=== PATIENT | female | born 1980 | race Hispanic/Latino ===

== ENCOUNTER → 2016-07-26 | Outpatient (CLI) | payer OTHER ==
[~2016-07-26] MED LIST: BUTA1TAB46 PO; CYCL10TA9 PO; DOCU100C37 PO; FENO54TA PO; HYDR-3714 PO; HYDR-3816 PO; HYDR25CA92 PO; HYOS0.1216 PO; HYOS0.1217 SL; IBP800T PO; IBUP-1773 PO; IBUP50DR PO; KETO10TA77 PO; LEVO150T6 PO; LEVO200T39 PO; LISI10TA2 PO; MELO7.5T46 PO; METF500T4 PO; METO-270 PO; NAPR500T3 PO; NITR-65 PO; ONDA-42 SL; ONDA8TAB9 PO; ORPH100T PO; PANT40TA2 PO; PHENTERMINE PO; PNT40TEC PO; SERT50TA9 PO; SIME80TA16 PO; STAY AWAKE; SULF1TAB35 PO; TRAM-21 PO; TRAM-42 PO; TRAZODONE; ZOSTRIX TP
--- NOTE | 2016-07-26 19:01 | Diagnostic Imaging Report ---
Bilateral diagnostic mammogram. The current study was also evaluated with a Computer Aided Detection (CAD) system. COMPARISON: 07/01/2006. INDICATION: Palpable lumps bilaterally. FINDINGS: The breasts are composed of scattered fibroglandular density. There is no mass, architectural distortion, or suspicious cluster of calcification. The areas marked for palpable abnormalities demonstrate no underlying lesion. IMPRESSION: No mammographic evidence of malignancy. Ultrasound evaluation pending. ACR BI-RADS Category 0: Incomplete. (Needs additional imaging evaluation). Result letter will be mailed to the patient. Note: At least 10% of breast cancer is not imaged by mammography. Dictated by: Dictated on workstation # [id number]
--- NOTE | 2016-07-26 19:15 | Diagnostic Imaging Report ---
EXAMINATION: Bilateral breast ultrasound. INDICATION: Bilateral breast lumps, multiple areas in the left breast and in the lateral aspect of the right breast. FINDINGS: The retroareolar area and the four quadrants in each breast were scanned with no underlying abnormality seen. IMPRESSION: Negative study. Clinical followup of the palpable area is recommended. ACR BI-RADS Category 1: Negative. Result letter will be mailed to the patient. Note: At least 10% of breast cancer is not imaged by mammography. Dictated by: Dictated on workstation # [id number]
== END ==
LOC: RAD 08:39
PROVIDERS: ATTEND Nurse Practitioner Family
DX: N63 Unspecified lump in breast (principal)

== ENCOUNTER 2016-08-19 19:57 | Emergency (ER) | payer SELFPAY ==
[~2016-08-19] VITALS: Ht 167.6 cm; Wt 154.2 kg
[~2016-08-19 19:57] MED LIST changes: -FENO54TA PO; -MELO7.5T46 PO; -ONDA8TAB9 PO; -PANT40TA2 PO; -SERT50TA9 PO; -SULF1TAB35 PO
[2016-08-19] MEDS ORDERED: SERT50TA9 PO (20:07)
[2016-08-19] MEDS ORDERED: FENO54TA PO (20:07)
[2016-08-19] MEDS ORDERED: MELO7.5T46 PO (20:07)
[2016-08-19] MEDS ORDERED: KETOROLAC 30 MG/ML VIAL IVP ONE (20:45)
[2016-08-19] MEDS ORDERED: ONDANSETRON 4 MG/2 ML (SDV) Z0FRAN IVP ONE (20:45)
[2016-08-19] MEDS ORDERED: NS IV 1000 ML 1,000 ML IV SCH (20:45)
--- NOTE | 2016-08-19 20:48 | ED Abdominal Pain ---
General Chief Complaint: Abdominal/GI Problems Stated Complaint: STOMACH PAIN/NAUSEA Nursing Triage Note: nausea x3 weeks, epigastric pain today. Sepsis Screen: No Definite Risk Source of Information: Patient Exam Limitations: No Limitations History of Present Illness Time Seen By Provider: 20:46 Initial Comments To ER with a 3 week history of intermittent nausea and vomiting. Epigastric pain started this morning. She's not had anything to eat or drink since 8 a.m. this morning. Pain radiates through to her back. She does still have her gallbladder. She does report alternating constipation and loose stools over the past month. Timing/Duration: Getting Worse, Intermittent Severity/Quality: Moderate Location: Epigastric Radiation: No Radiation Activities at Onset: None Associated Symptoms: Denies Symptoms Allergies and Home Medications Allergies Coded Allergies: No Known Drug Allergies (Unverified , 06/01/10) Home Medications Docusate Sodium 100 Mg Capsule #40 100 MG PO BID PRN PRN CONSTIPATION Prescribed by: MIYA ALBERT on 10/19/15 1201 Fenofibrate 54 Mg Tablet #90 1 TAB PO UD (Reported) Hydrocodone/Acetaminophen 1 Each Tablet #50 1-2 EA PO Q6H PRN PRN PAIN Prescribed by: MIYA ALBERT on 10/19/15 1201 Ibuprofen 600 Mg Tablet #60 600 MG PO Q6H PRN PRN PAIN Prescribed by: MIYA ALBERT on 10/19/15 1201 Levothyroxine Sodium 150 Mcg Tablet 300 MG PO DAILY (Reported) TAKE 2 (300MG) TABS Lisinopril 10 Mg Tablet 15 MG PO DAILY (Reported) TAKE 1&1/2 OF 10MG TAB Meloxicam 7.5 Mg Tablet #60 1 TAB PO UD (Reported) Metformin HCl 500 Mg Tablet 500 MG PO BID (Reported) Metoprolol Succinate 25 Mg Tab.er.24h 25 MG PO HS (Reported) Sertraline HCl 50 Mg Tablet #90 1 TAB PO UD (Reported) Review of Systems Constitutional: see HPI EENTM: No Symptoms Reported Respiratory: No Symptoms Reported Cardiovascular: No Symptoms Reported Gastrointestinal: See HPI Abdominal Pain Nausea Vomiting Genitourinary: No Symptoms Reported Musculoskeletal: no symptoms reported Skin: no symptoms reported Psychiatric/Neurological: No Symptoms Reported Endocrine: No Symptoms Reported Hematologic/Lymphatic: No Symptoms Reported Past Fqbdxqf-Bothyv-Yvrapt Hx Patient Social History Alcohol Use: Denies Use Recreational Drug Use: No Smoking Status: Former Smoker Former Smoker/When Quit: Jul 14, 2010 2nd Hand Smoke Exposure: No Recent Foreign Travel: No Contact w/Someone Who Travel: No Recent Infectious Disease Expo: No Recent Hopitalizations: No Immunizations Up To Date Tetanus Booster (TDap): Less than 5yrs Date of Influenza Vaccine: May 14, 2015 Seasonal Allergies Seasonal Allergies: No Surgeries HX Surgeries: Yes Surgeries: Cardiac, Hysterectomy, Thyroidectomy, Tubal Ligation Respiratory Hx Respiratory Disorders: No Cardiovascular Hx Cardiac Disorders: Yes Cardiac Disorders: High Cholesterol, Hypertension, Palpitations Neurological Hx Neurological Disorders: Yes Neurological Disorders: Headaches /Migraines Reproductive System : No Hx Reproductive Disorders: Yes Female Reproductive Disorders: Menstrual 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 Genitourinary Hx Genitourinary Disorders: No Gastrointestinal Hx Gastrointestinal Disorders: No Gastrointestinal Disorders: Gastroesophageal Reflux Musculoskeletal Hx Musculoskeletal Disorders: Yes Musculoskeletal Disorders: Chronic Back Pain Endocrine Hx Endocrine Disorders: No (MORBID OBESITY) Endocrine Disorders: Hypothyroidsim, Diabetes, Non-Insulin dep HEENT HX ENT Disorders: No Cancer Hx Cancer: No Psychosocial Hx Psychiatric Problems: Yes Behavioral Health Disorders: Anxiety, Depression Integumentary HX Skin/Integumentary Disorder: No Blood Transfusions Hx Blood Disorders: No Family Medical History Significant Family History: Diabetes Family Medial History: Diabetes mellitus 19 MOTHER Hypertension 19 MOTHER Seizure disorder G8 BROTHER G8 SISTER Physical Exam Vital Signs VS - Last 72 Hours, by Label 08/19/16 20:07 Temp 98.8 Pulse 84 Resp 20 B/P 160/77 Pulse Ox 98 O2 Delivery Room Air Capillary Refill : Less Than 3 Seconds General Appearance: WD/WN no apparent distress HEENT: PERRL/EOMI normal ENT inspection Neck: non-tender full range of motion Respiratory: no respiratory distress no accessory muscle use Cardiovascular: regular rate, rhythm no murmur Gastrointestinal: normal bowel sounds soft tenderness (right upper quadrant) Extremities: normal range of motion non-tender normal inspection Neurologic/Psychiatric: alert normal mood/affect oriented x 3 Skin: normal color warm/dry Progress/Results/Core Measures Results/Orders Lab Results Laboratory Tests Test 08/19/16 20:58 08/19/16 21:07 Range/Units Alanine Aminotransferase (ALT/SGPT) 49 0-55 U/L Albumin 3.9 3.2-4.5 G/DL Alkaline Phosphatase 78 40-136 U/L Anion Gap 11 5-14 MMOL/L Aspartate Amino Transf (AST/SGOT) 36 H 5-34 U/L BUN/Creatinine Ratio 21 Basophils # (Auto) 0.1 0.0-0.1 10^3/uL Basophils (%) (Auto) 1 0-10 % Blood Urea Nitrogen 14 7-18 MG/DL Calcium Level 8.8 8.5-10.1 MG/DL Carbon Dioxide Level 24 21-32 MMOL/L Chloride Level 105 98-107 MMOL/L Creatinine 0.66 0.60-1.30 MG/DL Eosinophils # (Auto) 0.2 0.0-0.3 10^3/uL Eosinophils (%) (Auto) 2 0-10 % Estimat Glomerular Filtration Rate > 60 Glucose Level 94 70-105 MG/DL Hematocrit 40 35-52 % Hemoglobin 13.9 11.5-16.0 G/DL Lipase 16 8-78 U/L Lymphocytes # (Auto) 4.2 H 1.0-4.0 X 10^3 Lymphocytes (%) (Auto) 35 12-44 % Mean Corpuscular Hemoglobin 31 25-34 PG Mean Corpuscular Hemoglobin Concent 35 32-36 G/DL Mean Corpuscular Volume 88 80-99 FL Mean Platelet Volume 9.4 7.4-10.4 FL Monocytes # (Auto) 0.9 0.0-1.0 X 10^3 Monocytes (%) (Auto) 8 0-12 % Neutrophils # (Auto) 6.5 1.8-7.8 X 10^3 Neutrophils (%) (Auto) 55 42-75 % Platelet Count 357 130-400 10^3/uL Potassium Level 3.8 3.6-5.0 MMOL/L Red Blood Count 4.56 4.35-5.85 10^6/uL Red Cell Distribution Width 13.7 10.0-14.5 % Sodium Level 140 135-145 MMOL/L Total Bilirubin 0.4 0.1-1.0 MG/DL Total Protein 6.8 6.4-8.2 G/DL White Blood Count 11.9 H 4.3-11.0 10^3/uL Urine Bacteria LARGE H /HPF Urine Bilirubin NEGATIVE NEGATIVE Urine Casts NONE /LPF Urine Clarity SLIGHTLY CLOUDY Urine Color YELLOW Urine Crystals NONE /LPF Urine Culture Indicated YES Urine Glucose (UA) NEGATIVE NEGATIVE Urine Ketones NEGATIVE NEGATIVE Urine Leukocyte Esterase NEGATIVE NEGATIVE Urine Mucus MODERATE H /LPF Urine Nitrite NEGATIVE NEGATIVE Urine Protein 1+ H NEGATIVE Urine RBC NONE /HPF Urine RBC (Auto) NEGATIVE NEGATIVE Urine Specific [place] 1.025 H 1.016-1.022 Urine Squamous Epithelial Cells 10-25 H /HPF Urine Urobilinogen NORMAL NORMAL MG/DL Urine WBC 5-10 H /HPF Urine pH 6 5-9 My Orders Orders-EILEEN PIKE COLORED LEATHER SETTER Cbc With Automated Diff (08/19/16 20:20) Comprehensive Metabolic Panel (08/19/16 20:20) Lipase (08/19/16 20:20) Ua Culture If Indicated (08/19/16 20:20) Saline Lock/Iv-Start (08/19/16 20:20) Us Gallbladder [id number] (08/19/16 20:45) Ondansetron Injection (Zofran Injectio (08/19/16 20:45) Ketorolac Injection (Toradol Injection) (08/19/16 20:45) Ns Iv 1000 Ml (Sodium Chloride 0.9%) (08/19/16 20:45) Antacid Suspension (Mylanta Suspension (08/19/16 21:15) Lidocaine 2% Viscous 15 Ml (Xylocaine Vi (08/19/16 21:15) Urine Culture (08/19/16 21:07) Medications Given in ED Current Medications Medications Dose Ordered Sig/Elmer Route Start Time Stop Time Status Last Admin Dose Admin Al Hydrox/Mg Hydrox/Simethicone 30 ml ONCE ONCE PO 08/19/16 21:15 08/19/16 21:16 DC 08/19/16 21:28 30 ML Ketorolac Tromethamine 30 mg ONCE ONCE IVP 08/19/16 20:45 08/19/16 20:47 DC 08/19/16 20:56 30 MG Lidocaine HCl 15 ml ONCE ONCE PO 08/19/16 21:15 08/19/16 21:16 DC 08/19/16 21:28 15 ML Ondansetron HCl 4 mg ONCE ONCE IVP 08/19/16 20:45 08/19/16 20:47 DC 08/19/16 20:56 4 MG Vital Signs/I&O Vital Sign - Last 12Hours 08/19/16 20:07 Temp 98.8 Pulse 84 Resp 20 B/P 160/77 Pulse Ox 98 O2 Delivery Room Air Blood Pressure Mean: 104 Departure Impression Impression: Primary Impression: Urinary tract infection Qualified Code: N30.00 - Acute cystitis without hematuria Disposition: HOME, SELF-CARE Condition: Stable Departure-Patient Inst. Decision time for Depature: 21:35 Referrals: AILYN SHAFFER DO (PCP) Primary Care Physician PATTIE ENAMORADO APRN (Family) Primary Care Physician Patient Instructions: Urinary Tract Infection, Adult (DC) Add. Discharge Instructions: 1. Return to ER for any concerns 2. Follow-up with her regular doctor later this week 3. Antibiotics as directed All discharge instructions reviewed with patient and/or family. Voiced understanding. Scripts Sulfamethoxazole/Trimethoprim (Bactrim Ds Tablet)1 Each Tablet1 Each PO BID #10 TAB Prov:EILEEN PIKE APRN 08/19/16 Ondansetron (Zofran Odt)8 Mg Tab.rapdis8 Mg PO Q6H PRN NAUSEA/VOMITING #10 TAB Prov:EILEEN PIKE APRN 08/19/16 EILEEN PIKE APRN Aug 19, 2016 20:48
[2016-08-19 21:08] LABS: BASOPHILS # (AUTO) 0.1 10^3/uL (0.0-0.1); BASOPHILS % (AUTO) 1 % (0-10); EOSINOPHILS # (AUTO) 0.2 10^3/uL (0.0-0.3); EOSINOPHILS % (AUTO) 2 % (0-10); LYMPHOCYTES # (AUTO) 4.2 X 10^3 (1.0-4.0); LYMPHOCYTES % (AUTO) 35 % (12-44); MEAN CORPUSCULAR HEMOGLOBIN 31 PG (25-34); MEAN CORPUSCULAR HGB CONC 35 G/DL (32-36); MEAN CORPUSCULAR VOLUME 88 FL (80-99); MEAN PLATELET VOLUME 9.4 FL (7.4-10.4); MONOCYTES # (AUTO) 0.9 X 10^3 (0.0-1.0); MONOCYTES % (AUTO) 8 % (0-12); NEUTROPHILS # (AUTO) 6.5 X 10^3 (1.8-7.8); NEUTROPHILS % (AUTO) 55 % (42-75); PLATELET COUNT 357 10^3/uL (130-400); RED BLOOD COUNT 4.56 10^6/uL (4.35-5.85); RED CELL DISTRIBUTION WIDTH 13.7 % (10.0-14.5); WHITE BLOOD COUNT 11.9 10^3/uL (4.3-11.0)
[2016-08-19 21:11] LABS: BILIRUBIN,URINE NEGATIVE (NEGATIVE); KETONES,URINE NEGATIVE (NEGATIVE); LEUKOCYTE ESTERASE ,URINE NEGATIVE (NEGATIVE); NITRITE,URINE NEGATIVE (NEGATIVE); PH,URINE 6 (5-9); PROTEIN,URINE 1+ (NEGATIVE); UROBILINOGEN,URINE NORMAL (NORMAL)
[2016-08-19] MEDS ORDERED: ANTACID SUSP 30 ML UDC (MYLANTA) PO ONE (21:15)
[2016-08-19] MEDS ORDERED: LIDOCAINE 2% VISCOUS 15 ML UDC PO ONE (21:15)
[2016-08-19 21:26] LABS: ALANINE AMINOTRANSFERASE 49 U/L (0-55); ALBUMIN 3.9 G/DL (3.2-4.5); ANION GAP 11 MMOL/L (5-14); ASPARTATE AMINO TRANSFERASE 36 U/L (5-34); BILIRUBIN,TOTAL 0.4 MG/DL (0.1-1.0); BLOOD UREA NITROGEN 14 MG/DL (7-18); BUN/CREATININE RATIO 21; CALCIUM 8.8 MG/DL (8.5-10.1); CARBON DIOXIDE 24 MMOL/L (21-32); CHLORIDE 105 MMOL/L (98-107); CREATININE SERUM 0.66 MG/DL (0.60-1.30); GFR ESTIMATED > 60; GLUCOSE 94 MG/DL (70-105); LIPASE 16 U/L (8-78); POTASSIUM 3.8 MMOL/L (3.6-5.0); SODIUM 140 MMOL/L (135-145); TOTAL PROTEIN 6.8 G/DL (6.4-8.2)
--- NOTE | 2016-08-19 21:26 | Diagnostic Imaging Report ---
PROCEDURE: US Gallbladder. TECHNIQUE: Multiple real-time grayscale images were obtained over the right upper quadrant in various projections. INDICATION: Nausea and vomiting FINDINGS: Right upper quadrant ultrasound demonstrates nonvisualization of the left lobe of the liver, pancreas, and common bile duct due to overlying bowel gas. Right lobe of the liver appears normal. No intrahepatic duct dilatation is present. The gallbladder appears normal. No calculi or gallbladder wall thickening is present. The gallbladder wall measures 2.3 mm. No renal calculi, hydronephrosis, or masses are identified. No free fluid is seen. IMPRESSION: Limited ultrasound. The gallbladder and right lobe of the liver appears normal. Common bile duct, pancreas, and left lobe of the liver are obscured. Dictated by: Dictated on workstation # [id number]
[2016-08-19] MEDS ORDERED: ONDA8TAB9 PO (21:36)
[2016-08-19] MEDS ORDERED: SULF1TAB35 PO (21:37)
[2016-08-19] MEDS ORDERED: PANT40TA2 PO (21:41)
[2016-08-19] MEDS ORDERED: fentaNYL INJECTION 100 MCG/2 ML AMP IVP ONE (21:45)
[2016-08-19 22:30] VITALS: BP 0/0
== END 2016-08-19 22:30 | disposition home or self-care (01) ==
LOC: EDUNIT# 19:57 → ER 19:58
DX: N39.0 Urinary tract infection, site not specified (principal); R11.2 Nausea with vomiting, unspecified; E11.9 Type 2 diabetes mellitus without complications; I10 Essential (primary) hypertension; E66.01 Morbid (severe) obesity due to excess calories; Z79.84 Long term (current) use of oral hypoglycemic drugs; Z79.899 Other long term (current) drug therapy
CPT/HCPCS: 36415; 76705; 80053; 81000; 83690; 85025; 87088; 96361; 96374; 96375

== ENCOUNTER 2016-11-02 21:04 | Emergency (ER) | payer SELFPAY ==
[~2016-11-02] VITALS: Ht 167.6 cm; Wt 170.1 kg
[~2016-11-02 21:04] MED LIST changes: +FENO54TA PO; +MELO7.5T46 PO; +ONDA8TAB9 PO; +PANT40TA2 PO; +SERT50TA9 PO; +SULF1TAB35 PO
[2016-11-02 21:32] LABS: BILIRUBIN,URINE NEGATIVE (NEGATIVE); KETONES,URINE NEGATIVE (NEGATIVE); LEUKOCYTE ESTERASE ,URINE NEGATIVE (NEGATIVE); NITRITE,URINE NEGATIVE (NEGATIVE); PH,URINE 6 (5-9); PROTEIN,URINE 1+ (NEGATIVE); UROBILINOGEN,URINE NORMAL (NORMAL)
--- NOTE | 2016-11-02 21:36 | ED Abdominal Pain ---
General Chief Complaint: Abdominal/GI Problems Stated Complaint: L SIDE ABD PAIN Nursing Triage Note: AMBULATORY TO ED7 WITH REPORTS OF LLQ PAIN X 4 DAYS. DENIES N/V/D. Sepsis Screen: No Definite Risk Source of Information: Patient Exam Limitations: No Limitations History of Present Illness Time Seen By Provider: 21:34 Initial Comments To ER ambulatory with a four-day history of left lower quadrant abdominal pain that does not radiate. She had a hysterectomy last year. She states this is a crampy abdominal pain. She denies nausea vomiting or diarrhea. She denies any dysuria. She states occasionally she does have some blood streaked on her bowels. No fevers or chills. No history of this but she does state that it feels like it could be coming from her ovary. Timing/Duration: 4-5 Days Severity/Quality: Moderate Location: LLQ Radiation: No Radiation Associated Symptoms: Denies Symptoms Allergies and Home Medications Allergies Coded Allergies: No Known Drug Allergies (Unverified , 06/01/10) Home Medications Docusate Sodium 100 Mg Capsule, 100 MG PO BID PRN for CONSTIPATION, #40 Prescribed by: MIYA ALBERT on 10/19/15 1201 Fenofibrate 54 Mg Tablet, 1 TAB PO UD, #90 (Reported) Hydrocodone/Acetaminophen 1 Each Tablet, 1-2 EA PO Q6H PRN for PAIN, #50 Prescribed by: MIYA ALBERT on 10/19/15 1201 Ibuprofen 600 Mg Tablet, 600 MG PO Q6H PRN for PAIN, #60 Prescribed by: MIYA ALBERT on 10/19/15 1201 Levothyroxine Sodium 150 Mcg Tablet, 300 MG PO DAILY, (Reported) TAKE 2 (300MG) TABS Lisinopril 10 Mg Tablet, 15 MG PO DAILY, (Reported) TAKE 1&1/2 OF 10MG TAB Meloxicam 7.5 Mg Tablet, 1 TAB PO UD, #60 (Reported) Metformin HCl 500 Mg Tablet, 500 MG PO BID, (Reported) Metoprolol Succinate 25 Mg Tab.er.24h, 25 MG PO HS, (Reported) Ondansetron 8 Mg Tab.rapdis, 8 MG PO Q6H PRN for NAUSEA/VOMITING, #10 Prescribed by: EILEEN PIKE on 08/19/162135 Pantoprazole Sodium 40 Mg Tablet.dr, 40 MG PO DAILY, #20 Prescribed by: EILEEN PIKE on 08/19/161 Sertraline HCl 50 Mg Tablet, 1 TAB PO UD, #90 (Reported) Review of Systems Constitutional: see HPI EENTM: No Symptoms Reported Respiratory: No Symptoms Reported Cardiovascular: No Symptoms Reported Gastrointestinal: See HPI, Abdominal Pain, Denies Constipated, Denies Diarrhea , Nausea Genitourinary: No Symptoms Reported Musculoskeletal: no symptoms reported Skin: no symptoms reported Psychiatric/Neurological: No Symptoms Reported Past Xjepnhx-Izhoxl-Cmxito Hx Patient Social History Alcohol Use: Occasionally Uses Recreational Drug Use: No Smoking Status: Former Smoker Former Smoker/When Quit: Jul 14, 2010 2nd Hand Smoke Exposure: No Recent Foreign Travel: No Contact w/Someone Who Travel: No Recent Infectious Disease Expo: No Recent Hopitalizations: No Immunizations Up To Date Tetanus Booster (TDap): Less than 5yrs Date of Influenza Vaccine: May 14, 2015 Seasonal Allergies Seasonal Allergies: No Surgeries HX Surgeries: Yes Surgeries: Cardiac, Hysterectomy, Thyroidectomy, Tubal Ligation Respiratory Hx Respiratory Disorders: No Cardiovascular Hx Cardiac Disorders: Yes Cardiac Disorders: High Cholesterol, Hypertension, Palpitations Neurological Hx Neurological Disorders: Yes Neurological Disorders: Headaches /Migraines Reproductive System Hx Reproductive Disorders: Yes Female 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 Genitourinary Hx Genitourinary Disorders: No Gastrointestinal Hx Gastrointestinal Disorders: No Gastrointestinal Disorders: Gastroesophageal Reflux Musculoskeletal Hx Musculoskeletal Disorders: Yes Musculoskeletal Disorders: Chronic Back Pain Endocrine Hx Endocrine Disorders: No (MORBID OBESITY) Endocrine Disorders: Hypothyroidsim, Diabetes, Non-Insulin dep HEENT HX ENT Disorders: No Cancer Hx Cancer: No Psychosocial Hx Psychiatric Problems: Yes Behavioral Health Disorders: Anxiety, Depression Integumentary HX Skin/Integumentary Disorder: No Blood Transfusions Hx Blood Disorders: No Family Medical History Significant Family History: Diabetes Family Medial History: Diabetes mellitus 19 MOTHER Hypertension 19 MOTHER Seizure disorder G8 BROTHER G8 SISTER Physical Exam Vital Signs VS - Last 72 Hours, by Label 11/02/16 21:22 Temp 98.5 Pulse 87 Resp 18 B/P (MAP) 152/78 Pulse Ox 98 O2 Delivery Room Air Capillary Refill : Less Than 3 Seconds General Appearance: WD/WN, no apparent distress, obese HEENT: PERRL/EOMI, normal ENT inspection Neck: non-tender, full range of motion Respiratory: no respiratory distress, no accessory muscle use Gastrointestinal: normal bowel sounds, non tender, soft Extremities: normal range of motion, non-tender Neurologic/Psychiatric: alert, normal mood/affect, oriented x 3 Skin: normal color, warm/dry Progress/Results/Core Measures Results/Orders Lab Results Laboratory Tests Test 11/02/16 21:18 11/02/16 21:35 Range/Units Urine Color YELLOW Urine Clarity CLEAR Urine pH 6 5-9 Urine Specific [place] 1.020 1.016-1.022 Urine Protein 1+ H NEGATIVE Urine Glucose (UA) NEGATIVE NEGATIVE Urine Ketones NEGATIVE NEGATIVE Urine Nitrite NEGATIVE NEGATIVE Urine Bilirubin NEGATIVE NEGATIVE Urine Urobilinogen NORMAL NORMAL MG/DL Urine Leukocyte Esterase NEGATIVE NEGATIVE Urine RBC (Auto) NEGATIVE NEGATIVE Urine RBC NONE /HPF Urine WBC RARE /HPF Urine Squamous Epithelial Cells 10-25 H /HPF Urine Crystals NONE /LPF Urine Bacteria TRACE /HPF Urine Casts NONE /LPF Urine Mucus NEGATIVE /LPF Urine Culture Indicated NO White Blood Count 8.8 4.3-11.0 10^3/uL Red Blood Count 4.69 4.35-5.85 10^6/uL Hemoglobin 14.0 11.5-16.0 G/DL Hematocrit 42 35-52 % Mean Corpuscular Volume 90 80-99 FL Mean Corpuscular Hemoglobin 30 25-34 PG Mean Corpuscular Hemoglobin Concent 33 32-36 G/DL Red Cell Distribution Width 13.6 10.0-14.5 % Platelet Count 349 130-400 10^3/uL Mean Platelet Volume 9.5 7.4-10.4 FL Neutrophils (%) (Auto) 46 42-75 % Lymphocytes (%) (Auto) 42 12-44 % Monocytes (%) (Auto) 8 0-12 % Eosinophils (%) (Auto) 2 0-10 % Basophils (%) (Auto) 1 0-10 % Neutrophils # (Auto) 4.0 1.8-7.8 X 10^3 Lymphocytes # (Auto) 3.7 1.0-4.0 X 10^3 Monocytes # (Auto) 0.7 0.0-1.0 X 10^3 Eosinophils # (Auto) 0.2 0.0-0.3 10^3/uL Basophils # (Auto) 0.1 0.0-0.1 10^3/uL Sodium Level 139 135-145 MMOL/L Potassium Level 3.3 L 3.6-5.0 MMOL/L Chloride Level 101 98-107 MMOL/L Carbon Dioxide Level 25 21-32 MMOL/L Anion Gap 13 5-14 MMOL/L Blood Urea Nitrogen 15 7-18 MG/DL Creatinine 0.66 0.60-1.30 MG/DL Estimat Glomerular Filtration Rate > 60 BUN/Creatinine Ratio 23 Glucose Level 106 H 70-105 MG/DL Calcium Level 9.1 8.5-10.1 MG/DL Total Bilirubin 0.6 0.1-1.0 MG/DL Aspartate Amino Transf (AST/SGOT) 49 H 5-34 U/L Alanine Aminotransferase (ALT/SGPT) 57 H 0-55 U/L Alkaline Phosphatase 77 40-136 U/L Total Protein 7.3 6.4-8.2 G/DL Albumin 4.0 3.2-4.5 G/DL My Orders Orders - EILEEN PIKE APRN Cbc With Automated Diff (11/02/16 21:28) Comprehensive Metabolic Panel (11/02/16 21:28) Ua Culture If Indicated (11/02/16 21:28) Saline Lock/Iv-Start (11/02/16 21:28) Ct Abdomen/Pelvis W (11/02/16 21:28) Ondansetron Injection (Zofran Injectio (11/02/16 22:15) Medications Given in ED Current Medications Medications Dose Ordered Sig/Elmer Route Start Time Stop Time Status Last Admin Dose Admin Ondansetron HCl 4 mg ONCE ONCE IVP 11/02/16 22:15 11/02/16 22:16 DC 11/02/16 22:22 4 MG Vital Signs/I&O Vital Sign - Last 12Hours 11/02/16 21:22 Temp 98.5 Pulse 87 Resp 18 B/P (MAP) 152/78 Pulse Ox 98 O2 Delivery Room Air Blood Pressure Mean: 102 Departure Impression Impression: Primary Impression: Nonspecific abdominal pain Disposition: 01 HOME, SELF-CARE Condition: Stable Departure-Patient Inst. Decision time for Depature: 23:21 Referrals: PATTIE ENAMORADO APRN (PCP/Family) Primary Care Physician Patient Instructions: Acute Abdomen (Belly Pain), Adult (DC) Add. Discharge Instructions: 1. Return to ER for any worsening 2. Follow-up with your doctor next week 3. All discharge instructions reviewed with patient and/or family. Voiced understanding. EILEEN PIKE OPHTHALMIC TECHNOLOGIST Nov 02, 2016 21:36
[2016-11-02 21:42] LABS: BASOPHILS # (AUTO) 0.1 10^3/uL (0.0-0.1); BASOPHILS % (AUTO) 1 % (0-10); EOSINOPHILS # (AUTO) 0.2 10^3/uL (0.0-0.3); EOSINOPHILS % (AUTO) 2 % (0-10); LYMPHOCYTES # (AUTO) 3.7 X 10^3 (1.0-4.0); LYMPHOCYTES % (AUTO) 42 % (12-44); MEAN CORPUSCULAR HEMOGLOBIN 30 PG (25-34); MEAN CORPUSCULAR HGB CONC 33 G/DL (32-36); MEAN CORPUSCULAR VOLUME 90 FL (80-99); MEAN PLATELET VOLUME 9.5 FL (7.4-10.4); MONOCYTES # (AUTO) 0.7 X 10^3 (0.0-1.0); MONOCYTES % (AUTO) 8 % (0-12); NEUTROPHILS % (AUTO) 46 % (42-75); PLATELET COUNT 349 10^3/uL (130-400); RED BLOOD COUNT 4.69 10^6/uL (4.35-5.85); RED CELL DISTRIBUTION WIDTH 13.6 % (10.0-14.5); WHITE BLOOD COUNT 8.8 10^3/uL (4.3-11.0)
[2016-11-02 21:42] LABS: WBC,URINE RARE /HPF
[2016-11-02 22:02] LABS: ALANINE AMINOTRANSFERASE 57 U/L (0-55); ANION GAP 13 MMOL/L (5-14); ASPARTATE AMINO TRANSFERASE 49 U/L (5-34); BILIRUBIN,TOTAL 0.6 MG/DL (0.1-1.0); BLOOD UREA NITROGEN 15 MG/DL (7-18); BUN/CREATININE RATIO 23; CALCIUM 9.1 MG/DL (8.5-10.1); CARBON DIOXIDE 25 MMOL/L (21-32); CHLORIDE 101 MMOL/L (98-107); CREATININE SERUM 0.66 MG/DL (0.60-1.30); GFR ESTIMATED > 60; GLUCOSE 106 MG/DL (70-105); POTASSIUM 3.3 MMOL/L (3.6-5.0); SODIUM 139 MMOL/L (135-145); TOTAL PROTEIN 7.3 G/DL (6.4-8.2)
[2016-11-02] MEDS ORDERED: ONDANSETRON 4 MG/2 ML (SDV) Z0FRAN IVP ONE (22:15)
[2016-11-02] MEDS ORDERED: KETOROLAC 30 MG/ML VIAL IVP ONE (23:30)
[2016-11-02 23:49] VITALS: BP 142/82
--- NOTE | 2016-11-03 09:16 | Diagnostic Imaging Report ---
PROCEDURE: CT abdomen and pelvis with contrast. TECHNIQUE: Multiple contiguous axial images were obtained through the abdomen and pelvis after administration of intravenous contrast. INDICATION: Left lower quadrant abdominal pain. FINDINGS: The lung bases are clear. The liver appears normal. The gallbladder is present. The pancreas is unremarkable. The spleen is not enlarged. The adrenals and kidneys appear normal. The small bowel is not dilated. The colon appears normal. There is no intraperitoneal free air or free fluid. The uterus is surgically absent. The urinary bladder is unremarkable. IMPRESSION: No acute abnormality seen in the abdomen or pelvis. I agree with the preliminary interpretation. Dictated by: Dictated on workstation # [id number]
== END 2016-11-02 23:49 | disposition home or self-care (01) ==
LOC: EDUNIT# 21:04 → ER 21:06
DX: R10.32 Left lower quadrant pain (principal); I10 Essential (primary) hypertension; E11.9 Type 2 diabetes mellitus without complications; E66.01 Morbid (severe) obesity due to excess calories; Z79.84 Long term (current) use of oral hypoglycemic drugs; Z79.899 Other long term (current) drug therapy; Z87.891 Personal history of nicotine dependence; Z90.710 Acquired absence of both cervix and uterus
CPT/HCPCS: 36415; 74177; 80053; 81000; 84703; 85025; 96374; 96375

== ENCOUNTER 2016-12-27 19:15 | Outpatient (CLI) | payer OTHER | END 2016-12-28 06:10 | disposition home or self-care (01) | LOC: SLEEP 19:15 | PROVIDERS: ATTEND Nurse Practitioner Family | DX: G47.19 Other hypersomnia (principal); R06.83 Snoring; I10 Essential (primary) hypertension; E03.9 Hypothyroidism, unspecified; E78.1 Pure hyperglyceridemia; F41.8 Other specified anxiety disorders; E88.81 Metabolic syndrome and other insulin resistance; Z68.44 Body mass index [BMI] 60.0-69.9, adult | CPT/HCPCS: 95810 ==

== ENCOUNTER → 2017-01-03 | Outpatient (CLI) | payer OTHER ==
[2017-01-03 18:26] LABS: BASOPHILS # (AUTO) 0.1 10^3/uL (0.0-0.1); BASOPHILS % (AUTO) 1 % (0-10); EOSINOPHILS # (AUTO) 0.2 10^3/uL (0.0-0.3); EOSINOPHILS % (AUTO) 2 % (0-10); LYMPHOCYTES # (AUTO) 3.7 X 10^3 (1.0-4.0); LYMPHOCYTES % (AUTO) 35 % (12-44); MEAN CORPUSCULAR HEMOGLOBIN 30 PG (25-34); MEAN CORPUSCULAR HGB CONC 34 G/DL (32-36); MEAN CORPUSCULAR VOLUME 89 FL (80-99); MEAN PLATELET VOLUME 9.7 FL (7.4-10.4); MONOCYTES % (AUTO) 9 % (0-12); NEUTROPHILS # (AUTO) 5.6 X 10^3 (1.8-7.8); NEUTROPHILS % (AUTO) 54 % (42-75); PLATELET COUNT 405 10^3/uL (130-400); RED BLOOD COUNT 5.06 10^6/uL (4.35-5.85); RED CELL DISTRIBUTION WIDTH 13.5 % (10.0-14.5); WHITE BLOOD COUNT 10.5 10^3/uL (4.3-11.0)
[2017-01-03 18:44] LABS: ALANINE AMINOTRANSFERASE 69 U/L (0-55); ALBUMIN 4.3 GM/DL (3.2-4.5); ANION GAP 16 MMOL/L (5-14); ASPARTATE AMINO TRANSFERASE 53 U/L (5-34); BILIRUBIN,TOTAL 0.6 MG/DL (0.1-1.0); BLOOD UREA NITROGEN 19 MG/DL (7-18); BUN/CREATININE RATIO 22 (0-20); CALCIUM 9.6 MG/DL (8.5-10.1); CARBON DIOXIDE 21 MMOL/L (21-32); CHLORIDE 101 MMOL/L (98-107); CREATINE KINASE 76 U/L (29-168); CREATININE SERUM 0.86 MG/DL (0.60-1.30); GFR ESTIMATED > 60; GLUCOSE 121 MG/DL (70-105); HEMOLYSIS 13 (-100-29); ICTERUS 0.6 (-100-1.9); LIPEMIA 8 (-100-49); POTASSIUM 3.6 MMOL/L (3.6-5.0); SODIUM 138 MMOL/L (135-145); TOTAL PROTEIN 8.4 GM/DL (6.4-8.2)
[2017-01-03 18:50] LABS: TROPONIN I < 0.30 NG/ML (<0.30)
== END ==
LOC: LAB 18:02
PROVIDERS: ATTEND Nurse Practitioner Family
DX: R07.9 Chest pain, unspecified (principal)
CPT/HCPCS: 36415; 80053; 82550; 84484; 85025

== ENCOUNTER 2017-02-11 21:46 | Inpatient (IN) | payer OTHER ==
[~2017-02-11] VITALS: Ht 167.6 cm; Wt 170.6 kg
[2017-02-11 22:15] LABS: BASOPHILS # (AUTO) 0.1 10^3/uL (0.0-0.1); BASOPHILS % (AUTO) 0 % (0-10); EOSINOPHILS # (AUTO) 0.1 10^3/uL (0.0-0.3); EOSINOPHILS % (AUTO) 0 % (0-10); LYMPHOCYTES # (AUTO) 1.6 X 10^3 (1.0-4.0); LYMPHOCYTES % (AUTO) 9 % (12-44); MEAN CORPUSCULAR HEMOGLOBIN 30 PG (25-34); MEAN CORPUSCULAR HGB CONC 34 G/DL (32-36); MEAN CORPUSCULAR VOLUME 91 FL (80-99); MEAN PLATELET VOLUME 9.8 FL (7.4-10.4); MONOCYTES % (AUTO) 5 % (0-12); NEUTROPHILS % (AUTO) 85 % (42-75); PLATELET COUNT 366 10^3/uL (130-400); WHITE BLOOD COUNT 18.7 10^3/uL (4.3-11.0)
[2017-02-11] MEDS ORDERED: IBUPROFEN 800 MG (MOTRIN) TAB PO ONE (22:15)
[2017-02-11 22:24] LABS: ANION GAP 14 MMOL/L (5-14); BLOOD UREA NITROGEN 12 MG/DL (7-18); BUN/CREATININE RATIO 17; CALCIUM 9.4 MG/DL (8.5-10.1); CARBON DIOXIDE 26 MMOL/L (21-32); CHLORIDE 99 MMOL/L (98-107); GFR ESTIMATED > 60; GLUCOSE 102 MG/DL (70-105); POTASSIUM 3.9 MMOL/L (3.6-5.0); SODIUM 139 MMOL/L (135-145)
[2017-02-11 22:28] LABS: BAND NEUTROPHILS 2 %; BASOPHILS % (MANUAL) 0 %; EOSINOPHILS % (MANUAL) 0 %; LYMPHOCYTES % (MANUAL) 18 %; NEUTROPHILS % (MANUAL) 80 %
--- NOTE | 2017-02-11 22:29 | ED Fever ---
History of Present Illness General Chief Complaint: Chest Pain Stated Complaint: FEVER,CHEST/BACK PAIN,SOA Nursing Triage Note: substernal chest pressure readiating to back after waking up from nap approx. 1530. c/o generalized weakness x1 week. Sepsis Screen: No Definite Risk Source: patient Exam Limitations: no limitations History of Present Illness Time seen by provider: 22:28 Initial Comments To ER with c/o fever, nonproductive cough, sore throat, chest pain and upper back pain since awakening from her nap at around 1530. Weakness x1 week. She denies dysuria. She denies reports no headache but she does have some back pain and neck pain. Timing/Duration: just prior to arrival Fever Quality: greater than 100.5 F Fever Therapy GRIP BOSS: Ibuprofen Associated Symptoms: No abdominal pain, No confusion, cough, No headache, No muscle aches, No nausea/vomiting, No rash, No shortness of breath, sore throat, No stiff neck, No syncope, No weakness Allergies and Home Medications Allergies Coded Allergies: No Known Drug Allergies (Unverified , 06/01/10) Home Medications Docusate Sodium 100 Mg Capsule, 100 MG PO BID PRN for CONSTIPATION, #40 Prescribed by: MIYA ALBERT on 10/19/15 1201 Fenofibrate 54 Mg Tablet, 1 TAB PO UD, #90 (Reported) Hydrocodone/Acetaminophen 1 Each Tablet, 1-2 EA PO Q6H PRN for PAIN, #50 Prescribed by: MIYA ALBERT on 10/19/15 1201 Ibuprofen 600 Mg Tablet, 600 MG PO Q6H PRN for PAIN, #60 Prescribed by: MIYA ALBERT on 10/19/15 1201 Levothyroxine Sodium 150 Mcg Tablet, 300 MG PO DAILY, (Reported) TAKE 2 (300MG) TABS Lisinopril 10 Mg Tablet, 15 MG PO DAILY, (Reported) TAKE 1&1/2 OF 10MG TAB Meloxicam 7.5 Mg Tablet, 1 TAB PO UD, #60 (Reported) Metformin HCl 500 Mg Tablet, 500 MG PO BID, (Reported) Metoprolol Succinate 25 Mg Tab.er.24h, 25 MG PO HS, (Reported) Ondansetron 8 Mg Tab.rapdis, 8 MG PO Q6H PRN for NAUSEA/VOMITING, #10 Prescribed by: EILEEN PIKE on 08/19/162135 Pantoprazole Sodium 40 Mg Tablet., 40 MG PO DAILY, #20 Prescribed by: ELIEEN PIKE on 08/19/162140 Sertraline HCl 50 Mg Tablet, 1 TAB PO UD, #90 (Reported) Constitutional: see HPI, chills, fever, weakness EENTM: see HPI, throat pain Respiratory: see HPI, cough Cardiovascular: no symptoms reported Genitourinary: no symptoms reported Musculoskeletal: no symptoms reported Skin: no symptoms reported Past Yqbdowz-Lercah-Wqjhdk Hx Patient Social History Alcohol Use: Rarely Uses Recreational Drug Use: No Smoking Status: Never a Smoker Former Smoker/When Quit: Jul 14, 2010 2nd Hand Smoke Exposure: No Recent Foreign Travel: No Contact w/Someone Who Travel: No Recent Infectious Disease Expo: No Recent Hopitalizations: No Immunizations Up To Date Tetanus Booster (TDap): Less than 5yrs Date of Influenza Vaccine: May 14, 2015 Seasonal Allergies Seasonal Allergies: No Surgeries HX Surgeries: Yes Surgeries: Cardiac, Hysterectomy, Thyroidectomy, Tubal Ligation Respiratory Hx Respiratory Disorders: No Cardiovascular Hx Cardiac Disorders: Yes Cardiac Disorders: High Cholesterol, Hypertension, Palpitations Neurological Hx Neurological Disorders: Yes Neurological Disorders: Headaches /Migraines Reproductive System : No Hx Reproductive Disorders: Yes Female Reproductive Disorders: Menstrual Problems 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 Genitourinary Hx Genitourinary Disorders: No Gastrointestinal Hx Gastrointestinal Disorders: No Gastrointestinal Disorders: Gastroesophageal Reflux Musculoskeletal Hx Musculoskeletal Disorders: Yes Musculoskeletal Disorders: Chronic Back Pain Endocrine Hx Endocrine Disorders: No (MORBID OBESITY) Endocrine Disorders: Hypothyroidsim, Diabetes, Non-Insulin dep HEENT HX ENT Disorders: No Cancer Hx Cancer: No Psychosocial Hx Psychiatric Problems: Yes Behavioral Health Disorders: Anxiety, Depression Integumentary HX Skin/Integumentary Disorder: No Blood Transfusions Hx Blood Disorders: No Family Medical History Significant Family History: Diabetes Family Medial History: Diabetes mellitus 19 MOTHER Hypertension 19 MOTHER Seizure disorder G8 BROTHER G8 SISTER Physical Exam Vital Signs Vital Sign - Last 12Hours 02/11/17 21:58 Temp 101.4 Pulse 100 Resp 18 B/P (MAP) 129/84 Pulse Ox 99 O2 Delivery Room Air Capillary Refill : Less Than 3 Seconds General Appearance: WD/WN, no apparent distress Eyes: Bilateral Eye EOMI, Bilateral Eye Normal Inspection, Bilateral Eye PERRL HEENT: PERRL/EOMI, normal ENT inspection Neck: non-tender, full range of motion Respiratory: normal breath sounds, no respiratory distress, no accessory muscle use Cardiovascular: regular rate, rhythm, no murmur Gastrointestinal: normal bowel sounds, non tender, soft Extremities: normal range of motion, non-tender Neurologic/Psychiatric: alert, normal mood/affect, oriented x 3 Skin: normal color, warm/dry Focused Exam Lactic Acid Level Laboratory Tests Test 02/11/17 23:15 Lactic Acid Level 2.01 MMOL/L (0.50-2.00) *H Progress/Results/Core Measures Results/Orders Lab Results Laboratory Tests Test 02/11/17 21:55 02/11/17 22:13 02/11/17 22:55 02/11/17 23:15 Range/Units White Blood Count 18.7 H 4.3-11.0 10^3/uL Red Blood Count 4.70 4.35-5.85 10^6/uL Hemoglobin 14.3 11.5-16.0 G/DL Hematocrit 43 35-52 % Mean Corpuscular Volume 91 80-99 FL Mean Corpuscular Hemoglobin 30 25-34 PG Mean Corpuscular Hemoglobin Concent 34 32-36 G/DL Red Cell Distribution Width 14.0 10.0-14.5 % Platelet Count 366 130-400 10^3/uL Mean Platelet Volume 9.8 7.4-10.4 FL Neutrophils (%) (Auto) 85 H 42-75 % Lymphocytes (%) (Auto) 9 L 12-44 % Monocytes (%) (Auto) 5 0-12 % Eosinophils (%) (Auto) 0 0-10 % Basophils (%) (Auto) 0 0-10 % Neutrophils # (Auto) 16.0 H 1.8-7.8 X 10^3 Lymphocytes # (Auto) 1.6 1.0-4.0 X 10^3 Monocytes # (Auto) 1.0 0.0-1.0 X 10^3 Eosinophils # (Auto) 0.1 0.0-0.3 10^3/uL Basophils # (Auto) 0.1 0.0-0.1 10^3/uL Neutrophils % (Manual) 80 % Lymphocytes % (Manual) 18 % Monocytes % (Manual) 0 % Eosinophils % (Manual) 0 % Basophils % (Manual) 0 % Band Neutrophils 2 % Blood Morphology Comment NORMAL Sodium Level 139 135-145 MMOL/L Potassium Level 3.9 3.6-5.0 MMOL/L Chloride Level 99 98-107 MMOL/L Carbon Dioxide Level 26 21-32 MMOL/L Anion Gap 14 5-14 MMOL/L Blood Urea Nitrogen 12 7-18 MG/DL Creatinine 0.70 0.60-1.30 MG/DL Estimat Glomerular Filtration Rate > 60 BUN/Creatinine Ratio 17 Glucose Level 102 70-105 MG/DL Calcium Level 9.4 8.5-10.1 MG/DL Monoscreen NEGATIVE NEGATIVE Group A Streptococcus Screen NEGATIVE NEGATIVE Urine Color YELLOW Urine Clarity CLEAR Urine pH 6 5-9 Urine Specific [place] Range 1.015 L 1.016-1.022 Urine Protein 1+ H NEGATIVE Urine Glucose (UA) NEGATIVE NEGATIVE Urine Ketones NEGATIVE NEGATIVE Urine Nitrite NEGATIVE NEGATIVE Urine Bilirubin NEGATIVE NEGATIVE Urine Urobilinogen NORMAL NORMAL MG/DL Urine Leukocyte Esterase NEGATIVE NEGATIVE Urine RBC (Auto) 1+ H NEGATIVE Urine RBC RARE /HPF Urine WBC 0-2 /HPF Urine Squamous Epithelial Cells 10-25 H /HPF Urine Crystals NONE /LPF Urine Bacteria FEW H /HPF Urine Casts NONE /LPF Urine Mucus SMALL H /LPF Urine Culture Indicated NO Lactic Acid Level 2.01 *H 0.50-2.00 MMOL/L Test 02/12/17 00:59 Range/Units My Orders Orders - EILEEN PIKE APRN Chest Pa/Lat (2 View) (02/11/17 22:10) Cbc With Automated Diff (02/11/17 22:10) Rapid Strep A Screen (02/11/17 22:10) Monotest (02/11/17 22:10) Basic Metabolic Panel (02/11/17 22:10) Ibuprofen Tablet (Motrin Tablet) (02/11/17 22:15) Manual Differential (02/11/17 21:55) Ua Culture If Indicated (02/11/17 22:27) Blood Culture (02/11/17 23:09) Lactic Acid Analyzer (02/11/17 23:09) Ns Iv 1000 Ml (Sodium Chloride 0.9%) (02/11/17 23:15) Ceftriaxone Injection (Rocephin Injectio (02/11/17 23:15) Csf Cell Count (02/11/17 23:36) Csf Glucose (02/11/17 23:36) Csf Total Protein (02/11/17 23:36) Csf Culture (02/11/17 23:36) Ct Head Wo (02/11/17 23:40) Lidocaine 2% Injection 20 Ml (Xylocaine (02/12/17 00:31) Medications Given in ED Current Medications Medications Dose Ordered Sig/Elmer Route Start Time Stop Time Status Last Admin Dose Admin Ibuprofen 800 mg ONCE ONCE PO 02/11/17 22:15 02/11/17 22:16 DC 02/11/17 22:50 800 MG Vital Signs/I&O Vital Sign - Last 12Hours 02/11/17 02/11/17 02/11/17 02/12/17 21:58 21:58 22:50 00:00 Temp 101.4 101.4 99.0 Pulse 100 97 Resp 18 18 B/P (MAP) 129/84 117/84 Pulse Ox 99 99 O2 Delivery Room Air Room Air Blood Pressure Mean: 99 Progress Note : Progress Note 0114- With a white count of 18.5, her temperature reached 102 in the emergency room. She does have a suspected infection so she does meet sepsis criteria. However she does not meet sepsis criteria at the current time because her temperature is now controlled she is not tachypneic, her heart rate is not elevated Currently she is 100.9. Departure Communication Time/Spoke to Admitting Phy: 01:09 Communication I discussed the case with Dr. Mar. CSF is in the lab currently being reviewed. Dr. Mar is in house for a labor patient and will keep an eye out for the CSF results. Either way the patient will be treated with Rocephin and Zithromax for at least a community-acquired pneumonia in the Rocephin will also cover her for potential meningitis. Lumbar puncture done by Toni singletary CRNA. Opening pressures of 34.5 cmH2O in the side lying position. CSF was clear.. Progress Notes 2330-there is a question of a right perihilar infiltrate. Given the absence of convincing source of infection in her complaints of back and neck pain we will do a lumbar puncture. TONI singletary CRNA is on his way. Patient agrees to this. Impression Impression: Primary Impression: right perihilar pneumonia Additional Impressions: Leukocytosis Neck pain Back pain Disposition: ADMITTED INPATIENT Condition: Stable Decision to Admit Reason: Admit from ER (General) Decision to Admit/Date: Feb 12, 2017 Time/Decision to Admit Time: 01:12 Departure-Patient Inst. Referrals: PATTIE ENAMORADO APRN (PCP/Family) Primary Care Physician EILEEN PIKE APRN Feb 11, 2017 22:29
[2017-02-11 22:58] LABS: BILIRUBIN,URINE NEGATIVE (NEGATIVE); KETONES,URINE NEGATIVE (NEGATIVE); LEUKOCYTE ESTERASE ,URINE NEGATIVE (NEGATIVE); NITRITE,URINE NEGATIVE (NEGATIVE); PH,URINE 6 (5-9); PROTEIN,URINE 1+ (NEGATIVE); UROBILINOGEN,URINE NORMAL (NORMAL)
[2017-02-11 23:04] LABS: WBC,URINE 0-2 /HPF
[2017-02-11] MEDS ORDERED: NS IV 1000 ML 1,000 ML IV SCH (23:15)
[2017-02-11] MEDS ORDERED: cefTRIAXone INJECTION 1,000 MG in NS (IVPB) 50 ML IV ONE (23:15)
[2017-02-12] VITALS (7 sets, daily range): BP systolic 106–136; BP diastolic 56–84
[2017-02-12] MEDS ORDERED: LIDOCAINE 2% 20 ML (XYLOCAINE) VIAL ONE (00:31)
[2017-02-12 01:29] LABS: APPEARANCE,CSF CLEAR; COLOR,CSF COLORLESS
[2017-02-12 01:30] LABS: WHITE BLOOD CELL,CSF 1 CELLS (0-5)
--- NOTE | 2017-02-12 01:35 | Anesthesia-Procedure Note ---
Procedure Start/Stop Time Date of Procedure: Feb 12, 2017 Start Time: 00:35 Referring Physician: Vasiliy Capone APRN Stop Time: 01:03 Procedures/Interventions Discussed Risk,Benefits: Yes Patient Consents: Yes Position: Lying, Right Sterile Technique: Yes Opening Pressure: 34.5 Fluid Color: Clear Spinal Needle Used: Other (22 g 5 inch sprinocan) Procedure Notes Called to ED for a Lumbar Puncture. Spoke with patient about risks of procedure. It was then noted that a Head CT was not completed. Head CT completed and results obtained. Procedure started at approx. 0035. Pt positioned as above. Attempts x 2 with multiple redirects due to paraesthesias, multiple spinal needles used. Patient body habitus made spaces difficult to identify. Needle used as above. CSF noted. No paraesthesia noted at time of CSF free flow. Opening pressures obtained. at approx 0055. 4 vials of CSF with approx 2cc per vial was obtained. Needle removed and patient to back. Tolerated procedure well. TONI DENNIS CRNA Feb 12, 2017 01:35
[2017-02-12 01:45] LABS: CSF GLUCOSE 64 MG/DL (50-80); CSF TOTAL PROTEIN 24 MG/DL (15-40)
[2017-02-12] MEDS ORDERED: AZITHROMYCIN INJECTION 500 MG in NS (IVPB) 250 ML IV ONE (03:48)
[2017-02-12] MEDS ORDERED: ONDANSETRON 4 MG/2 ML (SDV) Z0FRAN IV PRN (04:00)
[2017-02-12] MEDS: NS IV 1000 ML 1,000 ML IV SCH ×3 (04:05→20:27)
[2017-02-12] MEDS: ACETAMINOPHEN 325 MG TABLET/CAPLET (TYLENOL) PO PRN ×3 (04:06→20:36)
--- NOTE | 2017-02-12 05:55 | Diagnostic Imaging Report ---
INDICATION: Meningitis TECHNIQUE: Routine non contrast-enhanced axial images were obtained from the skull base to the vertex. COMPARISON: 09/21/2014 FINDINGS: The ventricles and cortical sulci are normal in size and contour. There is no midline shift or mass-effect. No acute intra-axial hemorrhage is seen. There are no abnormal areas of increased or decreased density to suggest acute hemorrhage or edema. No extra-axial masses or collections are present. The bony calvarium is intact. The visualized paranasal sinuses show mucosal retention cyst versus polyp in left maxillary sinus. The mastoid air cells are clear. IMPRESSION: 1. No acute intracranial abnormality. No CT evidence of mass, acute infarct or intracranial hemorrhage. Dictated by: Dictated on workstation # [id number]
--- NOTE | 2017-02-12 06:33 | Diagnostic Imaging Report ---
INDICATION: Bodyache. COMPARISON: 05/17/2015. FINDINGS: PA and lateral chest show the lungs to be well-aerated and clear. Heart is not enlarged. No pulmonary edema. No hilar adenopathy. No pneumothorax or pleural effusions. No bony abnormalities. IMPRESSION: Normal PA and lateral chest. Dictated by: Dictated on workstation # [id number]
[2017-02-12] MEDS: RT-ALBUTEROL SULF 2.5 MG/3 ML PRE-MIX VIAL IH PRN (06:52)
[2017-02-12 06:55] LABS: BASOPHILS % (AUTO) 0 % (0-10); EOSINOPHILS % (AUTO) 0 % (0-10); LYMPHOCYTES # (AUTO) 1.2 X 10^3 (1.0-4.0); LYMPHOCYTES % (AUTO) 10 % (12-44); MEAN CORPUSCULAR HEMOGLOBIN 31 PG (25-34); MEAN CORPUSCULAR HGB CONC 33 G/DL (32-36); MEAN CORPUSCULAR VOLUME 92 FL (80-99); MEAN PLATELET VOLUME 9.8 FL (7.4-10.4); MONOCYTES # (AUTO) 0.6 X 10^3 (0.0-1.0); MONOCYTES % (AUTO) 5 % (0-12); NEUTROPHILS # (AUTO) 10.2 X 10^3 (1.8-7.8); NEUTROPHILS % (AUTO) 85 % (42-75); PLATELET COUNT 317 10^3/uL (130-400); WHITE BLOOD COUNT 12.1 10^3/uL (4.3-11.0)
[2017-02-12] MEDS: IBUPROFEN 800 MG (MOTRIN) TAB PO PRN ×2 (07:40→17:23)
--- NOTE | 2017-02-12 08:25 | History & Physicial (CHS) ---
CAROLE MEJIA MED STUDENT 02/12/17 0825: HPI History of Present Illness: Patient is a 36 year old female who presented tot he ER at 21:30 on 02/11/2017 with complaint of chest pain radiating to the back with body aches and fever. She started shaking and felt like she had a high fever around 15:30 yesterday after waking up from a nap. She took ibuprofen and felt like the fever decreased slightly and she went to work. At work she started to feel a pain/ pressure on her chest and back with fever symptoms. Muscle weakness preceded other symptoms x1week. Patient had dizziness (room spinning), nausea, headache and pain at the back of her neck. Denies vision changes. Denies seizure activity. [place] and went swimming the weekend before. The headache, nausea, low grade fever and neck pain persist. Source: patient Date seen by provider: Feb 12, 2017 Time Seen by Provider: 11:00 Attending Physician Gissel Jiang MD, Michele R Aprn Consult Date of Admission Feb 11, 2017 at 23:45 Home Medications Home Medications Reviewed patient Home Medication Reconciliation Form Allergies Coded Allergies: No Known Drug Allergies (Unverified , 06/01/10) LMA-Drzqzt-Sngecd Hx Patient Social History Alcohol Use: Rarely Uses Recreational Drug Use: No Smoking Status: Former Smoker Former smoker/When Quit: Jul 14, 2010 Type Used: Cigarettes 2nd Hand Smoke Exposure: No Recent Foreign Travel: No Contact w/other who traveled: No Recent Hopitalizations: No Recent Infectious Disease Expo: No Physical Abuse Screen: No Sexual Abuse: No Immunizations Up To Date Tetanus Booster (TDap): Less than 5yrs Date of Influenza Vaccine: May 14, 2015 Past Medical History PMHx: HTN Pre-Diabetes Depression Back Pain Surg Hx: Thyroidectomy Hysterectomy Family Medical History Significant Family History: Diabetes, Hypertension Family History: Diabetes mellitus 19 MOTHER Hypertension 19 MOTHER Seizure disorder G8 BROTHER G8 SISTER Review of Systems ([facility]) Constitutional: dizziness, fever, malaise, weakness EENTM: no symptoms reported Respiratory: no symptoms reported Cardiovascular: no symptoms reported Gastrointestinal: no symptoms reported Genitourinary: no symptoms reported : No Musculoskeletal: back pain, neck pain Skin: no symptoms reported Psychiatric/Neurological: Headache, Weakness Physical Exam-([facility]) Physical Exam Vital Signs VS - Last 72 Hours, by Label 02/11/17 02/11/17 02/11/17 02/12/17 21:58 21:58 22:50 00:00 Temp 101.4 101.4 99.0 Pulse 100 97 Resp 18 18 B/P (MAP) 129/84 117/84 Pulse Ox 99 99 O2 Delivery Room Air Room Air 02/12/17 02/12/17 02/12/17 02/12/17 01:31 01:50 01:50 03:30 Temp 100.1 101.0 101.0 Pulse 104 100 86 Resp 18 20 16 B/P (MAP) 135/73 113/56 Pulse Ox 96 96 98 O2 Delivery Room Air Room Air Room Air Room Air 02/12/17 02/12/17 02/12/17 02/12/17 04:06 04:18 04:18 04:36 Temp 101.0 99.8 Pulse 80 Pulse Ox 98 98 O2 Delivery Room Air 02/12/17 02/12/17 02/12/17 06:52 08:29 08:40 Temp 100.0 Pulse 94 Resp 22 B/P (MAP) 136/75 Pulse Ox 93 96 O2 Delivery Room Air Room Air Room Air Capillary Refill : Less Than 3 Seconds General Appearance: no apparent distress Eyes: Bilateral Eye Normal Inspection HEENT: normal ENT inspection Neck: full range of motion, supple, tender midline Respiratory: chest non-tender, lungs clear, normal breath sounds, no respiratory distress Cardiovascular: regular rate, rhythm, no edema, no murmur Gastrointestinal: normal bowel sounds Back: vertebral tenderness Neurologic/Psychiatric: olive knocker II-XII nml as tested, no motor/sensory deficits, alert, normal mood/affect, oriented x 3 Skin: rash (Possible cellulitis) Lymphatic: no adenopathy Assessment/Plan Assessment/Plan Admission Dx Chest pain radiating to back Plan Change abx to IV Ceftriaxone and PO Doxycycline and Observe. Diagnosis/Problems: (1) Fever of unknown origin Assessment & Plan: Change abx to PO Doxycycline and IV Ceftriaxone. Consider vector born illness vs. aseptic meningitis vs. viral pneumonia. Clinical Quality Measures AMI/AHF: ASA po Prior to arrival: No DVT/VTE Risk/Contraindication: Risk Factor Score Per Nursin RFS Level Per Nursing on Admit: 4+=Very High GISSEL JIANG MD 02/12/17 1439: HPI History of Present Illness: Patient denies any known tick exposure or mosquito bites, but was swimming [place] this past weekend and had recent travel to [place]. She states headache is essentially entire head and has not improved and feels pretty severe like her head will explode. Her chest pain she reports is over her left breast and worse in her back which felt like someone was crushing her from behind. She is still having this pain although she overall feels a little better. Home Medications Allergies Coded Allergies: No Known Drug Allergies (Unverified , 06/01/10) KKW-Gzgkcm-Wefber Hx Family Medical History Significant Family History: Seizures Reviewed Test Results Reviewed Test Results Lab Laboratory Tests Test 02/11/17 21:55 02/11/17 22:13 02/11/17 22:55 02/11/17 23:15 Range/Units White Blood Count 18.7 H 4.3-11.0 10^3/uL Red Blood Count 4.70 4.35-5.85 10^6/uL Hemoglobin 14.3 11.5-16.0 G/DL Hematocrit 43 35-52 % Mean Corpuscular Volume 91 80-99 FL Mean Corpuscular Hemoglobin 30 25-34 PG Mean Corpuscular Hemoglobin Concent 34 32-36 G/DL Red Cell Distribution Width 14.0 10.0-14.5 % Platelet Count 366 130-400 10^3/uL Mean Platelet Volume 9.8 7.4-10.4 FL Neutrophils (%) (Auto) 85 H 42-75 % Lymphocytes (%) (Auto) 9 L 12-44 % Monocytes (%) (Auto) 5 0-12 % Eosinophils (%) (Auto) 0 0-10 % Basophils (%) (Auto) 0 0-10 % Neutrophils # (Auto) 16.0 H 1.8-7.8 X 10^3 Lymphocytes # (Auto) 1.6 1.0-4.0 X 10^3 Monocytes # (Auto) 1.0 0.0-1.0 X 10^3 Eosinophils # (Auto) 0.1 0.0-0.3 10^3/uL Basophils # (Auto) 0.1 0.0-0.1 10^3/uL Neutrophils % (Manual) 80 % Lymphocytes % (Manual) 18 % Monocytes % (Manual) 0 % Eosinophils % (Manual) 0 % Basophils % (Manual) 0 % Band Neutrophils 2 % Blood Morphology Comment NORMAL Sodium Level 139 135-145 MMOL/L Potassium Level 3.9 3.6-5.0 MMOL/L Chloride Level 99 98-107 MMOL/L Carbon Dioxide Level 26 21-32 MMOL/L Anion Gap 14 5-14 MMOL/L Blood Urea Nitrogen 12 7-18 MG/DL Creatinine 0.70 0.60-1.30 MG/DL Estimat Glomerular Filtration Rate > 60 BUN/Creatinine Ratio 17 Glucose Level 102 70-105 MG/DL Calcium Level 9.4 8.5-10.1 MG/DL Monoscreen NEGATIVE NEGATIVE Group A Streptococcus Screen NEGATIVE NEGATIVE Urine Color YELLOW Urine Clarity CLEAR Urine pH 6 5-9 Urine Specific [place] 1.015 L 1.016-1.022 Urine Protein 1+ H NEGATIVE Urine Glucose (UA) NEGATIVE NEGATIVE Urine Ketones NEGATIVE NEGATIVE Urine Nitrite NEGATIVE NEGATIVE Urine Bilirubin NEGATIVE NEGATIVE Urine Urobilinogen NORMAL NORMAL MG/DL Urine Leukocyte Esterase NEGATIVE NEGATIVE Urine RBC (Auto) 1+ H NEGATIVE Urine RBC RARE /HPF Urine WBC 0-2 /HPF Urine Squamous Epithelial Cells 10-25 H /HPF Urine Crystals NONE /LPF Urine Bacteria FEW H /HPF Urine Casts NONE /LPF Urine Mucus SMALL H /LPF Urine Culture Indicated NO Lactic Acid Level 2.01 *H 0.50-2.00 MMOL/L Test 02/12/17 00:16 02/12/17 00:59 02/12/17 06:30 Range/Units Lactic Acid Level 1.34 0.50-2.00 MMOL/L CSF Tube Number 4 CSF Appearance CLEAR CSF Color COLORLESS CSF WBC 1 0-5 CELLS CSF RBC 6 H 0-0 CELLS CSF Lymphocytes % CSF Mononuclear WBCs % CSF Polynuclear WBCs % CSF Glucose 64 50-80 MG/DL CSF Total Protein 24 15-40 MG/DL White Blood Count 12.1 H 4.3-11.0 10^3/uL Red Blood Count 4.10 L 4.35-5.85 10^6/uL Hemoglobin 12.5 11.5-16.0 G/DL Hematocrit 38 35-52 % Mean Corpuscular Volume 92 80-99 FL Mean Corpuscular Hemoglobin 31 25-34 PG Mean Corpuscular Hemoglobin Concent 33 32-36 G/DL Red Cell Distribution Width 14.0 10.0-14.5 % Platelet Count 317 130-400 10^3/uL Mean Platelet Volume 9.8 7.4-10.4 FL Neutrophils (%) (Auto) 85 H 42-75 % Lymphocytes (%) (Auto) 10 L 12-44 % Monocytes (%) (Auto) 5 0-12 % Eosinophils (%) (Auto) 0 0-10 % Basophils (%) (Auto) 0 0-10 % Neutrophils # (Auto) 10.2 H 1.8-7.8 X 10^3 Lymphocytes # (Auto) 1.2 1.0-4.0 X 10^3 Monocytes # (Auto) 0.6 0.0-1.0 X 10^3 Eosinophils # (Auto) 0.0 0.0-0.3 10^3/uL Basophils # (Auto) 0.0 0.0-0.1 10^3/uL Sodium Level 137 135-145 MMOL/L Potassium Level 3.4 L 3.6-5.0 MMOL/L Chloride Level 102 98-107 MMOL/L Carbon Dioxide Level 25 21-32 MMOL/L Anion Gap 10 5-14 MMOL/L Blood Urea Nitrogen 12 7-18 MG/DL Creatinine 0.65 0.60-1.30 MG/DL Estimat Glomerular Filtration Rate > 60 BUN/Creatinine Ratio 18 Glucose Level 118 H 70-105 MG/DL Calcium Level 8.3 L 8.5-10.1 MG/DL Total Bilirubin 0.5 0.1-1.0 MG/DL Aspartate Amino Transf (AST/SGOT) 23 5-34 U/L Alanine Aminotransferase (ALT/SGPT) 36 0-55 U/L Alkaline Phosphatase 62 40-136 U/L Total Protein 6.1 L 6.4-8.2 GM/DL Albumin 3.3 3.2-4.5 GM/DL Radiology CT head 02/11: "IMPRESSION: 1. No acute intracranial abnormality. No CT evidence of mass, acute infarct or intracranial hemorrhage." CXR 02/11: "IMPRESSION: Normal PA and lateral chest" LP done 02/12 Physical Exam-([facility]) Physical Exam Vital Signs VS - Last 72 Hours, by Label 02/11/17 02/11/17 02/11/17 02/12/17 21:58 21:58 22:50 00:00 Temp 101.4 101.4 99.0 Pulse 100 97 Resp 18 18 B/P (MAP) 129/84 117/84 Pulse Ox 99 99 O2 Delivery Room Air Room Air 02/12/17 02/12/17 02/12/17 02/12/17 01:31 01:50 01:50 03:30 Temp 100.1 101.0 101.0 Pulse 104 100 86 Resp 18 20 16 B/P (MAP) 135/73 113/56 Pulse Ox 96 96 98 O2 Delivery Room Air Room Air Room Air Room Air 02/12/17 02/12/17 02/12/17 02/12/17 04:06 04:18 04:18 04:36 Temp 101.0 99.8 Pulse 80 Pulse Ox 98 98 O2 Delivery Room Air 02/12/17 02/12/17 02/12/17 02/12/17 06:52 08:29 08:40 12:43 Temp 100.0 97.8 Pulse 94 72 Resp 22 20 B/P (MAP) 136/75 106/70 Pulse Ox 93 96 96 O2 Delivery Room Air Room Air Room Air Room Air General Appearance: obese HEENT: PERRL/EOMI Neurologic/Psychiatric: No abnormal cerebellar tests Skin: rash (Macular area of erythema on right lower leg about 6 cm in diameter , warm and tender to touch. Few scattered scabbed lesions on legs.) Assessment/Plan Assessment/Plan Admission Dx Fever Headache Chest pain Cellulitis Plan Fever- unknown etiology, accompanied by leukocytosis, no clear evidence of pneumonia based on x-ray or symptoms, no evidence of UTI, LP results noted below not consistent with meningitis -Started on azithromycin and ceftriaxone empirically on admit and decreased WBC this am but still febrile. Given symptoms and no clear source of infection, consider tick borne illness or mosquito borne virus. Will change azithromycin to doxycycline to cover tick borne illness and continue ceftriaxone (increase to 2 grams daily to cover for Lyme). Headache- concerning in severity, CT head unremarkable, CSF with 1 WBC and 6 RBC -CSF studies not consistent with infection or hemorrhage, given only 1 RBC above normal and normal CT of head, but will monitor symptoms and neuro status closely Chest pain- unclear etiology but with radiation to back, will check LFTs and lipase for possible gall bladder disease or pancreatitis, EKG to look for possible carditis Cellulitis- small patch on leg, do not suspect this is source of fever, antibiotics as above DVT ppx- enoxaparin Diagnosis/Problems: Supervisory-Addendum Brief Supervisory Addendum I personally obtained history and examined this patient today with MS3 Carole Mejia, agree with documentation with my additions/changes. CAROLE MEJIA MED STUDENT Feb 12, 2017 08:25 GISSEL JIANG MD Feb 12, 2017 14:39
[2017-02-12] MEDS ORDERED: VENL75CA93 PO (09:07)
[2017-02-12] MEDS ORDERED: HYDR25TA4 PO (09:07)
[2017-02-12] MEDS ORDERED: METF500T8 PO (09:07)
[2017-02-12] MEDS ORDERED: LISI-552 PO (09:07)
[2017-02-12] MEDS ORDERED: HYDR-3812 PO (09:41)
[2017-02-12 10:20] LABS: ALANINE AMINOTRANSFERASE 36 U/L (0-55); ALBUMIN 3.3 GM/DL (3.2-4.5); ANION GAP 10 MMOL/L (5-14); ASPARTATE AMINO TRANSFERASE 23 U/L (5-34); BILIRUBIN,TOTAL 0.5 MG/DL (0.1-1.0); BLOOD UREA NITROGEN 12 MG/DL (7-18); BUN/CREATININE RATIO 18; CALCIUM 8.3 MG/DL (8.5-10.1); CARBON DIOXIDE 25 MMOL/L (21-32); CHLORIDE 102 MMOL/L (98-107); CREATININE SERUM 0.65 MG/DL (0.60-1.30); GFR ESTIMATED > 60; GLUCOSE 118 MG/DL (70-105); POTASSIUM 3.4 MMOL/L (3.6-5.0); SODIUM 137 MMOL/L (135-145); TOTAL PROTEIN 6.1 GM/DL (6.4-8.2)
[2017-02-12] MEDS ORDERED: CATHETER FLUSH 10 ML SYR IV PRN (12:30)
[2017-02-12] MEDS: DOXYCYCLINE 100 MG (VIBRAMYCIN) TABLET PO SCH ×2 (13:00→17:22)
[2017-02-12] MEDS: cefTRIAXone INJECTION 2,000 MG in NS (IVPB) 50 ML IV SCH (13:08)
[2017-02-12] MEDS: VENlafaxine XR 75 MG (EFFEXOR XR) CAP PO SCH (17:22)
[2017-02-12] MEDS: metFORMIN XR 500 MG (GLUCOPHAGE XR) TAB PO SCH (17:22)
[2017-02-12] MEDS: LEVOTHYROXINE 150 MCG (LEVOTHROID) TAB PO SCH (20:28)
[2017-02-13] VITALS: BP 145/71
[2017-02-13] MEDS ORDERED: cefTRIAXone INJECTION 1,000 MG in NS (IVPB) 50 ML IV SCH ×2
[2017-02-13] MEDS: NS IV 1000 ML 1,000 ML IV SCH ×2 (00:07→08:29)
[2017-02-13] MEDS: ACETAMINOPHEN 325 MG TABLET/CAPLET (TYLENOL) PO PRN ×4 (00:35→20:20)
[2017-02-13] MEDS: IBUPROFEN 800 MG (MOTRIN) TAB PO PRN ×2 (01:38→17:16)
[2017-02-13 05:39] LABS: LYME AB G M 0.16 Index (0.00-0.89)
[2017-02-13] MEDS: DOXYCYCLINE 100 MG (VIBRAMYCIN) TABLET PO SCH (06:25)
[2017-02-13] MEDS: metFORMIN XR 500 MG (GLUCOPHAGE XR) TAB PO SCH ×2 (06:25→17:16)
[2017-02-13 07:04] LABS: BASOPHILS # (AUTO) 0.1 10^3/uL (0.0-0.1); BASOPHILS % (AUTO) 1 % (0-10); EOSINOPHILS # (AUTO) 0.2 10^3/uL (0.0-0.3); EOSINOPHILS % (AUTO) 4 % (0-10); LYMPHOCYTES # (AUTO) 2.4 X 10^3 (1.0-4.0); LYMPHOCYTES % (AUTO) 38 % (12-44); MEAN CORPUSCULAR HEMOGLOBIN 31 PG (25-34); MEAN CORPUSCULAR HGB CONC 34 G/DL (32-36); MEAN CORPUSCULAR VOLUME 92 FL (80-99); MEAN PLATELET VOLUME 9.8 FL (7.4-10.4); MONOCYTES # (AUTO) 0.7 X 10^3 (0.0-1.0); MONOCYTES % (AUTO) 11 % (0-12); NEUTROPHILS % (AUTO) 47 % (42-75); PLATELET COUNT 261 10^3/uL (130-400); RED BLOOD COUNT 4.05 10^6/uL (4.35-5.85); WHITE BLOOD COUNT 6.5 10^3/uL (4.3-11.0)
[2017-02-13 07:13] LABS: ALANINE AMINOTRANSFERASE 30 U/L (0-55); ANION GAP 7 MMOL/L (5-14); ASPARTATE AMINO TRANSFERASE 22 U/L (5-34); BILIRUBIN,TOTAL 0.2 MG/DL (0.1-1.0); BLOOD UREA NITROGEN 10 MG/DL (7-18); BUN/CREATININE RATIO 17; CALCIUM 7.8 MG/DL (8.5-10.1); CARBON DIOXIDE 25 MMOL/L (21-32); CHLORIDE 110 MMOL/L (98-107); CREATININE SERUM 0.58 MG/DL (0.60-1.30); GFR ESTIMATED > 60; GLUCOSE 119 MG/DL (70-105); POTASSIUM 3.5 MMOL/L (3.6-5.0); SODIUM 142 MMOL/L (135-145); TOTAL PROTEIN 5.9 GM/DL (6.4-8.2)
[2017-02-13 07:54] LABS: LYME AB INTERP Negative (Negative); TULAREMIA ANTIBODY <1:20
[2017-02-13 08:00] VITALS: BP 123/68
[2017-02-13] MEDS: cefTRIAXone INJECTION 2,000 MG in NS (IVPB) 50 ML IV SCH (08:29)
[2017-02-13] MEDS: RT-ALBUTEROL SULF 2.5 MG/3 ML PRE-MIX VIAL IH PRN (08:35)
[2017-02-13] MEDS ORDERED: AZITHROMYCIN 250 MG TAB (ZITHROMAX) PO SCH (09:00)
[2017-02-13 12:26] LABS: EHRLICHIA CHAFFEENSIS G ABY <1:16 (<1:16)
[2017-02-13 12:41] LABS: IGG ROCKY MOUNTAIN SPOTTED FEV <1:16 (<1:16); IGM ROCKY MOUNTAIN SPOTTED FEV <1:10 (<1:10)
[2017-02-13 16:00] VITALS: BP 139/84
--- NOTE | 2017-02-13 16:56 | Progress Note (SOAP) ---
Subjective Subjective/Events-last exam Afebrile last 24 hours. Feeling better but still with headache and chest pain and pain in leg. Review of Systems Date Seen by Provider: Feb 13, 2017 Time Seen by Provider: 10:15 Objective Exam Last Set of Vital Signs Vital Signs Date Time Temp Pulse Resp B/P (MAP) Pulse Ox O2 Delivery O2 Flow Rate FiO2 02/13/17 16:00 97.3 61 19 139/84 99 Room Air Capillary Refill : Less Than 3 Seconds I&O Intake and Output 02/13/17 00:00 Intake Total 3650 ml Output Total 0 ml Balance 3650 ml Intake Oral 1550 ml IV Total 2100 ml Output Urine Total 0 ml # Voids 2 # Bowel Movements 1 General: Alert, No Acute Distress Lungs: Clear to Auscultation, Normal Air Movement Heart: Regular Rate, No Murmurs Abdomen: Normal Bowel Sounds, Soft Skin: Other (area of erythema on calf unchanged in size) Neuro: Normal Speech Psych/Mental Status: Mental Status NL Results/Procedures Lab Laboratory Tests 02/13/17 06:45: White Blood Count 6.5, Red Blood Count 4.05L, Hemoglobin 12.5, Hematocrit 37, Mean Corpuscular Volume 92, Mean Corpuscular Hemoglobin 31, Mean Corpuscular Hemoglobin Concent 34, Red Cell Distribution Width 14.0, Platelet Count 261, Mean Platelet Volume 9.8, Neutrophils (%) (Auto) 47, Lymphocytes (%) (Auto) 38, Monocytes (%) (Auto) 11, Eosinophils (%) (Auto) 4, Basophils (%) (Auto) 1, Neutrophils # (Auto) 3.0, Lymphocytes # (Auto) 2.4, Monocytes # (Auto) 0.7, Eosinophils # (Auto) 0.2, Basophils # (Auto) 0.1, Sodium Level 142, Potassium Level 3.5L, Chloride Level 110H, Carbon Dioxide Level 25, Anion Gap 7, Blood Urea Nitrogen 10, Creatinine 0.58L, Estimat Glomerular Filtration Rate > 60, BUN /Creatinine Ratio 17, Glucose Level 119H, Calcium Level 7.8L, Total Bilirubin 0.2, Aspartate Amino Transf (AST/SGOT) 22, Alanine Aminotransferase (ALT/SGPT) 30, Alkaline Phosphatase 56, Troponin I < 0.30, Total Protein 5.9L, Albumin 3.0L Microbiology 02/11/17 Blood Culture - Preliminary, Resulted Gram Negative [place] Lactobacillus Species Probable Coag Negative Staph 02/12/17 Gram Stain - Final, Resulted 02/12/17 CSF Culture - Preliminary, Resulted No growth 02/11/17 Throat Culture - Final, Complete No Beta Strep isolated Radiology CT head 02/11: "IMPRESSION: 1. No acute intracranial abnormality. No CT evidence of mass, acute infarct or intracranial hemorrhage." CXR 02/11: "IMPRESSION: Normal PA and lateral chest Procedures LP done 02/12 Assessment/Plan Assessment/Plan Admission Dx Fever Headache Chest pain Cellulitis Plan Fever- unknown etiology, accompanied by leukocytosis, no clear evidence of pneumonia based on x-ray or symptoms, no evidence of UTI, LP results noted below not consistent with meningitis -Started on azithromycin and ceftriaxone empirically on admit and decreased WBC this am but still febrile. Given symptoms and no clear source of infection, consider tick borne illness or mosquito borne virus. Will change azithromycin to doxycycline to cover tick borne illness and continue ceftriaxone (increase to 2 grams daily to cover for Lyme). -02/13 blood culture with multiple organisms of unclear species as of yet, still not feeling back to baseline. RMSF, Lyme, Erlichia and Tularemia serologies neg. WNV serology pending. Will change abx to cefdinir and stop doxycycline and monitor for fever recurrence. Headache- concerning in severity, CT head unremarkable, CSF with 1 WBC and 6 RBC -CSF studies not consistent with infection or hemorrhage, given only 1 RBC above normal and normal CT of head, but will monitor symptoms and neuro status closely -CSF with no growth Chest pain- unclear etiology but with radiation to back, will check LFTs and lipase for possible gall bladder disease or pancreatitis, EKG to look for possible carditis -LFTs and lipase normal, EKG normal and troponin normal Cellulitis- small patch on leg, do not suspect this is source of fever, antibiotics as above DVT ppx- enoxaparin Diagnosis/Problems: (1) Fever of unknown origin Assessment & Plan: Change abx to PO Doxycycline and IV Ceftriaxone. Consider vector born illness vs. aseptic meningitis vs. viral pneumonia. Clinical Quality Measures AMI/AHF: ASA po Prior to arrival: No DVT/VTE Risk/Contraindication: Risk Factor Score Per Nursin RFS Level Per Nursing on Admit: 4+=Very High GISSEL JIANG MD Feb 13, 2017 4:56 pm
[2017-02-13] MEDS: VENlafaxine XR 75 MG (EFFEXOR XR) CAP PO SCH (17:16)
[2017-02-13] MEDS ORDERED: CHLORASEPTIC LOZENGE MM PRN (17:45)
[2017-02-13] MEDS: LEVOTHYROXINE 150 MCG (LEVOTHROID) TAB PO SCH (20:20)
[2017-02-14] MEDS: ACETAMINOPHEN 325 MG TABLET/CAPLET (TYLENOL) PO PRN ×3 (00:18→12:19)
[2017-02-14 00:40] VITALS: BP 128/72
[2017-02-14] MEDS: IBUPROFEN 800 MG (MOTRIN) TAB PO PRN ×2 (01:14→15:14)
[2017-02-14] MEDS: metFORMIN XR 500 MG (GLUCOPHAGE XR) TAB PO SCH (06:11)
[2017-02-14 06:42] LABS: WEST NILE IGG 0.18 Index (0.00-1.29); WEST NILE IGM 0.01 Index (0.00-0.89)
[2017-02-14 08:11] VITALS: BP 129/85
[2017-02-14] MEDS: RT-ALBUTEROL SULF 2.5 MG/3 ML PRE-MIX VIAL IH PRN (08:15)
[2017-02-14] MEDS ORDERED: CALCIUM CARBONATE 500 MG (TUMS) TAB.CHEW PO PRN (08:45)
[2017-02-14] MEDS ORDERED: CEFDINIR 300 MG (OMNICEF) CAP PO SCH (09:00)
[2017-02-14] MEDS ORDERED: CEFD300C3 PO (10:06)
--- NOTE | 2017-02-14 10:38 | Discharge Summary ---
Diagnosis/Chief Complaint Date of Admission Feb 11, 2017 at 11:45 pm Date of Discharge Feb 14, 2017 Admission Diagnosis Admission Diagnosis Fever Headache Chest pain Cellulitis Discharge Diagnosis Fever- unknown etiology, accompanied by leukocytosis, no clear evidence of pneumonia based on x-ray or symptoms, no evidence of UTI, LP results noted below not consistent with meningitis -Started on azithromycin and ceftriaxone empirically on admit and decreased WBC this am but still febrile. Given symptoms and no clear source of infection, consider tick borne illness or mosquito borne virus. Will change azithromycin to doxycycline to cover tick borne illness and continue ceftriaxone (increase to 2 grams daily to cover for Lyme). -02/13 blood culture with multiple organisms of unclear species as of yet, still not feeling back to baseline. RMSF, Lyme, Erlichia and Tularemia serologies neg. WNV serology pending. Will change abx to cefdinir and stop doxycycline and monitor for fever recurrence. 02/14- WNV serology neg. Remained afebrile, blood culture from 2 sites with gram negative coccobacilli with difficulty identifying bacteria, micro is still processing and will send out if unable to speciate here. However, she continues to improve and as it is unclear if this is a true pathogen, will d/c with cefdinir to complete 14 days total of antibiotics. Headache- concerning in severity, CT head unremarkable, CSF with 1 WBC and 6 RBC -CSF studies not consistent with infection or hemorrhage, given only 1 RBC above normal and normal CT of head, but will monitor symptoms and neuro status closely -CSF with no growth -CTA of head with no aneurysm Chest pain- unclear etiology but with radiation to back, will check LFTs and lipase for possible gall bladder disease or pancreatitis, EKG to look for possible carditis -LFTs and lipase normal, EKG normal and troponin normal, Echocardiogram unremarkable Cellulitis- small patch on leg, do not suspect this is source of fever, antibiotics as above Improving at d/c Chief Complaint/HPI Chief Complaint/HPI Patient denies any known tick exposure or mosquito bites, but was [place] and had recent travel to [place]. She states headache is essentially entire head and has not improved and feels pretty severe like her head will explode. Her chest pain she reports is over her left breast and worse in her back which felt like someone was crushing her from behind. She is still having this pain although she overall feels a little better. Discharge Summary-Simple/Stand Procedures LP done 02/12 Consultations Discharge Physical Examination Allergies: Coded Allergies: No Known Drug Allergies (Unverified , 06/01/10) Vitals & I&Os Vital Sign - Last 12Hours Date Time Temp Pulse Resp B/P (MAP) Pulse Ox O2 Delivery O2 Flow Rate FiO2 02/14/17 08:45 93 Room Air 02/14/17 08:11 97.3 56 18 129/85 Intake and Output 02/14/17 00:00 Intake Total 2650 ml Balance 2650 ml General Appearance: Alert, No Acute Distress Respiratory: Clear to Auscultation, Normal Air Movement Cardiovascular: Regular Rate, No Murmurs Skin: Other (small patch of erythema on right calf that is no longer tender or swollen) Neuro: Normal Speech Psych/Mental Status: Mental Status NL Hospital Course See final discharge diagnosis. Labs Laboratory Tests Test 02/13/17 06:45 Range/Units White Blood Count 6.5 4.3-11.0 10^3/uL Red Blood Count 4.05 L 4.35-5.85 10^6/uL Hemoglobin 12.5 11.5-16.0 G/DL Hematocrit 37 35-52 % Mean Corpuscular Volume 92 80-99 FL Mean Corpuscular Hemoglobin 31 25-34 PG Mean Corpuscular Hemoglobin Concent 34 32-36 G/DL Red Cell Distribution Width 14.0 10.0-14.5 % Platelet Count 261 130-400 10^3/uL Mean Platelet Volume 9.8 7.4-10.4 FL Neutrophils (%) (Auto) 47 42-75 % Lymphocytes (%) (Auto) 38 12-44 % Monocytes (%) (Auto) 11 0-12 % Eosinophils (%) (Auto) 4 0-10 % Basophils (%) (Auto) 1 0-10 % Neutrophils # (Auto) 3.0 1.8-7.8 X 10^3 Lymphocytes # (Auto) 2.4 1.0-4.0 X 10^3 Monocytes # (Auto) 0.7 0.0-1.0 X 10^3 Eosinophils # (Auto) 0.2 0.0-0.3 10^3/uL Basophils # (Auto) 0.1 0.0-0.1 10^3/uL Sodium Level 142 135-145 MMOL/L Potassium Level 3.5 L 3.6-5.0 MMOL/L Chloride Level 110 H 98-107 MMOL/L Carbon Dioxide Level 25 21-32 MMOL/L Anion Gap 7 5-14 MMOL/L Blood Urea Nitrogen 10 7-18 MG/DL Creatinine 0.58 L 0.60-1.30 MG/DL Estimat Glomerular Filtration Rate > 60 BUN/Creatinine Ratio 17 Glucose Level 119 H 70-105 MG/DL Calcium Level 7.8 L 8.5-10.1 MG/DL Total Bilirubin 0.2 0.1-1.0 MG/DL Aspartate Amino Transf (AST/SGOT) 22 5-34 U/L Alanine Aminotransferase (ALT/SGPT) 30 0-55 U/L Alkaline Phosphatase 56 40-136 U/L Troponin I < 0.30 <0.30 NG/ML Total Protein 5.9 L 6.4-8.2 GM/DL Albumin 3.0 L 3.2-4.5 GM/DL Radiology Reviewed CT head 02/11: "IMPRESSION: 1. No acute intracranial abnormality. No CT evidence of mass, acute infarct or intracranial hemorrhage." CXR 02/11: "IMPRESSION: Normal PA and lateral chest Discharge Instructions to patient/family Please see electonic discharge instructions given to patient. Discharge Medications Reviewed and agree with Discharge Medication list on patient's Discharge Instruction sheet Clinical Quality Measures AMI/AHF: ASA po Prior to arrival: No DVT/VTE Risk/Contraindication: Risk Factor Score Per Nursin RFS Level Per Nursing on Admit: 4+=Very High Copy Copies To 1: GISSEL JIANG MD, BETHANY N MD Feb 14, 2017 10:38
[2017-02-14 15:45] VITALS: BP 142/86
[2017-02-14] MEDS ORDERED: ACET/BUTAL/CAFF (FIORICET) TAB PO NR (16:30)
[2017-02-14] MEDS ORDERED: CATHETER FLUSH 10 ML SYR IV PRN (16:45)
[2017-02-14] MEDS ORDERED: IOHEXOL 350 MG/ML 100 ML (OMNIPAQUE 350) VIAL IV ONE (16:45)
[2017-02-14] MEDS: VENlafaxine XR 75 MG (EFFEXOR XR) CAP PO SCH (16:54)
--- NOTE | 2017-02-14 18:21 | Diagnostic Imaging Report ---
EXAMINATION: CTA of the head with contrast. INDICATION: Recurrent headaches, RBCs in LP. TECHNIQUE: Contiguous axial sections were taken through the skull both before and after administration of intravenous contrast. Sagittal and coronal reconstructed images were also obtained. FINDINGS: The recent CT head exam of 02/11/2017 failed to show any sign of an acute intracranial abnormality. On the pre intravenous contrast series of this exam, there is still no mass, shift of the midline, or hemorrhage to indicate an acute abnormality. The normal tentorial blush is noted. The ventricles are not abnormally dilated and stable in size when compared to the prior exam. The bone windows show no evidence for a fracture or for a destructive lesion. The post contrast images are less than optimal due to motion and streak artifact. There is no definite defect within the intracranial arterial circulation to suggest a thrombus. There is no sign of an aneurysm of the [place] either. The left vertebral artery is dominant. There does seem to be mild exophthalmos of the globes, particularly on the right. Clinical followup is recommended. There is a small retention cyst in the left maxillary antrum. The sinuses are generally clear, otherwise. IMPRESSION: 1. There is no evidence for an acute intracranial abnormality. In particular, there is no sign of hemorrhage. 2. The post contrast images are less than optimal due to motion and streak artifact. There is no definite evidence for thrombosis of the intracranial arterial circulation and there is no sign of an aneurysm of the [place]. 3. There does seem to be mild exophthalmos of the globes, particularly on the right. Clinical followup is recommended. 4. These results were discussed with Dr. Eva Mar. Dictated by: Dictated on workstation # [id number]
== END 2017-02-14 18:40 | disposition home or self-care (01) | DRG 864 ==
LOC: EDUNIT# 21:46 → ER 21:49 → 4TH 23:45
PROVIDERS: ADMIT Family Medicine; ATTEND Family Medicine
PROC: 009U3ZX Drainage of Spinal Canal, Percutaneous Approach, Diagnostic (ICD-10-PCS; principal; 2017-02-11)
DX: R50.9 Fever, unspecified (principal); M54.2 Cervicalgia; L03.115 Cellulitis of right lower limb; E66.01 Morbid (severe) obesity due to excess calories; Z68.44 Body mass index [BMI] 60.0-69.9, adult; I10 Essential (primary) hypertension; E78.00 Pure hypercholesterolemia, unspecified; K21.9 Gastro-esophageal reflux disease without esophagitis; E03.9 Hypothyroidism, unspecified; E11.9 Type 2 diabetes mellitus without complications; F41.9 Anxiety disorder, unspecified; F32.9 Major depressive disorder, single episode, unspecified; G43.909 Migraine, unspecified, not intractable, without status migrainosus; R07.9 Chest pain, unspecified
CPT/HCPCS: 36415; 70450; 70496; 71020; 80048; 80053; 81000; 82945; 83605; 83690; 84157; 84484; 85007; 85025; 85027; 86308; 86618; 86666; 86668; 86757; 86788; 86789; 87040; 87070; 87205; 87430; 89051; 93005; 93306; 94640; 94760; 96361; 96374

== ENCOUNTER → 2017-02-20 | Outpatient (CLI) | payer OTHER ==
[~2017-02-20] MED LIST changes: +APIX5TAB PO; +ATOR10TA66 PO; +CATHETER FLUSH 10 ML SYR IV PRN; +CEFD300C3 PO; +ERGO50006; +HYDR-3812 PO; +HYDR25TA4 PO; +IOHEXOL 350 MG/ML 150 ML (OMNIPAQUE 350) VIAL IV ONE; +LEVO125T PO; +LISI-552 PO; +METF500T8 PO; -METO-270 PO; +METO-387 PO; +NALT1TAB PO; -NAPR500T3 PO; +NAPR500T4 PO; +ONDA4TAB8 SL; +PHEN-640 PO; +VENL75CA93 PO
--- NOTE | 2017-02-20 12:20 | Diagnostic Imaging Report ---
EXAMINATION: Bilateral lower extremity duplex venous ultrasound. TECHNIQUE: DVT protocol. Multiple sonographic images with color Doppler and waveform interrogation were performed of the lower extremity veins, bilaterally, with compression and augmentation maneuvers. INDICATION: Bilateral leg pain mostly on the right side and shortness of breath. FINDINGS: The lower extremity veins from the common femoral veins to below the knee veins were examined with normal color-flow, compressibility and normal waveform demonstrated. The great saphenous vein bilaterally is patent. IMPRESSION: No evidence of DVT in either lower extremity. Dictated by: Dictated on workstation # [id number]
--- NOTE | 2017-02-20 13:36 | Diagnostic Imaging Report ---
PROCEDURE: CT angiography of the chest with contrast. TECHNIQUE: Multiple contiguous axial images were obtained through the chest after uneventful bolus administration of intravenous contrast. Reconstructed CTA MIP acquisitions were also performed. INDICATION: Chest pain. Shortness of breath. 125 ML of Omnipaque 350 is administered intravenously. FINDINGS: There is moderate opacification of the pulmonary arteries. This decreases sensitivity of this exam for detection of emboli in the segmental and the subsegmental branches. There is no definite pulmonary embolism. The thoracic aorta is normal in caliber. No dissection or aneurysm is seen. The heart size is normal. There is no pericardial or pleural effusion. There is no mediastinal mass. No significantly enlarged mediastinal or hilar lymph node is seen. The lungs demonstrate no significant consolidation, mass or suspicious nodule. There is minimal atelectasis seen in the lung bases. The osseous structures demonstrate prominent degenerative changes in the mid thoracic spine with prominent syndesmophytes. Sections in the upper abdomen demonstrate diffuse hepatic steatosis. IMPRESSION: There is moderate opacification of the pulmonary arteries with no definite filling defect to suggest pulmonary embolism. Some of the segmental and subsegmental branches are not well evaluated. No central PE. Dictated by: Dictated on workstation # [id number]
== END ==
LOC: RAD 11:33
PROVIDERS: ATTEND Family Medicine
DX: R91.8 Other nonspecific abnormal finding of lung field (principal); R06.02 Shortness of breath; R07.9 Chest pain, unspecified; M79.89 Other specified soft tissue disorders; M79.661 Pain in right lower leg
CPT/HCPCS: 71275; 93970

== ENCOUNTER → 2017-03-04 | Outpatient (CLI) | payer OTHER ==
[~2017-03-04] MED LIST changes: -APIX5TAB PO; -ATOR10TA66 PO; -ERGO50006; -IOHEXOL 350 MG/ML 150 ML (OMNIPAQUE 350) VIAL IV ONE; -LEVO125T PO; +METO-270 PO; -METO-387 PO; -NALT1TAB PO; +NAPR500T3 PO; -NAPR500T4 PO; -ONDA4TAB8 SL; -PHEN-640 PO
== END ==
LOC: CARD 12:26
PROVIDERS: ATTEND Family Medicine
DX: R07.89 Other chest pain (principal)

== ENCOUNTER 2017-04-16 20:39 | Emergency (ER) | payer SELFPAY ==
[~2017-04-16] VITALS: Ht 167.6 cm; Wt 170.6 kg
[~2017-04-16 20:39] MED LIST changes: -CATHETER FLUSH 10 ML SYR IV PRN
--- NOTE | 2017-04-16 21:35 | ED GU-Female ---
General Chief Complaint: -Female Stated Complaint: LOWER BACK/PELVIC PAINS,HEART PALPITATIONS,CHILLS Nursing Triage Note: PT REPORTS DYSURIA, DIFFICULTY URINATING, SUPRAPUBIC AND LOW BACK PAIN. SHE C/O NAUSEA AND CHILLS. Nursing Sepsis Screen: No Definite Risk Source: patient, family Exam Limitations: no limitations History of Present Illness Time seen by provider: 21:35 Initial Comments 36 yo female patient presents to the ED with c/o dysuria, difficulty with urination, frequency, suprapubic pain and low back pain. Patient does report chills and nausea this evening. Timing/Duration: getting worse, other (2-3 day onset) Severity/Quality: burning Location: urethral Radiation: back, suprapubic Activities at Onset: none Prior Genitourinary Problems: similar symptoms Modifying Factors: Worsens With Urinating Allergies and Home Medications Allergies Coded Allergies: No Known Drug Allergies (Unverified , 06/01/10) Home Medications Cefdinir 300 Mg Capsule, 300 MG PO BID for 11 Days, #22 Ref 0 Prescribed by: GISSEL JIANG on 02/14/17 1006 Fenofibrate 54 Mg Tablet, 54 MG PO HS, (Reported) Hydrochlorothiazide 25 Mg Tablet, 25 MG PO HS, (Reported) Hydrocodone/Acetaminophen 1 Each Tablet, 1 TAB PO Q8H PRN for PAIN-MODERATE, ( Reported) Levothyroxine Sodium 150 Mcg Tablet, 300 MG PO HS, (Reported) TAKES 2 (300 MG) TABLETS Lisinopril 20 Mg Tablet, 20 MG PO HS, (Reported) Metformin HCl 500 Mg Tab.er.24h, 500 MG PO BID, (Reported) Metoprolol Succinate 25 Mg Tab.er.24h, 25 MG PO HS, (Reported) Nitrofurantoin Monohyd/M-Cryst 100 Mg Capsule, 1 TAB PO BID, #10 Ref 0 Prescribed by: JESSICA HUFF on 04/16/17 2333 Phenazopyridine HCl 200 Mg Tablet, 1 TAB PO Q6H PRN for pain, #14 Ref 0 Prescribed by: JESSICA HUFF on 04/16/17 2333 Venlafaxine HCl 75 Mg Cap.er.24h, 75 MG PO HS, (Reported) Constitutional: chills, No fever, malaise EENTM: no symptoms reported Respiratory: No cough, No phlegm, No short of breath Cardiovascular: No chest pain, No palpitations Gastrointestinal: abdominal pain (suprapubic abd pain), No constipation, No diarrhea, loss of appetite, No melena, nausea, No vomiting Genitourinary: see HPI, dysuria, frequency, denies flank pain, denies hematuria Musculoskeletal: see HPI, back pain Skin: no symptoms reported Psychiatric/Neurological: No Symptoms Reported All Other Systemes Reviewed Negative Unless Noted: Yes (Negative excepted noted.) Past Ibaqicx-Szjbtc-Duchai Hx Patient Social History Alcohol Use: Occasionally Uses Number of Drinks Today: AA Alcohol Beverage of Choice: Beer Recreational Drug Use: No Type Used: Cigarettes Former Smoker, Quit: Sep 11, 2010 2nd Hand Smoke Exposure: No Recent Foreign Travel: No Contact w/Someone Who Travel: No Recent Infectious Disease Expo: No Recent Hopitalizations: No Physical Abuse: No Sexual Abuse: No Immunizations Up To Date Tetanus Booster (TDap): Unknown PED Vaccines UTD: No Date of Influenza Vaccine: May 14, 2015 Seasonal Allergies Seasonal Allergies: No Surgeries History of Surgeries: Yes Surgeries: Cardiac, Hysterectomy, Thyroidectomy, Tubal Ligation Respiratory History of Respiratory Disorde: No Cardiovascular History of Cardiac Disorders: Yes Cardiac Disorders: High Cholesterol, Hypertension, Palpitations Neurological History of Neurological Disord: Yes Neurological Disorders: Headaches /Migraines Reproductive System Hx Reproductive Disorders: Yes Sexually Transmitted Disease: No HIV/AIDS: No Female Reproductive Disorders: Menstrual Problems [employer] WORK[employer] History: Hysterectomy Genitourinary History of Genitourinary Disor: No Gastrointestinal History of Gastrointestinal Di: Yes Gastrointestinal Disorders: Gastroesophageal Reflux Musculoskeletal History of Musculoskeletal Dis: Yes Musculoskeletal Disorders: Chronic Back Pain Endocrine History of Endocrine Disorders: Yes Endocrine Disorders: Hypothyroidsim, Diabetes, Non-Insulin dep HEENT History of HEENT Disorders: Yes Loss of Vision: Bilateral Hearing Impairment: Denies Cancer History of Cancer: No Psychosocial History of Psychiatric Problem: Yes Behavioral Health Disorders: Anxiety, Depression Suicide Risk Score: 0 Integumentary History of Skin or Integumenta: No Blood Transfusions History of Blood Disorders: No Adverse Reaction to a Blood Tr: No Reviewed Nursing Assessment Reviewed/Agree w Nursing PMH: Yes Family Medical History Significant Family History: No Pertinent Family Hx, Seizures Family Medial History: Diabetes mellitus 19 MOTHER Hypertension 19 MOTHER Seizure disorder G8 BROTHER G8 SISTER Physical Exam Vital Signs Vital Sign - Last 12Hours 04/16/17 21:00 Temp 98.9 Pulse 92 Resp 18 B/P (MAP) 146/107 Pulse Ox 98 O2 Delivery Room Air Capillary Refill : Less Than 3 Seconds General Appearance: WD/WN, no apparent distress HEENT: PERRL/EOMI, pharynx normal Neck: supple, normal inspection Cardiovascular: normal peripheral pulses, regular rate, rhythm, no murmur Respiratory: lungs clear, normal breath sounds, no respiratory distress, no accessory muscle use Gastrointestinal: normal bowel sounds, soft, no organomegaly, No distended, No guarding, No rebound, tenderness (suprapubic tenderness) Back: normal inspection, no CVA tenderness Extremities: no pedal edema, normal capillary refill Neurologic/Psychiatric: alert, normal mood/affect, oriented x 3 Skin: normal color, warm/dry Progress/Results/Core Measures Results/Orders Lab Results Laboratory Tests Test 04/16/17 23:06 Range/Units Urine Color YELLOW Urine Clarity SLIGHTLY CLOUDY Urine pH 5 5-9 Urine Specific Protem 1.025 H 1.016-1.022 Urine Protein NEGATIVE NEGATIVE Urine Glucose (UA) NEGATIVE NEGATIVE Urine Ketones NEGATIVE NEGATIVE Urine Nitrite NEGATIVE NEGATIVE Urine Bilirubin NEGATIVE NEGATIVE Urine Urobilinogen NORMAL NORMAL MG/DL Urine Leukocyte Esterase NEGATIVE NEGATIVE Urine RBC (Auto) 2+ H NEGATIVE Urine RBC 0-2 /HPF Urine WBC RARE /HPF Urine Squamous Epithelial Cells 10-25 H /HPF Urine Crystals NONE /LPF Urine Bacteria FEW H /HPF Urine Casts NONE /LPF Urine Mucus SMALL H /LPF Urine Culture Indicated NO My Orders Orders - JESSICA HUFF Ua Culture If Indicated (04/16/17 21:06) Urine Bedside (04/16/17 21:06) Ketorolac Injection (Toradol Injection) (04/16/17 21:49) Rx-Nitrofurantoin [place] (Rx-Macrobid) (04/16/17 23:35) Vital Signs/I&O Vital Sign - Last 12Hours 04/16/17 21:00 Temp 98.9 Pulse 92 Resp 18 B/P (MAP) 146/107 Pulse Ox 98 O2 Delivery Room Air Blood Pressure Mean: 120 Departure Communication (Admissions) Progress Notes laboratory findings discussed with the patient. patient reports feeling better with the toradol. patient shows rare WBC, few bacteria as well as c/o dysuria and frequency. patient given a Rx for macrobid and pyridium. Sent with a take home pack of macrobid for urinary symptoms. Patient to return to the ED for increased symptoms or any other concerns. Impression Impression: Primary Impression: Dysuria Additional Impression: Frequency of urination Disposition: 01 HOME, SELF-CARE Condition: Improved Departure-Patient Inst. Decision time for Depature: 23:31 Referrals: [facility] (PCP) Primary Care Physician PATTIE ENAMORADO APRN (Family) Primary Care Physician Patient Instructions: Urinary Tract Infection, Adult (DC) Add. Discharge Instructions: All discharge instructions reviewed with patient and/or family. Voiced understanding. Medications as directed. Tylenol over the counter as directed for pain. Motrin 800 mg by mouth every 8 hours as needed for pain. Drink plenty of fluids. Follow-up with your family practitioner for recheck if no improvement in symptoms. Return to the emergency department for worsened pain, fever, vomiting, inability to urinate, or any other concerns. Scripts Phenazopyridine HCl (Pyridium) 200 Mg Tablet 1 TAB PO Q6H Y for pain, #14 TAB 0 Refills Prov: JESSICA HUFF 04/16/17 Nitrofurantoin Monohyd/M-Cryst (Macrobid 100 mg Capsule) 100 Mg Capsule 1 TAB PO BID, #10 CAP 0 Refills Prov: JESSICA HUFF 04/16/17 JESSICA HUFF Apr 16, 2017 21:35
[2017-04-16] MEDS ORDERED: KETOROLAC 60 MG/2 ML VIAL IM STA (21:49)
[2017-04-16 23:13] LABS: BILIRUBIN,URINE NEGATIVE (NEGATIVE); KETONES,URINE NEGATIVE (NEGATIVE); LEUKOCYTE ESTERASE ,URINE NEGATIVE (NEGATIVE); NITRITE,URINE NEGATIVE (NEGATIVE); PH,URINE 5 (5-9); PROTEIN,URINE NEGATIVE (NEGATIVE); UROBILINOGEN,URINE NORMAL (NORMAL)
[2017-04-16 23:20] LABS: WBC,URINE RARE /HPF
[2017-04-16] MEDS ORDERED: PHEN-640 PO (23:33)
[2017-04-16] MEDS ORDERED: NITR-65 PO (23:33)
[2017-04-16] MEDS ORDERED: RX-NITROFURANTOIN 100 MG (MACROBID) CAP PPK#2 PO STA (23:35)
[2017-04-16 23:45] VITALS: BP 136/85
== END 2017-04-16 23:45 | disposition home or self-care (01) ==
LOC: EDUNIT# 20:39 → ER 20:42
DX: F32.9 Major depressive disorder, single episode, unspecified; I10 Essential (primary) hypertension; Z79.84 Long term (current) use of oral hypoglycemic drugs; Z87.891 Personal history of nicotine dependence; E11.9 Type 2 diabetes mellitus without complications; E78.00 Pure hypercholesterolemia, unspecified; F41.9 Anxiety disorder, unspecified; G43.909 Migraine, unspecified, not intractable, without status migrainosus; Z98.51 Tubal ligation status; K21.9 Gastro-esophageal reflux disease without esophagitis; R35.0 Frequency of micturition; Z90.710 Acquired absence of both cervix and uterus; E03.9 Hypothyroidism, unspecified; R30.0 Dysuria
CPT/HCPCS: 81000; 99283

== ENCOUNTER 2017-04-28 14:14 | Emergency (ER) | payer SELFPAY ==
[~2017-04-28] VITALS: Ht 167.6 cm; Wt 170.1 kg
[~2017-04-28 14:14] MED LIST changes: +PHEN-640 PO
[2017-04-28 16:35] LABS: BILIRUBIN,URINE NEGATIVE (NEGATIVE); KETONES,URINE NEGATIVE (NEGATIVE); LEUKOCYTE ESTERASE ,URINE 1+ (NEGATIVE); NITRITE,URINE NEGATIVE (NEGATIVE); PH,URINE 5 (5-9); PROTEIN,URINE 1+ (NEGATIVE); UROBILINOGEN,URINE NORMAL (NORMAL)
[2017-04-28] MEDS ORDERED: NS IV 1000 ML 1,000 ML IV ONE (16:38)
[2017-04-28 16:43] LABS: WBC,URINE 0-2 /HPF
[2017-04-28] MEDS ORDERED: KETOROLAC 30 MG/ML VIAL IVP ONE (16:45)
[2017-04-28] MEDS ORDERED: ONDANSETRON 4 MG/2 ML (SDV) Z0FRAN IVP ONE (16:45)
[2017-04-28 17:48] LABS: BASOPHILS # (AUTO) 0.1 10^3/uL (0.0-0.1); BASOPHILS % (AUTO) 1 % (0-10); EOSINOPHILS # (AUTO) 0.2 10^3/uL (0.0-0.3); EOSINOPHILS % (AUTO) 2 % (0-10); LYMPHOCYTES # (AUTO) 3.2 X 10^3 (1.0-4.0); LYMPHOCYTES % (AUTO) 32 % (12-44); MEAN CORPUSCULAR HEMOGLOBIN 31 PG (25-34); MEAN CORPUSCULAR HGB CONC 33 G/DL (32-36); MEAN CORPUSCULAR VOLUME 92 FL (80-99); MEAN PLATELET VOLUME 9.7 FL (7.4-10.4); MONOCYTES # (AUTO) 0.8 X 10^3 (0.0-1.0); MONOCYTES % (AUTO) 8 % (0-12); NEUTROPHILS # (AUTO) 5.8 X 10^3 (1.8-7.8); NEUTROPHILS % (AUTO) 58 % (42-75); PLATELET COUNT 339 10^3/uL (130-400); RED BLOOD COUNT 4.56 10^6/uL (4.35-5.85); RED CELL DISTRIBUTION WIDTH 13.7 % (10.0-14.5)
[2017-04-28 18:15] LABS: ALANINE AMINOTRANSFERASE 62 U/L (0-55); ANION GAP 9 MMOL/L (5-14); ASPARTATE AMINO TRANSFERASE 40 U/L (5-34); BILIRUBIN,TOTAL 0.5 MG/DL (0.1-1.0); BLOOD UREA NITROGEN 13 MG/DL (7-18); BUN/CREATININE RATIO 19; CALCIUM 8.8 MG/DL (8.5-10.1); CARBON DIOXIDE 28 MMOL/L (21-32); CHLORIDE 103 MMOL/L (98-107); CREATININE SERUM 0.67 MG/DL (0.60-1.30); GFR ESTIMATED > 60; GLUCOSE 92 MG/DL (70-105); LIPASE 19 U/L (8-78); SODIUM 140 MMOL/L (135-145); TOTAL PROTEIN 7.5 GM/DL (6.4-8.2)
[2017-04-28 18:36] LABS: THYROID STIMULATING HORMONE 0.74 UIU/ML (0.35-4.94)
[2017-04-28] MEDS ORDERED: ORPHENADRINE 60 MG/2 ML (NORFLEX) AMP IV ONE (18:45)
--- NOTE | 2017-04-28 19:15 | ED General ---
General Chief Complaint: -Female Stated Complaint: HEADACHE, ABD PAIN,BACK PAIN,N/V Nursing Triage Note: AMB TO ROOM C/O HEADACHE AND LOW BACK PAIN WAS SEEN AT [facility] ON SAT UA DONE HAD BLOOD DRAWN AT [facility] TODAY. CON'T TO HAVE LOW BACK PAIN WITH NAUSEA REPORTS VOMITED TODAY Nursing Sepsis Screen: No Definite Risk Source of Information: Patient Exam Limitations: No Limitations History of Present Illness Time Seen by Provider: 16:20 Initial Comments This 36-year-old woman well known to this provider presents to the emergency room complaining of intense headache, bilateral lower back ache that radiates to the lower abdomen, nausea, extreme thirst, and generally feeling ill. She did vomit today. Denies constipation or diarrhea. She has not felt well for couple of weeks. She reports there was blood in her urine on Friday when she went to the walk-in clinic. Urine culture was not available yet. She also had outpatient labs drawn at [facility] today. I did contact [facility] and results are not back yet. She took ibuprofen and hydrocodone at home this morning which did not improve her symptoms much. She reports good compliance with her thyroid medications. She is afebrile. Allergies and Home Medications Allergies Coded Allergies: No Known Drug Allergies (Unverified , 06/01/10) Home Medications Cefdinir 300 Mg Capsule, 300 MG PO BID for 11 Days, #22 Ref 0 Prescribed by: GISSEL JIANG on 02/14/17 1006 Fenofibrate 54 Mg Tablet, 54 MG PO HS, (Reported) Hydrochlorothiazide 25 Mg Tablet, 25 MG PO HS, (Reported) Hydrocodone/Acetaminophen 1 Each Tablet, 1 TAB PO Q8H PRN for PAIN-MODERATE, ( Reported) Levothyroxine Sodium 150 Mcg Tablet, 300 MG PO HS, (Reported) TAKES 2 (300 MG) TABLETS Lisinopril 20 Mg Tablet, 20 MG PO HS, (Reported) Metformin HCl 500 Mg Tab.er.24h, 500 MG PO BID, (Reported) Metoprolol Succinate 25 Mg Tab.er.24h, 25 MG PO HS, (Reported) Constitutional: see HPI EENTM: no symptoms reported Respiratory: no symptoms reported Cardiovascular: no symptoms reported Gastrointestinal: see HPI Genitourinary: see HPI Musculoskeletal: see HPI Skin: no symptoms reported Psychiatric/Neurological: See HPI Hematologic/Lymphatic: No Symptoms Reported Past Wbjxvbk-Gbxtvu-Moujkj Hx Patient Social History Alcohol Beverage of Choice: Beer Type Used: Cigarettes Former Smoker, Quit: Sep 11, 2010 2nd Hand Smoke Exposure: No Recent Foreign Travel: No Contact w/Someone Who Travel: No Recent Infectious Disease Expo: No Recent Hopitalizations: No Immunizations Up To Date Tetanus Booster (TDap): Unknown PED Vaccines UTD: No Date of Influenza Vaccine: May 14, 2015 Seasonal Allergies Seasonal Allergies: No Surgeries History of Surgeries: Yes Surgeries: Cardiac, Hysterectomy, Thyroidectomy, Tubal Ligation Respiratory History of Respiratory Disorde: No Cardiovascular History of Cardiac Disorders: Yes Cardiac Disorders: High Cholesterol, Hypertension, Palpitations Neurological History of Neurological Disord: Yes Neurological Disorders: Headaches /Migraines Reproductive System Hx Reproductive Disorders: Yes Sexually Transmitted Disease: No HIV/AIDS: No Female Reproductive Disorders: Menstrual 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 Genitourinary History of Genitourinary Disor: No Gastrointestinal History of Gastrointestinal Di: Yes Gastrointestinal Disorders: Gastroesophageal Reflux Musculoskeletal History of Musculoskeletal Dis: Yes Musculoskeletal Disorders: Chronic Back Pain Endocrine History of Endocrine Disorders: Yes Endocrine Disorders: Hypothyroidsim, Diabetes, Non-Insulin dep HEENT History of HEENT Disorders: Yes Loss of Vision: Bilateral Hearing Impairment: Denies Cancer History of Cancer: No Psychosocial History of Psychiatric Problem: Yes Behavioral Health Disorders: Anxiety, Depression Integumentary History of Skin or Integumenta: No Blood Transfusions History of Blood Disorders: No Adverse Reaction to a Blood Tr: No Family Medical History Significant Family History: No Pertinent Family Hx, Seizures Family Medial History: Diabetes mellitus 19 MOTHER Hypertension 19 MOTHER Seizure disorder G8 BROTHER G8 SISTER Physical Exam Vital Signs Vital Sign - Last 12Hours 04/28/ 14:56 B/P (MAP) 122/63 Capillary Refill : Less Than 3 Seconds General Appearance: No Apparent Distress, WD/WN, Obese HEENT: PERRL/EOMI, Normal ENT Inspection Neck: Normal Inspection Respiratory: Lungs Clear, Normal Breath Sounds, No Accessory Muscle Use, No Respiratory Distress Cardiovascular: Regular Rate, Rhythm, No Edema, No Murmur Gastrointestinal: Normal Bowel Sounds, Non Tender, Soft Back: Normal Inspection, CVA Tenderness (L), CVA Tenderness (R) Extremity: Normal Inspection Neurologic/Psychiatric: Alert, Oriented x3, No Motor/Sensory Deficits, Normal Mood/Affect, punchboard stuffer II-XII Norm as Tested Skin: Normal Color, Warm/Dry Progress/Results/Core Measures Results/Orders Lab Results Laboratory Tests Test 04/28/17 16:07 04/28/17 17:07 Range/Units Urine Color YELLOW Urine Clarity SLIGHTLY CLOUDY Urine pH 5 5-9 Urine Specific [place] 1.020 1.016-1.022 Urine Protein 1+ H NEGATIVE Urine Glucose (UA) NEGATIVE NEGATIVE Urine Ketones NEGATIVE NEGATIVE Urine Nitrite NEGATIVE NEGATIVE Urine Bilirubin NEGATIVE NEGATIVE Urine Urobilinogen NORMAL NORMAL MG/DL Urine Leukocyte Esterase 1+ H NEGATIVE Urine RBC (Auto) NEGATIVE NEGATIVE Urine RBC NONE /HPF Urine WBC 0-2 /HPF Urine Squamous Epithelial Cells 10-25 H /HPF Urine Crystals NONE /LPF Urine Bacteria FEW H /HPF Urine Casts NONE /LPF Urine Mucus LARGE H /LPF Urine Culture Indicated NO White Blood Count 10.0 4.3-11.0 10^3/uL Red Blood Count 4.56 4.35-5.85 10^6/uL Hemoglobin 14.0 11.5-16.0 G/DL Hematocrit 42 35-52 % Mean Corpuscular Volume 92 80-99 FL Mean Corpuscular Hemoglobin 31 25-34 PG Mean Corpuscular Hemoglobin Concent 33 32-36 G/DL Red Cell Distribution Width 13.7 10.0-14.5 % Platelet Count 339 130-400 10^3/uL Mean Platelet Volume 9.7 7.4-10.4 FL Neutrophils (%) (Auto) 58 42-75 % Lymphocytes (%) (Auto) 32 12-44 % Monocytes (%) (Auto) 8 0-12 % Eosinophils (%) (Auto) 2 0-10 % Basophils (%) (Auto) 1 0-10 % Neutrophils # (Auto) 5.8 1.8-7.8 X 10^3 Lymphocytes # (Auto) 3.2 1.0-4.0 X 10^3 Monocytes # (Auto) 0.8 0.0-1.0 X 10^3 Eosinophils # (Auto) 0.2 0.0-0.3 10^3/uL Basophils # (Auto) 0.1 0.0-0.1 10^3/uL Sodium Level 140 135-145 MMOL/L Potassium Level 4.0 3.6-5.0 MMOL/L Chloride Level 103 98-107 MMOL/L Carbon Dioxide Level 28 21-32 MMOL/L Anion Gap 9 5-14 MMOL/L Blood Urea Nitrogen 13 7-18 MG/DL Creatinine 0.67 0.60-1.30 MG/DL Estimat Glomerular Filtration Rate > 60 BUN/Creatinine Ratio 19 Glucose Level 92 70-105 MG/DL Calcium Level 8.8 8.5-10.1 MG/DL Total Bilirubin 0.5 0.1-1.0 MG/DL Aspartate Amino Transf (AST/SGOT) 40 H 5-34 U/L Alanine Aminotransferase (ALT/SGPT) 62 H 0-55 U/L Alkaline Phosphatase 72 40-136 U/L Total Protein 7.5 6.4-8.2 GM/DL Albumin 4.0 3.2-4.5 GM/DL Lipase 19 8-78 U/L Thyroid Stimulating Hormone (TSH) 0.74 0.35-4.94 UIU/ML Free Thyroxine 1.45 0.70-1.48 NG/DL My Orders Orders - ESTEFANY DOWNEY MD Cbc With Automated Diff (04/28/17 16:38) Comprehensive Metabolic Panel (04/28/17 16:38) Lipase (04/28/17 16:38) Thyroid Stimulating Hormone (04/28/17 16:38) Ua Culture If Indicated (04/28/17 16:38) Free T4 (Free Thyroxine) (04/28/17 16:38) Ns Iv 1000 Ml (Sodium Chloride 0.9%) (04/28/17 16:38) Ondansetron Injection (Zofran Injectio (04/28/17 16:45) Ketorolac Injection (Toradol Injection) (04/28/17 16:45) Orphenadrine Injection (Norflex Injectio (04/28/17 18:45) Medications Given in ED Current Medications Medications Dose Ordered Sig/Elmer Route Start Time Stop Time Status Last Admin Dose Admin Ketorolac Tromethamine 30 mg ONCE ONCE IVP 04/28/17 16:45 04/28/17 16:46 DC 04/28/17 17:40 30 MG Ondansetron HCl 8 mg ONCE ONCE IVP 04/28/17 16:45 04/28/17 16:46 DC 04/28/17 17:39 8 MG Orphenadrine Citrate 60 mg ONCE ONCE IV 04/28/17 18:45 04/28/17 18:46 DC 04/28/17 19:01 60 MG Sodium Chloride 1,000 ml @ 0 mls/hr Q0M ONCE IV 04/28/17 16:38 04/28/17 16:40 DC 04/28/17 17:40 1,000 MLS/HR Vital Signs/I&O Vital Sign - Last 12Hours 04/28/17 14:56 B/P (MAP) 122/63 Blood Pressure Mean: 82 Progress Note : Progress Note Patient was seen and examined. Labs were ordered as they were not yet available through [facility]. Labs were unremarkable. There is no evidence of UTI or hematuria. Patient was treated with IV fluids, Toradol, and Zofran. This improved most of her symptoms except for the back ache. Norflex was then ordered. Patient fell sleep after receiving Norflex. Departure Impression Impression: Primary Impression: Acute headache Qualified Codes: R51 - Headache Additional Impressions: Backache Qualified Codes: M54.9 - Dorsalgia, unspecified Nausea and vomiting Qualified Codes: R11.2 - Nausea with vomiting, unspecified Disposition: HOME, SELF-CARE Condition: Improved Departure-Patient Inst. Decision time for Depature: 19:20 Referrals: [facility] (PCP) Primary Care Physician PATTIE ENAMORADO APRN (Family) Primary Care Physician Patient Instructions: Nausea and Vomiting, Adult Add. Discharge Instructions: Drink plenty of clear liquids. Use Zofran (ondansetron) as prescribed for nausea and vomiting. You may continue to use Tylenol and ibuprofen for aches and pains. Return to care if symptoms worsen. All discharge instructions reviewed with patient and/or family. Voiced understanding. Scripts Ondansetron (Zofran Odt) 4 Mg Tab.rapdis 4 MG SL Q4H Y for NAUSEA/VOMITING-1ST LINE, #10 TAB Prov: ESTEFANY DOWNEY MD 04/28/17 Work/School Note: Work Release Form Date Seen in the Emergency Department: Apr 28, 2017 Return to Work: Apr 30, 2017 Restrictions: No Restrictions Copy Copies To 1: AILYN SHAFFER JOSHUA T MD Apr 28, 2017 19:15
[2017-04-28] MEDS ORDERED: ONDA4TAB8 SL (19:21)
[2017-04-28 19:37] VITALS: BP 122/65
== END 2017-04-28 19:37 | disposition home or self-care (01) ==
LOC: EDUNIT# 14:14 → ER 14:16
DX: R51 Headache (principal); M54.9 Dorsalgia, unspecified; R11.2 Nausea with vomiting, unspecified; F41.9 Anxiety disorder, unspecified; F32.9 Major depressive disorder, single episode, unspecified; E03.9 Hypothyroidism, unspecified; E11.9 Type 2 diabetes mellitus without complications; K21.9 Gastro-esophageal reflux disease without esophagitis; E78.00 Pure hypercholesterolemia, unspecified; I10 Essential (primary) hypertension; Z87.891 Personal history of nicotine dependence; Z90.710 Acquired absence of both cervix and uterus; Z90.89 Acquired absence of other organs; Z98.51 Tubal ligation status
CPT/HCPCS: 36415; 80053; 81000; 83690; 84439; 84443; 85025; 99282

== ENCOUNTER 2017-05-30 16:49 | Observation (INO) | payer SELFPAY ==
[~2017-05-30] VITALS: Ht 167.6 cm; Wt 170.1 kg
[~2017-05-30 16:49] MED LIST changes: -METO-270 PO; +METO-387 PO; -NAPR500T3 PO; +NAPR500T4 PO; +ONDA4TAB8 SL
[2017-05-30] MEDS ORDERED: meTOprolol TARTRATE 25 MG (LOPRESSOR) TABLET PO ONE (17:15)
[2017-05-30] MEDS ORDERED: KETOROLAC 30 MG/ML VIAL IVP ONE (17:15)
--- NOTE | 2017-05-30 17:15 | ED Chest Pain ---
General Chief Complaint: Chest Pain Stated Complaint: CHEST/BACK PAIN,VOMITING Source: patient Exam Limitations: no limitations History of Present Illness Time seen by provider: 17:13 Initial Comments To ER with reports of chest pain, back pain and vomiting. She states that this pain began on the left side of her chest this morning. She describes it as a sharp chest pain. Throughout the course of the day the pain has changed from sharp to pressure. She does have associated shortness of breath. She denies a cough. She denies history of DVT or unilateral leg pain. She is not on exogenous estrogen. She is a nonsmoker. No fevers or chills. She has been dealing with nasal congestion and sore throat for the past few days. She did have a cardiac catheterization in 2012 showing normal coronary arteries without stenosis. 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 NTG SL TABLE WORKER PACKAGER: No Allergies and Home Medications Allergies Coded Allergies: No Known Drug Allergies (Unverified , 06/01/10) Home Medications Fenofibrate 54 Mg Tablet, 54 MG PO HS, (Reported) Hydrochlorothiazide 25 Mg Tablet, 25 MG PO HS, (Reported) Hydrocodone/Acetaminophen 1 Each Tablet, 1 TAB PO BID PRN for PAIN-MODERATE, ( Reported) 1 TAB IN AM, 2 AT BEDTIME Levothyroxine Sodium 150 Mcg Tablet, 300 MG PO HS, (Reported) TAKES 2 (300 MG) TABLETS Lisinopril 20 Mg Tablet, 20 MG PO HS, (Reported) Metformin HCl 500 Mg Tab.er.24h, 500 MG PO BID, (Reported) Metoprolol Succinate 25 Mg Tab.er.24h, 25 MG PO HS, (Reported) Naltrexone HCl/Bupropion HCl 1 Each Tablet.er, 2 EACH PO BID, (Reported) Review of Systems Constitutional: see HPI, No chills, No fever EENTM: See HPI, Nose Congestion, Throat Pain Respiratory: See HPI, Denies Cough, Denies Shortness of Air, SOA With Exertion Cardiovascular: See HPI, Chest Pain, Denies Edema, Denies Irregular Heart Rate , Denies Lightheadedness, Denies Palpitations, Denies Syncope Gastrointestinal: No Symptoms Reported Genitourinary: No Symptoms Reported Musculoskeletal: no symptoms reported Skin: no symptoms reported Psychiatric/Neurological: No Symptoms Reported Endocrine: No Symptoms Reported Past Nnfbvlk-Vcgjre-Iwckoh Hx Patient Social History Alcohol Beverage of Choice: Beer Type Used: Cigarettes Former Smoker, Quit: Sep 11, 2010 2nd Hand Smoke Exposure: No Recent Foreign Travel: No Contact w/Someone Who Travel: No Recent Hopitalizations: No Immunizations Up To Date Tetanus Booster (TDap): Unknown PED Vaccines UTD: No Date of Influenza Vaccine: May 14, 2015 Seasonal Allergies Seasonal Allergies: No Surgeries History of Surgeries: Yes Surgeries: Cardiac, Hysterectomy, Thyroidectomy, Tubal Ligation Respiratory History of Respiratory Disorde: No Cardiovascular History of Cardiac Disorders: Yes Cardiac Disorders: High Cholesterol, Hypertension, Palpitations Neurological History of Neurological Disord: Yes Neurological Disorders: Headaches /Migraines Reproductive System Hx Reproductive Disorders: Yes Sexually Transmitted Disease: No HIV/AIDS: No Female Reproductive Disorders: 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 Genitourinary History of Genitourinary Disor: No Gastrointestinal History of Gastrointestinal Di: Yes Gastrointestinal Disorders: Gastroesophageal Reflux Musculoskeletal History of Musculoskeletal Dis: Yes Musculoskeletal Disorders: Chronic Back Pain Endocrine History of Endocrine Disorders: Yes Endocrine Disorders: Hypothyroidsim, Diabetes, Non-Insulin dep HEENT History of HEENT Disorders: Yes Loss of Vision: Bilateral Hearing Impairment: Denies Cancer History of Cancer: No Psychosocial History of Psychiatric Problem: Yes Behavioral Health Disorders: Anxiety, Depression Integumentary History of Skin or Integumenta: No Blood Transfusions History of Blood Disorders: No Adverse Reaction to a Blood Tr: No Family Medical History Significant Family History: No Pertinent Family Hx, Seizures Family Medial History: Diabetes mellitus 19 MOTHER Hypertension 19 MOTHER Seizure disorder G8 BROTHER G8 SISTER Physical Exam Vital Signs Vital Sign - Last 12Hours 05/30/ 16:58 Temp 98.2 Pulse 92 Resp 20 B/P (MAP) 157/100 Pulse Ox 92 O2 Delivery Room Air Capillary Refill : General Appearance: No Apparent Distress, WD/WN HEENT: PERRL/EOMI, TMs Normal Neck: Full Range of Motion, Normal Inspection Respiratory: Normal Breath Sounds, No Accessory Muscle Use, No Respiratory Distress Cardiovascular: Regular Rate, Rhythm, Normal Peripheral Pulses Gastrointestinal: Normal Bowel Sounds, Non Tender, Soft Extremity: Normal Capillary Refill, Normal Inspection, Other (there is no swelling to either lower extremity though it would be difficult to determine based on body habitus. She does have varicose veins that are more prominent on the left. She states these do sometimes stick out more than usual, but then sometimes they don't.) Neurologic/Psychiatric: Alert, Oriented x3, No Motor/Sensory Deficits Skin: Normal Color, Warm/Dry Progress/Results/Core Measures Results/Orders Lab Results Laboratory Tests Test 05/30/17 17:52 05/30/17 18:47 Range/Units White Blood Count 10.3 4.3-11.0 10^3/uL Red Blood Count 4.64 4.35-5.85 10^6/uL Hemoglobin 14.2 11.5-16.0 G/DL Hematocrit 41 35-52 % Mean Corpuscular Volume 89 80-99 FL Mean Corpuscular Hemoglobin 31 25-34 PG Mean Corpuscular Hemoglobin Concent 35 32-36 G/DL Red Cell Distribution Width 13.1 10.0-14.5 % Platelet Count 378 130-400 10^3/uL Mean Platelet Volume 9.5 7.4-10.4 FL Neutrophils (%) (Auto) 60 42-75 % Lymphocytes (%) (Auto) 30 12-44 % Monocytes (%) (Auto) 8 0-12 % Eosinophils (%) (Auto) 1 0-10 % Basophils (%) (Auto) 1 0-10 % Neutrophils # (Auto) 6.2 1.8-7.8 X 10^3 Lymphocytes # (Auto) 3.0 1.0-4.0 X 10^3 Monocytes # (Auto) 0.8 0.0-1.0 X 10^3 Eosinophils # (Auto) 0.1 0.0-0.3 10^3/uL Basophils # (Auto) 0.1 0.0-0.1 10^3/uL D-Dimer 1.58 H 0.00-0.49 UG/ML Sodium Level 137 135-145 MMOL/L Potassium Level 3.3 L 3.6-5.0 MMOL/L Chloride Level 102 98-107 MMOL/L Carbon Dioxide Level 20 L 21-32 MMOL/L Anion Gap 15 H 5-14 MMOL/L Blood Urea Nitrogen 13 7-18 MG/DL Creatinine 0.69 0.60-1.30 MG/DL Estimat Glomerular Filtration Rate > 60 BUN/Creatinine Ratio 19 Glucose Level 107 H 70-105 MG/DL Calcium Level 9.0 8.5-10.1 MG/DL Magnesium Level 1.5 L 1.8-2.4 MG/DL Total Bilirubin 0.6 0.1-1.0 MG/DL Aspartate Amino Transf (AST/SGOT) 53 H 5-34 U/L Alanine Aminotransferase (ALT/SGPT) 63 H 0-55 U/L Alkaline Phosphatase 70 40-136 U/L Troponin I < 0.30 <0.30 NG/ML Total Protein 7.5 6.4-8.2 GM/DL Albumin 3.9 3.2-4.5 GM/DL Lipase 18 8-78 U/L Urine Color CIERA H Urine Clarity CLEAR Urine pH 5 5-9 Urine Specific [place] 1.025 H 1.016-1.022 Urine Protein NEGATIVE NEGATIVE Urine Glucose (UA) NEGATIVE NEGATIVE Urine Ketones NEGATIVE NEGATIVE Urine Nitrite NEGATIVE NEGATIVE Urine Bilirubin NEGATIVE NEGATIVE Urine Urobilinogen NORMAL NORMAL MG/DL Urine Leukocyte Esterase 1+ H NEGATIVE Urine RBC (Auto) 1+ H NEGATIVE Urine RBC NONE /HPF Urine WBC RARE /HPF Urine Squamous Epithelial Cells 10-25 H /HPF Urine Crystals NONE /LPF Urine Bacteria FEW H /HPF Urine Casts PRESENT /LPF Urine Hyaline Casts 5-10 H /LPF Urine Mucus NEGATIVE /LPF Urine Culture Indicated NO My Orders Orders - EILEEN PIKE APRN Cbc With Automated Diff (05/30/17 16:56) Comprehensive Metabolic Panel (05/30/17 16:56) Lipase (05/30/17 16:56) Ua Culture If Indicated (05/30/17 16:56) Fibrin Degradation Products (05/30/17 16:56) Urine Bedside (05/30/17 16:56) Ekg Tracing (05/30/17 16:56) Troponin I (05/30/17 16:56) Magnesium (05/30/17 16:56) Chest Pa/Lat (2 View) (05/30/17 17:06) Ketorolac Injection (Toradol Injection) (05/30/17 17:15) Metoprolol Tartrate (Ir) Tab (Lopressor (05/30/17 17:15) Ct Angio Chest W (05/30/17 18:31) Iohexol Injection (Omnipaque 350 Mg/Ml 1 (05/30/17 19:00) Ns (Ivpb) (Sodium Chloride 0.9% Ivpb Bag (05/30/17 19:00) Pharmacy Communication (Pharmacy Communi (05/30/17 18:48) Fentanyl Injection (Sublimaze Injection (05/30/17 19:15) Heparin Drip [id number] Unit/500ml (Heparin (05/30/17 19:34) Heparin (Bolus Per Protocol) (Heparin (B (05/30/17 19:45) Apixaban Tablet (Eliquis Tablet) (05/30/17 19:45) Medications Given in ED Current Medications Medications Dose Ordered Sig/Elmer Route Start Time Stop Time Status Last Admin Dose Admin Apixaban 10 mg ONCE ONCE PO 05/30/17 19:45 05/30/17 19:46 05/30/17 19:44 10 MG Fentanyl Citrate 50 mcg ONCE ONCE IVP 05/30/17 19:15 05/30/17 19:16 DC 05/30/17 19:41 50 MCG Iohexol 150 ml ONCE ONCE IV 05/30/17 19:00 05/30/17 19:01 DC 05/30/17 19:09 125 ML Ketorolac Tromethamine 30 mg ONCE ONCE IVP 05/30/17 17:15 05/30/17 17:16 DC 05/30/17 17:35 30 MG Sodium Chloride 100 ml ONCE ONCE IV 05/30/17 19:00 05/30/17 19:01 DC 05/30/17 19:09 80 ML Vital Signs/I&O Vital Sign - Last 12Hours 05/30/17 05/30/17 16:58 17:25 Temp 98.2 Pulse 92 Resp 20 B/P (MAP) 157/100 Pulse Ox 92 O2 Delivery Room Air Room Air Progress Note : Progress Note Patient denies any recent prolonged travel or immobilization. She is a nonsmoker. No exogenous estrogen use. No known personal history of clotting disorder. No known family history of clotting disorder. Departure Communication (Admissions) Time/Spoke to Admitting Phy: 19:[address] Jeffery, we will admit, observation status, ELIQUIS treatment dose, bilateral lower ultrasound in the morning Impression Impression: Primary Impression: Bilateral pulmonary embolism Disposition: ADMITTED INPATIENT Condition: Stable Admissions Decision to Admit Reason: Admit from ER (General) Decision to Admit/Date: May 30, 2017 Time/Decision to Admit Time: 19:47 Departure-Patient Inst. Referrals: [facility] (PCP) Primary Care Physician PATTIE ENAMORADO APRN (Family) Primary Care Physician EILEEN PIKE APRN May 30, 2017 17:15
[2017-05-30] MEDS ORDERED: NALT1TAB PO (17:29)
[2017-05-30 18:00] LABS: BASOPHILS # (AUTO) 0.1 10^3/uL (0.0-0.1); BASOPHILS % (AUTO) 1 % (0-10); EOSINOPHILS # (AUTO) 0.1 10^3/uL (0.0-0.3); EOSINOPHILS % (AUTO) 1 % (0-10); LYMPHOCYTES % (AUTO) 30 % (12-44); MEAN CORPUSCULAR HEMOGLOBIN 31 PG (25-34); MEAN CORPUSCULAR HGB CONC 35 G/DL (32-36); MEAN CORPUSCULAR VOLUME 89 FL (80-99); MEAN PLATELET VOLUME 9.5 FL (7.4-10.4); MONOCYTES # (AUTO) 0.8 X 10^3 (0.0-1.0); MONOCYTES % (AUTO) 8 % (0-12); NEUTROPHILS # (AUTO) 6.2 X 10^3 (1.8-7.8); NEUTROPHILS % (AUTO) 60 % (42-75); PLATELET COUNT 378 10^3/uL (130-400); RED BLOOD COUNT 4.64 10^6/uL (4.35-5.85); RED CELL DISTRIBUTION WIDTH 13.1 % (10.0-14.5); WHITE BLOOD COUNT 10.3 10^3/uL (4.3-11.0)
[2017-05-30 18:22] LABS: ALANINE AMINOTRANSFERASE 63 U/L (0-55); ALBUMIN 3.9 GM/DL (3.2-4.5); ANION GAP 15 MMOL/L (5-14); ASPARTATE AMINO TRANSFERASE 53 U/L (5-34); BILIRUBIN,TOTAL 0.6 MG/DL (0.1-1.0); BLOOD UREA NITROGEN 13 MG/DL (7-18); BUN/CREATININE RATIO 19; CARBON DIOXIDE 20 MMOL/L (21-32); CHLORIDE 102 MMOL/L (98-107); CREATININE SERUM 0.69 MG/DL (0.60-1.30); GFR ESTIMATED > 60; GLUCOSE 107 MG/DL (70-105); LIPASE 18 U/L (8-78); MAGNESIUM 1.5 MG/DL (1.8-2.4); POTASSIUM 3.3 MMOL/L (3.6-5.0); SODIUM 137 MMOL/L (135-145); TOTAL PROTEIN 7.5 GM/DL (6.4-8.2)
[2017-05-30 18:28] LABS: TROPONIN I < 0.30 NG/ML (<0.30)
[2017-05-30 18:58] LABS: BILIRUBIN,URINE NEGATIVE (NEGATIVE); KETONES,URINE NEGATIVE (NEGATIVE); LEUKOCYTE ESTERASE ,URINE 1+ (NEGATIVE); NITRITE,URINE NEGATIVE (NEGATIVE); PH,URINE 5 (5-9); PROTEIN,URINE NEGATIVE (NEGATIVE); UROBILINOGEN,URINE NORMAL (NORMAL)
[2017-05-30] MEDS ORDERED: IOHEXOL 350 MG/ML 150 ML (OMNIPAQUE 350) VIAL IV ONE (19:00)
[2017-05-30] MEDS ORDERED: NS 100 ML (IVPB) BAG IV ONE (19:00)
[2017-05-30 19:05] LABS: WBC,URINE RARE /HPF
--- NOTE | 2017-05-30 19:08 | Diagnostic Imaging Report ---
INDICATION: Has been sick for a week, nausea, poor appetite and vomiting. EXAMINATION: Two-view chest, 05/30/2017. COMPARISON: 02/11/2017. FINDINGS: The heart is unremarkable. The pulmonary vasculature is slightly prominent but similar to previous imaging. There are no peripheral infiltrates or effusions. No pneumothorax. IMPRESSION: Stable chest with mild prominence of the pulmonary vasculature, perhaps normal for this patient as it has been present on multiple prior examinations. Dictated by: Dictated on workstation # [id number]
[2017-05-30] MEDS ORDERED: fentaNYL INJECTION 100 MCG/2 ML AMP IVP ONE (19:15)
[2017-05-30] MEDS ORDERED: HEParin DRIP 25000 UNIT/500ML 500 ML IV ONE (19:34)
[2017-05-30] MEDS ORDERED: APIXABAN 5 MG (ELIQUIS) TABLET PO ONE (19:45)
[2017-05-30] MEDS ORDERED: HEParin 1000 UNIT/ML (10ML VIAL) FOR BOLUS IV ONE (19:45)
--- NOTE | 2017-05-30 19:48 | Diagnostic Imaging Report ---
INDICATION: Sick for a week. Nausea, poor appetite and vomiting. Dizziness and chills. Fevers. Shortness of air today with chest pressure. EXAMINATION: CTA of the chest, 05/30/2017. COMPARISON: 02/20/2017. FINDINGS: Multiple bilateral pulmonary emboli are seen. Several likely extend into some of the smaller branches of the right middle lobe as well. No central emboli are seen. No saddle embolus visualized. However, within the distal aspect of the right main pulmonary artery, thrombus is noted which extends to involve the posterior branches of the right lower lobe and portions of the lateral branches as well. Multiple branches in the left lower lobe are also involved. There is prominent extension into the lingular branches as well. Thoracic aorta is well-preserved. No pleural or pericardial effusions are seen. There is no mediastinal or hilar adenopathy. No axillary adenopathy is appreciated. Within the lungs no mass is identified. Peripheral airspace opacity seen in the right upper lobe is new since previous examination. Given the emboli, this could represent a developing infarct with infiltrate not excluded. No acute osseous abnormality is appreciated and the visualized upper abdominal structures are stable from recent imaging. The liver appears prominent with diffuse fatty infiltration noted. Gallbladder is distended but there is no surrounding inflammation appreciated. IMPRESSION: 1. Multiple bilateral pulmonary emboli, as described. 2. New airspace opacities in the peripheral aspect of the right upper lung which could be due to developing infarcts versus infiltrate. Followup recommended to assure resolution. 3. Other findings as above. Pertinent findings were called to Vasiliy Gilliland APRN by Dr. Blackman at the time of dictation 05/30/2017 at 7:30 p.m. Dictated by: Dictated on workstation # [id number]
[2017-05-30 20:50] VITALS: BP 132/92
[2017-05-30 21:00] VITALS: BP 136/78
[2017-05-30] MEDS: HYDROcodone/APAP 5 MG/325 MG (LORTAB) TAB PO PRN (21:50)
[2017-05-30 22:00] VITALS: BP 139/86
[2017-05-30 23:00] VITALS: BP 123/77
[2017-05-31] VITALS (15 sets, daily range): BP systolic 102–150; BP diastolic 47–88
[2017-05-31 04:33] LABS: ANION GAP 13 MMOL/L (5-14); BLOOD UREA NITROGEN 12 MG/DL (7-18); BUN/CREATININE RATIO 19; CALCIUM 8.5 MG/DL (8.5-10.1); CARBON DIOXIDE 24 MMOL/L (21-32); CHLORIDE 100 MMOL/L (98-107); CREATININE SERUM 0.64 MG/DL (0.60-1.30); GFR ESTIMATED > 60; GLUCOSE 96 MG/DL (70-105); MAGNESIUM 1.7 MG/DL (1.8-2.4); PHOSPHORUS 3.6 MG/DL (2.3-4.7); POTASSIUM 2.8 MMOL/L (3.6-5.0); SODIUM 137 MMOL/L (135-145)
[2017-05-31 04:34] LABS: BASOPHILS # (AUTO) 0.1 10^3/uL (0.0-0.1); BASOPHILS % (AUTO) 1 % (0-10); EOSINOPHILS # (AUTO) 0.2 10^3/uL (0.0-0.3); EOSINOPHILS % (AUTO) 2 % (0-10); LYMPHOCYTES # (AUTO) 3.2 X 10^3 (1.0-4.0); LYMPHOCYTES % (AUTO) 37 % (12-44); MEAN CORPUSCULAR HEMOGLOBIN 31 PG (25-34); MEAN CORPUSCULAR HGB CONC 34 G/DL (32-36); MEAN CORPUSCULAR VOLUME 90 FL (80-99); MEAN PLATELET VOLUME 9.7 FL (7.4-10.4); MONOCYTES # (AUTO) 0.8 X 10^3 (0.0-1.0); MONOCYTES % (AUTO) 10 % (0-12); NEUTROPHILS # (AUTO) 4.3 X 10^3 (1.8-7.8); NEUTROPHILS % (AUTO) 50 % (42-75); PLATELET COUNT 352 10^3/uL (130-400); RED BLOOD COUNT 4.48 10^6/uL (4.35-5.85); RED CELL DISTRIBUTION WIDTH 13.3 % (10.0-14.5); WHITE BLOOD COUNT 8.6 10^3/uL (4.3-11.0)
[2017-05-31] MEDS: HYDROcodone/APAP 5 MG/325 MG (LORTAB) TAB PO PRN ×3 (05:49→19:58)
[2017-05-31] MEDS ORDERED: KCL 20 MEQ TAB (K-DUR) PO SCH (06:00)
[2017-05-31] MEDS ORDERED: MAGNESIUM 1 GM/100 ML IVPB 100 ML IV SCH (06:00)
[2017-05-31] MEDS ORDERED: KCL 20 MEQ TAB (K-DUR) PO ONE ×3 (06:00→10:00)
[2017-05-31] MEDS ORDERED: POTASSIUM CL 10MEQ/50ML IVPB 50 ML IV SCH (06:00)
[2017-05-31] MEDS: MAGNESIUM 1 GM/100 ML IVPB 100 ML IV SCH ×2 (06:11→07:37)
[2017-05-31] MEDS ORDERED: INFLUENZA TRIvalent 2017-2018 0.5 ML/45 MCG SYR IM ONE (07:30)
[2017-05-31] MEDS: APIXABAN 5 MG (ELIQUIS) TABLET PO SCH ×2 (08:11→22:22)
--- NOTE | 2017-05-31 08:46 | Diagnostic Imaging Report ---
INDICATION: Pulmonary embolism. Comparison made with prior examination of 05/30/2017. FINDINGS: The heart size, mediastinal configuration, and pulmonary vascularity are within normal limits. There is no pleural effusion, pneumothorax, or pneumonia. The osseous structures are unremarkable. IMPRESSION: No acute cardiopulmonary abnormality. Dictated by: Dictated on workstation # [id number]
--- NOTE | 2017-05-31 12:21 | Diagnostic Imaging Report ---
PROCEDURE: CT head without contrast. TECHNIQUE: Multiple contiguous axial images were obtained through the brain without the use of intravenous contrast. INDICATION: Headache and blurry vision. COMPARISON: 02/11/2017. FINDINGS: No hyperdense hemorrhage or space-occupying mass. No hydrocephalus or midline shift. No evidence of acute territorial infarct. Basilar cisterns are patent. No calvarial abnormality. Paranasal sinuses and mastoid air cells are clear. IMPRESSION: 1. Normal noncontrast CT head. Dictated by: Dictated on workstation # [id number]
--- NOTE | 2017-05-31 13:56 | Diagnostic Imaging Report ---
INDICATION: Bilateral pulmonary emboli. EXAMINATION: Bilateral lower extremity venous Doppler dated 05/31/2017. FINDINGS: TECHNIQUE: Waveform and spectral analysis of the lower extremity venous structures. FINDINGS: There is no evidence for deep vein thrombosis with normal compressibility, augmentation and spontaneity of all visualized venous structures. IMPRESSION: 1. No evidence for deep vein thrombosis. Dictated by: Dictated on workstation # [id number]
--- NOTE | 2017-05-31 15:29 | History & Physicial (CHS) ---
HPI History of Present Illness: 36 yo female who reports onset of pleuritic CP 1 week ago. Stage she had onset of SOA yesterday with increase in chest pain and subsequently presented to the ER and was found to have bilateral pulmonary emboli. Denies prior personal hx or family hx of blood clots or clotting disorders. Denies recent surgery, immobility (works at [employer] and is very mobile), denies OCP/ estrogen use. Denies any lower extremity symptoms or recent trauma. Reports Friday she had onset of VALERIO and blurry vision which has persisted. Pt was admited 02/2017 for VALERIO/CP, was evaluated for pneumonia and meningitis. States current symptoms are different than the symptoms she had in Feb. Source: patient Exam Limitations: no limitations Date seen by provider: May 31, 2017 Time Seen by Provider: 08:00 Attending Physician Ailyn Jeffery DO PCP [facility],[facility] - Alex Quiroga APRN Consult Date of Admission May 30, 2017 at 19:45 Home Medications Home Medications Reviewed patient Home Medication Reconciliation Form Allergies Coded Allergies: No Known Drug Allergies (Unverified , 06/01/10) [id number] Hx Patient Social History Alcohol Use: Rarely Uses Recreational Drug Use: No Smoking Status: Former Smoker Former smoker/When Quit: Jul 14, 2010 Type Used: Cigarettes 2nd Hand Smoke Exposure: No Recent Foreign Travel: No Contact w/other who traveled: No Recent Hopitalizations: No Recent Infectious Disease Expo: No Physical Abuse Screen: No Sexual Abuse: No Immunizations Up To Date Tetanus Booster (TDap): Unknown Date of Influenza Vaccine: May 14, 2015 Past Medical History PMHx: HTN Pre-Diabetes Depression Back Pain hypothyroidism secondary to thyroidectomy hyperlipidemia Surg Hx: Thyroidectomy Hysterectomy (ELIGIO, ovaries spared) - secondary to pelvic pain Family Medical History Significant Family History: No Pertinent Family Hx, Seizures Family History: Diabetes mellitus 19 MOTHER Hypertension 19 MOTHER Seizure disorder G8 BROTHER G8 SISTER Review of Systems (CHC) Constitutional: see HPI EENTM: blurred vision Respiratory: see HPI Cardiovascular: see HPI Gastrointestinal: RLQ, LLQ Genitourinary: no symptoms reported Musculoskeletal: back pain Skin: no symptoms reported Psychiatric/Neurological: No Symptoms Reported Reviewed Test Results Reviewed Test Results Lab Laboratory Tests 05/30/17 17:52: White Blood Count 10.3, Red Blood Count 4.64, Hemoglobin 14.2, Hematocrit 41, Mean Corpuscular Volume 89, Mean Corpuscular Hemoglobin 31, Mean Corpuscular Hemoglobin Concent 35, Red Cell Distribution Width 13.1, Platelet Count 378, Mean Platelet Volume 9.5, Neutrophils (%) (Auto) 60, Lymphocytes (%) (Auto) 30, Monocytes (%) (Auto) 8, Eosinophils (%) (Auto) 1, Basophils (%) (Auto) 1, Neutrophils # (Auto) 6.2, Lymphocytes # (Auto) 3.0, Monocytes # (Auto) 0.8, Eosinophils # (Auto) 0.1, Basophils # (Auto) 0.1, D-Dimer 1.58H, Sodium Level 137, Potassium Level 3.3L, Chloride Level 102, Carbon Dioxide Level 20L, Anion Gap 15H, Blood Urea Nitrogen 13, Creatinine 0.69, Estimat Glomerular Filtration Rate > 60, BUN/Creatinine Ratio 19, Glucose Level 107H, Calcium Level 9.0, Magnesium Level 1.5L, Total Bilirubin 0.6, Aspartate Amino Transf (AST/SGOT) 53H , Alanine Aminotransferase (ALT/SGPT) 63H, Alkaline Phosphatase 70, Troponin I < 0.30, Total Protein 7.5, Albumin 3.9, Lipase 18 05/30/17 18:47: Urine Color AMBERH, Urine Clarity CLEAR, Urine pH 5, Urine Specific [place] 1.025H, Urine Protein NEGATIVE, Urine Glucose (UA) NEGATIVE, Urine Ketones NEGATIVE, Urine Nitrite NEGATIVE, Urine Bilirubin NEGATIVE, Urine Urobilinogen NORMAL, Urine Leukocyte Esterase 1+H, Urine RBC (Auto) 1+H, Urine RBC NONE, Urine WBC RARE, Urine Squamous Epithelial Cells 10-25H, Urine Crystals NONE, Urine Bacteria FEWH, Urine Casts PRESENT, Urine Hyaline Casts 5-10H, Urine Mucus NEGATIVE, Urine Culture Indicated NO 05/31/17 03:01: White Blood Count 8.6, Red Blood Count 4.48, Hemoglobin 13.8, Hematocrit 40, Mean Corpuscular Volume 90, Mean Corpuscular Hemoglobin 31, Mean Corpuscular Hemoglobin Concent 34, Red Cell Distribution Width 13.3, Platelet Count 352, Mean Platelet Volume 9.7, Neutrophils (%) (Auto) 50, Lymphocytes (%) (Auto) 37, Monocytes (%) (Auto) 10, Eosinophils (%) (Auto) 2, Basophils (%) (Auto) 1, Neutrophils # (Auto) 4.3, Lymphocytes # (Auto) 3.2, Monocytes # (Auto) 0.8, Eosinophils # (Auto) 0.2, Basophils # (Auto) 0.1, Sodium Level 137, Potassium Level 2.8L, Chloride Level 100, Carbon Dioxide Level 24, Anion Gap 13, Blood Urea Nitrogen 12, Creatinine 0.64, Estimat Glomerular Filtration Rate > 60, BUN/ Creatinine Ratio 19, Glucose Level 96, Calcium Level 8.5, Magnesium Level 1.7L, Phosphorus Level 3.6, Thyroid Stimulating Hormone (TSH) 0.15L Radiology Date of Exam:05/30/17 CT ANGIO CHEST W INDICATION: Sick for a week. Nausea, poor appetite and vomiting. Dizziness and chills. Fevers. Shortness of air today with chest pressure. EXAMINATION: CTA of the chest, 05/30/2017. COMPARISON: 02/20/2017. FINDINGS: Multiple bilateral pulmonary emboli are seen. Several likely extend into some of the smaller branches of the right middle lobe as well. No central emboli are seen. No saddle embolus visualized. However, within the distal aspect of the right main pulmonary artery, thrombus is noted which extends to involve the posterior branches of the right lower lobe and portions of the lateral branches as well. Multiple branches in the left lower lobe are also involved. There is prominent extension into the lingular branches as well. Thoracic aorta is well-preserved. No pleural or pericardial effusions are seen. There is no mediastinal or hilar adenopathy. No axillary adenopathy is appreciated. Within the lungs no mass is identified. Peripheral airspace opacity seen in the right upper lobe is new since previous examination. Given the emboli, this could represent a developing infarct with infiltrate not excluded. No acute osseous abnormality is appreciated and the visualized upper abdominal structures are stable from recent imaging. The liver appears prominent with diffuse fatty infiltration noted. Gallbladder is distended but there is no surrounding inflammation appreciated. IMPRESSION: 1. Multiple bilateral pulmonary emboli, as described. 2. New airspace opacities in the peripheral aspect of the right upper lung which could be due to developing infarcts versus infiltrate. Followup recommended to assure resolution. 3. Other findings as above. Physical Exam-(CHC) Physical Exam Vital Signs VS - Last 72 Hours, by Label 05/30/17 05/30/17 05/30/17 05/30/17 16:58 17:25 20:25 20:30 Temp 98.2 Pulse 92 88 Resp 20 18 B/P (MAP) 157/100 Pulse Ox 92 96 96 O2 Delivery Room Air Room Air Room Air 05/30/17 05/30/17 05/30/17 05/30/17 20:48 20:50 21:00 22:00 Temp 98.4 Pulse 85 84 76 83 Resp 18 15 23 B/P (MAP) 132/92 136/78 139/86 Pulse Ox 96 96 93 O2 Delivery Room Air Room Air Room Air 05/30/17 05/31/17 05/31/17 05/31/17 23:00 00:00 00:00 01:00 Pulse 99 89 85 Resp 34 18 B/P (MAP) 123/77 147/87 Pulse Ox 97 91 O2 Delivery Room Air Nasal Cannula Room Air O2 Flow Rate 2.00 05/31/17 05/31/17 05/31/17 05/31/17 01:00 01:18 02:00 03:00 Temp 98.0 Pulse 85 80 86 Resp 22 10 18 B/P (MAP) 137/76 128/70 120/70 Pulse Ox 90 97 99 O2 Delivery Nasal Cannula Nasal Cannula Nasal Cannula Nasal Cannula O2 Flow Rate 2.00 2.00 2.00 2.00 05/31/17 05/31/17 05/31/17 05/31/17 04:00 04:00 05:00 06:00 Pulse 84 74 80 Resp 28 11 11 B/P (MAP) 116/79 127/71 102/47 Pulse Ox 97 97 100 O2 Delivery Nasal Cannula Nasal Cannula Nasal Cannula Nasal Cannula O2 Flow Rate 2.00 2.00 2.00 2.00 05/31/17 05/31/17 05/31/17 05/31/17 07:00 07:00 07:29 08:00 Pulse 85 88 102 Resp 24 28 B/P (MAP) 114/81 123/75 Pulse Ox 99 98 O2 Delivery Nasal Cannula Nasal Cannula O2 Flow Rate 2.00 2.00 2.00 FiO2 28 05/31/17 05/31/17 05/31/17 05/31/17 08:00 08:00 09:00 10:00 Temp 97.2 Pulse 97 90 Resp 24 13 B/P (MAP) 143/82 113/73 Pulse Ox 95 97 93 O2 Delivery Room Air Nasal Cannula Nasal Cannula O2 Flow Rate 2.00 2.00 05/31/17 05/31/17 05/31/17 05/31/17 11:00 12:00 12:00 12:00 Temp 98.0 Pulse 84 79 Resp 25 13 B/P (MAP) 150/88 Pulse Ox 95 96 96 O2 Delivery Nasal Cannula Nasal Cannula Room Air Room Air O2 Flow Rate 2.00 2.00 05/31/17 05/31/17 05/31/17 13:00 13:35 16:42 Temp 98.5 97.1 Pulse 79 86 90 Resp 16 18 B/P (MAP) 134/71 123/61 Pulse Ox 96 96 O2 Delivery Room Air Room Air Capillary Refill : Less Than 3 Seconds General Appearance: WD/WN, no apparent distress HEENT: PERRL/EOMI Respiratory: lungs clear, normal breath sounds, no respiratory distress Cardiovascular: regular rate, rhythm Gastrointestinal: soft Extremities: non-tender, normal inspection, no calf tenderness Neurologic/Psychiatric: alert, normal mood/affect, oriented x 3 Skin: normal color, warm/dry Clinical Quality Measures AMI/AHF: ASA po Prior to arrival: No DVT/VTE Risk/Contraindication: Risk Factor Score Per Nursin RFS Level Per Nursing on Admit: 3=High Risk Score Comment: Patient admitted and treated for bilateral PE w/ Eliquis (VTE risk not applicable) Assessment/Plan Assessment/Plan Admission Dx Bilateral PE, stable (1) Bilateral pulmonary embolism Status: Acute Assessment & Plan: 05/31/17 - Patient stable on admission; PESI 38 - class1, low risk for serious event; unprovoked event - started on Eliquis on admission - LE doppler ordered, no clinical symptoms of DVT - pt c/o of VALERIO and blurred vision - will check CT of head - transfer to [address] [place] [address]; likely DC home tomorrow on Eliquis. lbean (2) Hypokalemia Status: Acute Assessment & Plan: 05/31/17 - K 2.8 - replaced. lbean (3) Hypothyroidism, postsurgical Status: Chronic Assessment & Plan: 05/31 - TSH 0.15 on admission; decrease levothyroxine to 250mcg (from home dose of 300mcg) daily. lbean (4) Morbid obesity with BMI of 60.0-69.9, adult Status: Chronic Assessment & Plan: 05/31/17 - discussed that morbid obesity may contribute to VTE risk due to increased circulating estrogen. Recommend diet/exercise/ continued mobility. AILYN Cervantes DO May 31, 2017 15:29
[2017-05-31] MEDS ORDERED: ATOR10TA66 PO (20:31)
[2017-05-31] MEDS ORDERED: VENL75CA93 PO (20:33)
[2017-05-31] MEDS ORDERED: HYDROCHLOROTHIAZIDE 25 MG (HCTZ) TAB PO SCH (21:00)
[2017-05-31] MEDS ORDERED: FENOFIBRATE, MICRO 67 MG (LOFIBRA) CAPSULE PO SCH (21:00)
[2017-05-31] MEDS ORDERED: LEVOTHYROXINE 125 MCG (LEVOTHROID) TABLET PO SCH (21:00)
[2017-05-31] MEDS ORDERED: lisINopril 20 MG (ZESTRIL) TAB PO SCH (21:00)
[2017-05-31] MEDS ORDERED: metFORMIN XR 500 MG (GLUCOPHAGE XR) TAB PO SCH (21:00)
[2017-05-31] MEDS ORDERED: LEVOTHYROXINE 150 MCG (LEVOTHROID) TAB PO SCH (21:00)
[2017-05-31] MEDS ORDERED: ERGO50006 (21:41)
[2017-05-31] MEDS ORDERED: ATORVASTATIN 10 MG (LIPITOR) TABLET ONE (22:04)
[2017-05-31] MEDS ORDERED: VENlafaxine XR 75 MG (EFFEXOR XR) CAP PO ONE (22:04)
[2017-06-01] VITALS: BP 111/78
[2017-06-01] MEDS: HYDROcodone/APAP 5 MG/325 MG (LORTAB) TAB PO PRN ×3 (00:57→16:41)
[2017-06-01 04:00] VITALS: BP 90/55
[2017-06-01 07:18] LABS: ANION GAP 10 MMOL/L (5-14); BLOOD UREA NITROGEN 8 MG/DL (7-18); BUN/CREATININE RATIO 15; CALCIUM 7.8 MG/DL (8.5-10.1); CARBON DIOXIDE 20 MMOL/L (21-32); CHLORIDE 110 MMOL/L (98-107); CREATININE SERUM 0.53 MG/DL (0.60-1.30); GFR ESTIMATED > 60; GLUCOSE 113 MG/DL (70-105); POTASSIUM 4.1 MMOL/L (3.6-5.0); SODIUM 140 MMOL/L (135-145)
[2017-06-01 07:58] VITALS: BP 121/74
[2017-06-01] MEDS ORDERED: INFLUENZA TRIvalent 2017-2018 0.5 ML/45 MCG SYR IM ONE (08:14)
[2017-06-01] MEDS: APIXABAN 5 MG (ELIQUIS) TABLET PO SCH ×2 (08:27→18:42)
[2017-06-01] MEDS ORDERED: LEVO125T PO (11:18)
[2017-06-01] MEDS ORDERED: APIX5TAB PO (11:18)
--- NOTE | 2017-06-01 11:22 | Discharge Instructions ---
Discharge Inst-[facility] Discharge Medications New Medications: Apixaban (Eliquis) 5 Mg Tablet 10 MG PO BID for 90 Days, TAB Dose: 2.5mg tablet - take 4 tablets (10mg) twice daily for 5 more days (total of 7 days) then take 2 tablets (5mg) twice daily for 3-6 months Levothyroxine Sodium (Synthroid) 125 Mcg Tablet 250 MCG PO HS, #30 TAB 0 Refills have TSH rechecked after taking 250mcg for 3-4 weeks. Continued Medications: Atorvastatin Calcium (Atorvastatin Calcium) 10 Mg Tablet 10 MG PO HS Ergocalciferol (Vitamin D2) (Vitamin D2) 50,000 Unit Capsule [id number] UNITS UD Fenofibrate (Fenofibrate) 54 Mg Tablet 54 MG PO HS Hydrochlorothiazide (Hydrochlorothiazide) 25 Mg Tablet 25 MG PO HS Hydrocodone/Acetaminophen (Hydrocodon -Acetaminophen 5-325) 1 Each Tablet 1 TAB PO BID PRN for PAIN-MODERATE 1 TAB IN AM, 2 AT BEDTIME Lisinopril (Lisinopril) 20 Mg Tablet 20 MG PO HS Metformin HCl (Metformin HCl ER) 500 Mg Tab.er.24h 500 MG PO BID Metoprolol Succinate (Metoprolol Succinate) 25 Mg Tab.er.24h 25 MG PO HS Naltrexone HCl/Bupropion HCl (Contrave ER 8-90 mg Tablet) 1 Each Tablet.er 2 EACH PO BID, TAB Venlafaxine HCl (Venlafaxine HCl ER) 75 Mg Cap.er.24h 75 MG PO HS Discontinued Medications: Levothyroxine Sodium (Levothyroxine Sodium) 150 Mcg Tablet 300 MG PO HS TAKES 2 (300 MG) TABLETS Patient Instructions Patient Instructions Levothyroxine transmitted to preferred pharmacy; have TSH rechecked in 3-4 weeks as there has been a decrease in dose. Eliquis will be available for pick-up at [facility] tomorrow through the [facility] Drug Repository. Goal/Follow Up Appt: Follow-up with Jia Quiroga APRN at [facility] in 1 week. Activity & Diet Discharge Diet: No Restrictions AILYN SHAFFER DO Jun 01, 2017 11:22
[2017-06-01 12:00] VITALS: BP 142/68
--- NOTE | 2017-06-01 12:30 | Discharge Summary ---
Diagnosis/Chief Complaint Date of Admission May 30, 2017 at 19:45 Date of Discharge Admission Diagnosis Admission Diagnosis Admission Dx Bilateral PE, stable Discharge Diagnosis (1) Bilateral pulmonary embolism Status: Acute Assessment & Plan: 05/31/17 - Patient stable on admission; PESI 38 - class1, low risk for serious event; unprovoked event - started on Eliquis on admission - LE doppler ordered, no clinical symptoms of DVT - pt c/o of VALERIO and blurred vision - will check CT of head - transfer to [address] [place] [address]; likely DC home tomorrow on Eliquis. lbean 06/01 - doing well; CT head normal; Lower extremity doppler negative for DVT; Able to obtain Eliquis for Repository - will DC home and have pt get Eliquis tomorrow. Will need to continue Eliquis for 3-6 months and consider work-up for hypercoagulable state after that. (2) Hypokalemia Status: Acute Assessment & Plan: 05/31/17 - K 2.8 - replaced. lbean RESOLVED (3) Hypothyroidism, postsurgical Status: Chronic Assessment & Plan: 05/31 - TSH 0.15 on admission; decrease levothyroxine to 250mcg (from home dose of 300mcg) daily. lbean (4) Morbid obesity with BMI of 60.0-69.9, adult Status: Chronic Assessment & Plan: 05/31/17 - discussed that morbid obesity may contribute to VTE risk due to increased circulating estrogen. Recommend diet/exercise/ continued mobility. lbean Chief Complaint/HPI Chief Complaint/HPI 36 yo female who reports onset of pleuritic CP 1 week ago. Stage she had onset of SOA yesterday with increase in chest pain and subsequently presented to the ER and was found to have bilateral pulmonary emboli. Denies prior personal hx or family hx of blood clots or clotting disorders. Denies recent surgery, immobility (works at [employer] and is very mobile), denies OCP/ estrogen use. Denies any lower extremity symptoms or recent trauma. Reports Friday she had onset of VALERIO and blurry vision which has persisted. Pt was admited 02/2017 for VALERIO/CP, was evaluated for pneumonia and meningitis. States current symptoms are different than the symptoms she had in Feb. Discharge Summary-OBS Procedures None. Consultations Discharge Physical Examination Allergies: Coded Allergies: No Known Drug Allergies (Unverified , 06/01/10) Vitals & I&Os Vital Sign - Last 12Hours Date Time Temp Pulse Resp B/P (MAP) Pulse Ox O2 Delivery O2 Flow Rate FiO2 06/01/17 07:58 99.0 60 16 121/74 98 Room Air 05/31/17 12:00 2.00 05/31/17 07:29 28 General Appearance: Alert, Oriented X3, Cooperative Respiratory: Clear to Auscultation Cardiovascular: Regular Rate Neuro: Normal Speech Psych/Mental Status: Mental Status NL, Mood NL Hospital Course SEE DISCHARGE DIAGNOSIS Labs Laboratory Tests 06/01/17 06:58: Sodium Level 140, Potassium Level 4.1, Chloride Level 110H, Carbon Dioxide Level 20L, Anion Gap 10, Blood Urea Nitrogen 8, Creatinine 0.53L, Estimat Glomerular Filtration Rate > 60, BUN/Creatinine Ratio 15, Glucose Level 113H, Calcium Level 7.8L Microbiology 05/31/17 MRSA Screen - Final, Complete MRSA not isolated Radiology Reviewed Date of Exam:05/30/17 CT ANGIO CHEST W INDICATION: Sick for a week. Nausea, poor appetite and vomiting. Dizziness and chills. Fevers. Shortness of air today with chest pressure. EXAMINATION: CTA of the chest, 05/30/2017. COMPARISON: 02/20/2017. FINDINGS: Multiple bilateral pulmonary emboli are seen. Several likely extend into some of the smaller branches of the right middle lobe as well. No central emboli are seen. No saddle embolus visualized. However, within the distal aspect of the right main pulmonary artery, thrombus is noted which extends to involve the posterior branches of the right lower lobe and portions of the lateral branches as well. Multiple branches in the left lower lobe are also involved. There is prominent extension into the lingular branches as well. Thoracic aorta is well-preserved. No pleural or pericardial effusions are seen. There is no mediastinal or hilar adenopathy. No axillary adenopathy is appreciated. Within the lungs no mass is identified. Peripheral airspace opacity seen in the right upper lobe is new since previous examination. Given the emboli, this could represent a developing infarct with infiltrate not excluded. No acute osseous abnormality is appreciated and the visualized upper abdominal structures are stable from recent imaging. The liver appears prominent with diffuse fatty infiltration noted. Gallbladder is distended but there is no surrounding inflammation appreciated. IMPRESSION: 1. Multiple bilateral pulmonary emboli, as described. 2. New airspace opacities in the peripheral aspect of the right upper lung which could be due to developing infarcts versus infiltrate. Followup recommended to assure resolution. 3. Other findings as above. Discharge Instructions to patient/family Please see electronic discharge instructions given to patient. Discharge [facility] Patient Instructions Patient Instructions Levothyroxine transmitted to preferred pharmacy; have TSH rechecked in 3-4 weeks as there has been a decrease in dose. Eliquis will be available for pick-up at [facility] tomorrow through the [facility] Drug Repository. Goal/Follow Up Appt: Follow-up with Jia Quiroga APRN at [facility] in 1 week. Activity & Diet Discharge Diet: No Restrictions Discharge Medications Reviewed and agree with Discharge Medication list on patient's Discharge Instruction sheet Discharge Medications New Medications: Apixaban (Eliquis) 5 Mg Tablet 10 MG PO BID for 90 Days, TAB Dose: 2.5mg tablet - take 4 tablets (10mg) twice daily for 5 more days (total of 7 days) then take 2 tablets (5mg) twice daily for 3-6 months Levothyroxine Sodium (Synthroid) 125 Mcg Tablet 250 MCG PO HS, #30 TAB 0 Refills have TSH rechecked after taking 250mcg for 3-4 weeks. Continued Medications: Atorvastatin Calcium (Atorvastatin Calcium) 10 Mg Tablet 10 MG PO HS Ergocalciferol (Vitamin D2) (Vitamin D2) 50,000 Unit Capsule [id number] UNITS UD Fenofibrate (Fenofibrate) 54 Mg Tablet 54 MG PO HS Hydrochlorothiazide (Hydrochlorothiazide) 25 Mg Tablet 25 MG PO HS Hydrocodone/Acetaminophen (Hydrocodon -Acetaminophen 5-325) 1 Each Tablet 1 TAB PO BID PRN for PAIN-MODERATE 1 TAB IN AM, 2 AT BEDTIME Lisinopril (Lisinopril) 20 Mg Tablet 20 MG PO HS Metformin HCl (Metformin HCl ER) 500 Mg Tab.er.24h 500 MG PO BID Metoprolol Succinate (Metoprolol Succinate) 25 Mg Tab.er.24h 25 MG PO HS Naltrexone HCl/Bupropion HCl (Contrave ER 8-90 mg Tablet) 1 Each Tablet.er 2 EACH PO BID, TAB Venlafaxine HCl (Venlafaxine HCl ER) 75 Mg Cap.er.24h 75 MG PO HS Discontinued Medications: Levothyroxine Sodium (Levothyroxine Sodium) 150 Mcg Tablet 300 MG PO HS TAKES 2 (300 MG) TABLETS Clinical Quality Measures AMI/AHF: ASA po Prior to arrival: No DVT/VTE Risk/Contraindication: Risk Factor Score Per Nursin RFS Level Per Nursing on Admit: 3=High Risk Score Comment: Patient admitted and treated for bilateral PE w/ Eliquis (VTE risk not applicable) Copy Copies To 1: AILYN SHAFFER LINDA K DO Jun 01, 2017 12:30
[2017-06-01 16:38] VITALS: BP 125/62
[2017-06-01] MEDS ORDERED: ATORVASTATIN 10 MG (LIPITOR) TABLET PO SCH (21:00)
[2017-06-01] MEDS ORDERED: VENlafaxine XR 75 MG (EFFEXOR XR) CAP PO SCH (21:00)
== END 2017-06-01 11:18 | disposition home or self-care (01) ==
LOC: EDUNIT# 16:49 → ER 16:50 → UNDOADMOB 19:45 → ICU 19:45 → 4TH 05-31 13:45 → UNDODISOB 06-01 18:48
PROVIDERS: ADMIT Family Medicine; ATTEND Family Medicine
DX: I26.99 Other pulmonary embolism without acute cor pulmonale (principal); E87.6 Hypokalemia; I10 Essential (primary) hypertension; E66.01 Morbid (severe) obesity due to excess calories; Z68.44 Body mass index [BMI] 60.0-69.9, adult; K21.9 Gastro-esophageal reflux disease without esophagitis; E78.5 Hyperlipidemia, unspecified; R73.03 Prediabetes; E89.0 Postprocedural hypothyroidism; Z79.84 Long term (current) use of oral hypoglycemic drugs; Z79.899 Other long term (current) drug therapy; Z87.891 Personal history of nicotine dependence
CPT/HCPCS: 36415; 70450; 71010; 71020; 71275; 80048; 80053; 81000; 83690; 83735; 84100; 84443; 84484; 84703; 85025; 85379; 87081; 93005; 93970

== ENCOUNTER 2017-07-30 19:33 | Emergency (ER) | payer SELFPAY ==
[~2017-07-30] VITALS: Ht 167.6 cm; Wt 167.8 kg
[~2017-07-30 19:33] MED LIST changes: +ACHD5005 PO; +APIX5TAB PO; +ATOR10TA66 PO; +ERGO50006; -HYDR-3812 PO; +LEVO125T PO; +NALT1TAB PO
--- OUTSIDE RECORDS SUMMARY | 2017-07-30 19:46 | XMS REPORT | Continuity of Care Document ---
Author Author [facility] Address Unknown Phone Unavailable Allergies Active Description Code Type Severity Reaction Onset Reported/Identified Relationship to Patient Clinical Status Yes No Known Drug Allergies [id number] Drug Allergy Unknown N/A 06/01/2010 Medications There is no data. Problems Date Dx Coded Attending Type Code Diagnosis Diagnosed By 04/03/2009 AILYN SHAFFER DO K 278.01 OBESITY MORBID 04/03/2009 JONNATHAN SHAFFER DOA K 782.7 Spontaneous Ecchymoses 04/03/2009 SHAFFER DO AILYN K 278.01 OBESITY MORBID 04/03/2009 EDMUND WADSWORTH AILYN K 782.7 Spontaneous Ecchymoses 04/03/2009 JONNATHAN SHAFFER DOA K 278.01 OBESITY MORBID 04/03/2009 EDMUND WADSWORTH AILYN K 782.7 Spontaneous Ecchymoses 04/03/2009 278.01 OBESITY MORBID 04/03/2009 782.7 Spontaneous Ecchymoses 04/03/2009 278.01 OBESITY MORBID 04/03/2009 782.7 Spontaneous Ecchymoses 04/03/2009 EDMUND WADSWORTH AILYN K 278.01 OBESITY MORBID 04/03/2009 SHAFFER JONNATHAN WADSWORTHA K 782.7 Spontaneous Ecchymoses 04/03/2009 EDMUND WADSWORTH AILYN K 278.01 OBESITY MORBID 04/03/2009 SHAFFER DO AILYN K 782.7 Spontaneous Ecchymoses 04/03/2009 SHAFFER DO AILYN K 278.01 OBESITY MORBID 04/03/2009 SHAFFER DO AILYN K 782.7 Spontaneous Ecchymoses 04/03/2009 SHAFFER DO AILYN K 278.01 OBESITY MORBID 04/03/2009 SHAFFER DO AILYN K 782.7 Spontaneous Ecchymoses 05/01/2009 SHAFFER JONNATHAN WADSWORTHA K 244.9 HYPOTHYROIDISM 05/01/2009 SHAFFER JONNATHAN WADSWORTHA K 692.9 CONTACT DERMATITIS AND OTHER ECZEMA, UNSPECIFIED CAUSE 05/01/2009 SHAFFER DO, AILYN K 782.0 DISTURBANCE OF SKIN SENSATION 05/01/2009 SHAFFER DO, AILYN K 244.9 HYPOTHYROIDISM 05/01/2009 SHAFFER DO, AILYN K 692.9 CONTACT DERMATITIS AND OTHER ECZEMA, UNSPECIFIED CAUSE 05/01/2009 SHAFFER DO, AILYN K 782.0 DISTURBANCE OF SKIN SENSATION 05/01/2009 SHAFFER DO, AILYN K 244.9 HYPOTHYROIDISM 05/01/2009 SHAFFER DO, AILYN K 692.9 CONTACT DERMATITIS AND OTHER ECZEMA, UNSPECIFIED CAUSE 05/01/2009 SHAFFER DO, AILYN K 782.0 DISTURBANCE OF SKIN SENSATION 05/01/2009 244.9 HYPOTHYROIDISM 05/01/2009 692.9 CONTACT DERMATITIS AND OTHER ECZEMA, UNSPECIFIED CAUSE 05/01/2009 782.0 DISTURBANCE OF SKIN SENSATION 05/01/2009 244.9 HYPOTHYROIDISM 05/01/2009 692.9 CONTACT DERMATITIS AND OTHER ECZEMA, UNSPECIFIED CAUSE 05/01/2009 782.0 DISTURBANCE OF SKIN SENSATION 05/01/2009 SHAFFER DO, AILYN K 244.9 HYPOTHYROIDISM 05/01/2009 SHAFFER DO, AILYN K 692.9 CONTACT DERMATITIS AND OTHER ECZEMA, UNSPECIFIED CAUSE 05/01/2009 SHAFFER DO, AILYN K 782.0 DISTURBANCE OF SKIN SENSATION 05/01/2009 SHAFFER DO, AILYN K 244.9 HYPOTHYROIDISM 05/01/2009 SHAFFER DO, AILYN K 692.9 CONTACT DERMATITIS AND OTHER ECZEMA, UNSPECIFIED CAUSE 05/01/2009 SHAFFER DO, AILYN K 782.0 DISTURBANCE OF SKIN SENSATION 05/01/2009 SHAFFER DO, AILYN K 244.9 HYPOTHYROIDISM 05/01/2009 SHAFFER DO, AILYN K 692.9 CONTACT DERMATITIS AND OTHER ECZEMA, UNSPECIFIED CAUSE 05/01/2009 SHAFFER DO, AILYN K 782.0 DISTURBANCE OF SKIN SENSATION 05/01/2009 SHAFFER DO, AILYN K 244.9 HYPOTHYROIDISM 05/01/2009 SHAFFER DO, AILYN K 692.9 CONTACT DERMATITIS AND OTHER ECZEMA, UNSPECIFIED CAUSE 05/01/2009 SHAFFER DO, AILYN K 782.0 DISTURBANCE OF SKIN SENSATION 07/24/2009 SHAFFER DO, AILYN K 611.71 Mastodynia 07/24/2009 SHAFFER DO, AILYN K 785.1 palpitations 07/24/2009 SHAFFER DO, AILYN K 611.71 Mastodynia 07/24/2009 SHAFFER DO, AILYN K 785.1 palpitations 07/24/2009 SHAFFER DO, AILYN K 611.71 Mastodynia 07/24/2009 SHAFFER DO, AILYN K 785.1 palpitations 07/24/2009 611.71 Mastodynia 07/24/2009 785.1 palpitations 07/24/2009 611.71 Mastodynia 07/24/2009 785.1 palpitations 07/24/2009 SHAFFER DO, AILYN K 611.71 Mastodynia 07/24/2009 SHAFFER DO, AILYN K 785.1 palpitations 07/24/2009 SHAFFER DO, AILYN K 611.71 Mastodynia 07/24/2009 SHAFFER DO, AILYN K 785.1 palpitations 07/24/2009 SHAFFER DO, AILYN K 611.71 Mastodynia 07/24/2009 SHAFFER DO, AILYN K 785.1 palpitations 07/24/2009 SHAFFER DO, AILYN K 611.71 Mastodynia 07/24/2009 SHAFFER DO, AILYN K 785.1 palpitations 10/16/2009 SHAFEFR DO, AILYN K 041.86 HELICOBACTER PYLORI [[email or web address]] 10/16/2009 SHAFFER DO, AILYN K 780.79 OTHER MALAISE AND FATIGUE 10/16/2009 SHAFFER DO, AILYN K 787.02 Nausea Alone 10/16/2009 SHAFFER DO, AILYN K 789.06 ABDOMINAL PAIN, EPIGASTRIC 10/16/2009 SHAFFER DO, AILYN K 041.86 HELICOBACTER PYLORI [[email or web address]] 10/16/2009 SHAFFER DO, AILYN K 780.79 OTHER MALAISE AND FATIGUE 10/16/2009 SHAFFER DO, AILYN K 787.02 Nausea Alone 10/16/2009 SHAFFER DO, AILYN K 789.06 ABDOMINAL PAIN, EPIGASTRIC 10/16/2009 SHAFFER DO, AILYN K 041.86 HELICOBACTER PYLORI [[email or web address]] 10/16/2009 SHAFFER DO, AILYN K 780.79 OTHER MALAISE AND FATIGUE 10/16/2009 SHAFFER DO, AILYN K 787.02 Nausea Alone 10/16/2009 SHAFFER DO, AILYN K 789.06 ABDOMINAL PAIN, EPIGASTRIC 10/16/2009 041.86 HELICOBACTER PYLORI [[email or web address]] 10/16/2009 780.79 OTHER MALAISE AND FATIGUE 10/16/2009 787.02 Nausea Alone 10/16/2009 789.06 ABDOMINAL PAIN, EPIGASTRIC 10/16/2009 041.86 HELICOBACTER PYLORI [[email or web address]] 10/16/2009 780.79 OTHER MALAISE AND FATIGUE 10/16/2009 787.02 Nausea Alone 10/16/2009 789.06 ABDOMINAL PAIN, EPIGASTRIC 10/16/2009 SHAFFER DO, AILYN K 041.86 HELICOBACTER PYLORI [[email or web address]] 10/16/2009 SHAFFER DO, AILYN K 780.79 OTHER MALAISE AND FATIGUE 10/16/2009 SHAFFER DO, AILYN K 787.02 Nausea Alone 10/16/2009 SHAFFER DO, AILYN K 789.06 ABDOMINAL PAIN, EPIGASTRIC 10/16/2009 SHAFFER DO, AILYN K 041.86 HELICOBACTER PYLORI [[email or web address]] 10/16/2009 SHAFFER DO, AILYN K 780.79 OTHER MALAISE AND FATIGUE 10/16/2009 SHAFFER DO, AILYN K 787.02 Nausea Alone 10/16/2009 SHAFFER DO, AILYN K 789.06 ABDOMINAL PAIN, EPIGASTRIC 10/16/2009 SHAFEFR DO, AILYN K 041.86 HELICOBACTER PYLORI [[email or web address]] 10/16/2009 SHAFFER DO, AILYN K 780.79 OTHER MALAISE AND FATIGUE 10/16/2009 SHAFFER DO, AILYN K 787.02 Nausea Alone 10/16/2009 SHAFFER DO, AILYN K 789.06 ABDOMINAL PAIN, EPIGASTRIC 10/16/2009 SHAFFER DO, AILYN K 041.86 HELICOBACTER PYLORI [[email or web address]] 10/16/2009 SHAFFER DO, AILYN K 780.79 OTHER MALAISE AND FATIGUE 10/16/2009 SHAFFER DO, AILYN K 787.02 Nausea Alone 10/16/2009 SHAFFER DO, AILYN K 789.06 ABDOMINAL PAIN, EPIGASTRIC 10/19/2009 SHAFFER DO, AILYN K 268.9 Vitamin D Deficiency 10/19/2009 SHAFFER DO, AILYN K 268.9 Vitamin D Deficiency 10/19/2009 SHAFFER DO, AILYN K 268.9 Vitamin D Deficiency 10/19/2009 268.9 Vitamin D Deficiency 10/19/2009 268.9 Vitamin D Deficiency 10/19/2009 SHAFFER DO, AILYN K 268.9 Vitamin D Deficiency 10/19/2009 SHAFFER DO, AILYN K 268.9 Vitamin D Deficiency 10/19/2009 SHAFFER DO, AILYN K 268.9 Vitamin D Deficiency 10/19/2009 AILYN SHAFFER DO K 268.9 Vitamin D Deficiency 12/18/2009 EDMUND WADSWORTH AILYN K V58.69 LONG-TERM (CURRENT) USE OF OTHER MEDICATIONS 12/18/2009 EDMUND WADSWORTH AILYN K V58.69 LONG-TERM (CURRENT) USE OF OTHER MEDICATIONS 12/18/2009 SHAFFER DO AILYN K V58.69 LONG-TERM (CURRENT) USE OF OTHER MEDICATIONS 12/18/2009 V58.69 LONG-TERM ( CURRENT) USE OF OTHER MEDICATIONS 12/18/2009 V58.69 LONG-TERM ( CURRENT) USE OF OTHER MEDICATIONS 12/18/2009 EDMUND WADSWORTH AILYN K V58.69 LONG-TERM (CURRENT) USE OF OTHER MEDICATIONS 12/18/2009 EDMUND WADSWORTH AILYN K V58.69 LONG-TERM (CURRENT) USE OF OTHER MEDICATIONS 12/18/2009 EDMUDN WADSWORTH AILYN K V58.69 LONG-TERM (CURRENT) USE OF OTHER MEDICATIONS 12/18/2009 EDMUND WADSWORTH AILYN K V58.69 LONG-TERM (CURRENT) USE OF OTHER MEDICATIONS 03/08/2010 JONNATHAN SHAFFER DOA K 728.71 PLANTAR FASCIAL FIBROMATOSIS 03/08/2010 SHAFFER DO AILYN K 728.71 PLANTAR FASCIAL FIBROMATOSIS 03/08/2010 SHAFFER , AILYN K 728.71 PLANTAR FASCIAL FIBROMATOSIS 03/08/2010 728.71 PLANTAR FASCIAL FIBROMATOSIS 03/08/2010 728.71 PLANTAR FASCIAL FIBROMATOSIS 03/08/2010 SHAFFER , AILYN K 728.71 PLANTAR FASCIAL FIBROMATOSIS 03/08/2010 EDMUND WADSWORTH AILYN K 728.71 PLANTAR FASCIAL FIBROMATOSIS 03/08/2010 SHAFFER DO AILYN K 728.71 PLANTAR FASCIAL FIBROMATOSIS 03/08/2010 SHAFFER , AILYN K 728.71 PLANTAR FASCIAL FIBROMATOSIS 04/05/2010 EDMUND WADSWORTH AILYN K 110.4 TINEA PEDIS 04/05/2010 JONNATHAN SHAFFER DOA K 625.3 DYSMENORRHEA 04/05/2010 EDMUND WADSWORTH AILYN K 780.52 INSOMNIA, UNSPECIFIED 04/05/2010 EDMUND WADSWORTH AILYN K E887 Fracture Cause Unspecified 04/05/2010 JONNATHAN SHAFFER DOA K V72.31 Grey Roll Worker Exam, Routine 04/05/2010 SHAFFER DO, AILYN K 110.4 TINEA PEDIS 04/05/2010 SHAFFER DO, AILYN K 625.3 DYSMENORRHEA 04/05/2010 SHAFFER DO, AILYN K 780.52 INSOMNIA, UNSPECIFIED 04/05/2010 SHAFFER DO, AILYN K E887 Fracture Cause Unspecified 04/05/2010 SHAFFER DO, AILYN K V72.31 Grey Roll Worker Exam, Routine 04/05/2010 SHAFFER DO, AILYN K 110.4 TINEA PEDIS 04/05/2010 SHAFFER DO, AILYN K 625.3 DYSMENORRHEA 04/05/2010 SHAFFER DO, AILYN K 780.52 INSOMNIA, UNSPECIFIED 04/05/2010 SHAFFER DO, AILYN K E887 Fracture Cause Unspecified 04/05/2010 SHAFFER DO, AILYN K V72.31 Grey Roll Worker Exam, Routine 04/05/2010 110.4 TINEA PEDIS 04/05/2010 625.3 DYSMENORRHEA 04/05/2010 780.52 INSOMNIA, UNSPECIFIED 04/05/2010 E887 Fracture Cause Unspecified 04/05/2010 V72.31 Grey Roll Worker Exam, Routine 04/05/2010 110.4 TINEA PEDIS 04/05/2010 625.3 DYSMENORRHEA 04/05/2010 780.52 INSOMNIA, UNSPECIFIED 04/05/2010 E887 Fracture Cause Unspecified 04/05/2010 V72.31 Grey Roll Worker Exam, Routine 04/05/2010 SHAFFER DO, AILYN K 110.4 TINEA PEDIS 04/05/2010 SHAFFER DO, AILYN K 625.3 DYSMENORRHEA 04/05/2010 SHAFFER DO, AILYN K 780.52 INSOMNIA, UNSPECIFIED 04/05/2010 SHAFFER DO, AILYN K E887 Fracture Cause Unspecified 04/05/2010 SHAFFER DO, AILYN K V72.31 Grey Roll Worker Exam, Routine 04/05/2010 SHAFFER DO, AILYN K 110.4 TINEA PEDIS 04/05/2010 SHAFFER DO, AILYN K 625.3 DYSMENORRHEA 04/05/2010 SHAFFER DO, AILYN K 780.52 INSOMNIA, UNSPECIFIED 04/05/2010 SHAFFER DO, AILYN K E887 Fracture Cause Unspecified 04/05/2010 SHAFFER DO, AILYN K V72.31 Grey Roll Worker Exam, Routine 04/05/2010 SHAFFER DO, AILYN K 110.4 TINEA PEDIS 04/05/2010 SHAFFER DO, AILYN K 625.3 DYSMENORRHEA 04/05/2010 SHAFFER DO, AILYN K 780.52 INSOMNIA, UNSPECIFIED 04/05/2010 SHAFFER DO, AILYN K E887 Fracture Cause Unspecified 04/05/2010 SHAFFER DO, AILYN K V72.31 Grey Roll Worker Exam, Routine 04/05/2010 SHAFFER DO, AILYN K 110.4 TINEA PEDIS 04/05/2010 SHAFFER DO, AILYN K 625.3 DYSMENORRHEA 04/05/2010 SHAFFER DO, AILYN K 780.52 INSOMNIA, UNSPECIFIED 04/05/2010 SHAFFER DO, AILYN K E887 Fracture Cause Unspecified 04/05/2010 SHAFFER DO, AILYN K V72.31 Grey Roll Worker Exam, Routine 05/03/2010 SHAFFER DO, AILYN K 311 DEPRESSIVE DISORDER NOT ELSEWHERE CLASSIFIED 05/03/2010 SHAFFER DO, AILYN K 311 DEPRESSIVE DISORDER NOT ELSEWHERE CLASSIFIED 05/03/2010 SHAFFER DO, AILYN K 311 DEPRESSIVE DISORDER NOT ELSEWHERE CLASSIFIED 05/03/2010 311 DEPRESSIVE DISORDER NOT ELSEWHERE CLASSIFIED 05/03/2010 311 DEPRESSIVE DISORDER NOT ELSEWHERE CLASSIFIED 05/03/2010 SHAFFER DO AILYN K 311 DEPRESSIVE DISORDER NOT ELSEWHERE CLASSIFIED 05/03/2010 SHAFFER DO, AILYN K 311 DEPRESSIVE DISORDER NOT ELSEWHERE CLASSIFIED 05/03/2010 SHAFFER DO, AILYN K 311 DEPRESSIVE DISORDER NOT ELSEWHERE CLASSIFIED 05/03/2010 SHAFFER DO, AILYN K 311 DEPRESSIVE DISORDER NOT ELSEWHERE CLASSIFIED 06/02/2010 Ot 965.4 06/02/2010 Ot 969.03 06/02/2010 Ot 969.71 06/02/2010 Ot 977.0 06/02/2010 Ot E849.0 06/02/2010 Ot E950.0 06/02/2010 Ot E950.3 06/02/2010 Ot E950.4 06/04/2010 SHAFFER DO, AILYN K 724.8 OTHER SYMPTOMS REFERABLE TO BACK 06/04/2010 SHAFFER DO, AILYN K E950.2 SUICIDE AND SELF-INFLICTED POISONING BY OTHER SEDATIVES AND HYPNOTICS 06/04/2010 SHAFFER DO, AILYN K 724.8 OTHER SYMPTOMS REFERABLE TO BACK 06/04/2010 SHAFFER DO, AILYN K E950.2 SUICIDE AND SELF-INFLICTED POISONING BY OTHER SEDATIVES AND HYPNOTICS 06/04/2010 SHAFFER DO, AILYN K 724.8 OTHER SYMPTOMS REFERABLE TO BACK 06/04/2010 SHAFFER DO, AILYN K E950.2 SUICIDE AND SELF-INFLICTED POISONING BY OTHER SEDATIVES AND HYPNOTICS 06/04/2010 724.8 Other Symptoms Referable To Back 06/04/2010 E950.2 Suicide And Self-inflicted Poisoning By Other Sedatives And Hypnotics 06/04/2010 724.8 Other Symptoms Referable To Back 06/04/2010 E950.2 Suicide And Self-inflicted Poisoning By Other Sedatives And Hypnotics 06/04/2010 SHAFFER DO, AILYN K 724.8 Other Symptoms Referable To Back 06/04/2010 SHAFFER DO, AILYN K E950.2 Suicide And Self-inflicted Poisoning By Other Sedatives And Hypnotics 06/04/2010 SHAFFER DO, AILYN K 724.8 Other Symptoms Referable To Back 06/04/2010 SHAFFER DO, AILYN K E950.2 Suicide And Self-inflicted Poisoning By Other Sedatives And Hypnotics 06/04/2010 SHAFFER DO, AILYN K 724.8 OTHER SYMPTOMS REFERABLE TO BACK 06/04/2010 SHAFFER DO, AILYN K E950.2 SUICIDE AND SELF-INFLICTED POISONING BY OTHER SEDATIVES AND HYPNOTICS 06/04/2010 SHAFFER DO, AILYN K 724.8 Other Symptoms Referable To Back 06/04/2010 SHAFFER DO, AILYN K E950.2 Suicide And Self-inflicted Poisoning By Other Sedatives And Hypnotics 08/20/2010 AILYN SHAFFER DO 488.02 Influenza Due To Identified J Carlos Influenza Virus With Other Respiratory Manifestations 08/20/2010 AILYN SHAFFER DO 488.02 Influenza Due To Identified J Carlos Influenza Virus With Other Respiratory Manifestations 08/20/2010 AILYN SHAFFER DO 488.02 Influenza Due To Identified J Carlos Influenza Virus With Other Respiratory Manifestations 08/20/2010 488.02 Influenza Due To Identified J Carlos Influenza Virus With Other Respiratory Manifestations 08/20/2010 488.02 Influenza Due To Identified J Carlos Influenza Virus With Other Respiratory Manifestations 08/20/2010 AILYN SHAFFER DO 488.02 Influenza Due To Identified J Carlos Influenza Virus With Other Respiratory Manifestations 08/20/2010 AILYN SHAFFER DO 488.02 Influenza Due To Identified J Carlos Influenza Virus With Other Respiratory Manifestations 08/20/2010 AILYN SHAFFER DO 488.02 Influenza Due To Identified J Carlos Influenza Virus With Other Respiratory Manifestations 08/20/2010 SHAFFER DO, AILYN K 488.02 Influenza Due To Identified J Carlos Influenza Virus With Other Respiratory Manifestations 11/05/2010 SHAFFER DO, AILYN K 536.8 DYSPEPSIA AND OTHER SPECIFIED DISORDERS OF FUNCTION OF STOMACH 11/05/2010 SHAFFER DO, AILYN K 536.8 DYSPEPSIA AND OTHER SPECIFIED DISORDERS OF FUNCTION OF STOMACH 11/05/2010 SHAFFER DO, AILYN K 536.8 DYSPEPSIA AND OTHER SPECIFIED DISORDERS OF FUNCTION OF STOMACH 11/05/2010 536.8 Dyspepsia And Other Specified Disorders Of Function Of Stomach 11/05/2010 536.8 Dyspepsia And Other Specified Disorders Of Function Of Stomach 11/05/2010 SHAFFER DO, AILYN K 536.8 Dyspepsia And Other Specified Disorders Of Function Of Stomach 11/05/2010 SHAFFER DO, AILYN K 536.8 Dyspepsia And Other Specified Disorders Of Function Of Stomach 11/05/2010 SHAFFER DO, AILYN K 536.8 DYSPEPSIA AND OTHER SPECIFIED DISORDERS OF FUNCTION OF STOMACH 11/05/2010 SHAFFER DO, AILYN K 536.8 Dyspepsia And Other Specified Disorders Of Function Of Stomach 01/22/2011 SHAFFER DO, AILYN K 784.0 Headache 01/22/2011 SHAFFER DO, AILYN K 784.0 Headache 01/22/2011 SHAFFER DO, AILYN K 784.0 Headache 01/22/2011 784.0 Headache 01/22/2011 784.0 Headache 01/22/2011 SHAFFER DO, AILYN K 784.0 Headache 01/22/2011 SHAFFER DO, AILYN K 784.0 Headache 01/22/2011 SHAFFER DO, AILYN K 784.0 Headache 01/22/2011 SHAFFER DO, AILYN K 784.0 Headache 06/26/2011 SHAFFER DO, AILYN K 883.0 Open Wound Of Fingers Without Complication 06/26/2011 SHAFFER DO, AILYN K V06.1 Tdap Dx 06/26/2011 SHAFFER DO, AILYN K 883.0 Open Wound Of Fingers Without Complication 06/26/2011 SHAFFER DO, AILYN K V06.1 Tdap Dx 06/26/2011 SHAFFER DO, AILYN K 883.0 Open Wound Of Fingers Without Complication 06/26/2011 SHAFFER DO, AILYN K V06.1 Tdap Dx 06/26/2011 883.0 Open Wound Of Fingers Without Complication 06/26/2011 V06.1 Tdap Dx 06/26/2011 883.0 Open Wound Of Fingers Without Complication 06/26/2011 V06.1 Tdap Dx 06/26/2011 SHAFFER DO, AILYN K 883.0 Open Wound Of Fingers Without Complication 06/26/2011 SHAFFER DO, AILYN K V06.1 Tdap Dx 06/26/2011 SHAFFER DO, AILYN K 883.0 Open Wound Of Fingers Without Complication 06/26/2011 SHAFFER DO, AILYN K V06.1 Tdap Dx 06/26/2011 SHAFFER DO, AILYN K 883.0 Open Wound Of Fingers Without Complication 06/26/2011 SHAFFER DO, AILYN K V06.1 Tdap Dx 06/26/2011 SHAFFER DO, AILYN K 883.0 Open Wound Of Fingers Without Complication 06/26/2011 SHAFFER DO, AILYN K V06.1 Tdap Dx 09/12/2011 SHAFFER DO AILYN K 278.00 OBESITY 09/12/2011 SHAFFER DO AILYN K 611.72 BREAST LUMP OR MASS 09/12/2011 SHAFFER DO AILYN K V18.0 FAM HX DIABETES MELLITUS 09/12/2011 SHAFFER DO AILYN K V76.2 CERVICAL CANCER SCREENING (PAP SMEAR) 09/12/2011 SHAFFER DO AILYN K V77.0 THYROID DISORDER SCREENING 09/12/2011 SHAFFER DO AILYN K V77.1 DIABETES SCREENING 09/12/2011 SHAFFER DO AILYN K 278.00 OBESITY 09/12/2011 SHAFFER DO AILYN K 611.72 BREAST LUMP OR MASS 09/12/2011 EDMUND WADSWORTH AILYN K V18.0 FAM HX DIABETES MELLITUS 09/12/2011 SHAFFER DO AILYN K V76.2 CERVICAL CANCER SCREENING (PAP SMEAR) 09/12/2011 SHAFFER DO AILYN K V77.0 THYROID DISORDER SCREENING 09/12/2011 SHAFFER DO AILYN K V77.1 DIABETES SCREENING 09/12/2011 SHAFFER DO AILYN K 278.00 OBESITY 09/12/2011 SHAFFER DO, AILYN K 611.72 BREAST LUMP OR MASS 09/12/2011 SHAFFER DO AILYN K V18.0 FAM HX DIABETES MELLITUS 09/12/2011 SHAFFER DO AILYN K V76.2 CERVICAL CANCER SCREENING (PAP SMEAR) 09/12/2011 AILYN SHAFFER DO K V77.0 THYROID DISORDER SCREENING 09/12/2011 JONNATHAN SHAFFER DOA K V77.1 DIABETES SCREENING 09/12/2011 278.00 OBESITY 09/12/2011 611.72 Breast Lump Or Mass 09/12/2011 V18.0 FAM HX DIABETES MELLITUS 09/12/2011 V76.2 CERVICAL CANCER SCREENING (PAP SMEAR) 09/12/2011 V77.0 THYROID DISORDER SCREENING 09/12/2011 V77.1 DIABETES SCREENING 09/12/2011 278.00 OBESITY 09/12/2011 611.72 Breast Lump Or Mass 09/12/2011 V18.0 FAM HX DIABETES MELLITUS 09/12/2011 V76.2 CERVICAL CANCER SCREENING (PAP SMEAR) 09/12/2011 V77.0 THYROID DISORDER SCREENING 09/12/2011 V77.1 DIABETES SCREENING 09/12/2011 AILYN SHAFFER DO K 278.00 OBESITY 09/12/2011 JONNATHAN SHAFFER DOA K 611.72 Breast Lump Or Mass 09/12/2011 AILYN SHAFFER DO K V18.0 FAM HX DIABETES MELLITUS 09/12/2011 AILYN SHAFFER DO K V76.2 CERVICAL CANCER SCREENING (PAP SMEAR) 09/12/2011 JONNATHAN SHAFFER DOA K V77.0 THYROID DISORDER SCREENING 09/12/2011 AILYN SHAFFER DO K V77.1 DIABETES SCREENING 09/12/2011 AILYN SHAFFER DO K 278.00 OBESITY 09/12/2011 AILYN SHAFFER DO K 611.72 Breast Lump Or Mass 09/12/2011 AILYN SHAFFER DO K V18.0 FAM HX DIABETES MELLITUS 09/12/2011 AILYN SHAFFER DO K V76.2 CERVICAL CANCER SCREENING (PAP SMEAR) 09/12/2011 JONNATHAN SHAFFER DOA K V77.0 THYROID DISORDER SCREENING 09/12/2011 JONNATHAN SHAFFER DOA K V77.1 DIABETES SCREENING 09/12/2011 AILYN SHAFFER DO K 278.00 OBESITY 09/12/2011 AILYN SHAFFER DO K 611.72 BREAST LUMP OR MASS 09/12/2011 JONNATHAN SHAFFER DOA K V18.0 FAM HX DIABETES MELLITUS 09/12/2011 JONNATHAN SHAFFER DOA K V76.2 CERVICAL CANCER SCREENING (PAP SMEAR) 09/12/2011 JONNATHAN SHAFFER DOA K V77.0 THYROID DISORDER SCREENING 09/12/2011 AILYN SHAFFER DO V77.1 DIABETES SCREENING 09/12/2011 AILYN SHAFFER DO 278.00 OBESITY 09/12/2011 AILYN SHAFFER DO 611.72 Breast Lump Or Mass 09/12/2011 AILYN SHAFFER DO V18.0 FAM HX DIABETES MELLITUS 09/12/2011 AILYN SHAFFER DO V76.2 CERVICAL CANCER SCREENING (PAP SMEAR) 09/12/2011 AILYN SHAFFER DO V77.0 THYROID DISORDER SCREENING 09/12/2011 AILYN SHAFFER DO V77.1 DIABETES SCREENING 09/20/2011 AILYN SHAFFER DO 790.29 HYPERGLYCEMIA 09/20/2011 AILYN SHAFFER DO 790.29 HYPERGLYCEMIA 09/20/2011 AILYN SHAFFER DO 790.29 HYPERGLYCEMIA 09/20/2011 790.29 HYPERGLYCEMIA 09/20/2011 790.29 HYPERGLYCEMIA 09/20/2011 AILYN SHAFFER DO 790.29 HYPERGLYCEMIA 09/20/2011 AILYN SHAFFER DO 790.29 HYPERGLYCEMIA 09/20/2011 AILYN SHAFFER DO 790.29 HYPERGLYCEMIA 09/20/2011 AILYN SHAFFER DO 790.29 HYPERGLYCEMIA 10/14/2011 AILYN SHAFFER DO 789.00 ABDOMINAL PAIN UNSPECIFIED SITE 10/14/2011 AILYN SHAFFER DO V26.82 ENCOUNTER FOR FERTILITY PRESERVATION PROCEDURE 10/14/2011 AILYN SHAFFER DO 789.00 ABDOMINAL PAIN UNSPECIFIED SITE 10/14/2011 AILYN SHAFFER DO V26.82 ENCOUNTER FOR FERTILITY PRESERVATION PROCEDURE 10/14/2011 AILYN SHAFFER DO 789.00 ABDOMINAL PAIN UNSPECIFIED SITE 10/14/2011 AILYN SHAFFER DO V26.82 ENCOUNTER FOR FERTILITY PRESERVATION PROCEDURE 10/14/2011 789.00 Abdominal Pain Unspecified Site 10/14/2011 V26.82 ENCOUNTER FOR FERTILITY PRESERVATION PROCEDURE 10/14/2011 789.00 Abdominal Pain Unspecified Site 10/14/2011 V26.82 ENCOUNTER FOR FERTILITY PRESERVATION PROCEDURE 10/14/2011 AILYN SHAFFER DO 789.00 Abdominal Pain Unspecified Site 10/14/2011 AILYN SHAFFER DO V26.82 ENCOUNTER FOR FERTILITY PRESERVATION PROCEDURE 10/14/2011 AILYN SHAFFER DO 789.00 Abdominal Pain Unspecified Site 10/14/2011 AILYN SHAFFER DO V26.82 ENCOUNTER FOR FERTILITY PRESERVATION PROCEDURE 10/14/2011 SHAFFER DO, AILYN K 789.00 ABDOMINAL PAIN UNSPECIFIED SITE 10/14/2011 SHAFFER DO, AILYN K V26.82 ENCOUNTER FOR FERTILITY PRESERVATION PROCEDURE 10/14/2011 SHAFFER DO, AILYN K 789.00 Abdominal Pain Unspecified Site 10/14/2011 SHAFFER DO, AILYN K V26.82 ENCOUNTER FOR FERTILITY PRESERVATION PROCEDURE 04/07/2012 SHAFFER DO, AILYN K 784.0 HEADACHE 04/07/2012 SHAFFER DO, AILYN K 784.0 HEADACHE 04/07/2012 SHAFFER DO, AILYN K 784.0 HEADACHE 04/07/2012 784.0 Headache 04/07/2012 784.0 Headache 04/07/2012 SHAFFER DO, AILYN K 784.0 Headache 04/07/2012 SHAFFER DO, AILYN K 784.0 Headache 04/07/2012 SHAFFER DO, AILYN K 784.0 HEADACHE 04/07/2012 SHAFFER DO, AILYN K 784.0 Headache 06/15/2012 SHAFFER DO, AILYN K 461.9 SINUSITIS ACUTE 06/15/2012 SHAFFER DO, AILYN K 790.6 ABNORMAL LFT (LIVER FUNCTION TEST) 06/15/2012 HSAFFER DO, AILYN K V65.42 COUNSELING - SMOKING CESSATION 06/15/2012 SHAFFER DO, AILYN K 461.9 SINUSITIS ACUTE 06/15/2012 SHAFFER DO, AILYN K 790.6 ABNORMAL LFT (LIVER FUNCTION TEST) 06/15/2012 SHAFFER DO, AILYN K V65.42 COUNSELING - SMOKING CESSATION 06/15/2012 SHAFFER DO AILYN K 461.9 SINUSITIS ACUTE 06/15/2012 SHAFFER DO, AILYN K 790.6 ABNORMAL LFT (LIVER FUNCTION TEST) 06/15/2012 SHAFFER DO, AILYN K V65.42 COUNSELING - SMOKING CESSATION 06/15/2012 461.9 Sinusitis Acute 06/15/2012 790.6 ABNORMAL LFT ( LIVER FUNCTION TEST) 06/15/2012 V65.42 COUNSELING - SMOKING CESSATION 06/15/2012 461.9 Sinusitis Acute 06/15/2012 790.6 ABNORMAL LFT ( LIVER FUNCTION TEST) 06/15/2012 V65.42 COUNSELING - SMOKING CESSATION 06/15/2012 SHAFFER DO, AILYN K 461.9 Sinusitis Acute 06/15/2012 JONNATHAN SHAFFER DOA K 790.6 ABNORMAL LFT (LIVER FUNCTION TEST) 06/15/2012 JONNATHAN SHAFFER DOA K V65.42 COUNSELING - SMOKING CESSATION 06/15/2012 JONNATHAN SHAFFER DOA K 461.9 Sinusitis Acute 06/15/2012 JONNATHAN SHAFFER DOA K 790.6 ABNORMAL LFT (LIVER FUNCTION TEST) 06/15/2012 JONNATHAN SHAFFER DOA K V65.42 COUNSELING - SMOKING CESSATION 06/15/2012 JONNATHAN SHAFFER DOA K 461.9 SINUSITIS ACUTE 06/15/2012 JONNATHAN SHAFFER DOA K 790.6 ABNORMAL LFT (LIVER FUNCTION TEST) 06/15/2012 EDMUND WADSWORTH AILYN K V65.42 COUNSELING - SMOKING CESSATION 06/15/2012 JONNATHAN SHAFFER DOA K 461.9 Sinusitis Acute 06/15/2012 JONNATHAN SHAFFER DOA K 790.6 ABNORMAL LFT (LIVER FUNCTION TEST) 06/15/2012 EDMUND [place]TH AILYN K V65.42 COUNSELING - SMOKING CESSATION 09/04/2012 EDMUND [place]TH AILYN K 729.5 LEG PAIN 09/04/2012 EDMUND [place] AILYN K 729.5 LEG PAIN 09/04/2012 729.5 Leg Pain 09/04/2012 729.5 Leg Pain 09/04/2012 EDMUND [place] AILYN K 729.5 Leg Pain 09/04/2012 EDMUND [place] AILYN K 729.5 Leg Pain 09/04/2012 EDMUND [place] AILYN K 729.5 Leg Pain 10/29/2012 Ot 244.0 POSTSURGICAL HYPOTHYROID 10/29/2012 Ot 278.00 OBESITY, NOS 10/29/2012 Ot 424.0 MITRAL VALVE DISORDER 10/29/2012 Ot 571.8 CHRONIC LIVER DIS NEC 10/29/2012 Ot 786.50 CHEST PAIN NOS 10/29/2012 Ot 790.29 OTHER ABNORMAL GLUCOSE 10/29/2012 Ot V58.69 OTH MED,LT, CURRENT USE 10/29/2012 Ot V85.43 BODY MASS INDEX 50.0-59.9, ADULT 11/06/2012 724.3 SCIATICA 11/06/2012 V70.0 ROUTINE GENERAL MEDICAL EXAMINATION AT A HEALTH CARE FACILITY 11/06/2012 724.3 SCIATICA 11/06/2012 V70.0 ROUTINE GENERAL MEDICAL EXAMINATION AT A HEALTH CARE FACILITY 11/06/2012 EDMUND DOJONNATHANA K 724.3 SCIATICA 11/06/2012 JONNATHAN SHAFFER DOA K V70.0 ROUTINE GENERAL MEDICAL EXAMINATION AT A HEALTH CARE FACILITY 11/06/2012 EDMUND DOJONNATHANA K 724.3 SCIATICA 11/06/2012 SHAFFER DO, AILYN K V70.0 ROUTINE GENERAL MEDICAL EXAMINATION AT A HEALTH CARE FACILITY 11/06/2012 JONNATHAN SHAFFER DOA K 724.3 SCIATICA 11/06/2012 JONNATHAN SHAFFER DOA K V70.0 ROUTINE GENERAL MEDICAL EXAMINATION AT A HEALTH CARE FACILITY 11/10/2012 Ot 729.5 PAIN IN LIMB 11/10/2012 Ot V57.1 PHYSICAL THERAPY NEC 05/18/2013 SHAYAN COHEN, ESTEFANY Rangel Ot 786.59 CHEST PAIN NEC 05/24/2013 JONNATHAN SHAFFER DOA K 429.3 CARDIOMEGALY 05/24/2013 JONNATHAN SHAFFER DOA K 429.3 CARDIOMEGALY 05/24/2013 EDMUND WADSWORTH, AILYN K 429.3 CARDIOMEGALY 11/27/2013 EDMUND WADSWORTH, AILYN K 724.2 LUMBAGO 11/27/2013 SHAFFER DO, AILYN K 729.5 PAIN IN LIMB 11/27/2013 SHAFFER , AILYN K V65.3 COUNSELING - DIETARY 11/27/2013 EDMUND WADSWORTH, AILYN K 724.2 LUMBAGO 11/27/2013 SHAFFER DO, AILYN K 729.5 PAIN IN LIMB 11/27/2013 SHAFFER , AILYN K V65.3 COUNSELING - DIETARY 01/06/2014 PAVAN WADSWORTH TANGELA K Ot 599.0 URIN TRACT INFECTION NOS 01/06/2014 PAVAN WADSWORTH TANGELA K Ot 789.06 ABDOMINAL PAIN, EPIGASTRIC 05/24/2014 EDMUND WADSWORTH AILYN K 786.05 SHORTNESS OF BREATH 05/24/2014 EDMUND WADSWORTH AILYN K 786.50 CHEST PAIN 05/31/2014 Ot 397.0 05/31/2014 Ot 424.0 05/31/2014 Ot 785.1 05/31/2014 Ot 786.50 05/31/2014 Ot 611.72 05/31/2014 Ot 571.8 05/31/2014 Ot 729.5 05/31/2014 Ot 782.0 05/31/2014 Ot 790.5 06/15/2014 Ot 397.0 06/15/2014 Ot 424.0 06/15/2014 Ot 785.1 06/15/2014 Ot 786.50 06/15/2014 Ot 611.72 06/15/2014 Ot 571.8 06/15/2014 Ot 729.5 06/15/2014 Ot 782.0 06/15/2014 Ot 790.5 06/15/2014 SHAYAN COHEN, ESTEFANY Rangel Ot 401.9 HYPERTENSION NOS 06/15/2014 SHAYAN COHEN, ESTEFANY Rangel Ot 784.0 HEADACHE 06/15/2014 SHAYAN COHEN, ESTEFANY Rangel Ot 789.00 ABDOMINAL PAIN, UNSPECIFIED SITE 06/16/2014 PATI APONTE DO Ot 339.10 TENSION TYPE HEADACHE, UNSPECIFIED 06/16/2014 PATI APONTE DO Ot 784.0 HEADACHE 06/16/2014 PATI APONTE DO Ot 786.59 CHEST PAIN NEC 06/27/2014 Ot 397.0 06/27/2014 Ot 424.0 06/27/2014 Ot 785.1 06/27/2014 Ot 786.50 06/27/2014 Ot 611.72 06/27/2014 Ot 571.8 06/27/2014 Ot 729.5 06/27/2014 Ot 782.0 06/27/2014 Ot 790.5 09/19/2014 Ot 300.00 ANXIETY STATE NOS 09/19/2014 Ot 346.90 MIGRAINE UNSPECIFIED W/O INTRACT MGRN W/ 09/19/2014 Ot 784.0 HEADACHE 09/21/2014 Ot 307.81 TENSION HEADACHE 09/21/2014 Ot 346.90 MIGRAINE UNSPECIFIED W/O INTRACT MGRN W/ 11/24/2014 ARIANNA COHEN, STACY Rizo Ot 729.5 PAIN IN LIMB 11/29/2014 GELLENDER DO, BRIDGETTE Ochoa Ot 244.9 11/29/2014 GELLENDER DO, BRIDGETTE Ochoa Ot 346.90 11/29/2014 GELLENDER DO, BRIDGETTE Ochoa Ot 401.9 12/02/2014 GELLENDER DO, BRIDGETTE Ochoa Ot 790.5 12/06/2014 GELLENDER DO, BRIDGETTE Ochoa Ot 790.5 12/06/2014 GELLENDER DO, BRIDGETTE Ochoa Ot 790.5 12/28/2014 Ot 397.0 12/28/2014 Ot 424.0 12/28/2014 Ot 785.1 12/28/2014 Ot 786.50 12/28/2014 Ot 611.72 12/28/2014 Ot 571.8 12/28/2014 Ot 729.5 12/28/2014 Ot 782.0 12/28/2014 Ot 790.5 12/28/2014 GELLENDER DO, BRIDGETTE Ochoa Ot 244.9 12/28/2014 GELLENDER DO, BRIDGETTE cOhoa Ot 346.90 12/28/2014 GELLENDER DO, BRIDGETTE Ochoa Ot 401.9 12/28/2014 GELLENDER DO, BRIDGETTE Ochoa Ot 790.5 12/28/2014 GELLENDER DO, BRIDGETTE Ochoa Ot 553.1 12/28/2014 GELLENDER DO, BRIDGETTE Ochoa Ot 789.09 12/28/2014 GELLENDER DO, BRIDGETTE Ochoa Ot 790.5 12/29/2014 Ot 397.0 12/29/2014 Ot 424.0 12/29/2014 Ot 785.1 12/29/2014 Ot 786.50 12/29/2014 Ot 611.72 12/29/2014 Ot 571.8 12/29/2014 Ot 729.5 12/29/2014 Ot 782.0 12/29/2014 Ot 790.5 12/29/2014 GELLENDER DO, BRIDGETTE Ochoa Ot 244.9 12/29/2014 GELLENDER DO, BRIDGETTE Ochoa Ot 346.90 12/29/2014 GELLENDER DO, BRIDGETTE Ochoa Ot 401.9 12/29/2014 GELLENDER DO, BRIDGETTE Ochoa Ot 790.5 12/29/2014 GELLENDER DO, BRIDGETTE Ochoa Ot 553.1 12/29/2014 GELLENDER DO, BRIDGETTE Ochoa Ot 789.09 12/29/2014 GELLENDER DO, BRIDGETTE Ochoa Ot 790.5 12/29/2014 GELLENDER DO, BRIDGETTE Ochoa Ot 790.5 12/29/2014 GELLENDER DO, BRIDGETTE Ochoa Ot 244.9 12/29/2014 GELLENDER DO, BRIDGETTE Ochoa Ot 346.90 12/29/2014 GELLENDER DO, BRIDGETTE Ochoa Ot 401.9 02/20/2015 GELLENDER DO, BRIDGETTE Ochoa Ot 789.01 02/20/2015 GELLENDER DO, BRIDGETTE Ochoa Ot 790.5 02/20/2015 GELLENDER DO, BRIDGETTE Ochoa Ot 553.1 02/20/2015 GELLENDER DO, BRIDGETTE Ochoa Ot 789.09 02/20/2015 GELLENDER DO, BRIDGETTE Ochoa Ot 790.5 02/20/2015 GELLENDER DO, BRIDGETTE Ochoa Ot 790.5 02/20/2015 GELLENDER DO, BRIDGETTE Ochoa Ot 244.9 02/20/2015 GELLENDER DO, BRIDGETTE Ochoa Ot 346.90 02/20/2015 GELLENDER DO, BRIDGETTE Ochoa Ot 401.9 02/23/2015 Ot 397.0 02/23/2015 Ot 424.0 02/23/2015 Ot 785.1 02/23/2015 Ot 786.50 02/23/2015 Ot 611.72 02/23/2015 Ot 571.8 02/23/2015 Ot 729.5 02/23/2015 Ot 782.0 02/23/2015 Ot 790.5 02/23/2015 GELLENDER DO, BRIDGETTE Ochoa Ot 244.9 02/23/2015 GELLENDER DO, BRIDGETTE Ochoa Ot 346.90 02/23/2015 GELLENDER DO, BRIDGETTE Ochoa Ot 401.9 02/23/2015 GELLENDER DO, BRIDGETTE Ochoa Ot 790.5 02/23/2015 GELLENDER DO, BRIDGETTE Ochoa Ot 553.1 02/23/2015 GELLENDER DO, BRIDGETTE Ochoa Ot 789.09 02/23/2015 GELLENDER DO, BRIDGETTE Ochoa Ot 790.5 02/23/2015 GELLENDER DO, BRIDGETTE Ochoa Ot 789.01 02/23/2015 GELLENDER DO, BRIDGETTE Ochoa Ot 790.5 02/23/2015 FADI DO, PATI Dunn Ot 724.5 BACKACHE NOS 02/27/2015 FADI DO, PATI Dunn Ot 724.5 03/06/2015 GELLENDER DO, BRIDGETTE Ochoa Ot 790.5 03/06/2015 GELLENDER DO, BRIDGETTE Ochoa Ot 553.1 03/06/2015 GELLENDER DO, BRIDGETTE Ochoa Ot 789.09 03/06/2015 GELLENDER DO, BRIDGETTE Ochoa Ot 790.5 03/06/2015 GELLENDER DO, BRIDGETTE Ochoa Ot 789.01 03/06/2015 GELLENDER DO, BRIDGETTE Ochoa Ot 790.5 05/17/2015 TANGELA BROWNE DO Ot F17.211 NICOTINE DEPENDENCE, CIGARETTES, IN [place]AA[place] 05/17/2015 TANGELA BROWNE DO Ot R07.89 OTHER CHEST PAIN 05/17/2015 Ot 397.0 05/17/2015 Ot 424.0 05/17/2015 Ot 785.1 05/17/2015 Ot 786.50 05/17/2015 Ot 611.72 05/17/2015 Ot 571.8 05/17/2015 Ot 729.5 05/17/2015 Ot 782.0 05/17/2015 Ot 790.5 05/17/2015 GELLENDER DOBRIDGETTE Ot 244.9 05/17/2015 GELLENDER DOBRIDGETTE Ot 346.90 05/17/2015 GELLENDER DOBRIDGETTE Ot 401.9 05/17/2015 GELLENDER DOBRIDGETTE Ot 790.5 05/17/2015 GELLENDER DOBRIDGETTE Ot 553.1 05/17/2015 GELLENDER DOBRIDGETTE Ot 789.09 05/17/2015 GELLENDER DOBRIDGETTE Ot 790.5 05/17/2015 GELLENDER DOBRIDGETTE Ot 789.01 05/17/2015 GELLENDER DOBRIDGETTE Ot 790.5 05/22/2015 PATI APONTE DO Ot I10 ESSENTIAL (PRIMARY) HYPERTENSION 05/22/2015 PATI APONTE DO Ot R51 HEADACHE 05/22/2015 Ot 397.0 05/22/2015 Ot 424.0 05/22/2015 Ot 785.1 05/22/2015 Ot 786.50 05/22/2015 Ot 611.72 05/22/2015 Ot 571.8 05/22/2015 Ot 729.5 05/22/2015 Ot 782.0 05/22/2015 Ot 790.5 05/22/2015 GELLENDER DOBRIDGETTE Ot 244.9 05/22/2015 GELLENDER DOBRIDGETTE Ot 346.90 05/22/2015 GELLENDER DOBRIDGETTE Ot 401.9 05/22/2015 GELLENDER DO, BRIDGETTE Ochoa Ot 790.5 05/22/2015 GELLENDER DOBRIDGETTE Ot 553.1 05/22/2015 GELLENDER DOBRIDGETTE Ot 789.09 05/22/2015 GELLENDER DO, BRIDGETTE A Ot 790.5 05/22/2015 [facility] A Ot 789.01 05/22/2015 [facility] BRIDGETTE Ochoa Ot 790.5 10/07/2015 [place] , TANGELA Rizo Ot E11.9 TYPE 2 DIABETES MELLITUS WITHOUT COMPLIC 10/07/2015 PAVAN DO, TANGELA Rizo Ot E66.01 MORBID (SEVERE) OBESITY DUE TO EXCESS CA 10/07/2015 PAAVN DO, TANGELA Rizo Ot G89.29 OTHER CHRONIC PAIN 10/07/2015 PAVAN DO, TANGELA Rizo Ot R10.2 PELVIC AND PERINEAL PAIN 10/07/2015 Ot 397.0 10/07/2015 Ot 424.0 10/07/2015 Ot 785.1 10/07/2015 Ot 786.50 10/07/2015 Ot 611.72 10/07/2015 Ot 571.8 10/07/2015 Ot 729.5 10/07/2015 Ot 782.0 10/07/2015 Ot 790.5 10/07/2015 [facility] BRIDGETTE Ochoa Ot 244.9 10/07/2015 GELLENDER DO, BRIDGETTE A Ot 346.90 10/07/2015 GELLENDER DO, BRIDGETTE Ochoa Ot 401.9 10/07/2015 [facility] BRIDGETTE Ochoa Ot 790.5 10/07/2015 [facility] BRIDGETTE Ochoa Ot 553.1 10/07/2015 GELLENDER DO, BRIDGETTE Ochoa Ot 789.09 10/07/2015 GELLENDER DO, BRIDGETTE Ochoa Ot 790.5 10/07/2015 [facility] BRIDGETTE Ochoa Ot 789.01 10/07/2015 GELLENDER DO, BRIDGETTE Ochoa Ot 790.5 10/07/2015 PATTIE ENAMORADO CATHODE MAKER Ot R10.11 10/07/2015 PATTIE ENAMORADO CATHODE MAKER Ot R10.13 10/07/2015 PATTIE ENAMORADO CATHODE MAKER Ot R10.2 10/09/2015 [place] DO, TANGELA Rizo Ot E11.9 10/09/2015 [place] DO, TANGELA Sallie Ot E66.01 10/09/2015 PAVAN DO, TANGELA Rizo Ot G89.29 10/09/2015 [facility], TANGELA K Ot R10.2 10/11/2015 MIYA ALBERT DO Ot R10.2 PELVIC AND PERINEAL PAIN 10/11/2015 MIYA ALBERT DO Ot Z01.812 ENCOUNTER FOR PREPROCEDURAL LABORATORY E 10/11/2015 MIYA ALBERT DO Ot Z11.2 ENCOUNTER FOR SCREENING FOR OTHER BACTER 10/20/2015 MIYA ALBERT DO Ot N83.8 OTH NONINFLAMMATORY DISORD OF OVARY, FAL 10/20/2015 MIYA ALBERT DO Ot N93.9 ABNORMAL UTERINE AND VAGINAL BLEEDING, U 10/20/2015 MIYA ALBERT DO Ot N94.6 DYSMENORRHEA, UNSPECIFIED 10/20/2015 MIYA ALBERT DO Ot R10.2 PELVIC AND PERINEAL PAIN 10/25/2015 MIYA ALBERT DO Ot N83.8 10/25/2015 MIYA ALBERT DO Ot N93.9 10/25/2015 MIYA ALBERT DO Ot N94.6 10/25/2015 MIYA ALBERT DO Ot R10.2 11/02/2015 MIYA ALBERT DO Ot N83.8 OT NONINFLAMMATORY DISORD OF OVARY, FAL 11/02/2015 MIYA ALBERT DO Ot N93.9 ABNORMAL UTERINE AND VAGINAL BLEEDING, U 11/02/2015 MIYA ALBERT DO Ot N94.6 DYSMENORRHEA, UNSPECIFIED 11/02/2015 MIYA ALBERT DO Ot R10.2 PELVIC AND PERINEAL PAIN 11/06/2015 STEFFANY WADSWORTH BRIDGETTE Gabriela Ot 244.9 HYPOTHYROIDISM NOS 11/06/2015 PANTERAJTSWEET BRIDGETTE Gabriela Ot 346.90 MIGRAINE UNSPECIFIED W/O INTRACT MGRN W/ 11/06/2015 STEFFANY WADSWORTH BRIDGETTE Ochoa Ot 401.9 HYPERTENSION NOS 04/02/2016 Ot 397.0 TRICUSPID VALVE DISEASE 04/02/2016 Ot 424.0 MITRAL VALVE DISORDER 04/02/2016 Ot 785.1 PALPITATIONS 04/02/2016 Ot 786.50 CHEST PAIN NOS 04/02/2016 Ot 611.72 LUMP OR MASS IN BREAST 04/02/2016 Ot 571.8 CHRONIC LIVER DIS NEC 04/02/2016 Ot 729.5 PAIN IN LIMB 04/02/2016 Ot 782.0 SKIN SENSATION DISTURB 04/02/2016 Ot 790.5 ABN SERUM ENZY LEVEL NEC 04/02/2016 BRIDGETTE JETER DO Ot 244.9 HYPOTHYROIDISM NOS 04/02/2016 BRIDGETTE JETER DO Ot 346.90 MIGRAINE UNSPECIFIED W/O INTRACT MGRN W/ 04/02/2016 BRIDGETTE JETER DO Ot 401.9 HYPERTENSION NOS 04/02/2016 BRIDGETTE JETER DO Ot 790.5 ABN SERUM ENZY LEVEL NEC 04/02/2016 BRIDGETTE JETER DO Ot 553.1 UMBILICAL HERNIA 04/02/2016 STEFFANY WADSWORTH, BRIDGETTE Ochoa Ot 789.09 ABDOMINAL PAIN, OTHER SPECIFIED SITE 04/02/2016 BRIDGETTE JETER DO Ot 790.5 ABN SERUM ENZY LEVEL NEC 04/02/2016 BRIDGETTE JETER DO Ot 789.01 ABDOMINAL PAIN, RIGHT UPPER QUADRANT 04/02/2016 BRIDGETTE JETER DO Ot 790.5 ABN SERUM ENZY LEVEL NEC 04/02/2016 PATTIE ENAMORADO R CATHODE MAKER Ot R10.11 RIGHT UPPER QUADRANT PAIN 04/02/2016 ENAMORADOSIERRA RiveraELE R CATHODE MAKER Ot R10.13 EPIGASTRIC PAIN 04/02/2016 ENAMORADOSIERRA RiveraELE R CATHODE MAKER Ot R10.2 PELVIC AND PERINEAL PAIN 04/02/2016 ENAMORADOSIERRAPATTIE R CATHODE MAKER Ot R10.2 PELVIC AND PERINEAL PAIN 04/02/2016 ENAMORADO, PATTIE R CATHODE MAKER Ot R10.11 RIGHT UPPER QUADRANT PAIN 04/02/2016 ENAMORADO, PATTIE R CATHODE MAKER Ot R10.13 EPIGASTRIC PAIN 04/02/2016 ENAMORADO PATTIE R CATHODE MAKER Ot R10.11 RIGHT UPPER QUADRANT PAIN 04/02/2016 ENAMORADO, PATTIE R CATHODE MAKER Ot R10.13 EPIGASTRIC PAIN 04/03/2016 PAVAN WADSWORTH TANGELA K Ot E11.9 TYPE 2 DIABETES MELLITUS WITHOUT COMPLIC 04/03/2016 PAVAN WADSWORTH TANGELA K Ot E66.01 MORBID (SEVERE) OBESITY DUE TO EXCESS CA 04/03/2016 PAVAN , TANGELA K Ot G89.29 OTHER CHRONIC PAIN 04/03/2016 PAVAN WADSWORTH TANGELA K Ot R10.2 PELVIC AND PERINEAL PAIN 06/10/2016 [place] ENAMORADOELE R CATHODE MAKER Ot R10.11 RIGHT UPPER QUADRANT PAIN 06/10/2016 PTATIE ENAMORADO CATHODE MAKER Ot R10.13 EPIGASTRIC PAIN 06/10/2016 PATTIE ENAMORADO CATHODE MAKER Ot R10.2 PELVIC AND PERINEAL PAIN 06/11/2016 FADI WADSWORTH PATI Shaun Ot I10 ESSENTIAL (PRIMARY) HYPERTENSION 06/11/2016 PATI APONTE DO Ot R51 HEADACHE 06/11/2016 TANGELA BROWNE DO Ot E11.9 TYPE 2 DIABETES MELLITUS WITHOUT COMPLIC 06/11/2016 TANGELA BROWNE DO Ot E66.01 MORBID (SEVERE) OBESITY DUE TO EXCESS CA 06/11/2016 TANGELA BROWNE DO Ot G89.29 OTHER CHRONIC PAIN 06/11/2016 TANGELA BROWNE DO Ot R10.2 PELVIC AND PERINEAL PAIN 07/19/2016 Ot 611.72 LUMP OR MASS IN BREAST 07/19/2016 Ot 571.8 CHRONIC LIVER DIS NEC 07/19/2016 Ot 729.5 PAIN IN LIMB 07/19/2016 Ot 782.0 SKIN SENSATION DISTURB 07/19/2016 Ot 790.5 ABN SERUM ENZY LEVEL NEC 07/19/2016 BRIDGETTE JETER DO Ot 244.9 HYPOTHYROIDISM NOS 07/19/2016 BRIDGETTE JETER DO Ot 346.90 MIGRAINE UNSPECIFIED W/O INTRACT MGRN W/ 07/19/2016 BRIDGETTE JETER DO Gabriela Ot 401.9 HYPERTENSION NOS 07/19/2016 BRIDGETTE JETER DO Ot 790.5 ABN SERUM ENZY LEVEL NEC 07/19/2016 BRIDGETTE JETER DO Gabriela Ot 553.1 UMBILICAL HERNIA 07/19/2016 STEFFANY WADSWORTH BRIDGETTE Gabriela Ot 789.09 ABDOMINAL PAIN, OTHER SPECIFIED SITE 07/19/2016 STEFFANY WADSWORTH BRIDGETTE Gabriela Ot 790.5 ABN SERUM ENZY LEVEL NEC 07/19/2016 STEFFANY WADSWORTH BRIDGETTE Gabriela Ot 789.01 ABDOMINAL PAIN, RIGHT UPPER QUADRANT 07/19/2016 [facility], BRIDGETTE Ochoa Ot 790.5 ABN SERUM ENZY LEVEL NEC 07/19/2016 PATTIE ENAMORADO CATHODE MAKER Ot R10.11 RIGHT UPPER QUADRANT PAIN 07/19/2016 PATTIE ENAMORADO CATHODE MAKER Ot R10.13 EPIGASTRIC PAIN 07/19/2016 PATTIE ENAMORADO CATHODE MAKER Ot R10.2 PELVIC AND PERINEAL PAIN 07/26/2016 Ot 611.72 LUMP OR MASS IN BREAST 07/26/2016 Ot 571.8 CHRONIC LIVER DIS NEC 07/26/2016 Ot 729.5 PAIN IN LIMB 07/26/2016 Ot 782.0 SKIN SENSATION DISTURB 07/26/2016 Ot 790.5 ABN SERUM ENZY LEVEL NEC 07/26/2016 GELLENDER BRIDGETTE WADSWORTH Ot 244.9 HYPOTHYROIDISM NOS 07/26/2016 GELLENDER DO, BRIDGETTE Ochoa Ot 346.90 MIGRAINE UNSPECIFIED W/O INTRACT MGRN W/ 07/26/2016 GELLENDER DO, BRIDGETTE Ochoa Ot 401.9 HYPERTENSION NOS 07/26/2016 GELLENDER DO, BRIDGETTE Ochoa Ot 790.5 ABN SERUM ENZY LEVEL NEC 07/26/2016 PANTERALENDER BRIDGETTE WADSWORTH Ot 553.1 UMBILICAL HERNIA 07/26/2016 PANTERALENDER , BRIDGETTE Ochoa Ot 789.09 ABDOMINAL PAIN, OTHER SPECIFIED SITE 07/26/2016 STEFFANY WADSWORTH, BRIDGETTE Ochoa Ot 790.5 ABN SERUM ENZY LEVEL NEC 07/26/2016 BRIDGETTE JETER DO Ot 789.01 ABDOMINAL PAIN, RIGHT UPPER QUADRANT 07/26/2016 GELLENDER , BRIDGETTE Ochoa Ot 790.5 ABN SERUM ENZY LEVEL NEC 07/26/2016 PATTIE ENAMORADO CATHODE MAKER Ot R10.11 RIGHT UPPER QUADRANT PAIN 07/26/2016 PATTIE ENAMORADO CATHODE MAKER Ot R10.13 EPIGASTRIC PAIN 07/26/2016 PATTIE ENAMORADO CATHODE MAKER Ot R10.2 PELVIC AND PERINEAL PAIN 07/26/2016 PATTIE ENAMORAOD CATHODE MAKER Ot N63 UNSPECIFIED LUMP IN BREAST 07/29/2016 PATTIE ENAMORADO CATHODE MAKER Ot N63 UNSPECIFIED LUMP IN BREAST 08/19/2016 EILEEN PIKE CATHODE MAKER Ot E11.9 TYPE 2 DIABETES MELLITUS WITHOUT COMPLIC 08/19/2016 EILEEN PIKE CATHODE MAKER Ot E66.01 MORBID (SEVERE) OBESITY DUE TO EXCESS CA 08/19/2016 EILEEN PIKE CATHODE MAKER Ot I10 ESSENTIAL (PRIMARY) HYPERTENSION 08/19/2016 EILEEN PIKE APRN Ot N39.0 URINARY TRACT INFECTION, SITE NOT SPECIF 08/19/2016 EILEEN PIKE APRN Ot R10.13 EPIGASTRIC PAIN 08/19/2016 PIKE, PETER J CATHODE MAKER Ot R11.2 NAUSEA WITH VOMITING, UNSPECIFIED 08/19/2016 EILEEN PIKE APRN Ot Z79.84 FPC (CURRENT) USE OF ORAL HYPOGLYC 08/19/2016 EILEEN PIKE APRN Ot Z79.899 OTHER FPC (CURRENT) DRUG THERAPY 08/21/2016 EILEEN PIKE APRN Ot E11.9 TYPE 2 DIABETES MELLITUS WITHOUT COMPLIC 08/21/2016 EILEEN PIKE APRN Ot E66.01 MORBID (SEVERE) OBESITY DUE TO EXCESS CA 08/21/2016 EILEEN PIKE CATHODE MAKER Ot I10 ESSENTIAL (PRIMARY) HYPERTENSION 08/21/2016 EILEEN PIKE APRN Ot N39.0 URINARY TRACT INFECTION, SITE NOT SPECIF 08/21/2016 EILEEN PIKE APRN Ot R10.13 EPIGASTRIC PAIN 08/21/2016 EILEEN PIKE APRN Ot R11.2 NAUSEA WITH VOMITING, UNSPECIFIED 08/21/2016 EILEEN PIKE APRN Ot Z79.84 WIND TURBINE ERECTOR (CURRENT) USE OF ORAL HYPOGLYC 08/21/2016 EILEEN PIKE APRN Ot Z79.899 OTHER FPC (CURRENT) DRUG THERAPY 08/21/2016 EILEEN PIKE APRN Ot E11.9 TYPE 2 DIABETES MELLITUS WITHOUT COMPLIC 08/21/2016 EILEEN PIKE APRN Ot E66.01 MORBID (SEVERE) OBESITY DUE TO EXCESS CA 08/21/2016 EILEEN PIKE APRN Ot I10 ESSENTIAL (PRIMARY) HYPERTENSION 08/21/2016 EILEEN PIKE APRN Ot N39.0 URINARY TRACT INFECTION, SITE NOT SPECIF 08/21/2016 EILEEN PIKE APRN Ot R10.13 EPIGASTRIC PAIN 08/21/2016 EILEEN PIKE APRN Ot R11.2 NAUSEA WITH VOMITING, UNSPECIFIED 08/21/2016 EILEEN PIKE APRN Ot Z79.84 WIND TURBINE ERECTOR (CURRENT) USE OF ORAL HYPOGLYC 08/21/2016 EILEEN PIKE APRN Ot Z79.899 OTHER WIND TURBINE ERECTOR (CURRENT) DRUG THERAPY 11/02/2016 EILEEN PIKE APRN Ot E11.9 TYPE 2 DIABETES MELLITUS WITHOUT COMPLIC 11/02/2016 EILEEN PIKE APRN Ot E66.01 MORBID (SEVERE) OBESITY DUE TO EXCESS CA 11/02/2016 EILEEN PIKE APRN Ot I10 ESSENTIAL (PRIMARY) HYPERTENSION 11/02/2016 EILEEN PIKE APRN Ot R10.32 LEFT LOWER QUADRANT PAIN 11/02/2016 EILEEN PIKE CATHODE MAKER Ot Z79.84 FPC (CURRENT) USE OF ORAL HYPOGLYC 11/02/2016 EILEEN PIKE APRN Ot Z79.899 OTHER WIND TURBINE ERECTOR (CURRENT) DRUG THERAPY 11/02/2016 EILEEN PIKE APRN Ot Z87.891 PERSONAL HISTORY OF NICOTINE DEPENDENCE 11/02/2016 EILEEN PIKE APRN Ot Z90.710 ACQUIRED ABSENCE OF BOTH CERVIX AND UTER 11/04/2016 EILEEN PIKE CATHODE MAKER Ot E11.9 TYPE 2 DIABETES MELLITUS WITHOUT COMPLIC 11/04/2016 EILEEN PIKE APRN Ot E66.01 MORBID (SEVERE) OBESITY DUE TO EXCESS CA 11/04/2016 EILEEN PIKE APRN Ot I10 ESSENTIAL (PRIMARY) HYPERTENSION 11/04/2016 EILEEN PIKE APRN Ot R10.32 LEFT LOWER QUADRANT PAIN 11/04/2016 EILEEN PIKE APRN Ot Z79.84 FPC (CURRENT) USE OF ORAL HYPOGLYC 11/04/2016 EILEEN PIKE APRN Ot Z79.899 OTHER WIND TURBINE ERECTOR (CURRENT) DRUG THERAPY 11/04/2016 EILEEN PIKE APRN Ot Z87.891 PERSONAL HISTORY OF NICOTINE DEPENDENCE 11/04/2016 EILEEN PIKE APRN Ot Z90.710 ACQUIRED ABSENCE OF BOTH CERVIX AND UTER 11/09/2016 EILEEN PIKE APRN Ot E11.9 TYPE 2 DIABETES MELLITUS WITHOUT COMPLIC 11/09/2016 EILEEN PIKE APRN Ot E66.01 MORBID (SEVERE) OBESITY DUE TO EXCESS CA 11/09/2016 EILEEN PIKE CATHODE MAKER Ot I10 ESSENTIAL (PRIMARY) HYPERTENSION 11/09/2016 EILEEN PIKE APRN Ot R10.32 LEFT LOWER QUADRANT PAIN 11/09/2016 EILEEN PIKE APRN Ot Z79.84 FPC (CURRENT) USE OF ORAL HYPOGLYC 11/09/2016 EILEEN PIKE CATHODE MAKER Ot Z79.899 OTHER FPC (CURRENT) DRUG THERAPY 11/09/2016 EILEEN PIKE APRN Ot Z87.891 PERSONAL HISTORY OF NICOTINE DEPENDENCE 11/09/2016 EILEEN PIKE APRN Ot Z90.710 ACQUIRED ABSENCE OF BOTH CERVIX AND UTER 12/27/2016 Ot 611.72 LUMP OR MASS IN BREAST 12/27/2016 Ot 571.8 CHRONIC LIVER DIS NEC 12/27/2016 Ot 729.5 PAIN IN LIMB 12/27/2016 Ot 782.0 SKIN SENSATION DISTURB 12/27/2016 Ot 790.5 ABN SERUM ENZY LEVEL NEC 12/27/2016 GELLENDER BRIDGETTE WADSWORTH Ot 244.9 HYPOTHYROIDISM NOS 12/27/2016 GELLENDER DO, BRIDGETTE Ochoa Ot 346.90 MIGRAINE UNSPECIFIED W/O INTRACT MGRN W/ 12/27/2016 GELLENDER DO, BRIDGETTE Ochoa Ot 401.9 HYPERTENSION NOS 12/27/2016 PANTERALENDER , BRIDGETTE Ochoa Ot 790.5 ABN SERUM ENZY LEVEL NEC 12/27/2016 SATISHDER BRIDGETTE WADSWORTH Ot 553.1 UMBILICAL HERNIA 12/27/2016 BRIDGETTE JETER DO Ot 789.09 ABDOMINAL PAIN, OTHER SPECIFIED SITE 12/27/2016 BRIDGETTE JETER DO Ot 790.5 ABN SERUM ENZY LEVEL NEC 12/27/2016 BRIDGETTE JETER DO Ot 789.01 ABDOMINAL PAIN, RIGHT UPPER QUADRANT 12/27/2016 STEFFANY WADSWORTH, BRIDGETTE Ochoa Ot 790.5 ABN SERUM ENZY LEVEL NEC 12/27/2016 PATTIE ENAMORADO CATHODE MAKER Ot R10.11 RIGHT UPPER QUADRANT PAIN 12/27/2016 PATTIE ENAMORADO CATHODE MAKER Ot R10.13 EPIGASTRIC PAIN 12/27/2016 PATTIE ENAMORADO CATHODE MAKER Ot R10.2 PELVIC AND PERINEAL PAIN 12/27/2016 PATTIE ENAMORADO CATHODE MAKER Ot N63 UNSPECIFIED LUMP IN BREAST 12/27/2016 Ot 611.72 LUMP OR MASS IN BREAST 12/27/2016 Ot 571.8 CHRONIC LIVER DIS NEC 12/27/2016 Ot 729.5 PAIN IN LIMB 12/27/2016 Ot 782.0 SKIN SENSATION DISTURB 12/27/2016 Ot 790.5 ABN SERUM ENZY LEVEL NEC 12/27/2016 GELLENDER DO, BRIDGETTE Ochoa Ot 244.9 HYPOTHYROIDISM NOS 12/27/2016 GELLENDER DO, BRIDGETTE Ochoa Ot 346.90 MIGRAINE UNSPECIFIED W/O INTRACT MGRN W/ 12/27/2016 GELLENDER DO, BRIDGETTE A Ot 401.9 HYPERTENSION NOS 12/27/2016 GELLENDER DO, BRIDGETTE Ochoa Ot 790.5 ABN SERUM ENZY LEVEL NEC 12/27/2016 GELLENDER DOBRIDGETTE Ot 553.1 UMBILICAL HERNIA 12/27/2016 GELLENDER DO, BRIDGETTE Ochoa Ot 789.09 ABDOMINAL PAIN, OTHER SPECIFIED SITE 12/27/2016 GELLENDER , BRIDGETTE Ochoa Ot 790.5 ABN SERUM ENZY LEVEL NEC 12/27/2016 GELLENDER DO, BRIDGETTE Ochoa Ot 789.01 ABDOMINAL PAIN, RIGHT UPPER QUADRANT 12/27/2016 GELLENDER DO, BRDIGETTE Ochoa Ot 790.5 ABN SERUM ENZY LEVEL NEC 12/27/2016 PATTIE ENAMORADO CATHODE MAKER Ot R10.11 RIGHT UPPER QUADRANT PAIN 12/27/2016 PATTIE ENAMORADO CATHODE MAKER Ot R10.13 EPIGASTRIC PAIN 12/27/2016 PATTIE ENAMORADO CATHODE MAKER Ot R10.2 PELVIC AND PERINEAL PAIN 12/27/2016 PATTIE ENAMORADO CATHODE MAKER Ot N63 UNSPECIFIED LUMP IN BREAST 12/27/2016 Ot 611.72 LUMP OR MASS IN BREAST 12/27/2016 Ot 571.8 CHRONIC LIVER DIS NEC 12/27/2016 Ot 729.5 PAIN IN LIMB 12/27/2016 Ot 782.0 SKIN SENSATION DISTURB 12/27/2016 Ot 790.5 ABN SERUM ENZY LEVEL NEC 12/27/2016 SATISHDER BRIDGETTE WADSWORTH Ot 244.9 HYPOTHYROIDISM NOS 12/27/2016 GELLENDER BRIDGETTE WADSWORTH Ot 346.90 MIGRAINE UNSPECIFIED W/O INTRACT MGRN W/ 12/27/2016 GELLENDER DO, BRIDGETTE Ochoa Ot 401.9 HYPERTENSION NOS 12/27/2016 GELLENDER DO, BRIDGETTE Ochoa Ot 790.5 ABN SERUM ENZY LEVEL NEC 12/27/2016 GELLENDER , BRIDGETTE Ochoa Ot 553.1 UMBILICAL HERNIA 12/27/2016 GELLENDER DO, BRIDGETTE Ochoa Ot 789.09 ABDOMINAL PAIN, OTHER SPECIFIED SITE 12/27/2016 GELLENDER DO, BRIDGETTE Ochoa Ot 790.5 ABN SERUM ENZY LEVEL NEC 12/27/2016 GELLENDER DO, BRIDGETTE Ochoa Ot 789.01 ABDOMINAL PAIN, RIGHT UPPER QUADRANT 12/27/2016 GELLENDER DO, BRIDGETTE Ochoa Ot 790.5 ABN SERUM ENZY LEVEL NEC 12/27/2016 PATTIE ENAMORADO R CATHODE MAKER Ot R10.11 RIGHT UPPER QUADRANT PAIN 12/27/2016 ENAMORADOPATTIE Rivera R CATHODE MAKER Ot R10.13 EPIGASTRIC PAIN 12/27/2016 PATTIE ENAMORADO R CATHODE MAKER Ot R10.2 PELVIC AND PERINEAL PAIN 12/27/2016 PATTIE ENAMORADO R CATHODE MAKER Ot N63 UNSPECIFIED LUMP IN BREAST 12/28/2016 ENAMORADOPATTIE R CATHODE MAKER Ot E03.9 HYPOTHYROIDISM, UNSPECIFIED 12/28/2016 PATTIE ENAMORADO R CATHODE MAKER Ot E78.1 PURE HYPERGLYCERIDEMIA 12/28/2016 ENAMORADOPATTIE R CATHODE MAKER Ot E88.81 METABOLIC SYNDROME 12/28/2016 ENAMORADOPATTIE R CATHODE MAKER Ot F41.8 OTHER SPECIFIED ANXIETY DISORDERS 12/28/2016 ENAMORADOPATTIE R CATHODE MAKER Ot G47.19 OTHER HYPERSOMNIA 12/28/2016 FEI PATTIE R CATHODE MAKER Ot I10 ESSENTIAL (PRIMARY) HYPERTENSION 12/28/2016 SIERRA ENAMORADOELE R CATHODE MAKER Ot R06.83 SNORING 12/28/2016 ENAMORADOPATTIE R CATHODE MAKER Ot Z68.44 BODY MASS INDEX (BMI) 60.0-69.9, ADULT 12/31/2016 ENAMORADOPATTIE R CATHODE MAKER Ot E03.9 HYPOTHYROIDISM, UNSPECIFIED 12/31/2016 ENAMORADOPATTIE R CATHODE MAKER Ot E78.1 PURE HYPERGLYCERIDEMIA 12/31/2016 ENAMORADOPATTIE R CATHODE MAKER Ot E88.81 METABOLIC SYNDROME 12/31/2016 FEI PATTIE R CATHODE MAKER Ot F41.8 OTHER SPECIFIED ANXIETY DISORDERS 12/31/2016 FEI PATTIE R CATHODE MAKER Ot G47.19 OTHER HYPERSOMNIA 12/31/2016 ENAMORADOPATTIE R CATHODE MAKER Ot I10 ESSENTIAL (PRIMARY) HYPERTENSION 12/31/2016 SIERRA ENAMORADOELE R CATHODE MAKER Ot R06.83 SNORING 12/31/2016 PATTIE ENAMORADO R CATHODE MAKER Ot Z68.44 BODY MASS INDEX (BMI) 60.0-69.9, ADULT 01/06/2017 BRISA LOPEZ CATHODE MAKER Ot R07.9 CHEST PAIN, UNSPECIFIED 01/06/2017 Ot 611.72 LUMP OR MASS IN BREAST 01/06/2017 Ot 571.8 CHRONIC LIVER DIS NEC 01/06/2017 Ot 729.5 PAIN IN LIMB 01/06/2017 Ot 782.0 SKIN SENSATION DISTURB 01/06/2017 Ot 790.5 ABN SERUM ENZY LEVEL NEC 01/06/2017 BRIDGETTE JETER DO Ot 244.9 HYPOTHYROIDISM NOS 01/06/2017 PANTERALENDER BRIDGETTE WADSWORTH Ot 346.90 MIGRAINE UNSPECIFIED W/O INTRACT MGRN W/ 01/06/2017 PANTERALENDER , BRIDGETTE Ochoa Ot 401.9 HYPERTENSION NOS 01/06/2017 PANTERALENDER DO, BRIDGETTE Ochoa Ot 790.5 ABN SERUM ENZY LEVEL NEC 01/06/2017 PANTERALENDER BRIDGETTE WADSWORTH Ot 553.1 UMBILICAL HERNIA 01/06/2017 BRIDGETTE JETER DO Ot 789.09 ABDOMINAL PAIN, OTHER SPECIFIED SITE 01/06/2017 BRIDGETTE JETER DO Ot 790.5 ABN SERUM ENZY LEVEL NEC 01/06/2017 BRIDGETTE JETER DO Ot 789.01 ABDOMINAL PAIN, RIGHT UPPER QUADRANT 01/06/2017 STEFFANY WADSWORTH, BRIDGETTE Ochoa Ot 790.5 ABN SERUM ENZY LEVEL NEC 01/06/2017 PATTIE ENAMORADO CATHODE MAKER Ot R10.11 RIGHT UPPER QUADRANT PAIN 01/06/2017 PATTIE ENAMORADO CATHODE MAKER Ot R10.13 EPIGASTRIC PAIN 01/06/2017 PATTIE ENAMORADO R CATHODE MAKER Ot R10.2 PELVIC AND PERINEAL PAIN 01/06/2017 PATTIE ENAMORADO CATHODE MAKER Ot N63 UNSPECIFIED LUMP IN BREAST 01/06/2017 BRISA LOPEZ CATHODE MAKER Ot R07.9 CHEST PAIN, UNSPECIFIED 01/15/2017 BRISA LOPEZ CATHODE MAKER Ot R07.9 CHEST PAIN, UNSPECIFIED 02/12/2017 BRISA LOPEZ CATHODE MAKER Ot R07.9 CHEST PAIN, UNSPECIFIED 02/12/2017 Ot 611.72 LUMP OR MASS IN BREAST 02/12/2017 Ot 571.8 CHRONIC LIVER DIS NEC 02/12/2017 Ot 729.5 PAIN IN LIMB 02/12/2017 Ot 782.0 SKIN SENSATION DISTURB 02/12/2017 Ot 790.5 ABN SERUM ENZY LEVEL NEC 02/12/2017 PANTERALENDER BRIDGETTE WADSWORTH Ot 244.9 HYPOTHYROIDISM NOS 02/12/2017 GELLENDER , BRIDGETTE Ochoa Ot 346.90 MIGRAINE UNSPECIFIED W/O INTRACT MGRN W/ 02/12/2017 BRIDGETTE JETER DO Ot 401.9 HYPERTENSION NOS 02/12/2017 STEFFANY WADSWORTH, BRIDGETTE Ochoa Ot 790.5 ABN SERUM ENZY LEVEL NEC 02/12/2017 BRIDGETTE JETER DO Ot 553.1 UMBILICAL HERNIA 02/12/2017 BRIDGETTE JETER DO Ot 789.09 ABDOMINAL PAIN, OTHER SPECIFIED SITE 02/12/2017 STEFFANY WADSWORTH, BRIDGETTE Ochoa Ot 790.5 ABN SERUM ENZY LEVEL NEC 02/12/2017 PANTERALENDER , BRIDGETTE Ochoa Ot 789.01 ABDOMINAL PAIN, RIGHT UPPER QUADRANT 02/12/2017 STEFFANY WADSWORTH, BRIDGETTE Ochoa Ot 790.5 ABN SERUM ENZY LEVEL NEC 02/12/2017 PATTIE ENAMORADO CATHODE MAKER Ot R10.11 RIGHT UPPER QUADRANT PAIN 02/12/2017 PATTIE ENAMORADO CATHODE MAKER Ot R10.13 EPIGASTRIC PAIN 02/12/2017 PATTIE ENAMORADO CATHODE MAKER Ot R10.2 PELVIC AND PERINEAL PAIN 02/12/2017 PATTIE ENAMORADO CATHODE MAKER Ot N63 UNSPECIFIED LUMP IN BREAST 02/12/2017 BRISA LOPEZ CATHODE MAKER Ot R07.9 CHEST PAIN, UNSPECIFIED 02/14/2017 GISSEL JIANG MD Ot E03.9 HYPOTHYROIDISM, UNSPECIFIED 02/14/2017 GISSEL JIANG MD Ot E11.9 TYPE 2 DIABETES MELLITUS WITHOUT COMPLIC 02/14/2017 GISSEL JIANG MD Ot E66.01 MORBID (SEVERE) OBESITY DUE TO EXCESS CA 02/14/2017 GISSEL JIANG MD Ot E78.00 PURE HYPERCHOLESTEROLEMIA, UNSPECIFIED 02/14/2017 GISSEL JIANG MD Ot F32.9 MAJOR DEPRESSIVE DISORDER, SINGLE EPISOD 02/14/2017 GISSEL JIANG MD Ot F41.9 ANXIETY DISORDER, UNSPECIFIED 02/14/2017 GISSEL JIANG MD Ot G43.909 MIGRAINE, UNSP, NOT INTRACTABLE, WITHOUT 02/14/2017 GISSEL JIANG MD Ot I10 ESSENTIAL (PRIMARY) HYPERTENSION 02/14/2017 GISSEL JIANG MD Ot K21.9 GASTRO-ESOPHAGEAL REFLUX DISEASE WITHOUT 02/14/2017 GISSEL JIANG MD Ot L03.115 CELLULITIS OF RIGHT LOWER LIMB 02/14/2017 GISSEL JIANG MD Ot M54.2 CERVICALGIA 02/14/2017 GISSEL JIANG MD Ot R07.9 CHEST PAIN, UNSPECIFIED 02/14/2017 GISSEL JIANG MD Ot R50.9 FEVER, UNSPECIFIED 02/14/2017 GISSEL JIANG MD Ot Z68.44 BODY MASS INDEX (BMI) 60.0-69.9, ADULT 03/05/2017 GISSEL JIANG MD Ot R07.89 OTHER CHEST PAIN 03/10/2017 GISSEL JIANG MD Ot M79.661 PAIN IN RIGHT LOWER LEG 03/10/2017 GISSEL JIANG MD Ot M79.89 OTHER SPECIFIED SOFT TISSUE DISORDERS 03/10/2017 GISSEL JIANG MD Ot R06.02 SHORTNESS OF BREATH 03/10/2017 GISSEL JIANG MD Ot R07.9 CHEST PAIN, UNSPECIFIED 03/10/2017 GISSEL JIANG MD Ot R91.8 OTHER NONSPECIFIC ABNORMAL FINDING OF SAEED 03/11/2017 GISSEL JIANG MD Ot M79.661 PAIN IN RIGHT LOWER LEG 03/11/2017 GISSEL JIANG MD Ot M79.89 OTHER SPECIFIED SOFT TISSUE DISORDERS 03/11/2017 GISSEL JIANG MD Ot R06.02 SHORTNESS OF BREATH 03/11/2017 GISSEL JIANG MD Ot R07.9 CHEST PAIN, UNSPECIFIED 03/11/2017 GISSEL JIANG MD Ot R91.8 OTHER NONSPECIFIC ABNORMAL FINDING OF SAEED 04/16/2017 GISSEL JIANG MD Ot M79.661 PAIN IN RIGHT LOWER LEG 04/16/2017 GISSEL JIANG MD Ot M79.89 OTHER SPECIFIED SOFT TISSUE DISORDERS 04/16/2017 GISSEL JIANG MD Ot R06.02 SHORTNESS OF BREATH 04/16/2017 GISSEL JIANG MD Ot R07.9 CHEST PAIN, UNSPECIFIED 04/16/2017 GISSEL JIANG MD Ot R91.8 OTHER NONSPECIFIC ABNORMAL FINDING OF SAEED 04/16/2017 GISSEL JIANG MD Ot R07.89 OTHER CHEST PAIN 04/16/2017 JESSICA GALLEGOS Ot E03.9 HYPOTHYROIDISM, UNSPECIFIED 04/16/2017 JESSICA GALLEGOS Ot E11.9 TYPE 2 DIABETES MELLITUS WITHOUT COMPLIC 04/16/2017 JESSICA GALLEGOS Ot E78.00 PURE HYPERCHOLESTEROLEMIA, UNSPECIFIED 04/16/2017 JESSICA GALLEGOS Ot F32.9 MAJOR DEPRESSIVE DISORDER, SINGLE EPISOD 04/16/2017 JESSICA GALLEGOS Ot F41.9 ANXIETY DISORDER, UNSPECIFIED 04/16/2017 JESSICA GALLEGOS Ot G43.909 MIGRAINE, UNSP, NOT INTRACTABLE, WITHOUT 04/16/2017 JESSICA GALLEGOS Ot I10 ESSENTIAL (PRIMARY) HYPERTENSION 04/16/2017 JESSICA GALLEGOS Ot K21.9 GASTRO-ESOPHAGEAL REFLUX DISEASE WITHOUT 04/16/2017 JESSICA GALLEGOS Ot R30.0 DYSURIA 04/16/2017 JESSICA GALLEGOS Ot R35.0 FREQUENCY OF MICTURITION 04/16/2017 JESSICA GALLEGOS Ot Z79.84 FPC (CURRENT) USE OF ORAL HYPOGLYC 04/16/2017 JESSICA GALLEGOS Ot Z87.891 PERSONAL HISTORY OF NICOTINE DEPENDENCE 04/16/2017 JESSICA GALLEGOS Ot Z90.710 ACQUIRED ABSENCE OF BOTH CERVIX AND UTER 04/16/2017 JESSICA GALLEGOS Ot Z98.51 TUBAL LIGATION STATUS 04/17/2017 GISSEL JIANG MD Ot M79.661 PAIN IN RIGHT LOWER LEG 04/17/2017 GISSEL JIANG MD Ot M79.89 OTHER SPECIFIED SOFT TISSUE DISORDERS 04/17/2017 GISSEL JIANG MD Ot R06.02 SHORTNESS OF BREATH 04/17/2017 GISSEL JIANG MD Ot R07.9 CHEST PAIN, UNSPECIFIED 04/17/2017 GISSEL JIANG MD Ot R91.8 OTHER NONSPECIFIC ABNORMAL FINDING OF SAEED 04/17/2017 GISSEL JIANG MD Ot R07.89 OTHER CHEST PAIN 04/18/2017 JESSICA GALLEGOS Ot E03.9 HYPOTHYROIDISM, UNSPECIFIED 04/18/2017 JESSICA GALLEGOS Ot E11.9 TYPE 2 DIABETES MELLITUS WITHOUT COMPLIC 04/18/2017 JESSICA GALLEGOS Ot E78.00 PURE HYPERCHOLESTEROLEMIA, UNSPECIFIED 04/18/2017 JESSICA GALLEGOS Ot F32.9 MAJOR DEPRESSIVE DISORDER, SINGLE EPISOD 04/18/2017 JESSICA GALLEGOS Ot F41.9 ANXIETY DISORDER, UNSPECIFIED 04/18/2017 JESSICA GALLEGOS Ot G43.909 MIGRAINE, UNSP, NOT INTRACTABLE, WITHOUT 04/18/2017 JESSICA GALLEGOS Ot I10 ESSENTIAL (PRIMARY) HYPERTENSION 04/18/2017 JESSICA GALLEGOS Ot K21.9 GASTRO-ESOPHAGEAL REFLUX DISEASE WITHOUT 04/18/2017 JESSICA GALLEGOS Ot R30.0 DYSURIA 04/18/2017 JESSICA GALLEGOS Ot R35.0 FREQUENCY OF MICTURITION 04/18/2017 JESSICA GALLEGOS Ot Z79.84 WIND TURBINE ERECTOR (CURRENT) USE OF ORAL HYPOGLYC 04/18/2017 JESSICA GALLEGOS Ot Z87.891 PERSONAL HISTORY OF NICOTINE DEPENDENCE 04/18/2017 JESSICA GALLEGOS Ot Z90.710 ACQUIRED ABSENCE OF BOTH CERVIX AND UTER 04/18/2017 JESSICA GALLEGOS Ot Z98.51 TUBAL LIGATION STATUS 04/28/2017 ESTEFANY DOWNEY MD Ot E03.9 HYPOTHYROIDISM, UNSPECIFIED 04/28/2017 ESTEFANY DOWNEY MD Ot E11.9 TYPE 2 DIABETES MELLITUS WITHOUT COMPLIC 04/28/2017 ESTEFANY DOWNEY MD Ot E78.00 PURE HYPERCHOLESTEROLEMIA, UNSPECIFIED 04/28/2017 ESTEFANY DOWNEY MD Ot F32.9 MAJOR DEPRESSIVE DISORDER, SINGLE EPISOD 04/28/2017 ESTEFANY DOWNEY MD Ot F41.9 ANXIETY DISORDER, UNSPECIFIED 04/28/2017 ESTEFANY DOWNEY MD Ot I10 ESSENTIAL (PRIMARY) HYPERTENSION 04/28/2017 ESTEFANY DOWNEY MD Ot K21.9 GASTRO-ESOPHAGEAL REFLUX DISEASE WITHOUT 04/28/2017 ESTEFANY DOWNEY MD Ot M54.9 DORSALGIA, UNSPECIFIED 04/28/2017 ESTEFANY DOWNEY MD, Ot R11.2 NAUSEA WITH VOMITING, UNSPECIFIED 04/28/2017 ESTEFANY DOWNEY MD Ot R51 HEADACHE 04/28/2017 ESTEFANY DOWNEY MD, Ot Z87.891 PERSONAL HISTORY OF NICOTINE DEPENDENCE 04/28/2017 ESTEFANY DOWNEY MD Ot Z90.710 ACQUIRED ABSENCE OF BOTH CERVIX AND UTER 04/28/2017 ESTEFANY DOWNEY MD Ot Z90.89 ACQUIRED ABSENCE OF OTHER ORGANS 04/28/2017 ESTEFANY DOWNEY MD, Ot Z98.51 TUBAL LIGATION STATUS 04/28/2017 GISSEL JIANG MD Ot M79.661 PAIN IN RIGHT LOWER LEG 04/28/2017 GISSEL JIANG MD Ot M79.89 OTHER SPECIFIED SOFT TISSUE DISORDERS 04/28/2017 GISSEL JIANG MD Ot R06.02 SHORTNESS OF BREATH 04/28/2017 GISSEL JIANG MD Ot R07.9 CHEST PAIN, UNSPECIFIED 04/28/2017 GISSEL JIANG MD Ot R91.8 OTHER NONSPECIFIC ABNORMAL FINDING OF SAEED 04/28/2017 GISSEL JIANG MD Ot R07.89 OTHER CHEST PAIN 04/30/2017 ESTEFANY DOWNYE MD Ot E03.9 HYPOTHYROIDISM, UNSPECIFIED 04/30/2017 ESTEFANY DOWNEY MD Ot E11.9 TYPE 2 DIABETES MELLITUS WITHOUT COMPLIC 04/30/2017 ESTEFANY DOWNEY MD Ot E78.00 PURE HYPERCHOLESTEROLEMIA, UNSPECIFIED 04/30/2017 ESTEFANY DOWNEY MD Ot F32.9 MAJOR DEPRESSIVE DISORDER, SINGLE EPISOD 04/30/2017 ESTEFANY DOWNEY MD Ot F41.9 ANXIETY DISORDER, UNSPECIFIED 04/30/2017 ESTEFANY DOWNEY MD Ot I10 ESSENTIAL (PRIMARY) HYPERTENSION 04/30/2017 ESTEFANY DOWNEY MD Ot K21.9 GASTRO-ESOPHAGEAL REFLUX DISEASE WITHOUT 04/30/2017 ESTEFANY DOWNEY MD Ot M54.9 DORSALGIA, UNSPECIFIED 04/30/2017 ESTEFANY DOWNEY MD Ot R11.2 NAUSEA WITH VOMITING, UNSPECIFIED 04/30/2017 ESTEFANY DOWNEY MD, Ot R51 HEADACHE 04/30/2017 ESTEFANY DOWNEY MD, Ot Z87.891 PERSONAL HISTORY OF NICOTINE DEPENDENCE 04/30/2017 ESTEFANY DOWNEY MD Ot Z90.710 ACQUIRED ABSENCE OF BOTH CERVIX AND UTER 04/30/2017 ESTEFANY DOWNEY MD Ot Z90.89 ACQUIRED ABSENCE OF OTHER ORGANS 04/30/2017 ESTEFANY DOWNEY MD Ot Z98.51 TUBAL LIGATION STATUS 05/30/2017 GISSEL JIANG MD Ot M79.661 PAIN IN RIGHT LOWER LEG 05/30/2017 GISSEL JIANG MD Ot M79.89 OTHER SPECIFIED SOFT TISSUE DISORDERS 05/30/2017 GISSEL JIANG MD Ot R06.02 SHORTNESS OF BREATH 05/30/2017 GISSEL JIANG MD Ot R07.9 CHEST PAIN, UNSPECIFIED 05/30/2017 GISSEL JIANG MD Ot R91.8 OTHER NONSPECIFIC ABNORMAL FINDING OF SAEED 05/30/2017 GISSEL JIANG MD Ot R07.89 OTHER CHEST PAIN 06/01/2017 AILYN SHAFFER DO Ot E66.01 MORBID (SEVERE) OBESITY DUE TO EXCESS CA 06/01/2017 AILYN SHAFFER DO Ot E78.5 HYPERLIPIDEMIA, UNSPECIFIED 06/01/2017 AILYN SHAFFER DO Ot E87.6 HYPOKALEMIA 06/01/2017 AILYN SHAFFER DO Ot E89.0 POSTPROCEDURAL HYPOTHYROIDISM 06/01/2017 AILYN SHAFFER DO Ot I10 ESSENTIAL (PRIMARY) HYPERTENSION 06/01/2017 AILYN SHAFFER DO Ot I26.99 OTHER PULMONARY EMBOLISM WITHOUT ACUTE C 06/01/2017 AILYN SHAFFER DO Ot K21.9 GASTRO-ESOPHAGEAL REFLUX DISEASE WITHOUT 06/01/2017 AILYN SHAFFER DO Ot R73.03 PREDIABETES 06/01/2017 AILYN SHAFFER DO Ot Z68.44 BODY MASS INDEX (BMI) 60.0-69.9, ADULT 06/01/2017 AILYN SHAFFER DO Ot Z79.84 FPC (CURRENT) USE OF ORAL HYPOGLYC 06/01/2017 AILYN SHAFFER DO Ot Z79.899 OTHER WIND TURBINE ERECTOR (CURRENT) DRUG THERAPY 06/01/2017 EDMUND AILYN Ot Z87.891 PERSONAL HISTORY OF NICOTINE DEPENDENCE 06/01/2017 EDUMND WADSWORTH AILYN K Ot E66.01 MORBID (SEVERE) OBESITY DUE TO EXCESS CA 06/01/2017 EDMUND WADSWORTH AILYN K Ot E78.5 HYPERLIPIDEMIA, UNSPECIFIED 06/01/2017 EDMUND WADSWORTH AILYN K Ot E87.6 HYPOKALEMIA 06/01/2017 EDMUND WADSWORTH AILYN K Ot E89.0 POSTPROCEDURAL HYPOTHYROIDISM 06/01/2017 EDMUND WADSWORTH AILYN K Ot I10 ESSENTIAL (PRIMARY) HYPERTENSION 06/01/2017 EDMUND WADSWORTH AILYN K Ot I26.99 OTHER PULMONARY EMBOLISM WITHOUT ACUTE C 06/01/2017 EDMUND WADSWORTH AILYN K Ot K21.9 GASTRO-ESOPHAGEAL REFLUX DISEASE WITHOUT 06/01/2017 EDMUND WADSWORTH AILYN K Ot R73.03 PREDIABETES 06/01/2017 EDMUND WADSWORTH AILYN K Ot Z68.44 BODY MASS INDEX (BMI) 60.0-69.9, ADULT 06/01/2017 AILYN SHAFFER DO Ot Z79.84 FPC (CURRENT) USE OF ORAL HYPOGLYC 06/01/2017 EDMUND WADSWORTH AILYN Sallie Ot Z79.899 OTHER WIND TURBINE ERECTOR (CURRENT) DRUG THERAPY 06/01/2017 EDMUND WADSWORTH AILYN K Ot Z87.891 PERSONAL HISTORY OF NICOTINE DEPENDENCE Procedures Code [place] [address] THERAPUTIC INJ SQ/IM 04/07/2012 J1885 TORADOL INJ 04/07/2012 J2550 PHENERGAN INJECTION UP TO 50 MG 04/07/2012 12919 ROUTINE VENIPUNCTURE 06/15/2012 65104 TSH 06/15/2012 25656 A1C (IN-HOUSE) 06/15/2012 20842 CMP 06/16/2012 [id number] GFR CALC (RESULT ONLY) 06/16/2012 09324 ROUTINE VENIPUNCTURE 09/04/2012 13057 US LOWER EXTREMITY ULTRASOUND 09/04/2012 48591 CMP 09/04/2012 85895 TSH 09/04/2012 02410 CBC 09/04/2012 08733 US LIVER/SPLEEN ULTRASOUND 09/07/2012 PHYSI PHYSICAL THERAPY, VIA RONY 09/17/2012 ADENIKE FERGUSON 11/06/2012 81864 ROUTINE VENIPUNCTURE 04/22/2013 77207 CMP 04/22/2013 20054 URIC ACID 04/22/2013 19588 LIPID PANEL 04/22/2013 [id number] GFR CALC (RESULT ONLY) 04/22/2013 18127 TSH 04/22/2013 00973 HEPATITIS PROFILE 04/27/2013 58579 ROUTINE VENIPUNCTURE 05/24/2014 33222 CMP 05/24/2014 58996 TSH 05/24/2014 63448 A1C (IN-HOUSE) 05/24/2014 94909 INJECT SACROILIAC JOINT 05/24/2014 [id number] DRAINAGE OF SPINAL CANAL, PERCUTANEOUS A 02/11/2017 Results Test Result Range Complete blood count (CBC) with automated white blood cell (WBC) differential - 08/19/16 20:58 Blood leukocytes automated count (number/volume) 11.9 10*3/uL 4.3-11.0 Blood erythrocytes automated count (number/volume) 4.56 10*6/uL 4.35-5.85 Venous blood hemoglobin measurement (mass/volume) 13.9 g/dL 11.5-16.0 Blood hematocrit (volume fraction) 40 % 35-52 Automated erythrocyte mean corpuscular volume 88 [foz_us] 80-99 Automated erythrocyte mean corpuscular hemoglobin (mass per erythrocyte) 31 pg 25-34 Automated erythrocyte mean corpuscular hemoglobin concentration measurement ( mass/volume) 35 g/dL 32-36 Automated erythrocyte distribution width ratio 13.7 % 10.0-14.5 Automated blood platelet count (count/volume) 357 10*3/uL 130-400 Automated blood platelet mean volume measurement 9.4 [foz_us] 7.4-10.4 Automated blood neutrophils/100 leukocytes 55 % 42-75 Automated blood lymphocytes/100 leukocytes 35 % 12-44 Blood monocytes/100 leukocytes 8 % 0-12 Automated blood eosinophils/100 leukocytes 2 % 0-10 Automated blood basophils/100 leukocytes 1 % 0-10 Blood neutrophils automated count (number/volume) 6.5 10*3 1.8-7.8 Blood lymphocytes automated count (number/volume) 4.2 10*3 1.0-4.0 Blood monocytes automated count (number/volume) 0.9 10*3 0.0-1.0 Automated eosinophil count 0.2 10*3/uL 0.0-0.3 Automated blood basophil count (count/volume) 0.1 10*3/uL 0.0-0.1 Comprehensive metabolic panel - 08/19/16 20:58 Serum or plasma sodium measurement (moles/volume) 140 mmol/L 135-145 Serum or plasma potassium measurement (moles/volume) 3.8 mmol/L 3.6-5.0 Serum or plasma chloride measurement (moles/volume) 105 mmol/L 98-107 Carbon dioxide 24 mmol/L 21-32 Serum or plasma anion gap determination (moles/volume) 11 mmol/L 5-14 Serum or plasma urea nitrogen measurement (mass/volume) 14 mg/dL 7-18 Serum or plasma creatinine measurement (mass/volume) 0.66 mg/dL 0.60-1.30 Serum or plasma urea nitrogen/creatinine mass ratio 21 NRG Serum or plasma creatinine measurement with calculation of estimated glomerular filtration rate > NRG Serum or plasma glucose measurement (mass/volume) 94 mg/dL 70-105 Serum or plasma calcium measurement (mass/volume) 8.8 mg/dL 8.5-10.1 Serum or plasma total bilirubin measurement (mass/volume) 0.4 mg/dL 0.1-1.0 Serum or plasma alkaline phosphatase measurement (enzymatic activity/volume) 78 U/L 40-136 Serum or plasma aspartate aminotransferase measurement (enzymatic activity/ volume) 36 U/L 5-34 Serum or plasma alanine aminotransferase measurement (enzymatic activity/volume ) 49 U/L 0-55 Serum or plasma protein measurement (mass/volume) 6.8 g/dL 6.4-8.2 Serum or plasma albumin measurement (mass/volume) 3.9 g/dL 3.2-4.5 Lipase - 08/19/16 20:58 Lipase 16 U/L 8-78 Complete urinalysis with reflex to culture - 08/19/16 21:07 Urine color determination YELLOW NRG Urine clarity determination SLIGHTLY CLOUDY NRG Urine pH measurement by test strip 6 5-9 Specific gravity of urine by test strip 1.025 1.016- 1.022 Urine protein assay by test strip, semi-quantitative 1+ NEGATIVE Urine glucose detection by automated test strip NEGATIVE NEGATIVE Erythrocytes detection in urine sediment by light microscopy NEGATIVE NEGATIVE Urine ketones detection by automated test strip NEGATIVE NEGATIVE Urine nitrite detection by test strip NEGATIVE NEGATIVE Urine total bilirubin detection by test strip NEGATIVE NEGATIVE Urine urobilinogen measurement by automated test strip (mass/volume) NORMAL NORMAL Urine leukocyte esterase detection by dipstick NEGATIVE NEGATIVE Automated urine sediment erythrocyte count by microscopy (number/high power field) NONE NRG Automated urine sediment leukocyte count by microscopy (number/high power field ) [HPF] NRG Bacteria detection in urine sediment by light microscopy LARGE NRG Squamous epithelial cells detection in urine sediment by light microscopy 10-25 NRG Crystals detection in urine sediment by light microscopy NONE NRG Casts detection in urine sediment by light microscopy NONE NRG Mucus detection in urine sediment by light microscopy MODERATE NRG Complete urinalysis with reflex to culture YES NRG Bacterial urine culture - 08/19/16 21:07 URINE CULTURE RESULTS <10,000/ML NRG Complete urinalysis with reflex to culture - 11/02/16 21:18 Urine color determination YELLOW NRG Urine clarity determination CLEAR NRG Urine pH measurement by test strip 6 5-9 Specific gravity of urine by test strip 1.020 1.016- 1.022 Urine protein assay by test strip, semi-quantitative 1+ NEGATIVE Urine glucose detection by automated test strip NEGATIVE NEGATIVE Erythrocytes detection in urine sediment by light microscopy NEGATIVE NEGATIVE Urine ketones detection by automated test strip NEGATIVE NEGATIVE Urine nitrite detection by test strip NEGATIVE NEGATIVE Urine total bilirubin detection by test strip NEGATIVE NEGATIVE Urine urobilinogen measurement by automated test strip (mass/volume) NORMAL NORMAL Urine leukocyte esterase detection by dipstick NEGATIVE NEGATIVE Automated urine sediment erythrocyte count by microscopy (number/high power field) NONE NRG Automated urine sediment leukocyte count by microscopy (number/high power field ) RARE NRG Bacteria detection in urine sediment by light microscopy TRACE NRG Squamous epithelial cells detection in urine sediment by light microscopy 10-25 NRG Crystals detection in urine sediment by light microscopy NONE NRG Casts detection in urine sediment by light microscopy NONE NRG Mucus detection in urine sediment by light microscopy NEGATIVE NRG Complete urinalysis with reflex to culture NO NRG Complete blood count (CBC) with automated white blood cell (WBC) differential - 11/02/16 21:35 Blood leukocytes automated count (number/volume) 8.8 10*3/uL 4.3-11.0 Blood erythrocytes automated count (number/volume) 4.69 10*6/uL 4.35-5.85 Venous blood hemoglobin measurement (mass/volume) 14.0 g/dL 11.5-16.0 Blood hematocrit (volume fraction) 42 % 35-52 Automated erythrocyte mean corpuscular volume 90 [foz_us] 80-99 Automated erythrocyte mean corpuscular hemoglobin (mass per erythrocyte) 30 pg 25-34 Automated erythrocyte mean corpuscular hemoglobin concentration measurement ( mass/volume) 33 g/dL 32-36 Automated erythrocyte distribution width ratio 13.6 % 10.0-14.5 Automated blood platelet count (count/volume) 349 10*3/uL 130-400 Automated blood platelet mean volume measurement 9.5 [foz_us] 7.4-10.4 Automated blood neutrophils/100 leukocytes 46 % 42-75 Automated blood lymphocytes/100 leukocytes 42 % 12-44 Blood monocytes/100 leukocytes 8 % 0-12 Automated blood eosinophils/100 leukocytes 2 % 0-10 Automated blood basophils/100 leukocytes 1 % 0-10 Blood neutrophils automated count (number/volume) 4.0 10*3 1.8-7.8 Blood lymphocytes automated count (number/volume) 3.7 10*3 1.0-4.0 Blood monocytes automated count (number/volume) 0.7 10*3 0.0-1.0 Automated eosinophil count 0.2 10*3/uL 0.0-0.3 Automated blood basophil count (count/volume) 0.1 10*3/uL 0.0-0.1 Comprehensive metabolic panel - 11/02/16 21:35 Serum or plasma sodium measurement (moles/volume) 139 mmol/L 135-145 Serum or plasma potassium measurement (moles/volume) 3.3 mmol/L 3.6-5.0 Serum or plasma chloride measurement (moles/volume) 101 mmol/L 98-107 Carbon dioxide 25 mmol/L 21-32 Serum or plasma anion gap determination (moles/volume) 13 mmol/L 5-14 Serum or plasma urea nitrogen measurement (mass/volume) 15 mg/dL 7-18 Serum or plasma creatinine measurement (mass/volume) 0.66 mg/dL 0.60-1.30 Serum or plasma urea nitrogen/creatinine mass ratio 23 NRG Serum or plasma creatinine measurement with calculation of estimated glomerular filtration rate > NRG Serum or plasma glucose measurement (mass/volume) 106 mg/dL 70-105 Serum or plasma calcium measurement (mass/volume) 9.1 mg/dL 8.5-10.1 Serum or plasma total bilirubin measurement (mass/volume) 0.6 mg/dL 0.1-1.0 Serum or plasma alkaline phosphatase measurement (enzymatic activity/volume) 77 U/L 40-136 Serum or plasma aspartate aminotransferase measurement (enzymatic activity/ volume) 49 U/L 5-34 Serum or plasma alanine aminotransferase measurement (enzymatic activity/volume ) 57 U/L 0-55 Serum or plasma protein measurement (mass/volume) 7.3 g/dL 6.4-8.2 Serum or plasma albumin measurement (mass/volume) 4.0 g/dL 3.2-4.5 Complete blood count (CBC) with automated white blood cell (WBC) differential - 01/03/17 18:21 Blood leukocytes automated count (number/volume) 10.5 10*3/uL 4.3-11.0 Blood erythrocytes automated count (number/volume) 5.06 10*6/uL 4.35-5.85 Venous blood hemoglobin measurement (mass/volume) 15.3 g/dL 11.5-16.0 Blood hematocrit (volume fraction) 45 % 35-52 Automated erythrocyte mean corpuscular volume 89 [foz_us] 80-99 Automated erythrocyte mean corpuscular hemoglobin (mass per erythrocyte) 30 pg 25-34 Automated erythrocyte mean corpuscular hemoglobin concentration measurement ( mass/volume) 34 g/dL 32-36 Automated erythrocyte distribution width ratio 13.5 % 10.0-14.5 Automated blood platelet count (count/volume) 405 10*3/uL 130-400 Automated blood platelet mean volume measurement 9.7 [foz_us] 7.4-10.4 Automated blood neutrophils/100 leukocytes 54 % 42-75 Automated blood lymphocytes/100 leukocytes 35 % 12-44 Blood monocytes/100 leukocytes 9 % 0-12 Automated blood eosinophils/100 leukocytes 2 % 0-10 Automated blood basophils/100 leukocytes 1 % 0-10 Blood neutrophils automated count (number/volume) 5.6 10*3 1.8-7.8 Blood lymphocytes automated count (number/volume) 3.7 10*3 1.0-4.0 Blood monocytes automated count (number/volume) 1.0 10*3 0.0-1.0 Automated eosinophil count 0.2 10*3/uL 0.0-0.3 Automated blood basophil count (count/volume) 0.1 10*3/uL 0.0-0.1 Comprehensive metabolic panel - 01/03/17 18:21 Serum or plasma sodium measurement (moles/volume) 138 mmol/L 135-145 Serum or plasma potassium measurement (moles/volume) 3.6 mmol/L 3.6-5.0 Serum or plasma chloride measurement (moles/volume) 101 mmol/L 98-107 Carbon dioxide 21 mmol/L 21-32 Serum or plasma anion gap determination (moles/volume) 16 mmol/L 5-14 Serum or plasma urea nitrogen measurement (mass/volume) 19 mg/dL 7-18 Serum or plasma creatinine measurement (mass/volume) 0.86 mg/dL 0.60-1.30 Serum or plasma urea nitrogen/creatinine mass ratio 22 0 -20 Serum or plasma creatinine measurement with calculation of estimated glomerular filtration rate > NRG Serum or plasma glucose measurement (mass/volume) 121 mg/dL 70-105 Serum or plasma calcium measurement (mass/volume) 9.6 mg/dL 8.5-10.1 Serum or plasma total bilirubin measurement (mass/volume) 0.6 mg/dL 0.1-1.0 Serum or plasma alkaline phosphatase measurement (enzymatic activity/volume) 80 U/L 40-136 Serum or plasma aspartate aminotransferase measurement (enzymatic activity/ volume) 53 U/L 5-34 Serum or plasma alanine aminotransferase measurement (enzymatic activity/volume ) 69 U/L 0-55 Serum or plasma protein measurement (mass/volume) 8.4 g/dL 6.4-8.2 Serum or plasma albumin measurement (mass/volume) 4.3 g/dL 3.2-4.5 Serum or plasma creatine kinase measurement (enzymatic activity/volume) - 01/03 18:21 Serum or plasma creatine kinase measurement (enzymatic activity/volume) 76 U/L 29-168 Serum or plasma troponin i.cardiac measurement (mass/volume) - 01/03/17 18:21 Serum or plasma troponin i.cardiac measurement (mass/volume) < ng/ mL <0.30 Complete blood count (CBC) with automated white blood cell (WBC) differential - 02/11/17 21:55 Blood leukocytes automated count (number/volume) 18.7 10*3/uL 4.3-11.0 Blood erythrocytes automated count (number/volume) 4.70 10*6/uL 4.35-5.85 Venous blood hemoglobin measurement (mass/volume) 14.3 g/dL 11.5-16.0 Blood hematocrit (volume fraction) 43 % 35-52 Automated erythrocyte mean corpuscular volume 91 [foz_us] 80-99 Automated erythrocyte mean corpuscular hemoglobin (mass per erythrocyte) 30 pg 25-34 Automated erythrocyte mean corpuscular hemoglobin concentration measurement ( mass/volume) 34 g/dL 32-36 Automated erythrocyte distribution width ratio 14.0 % 10.0-14.5 Automated blood platelet count (count/volume) 366 10*3/uL 130-400 Automated blood platelet mean volume measurement 9.8 [foz_us] 7.4-10.4 Automated blood neutrophils/100 leukocytes 85 % 42-75 Automated blood lymphocytes/100 leukocytes 9 % 12-44 Blood monocytes/100 leukocytes 5 % 0-12 Automated blood eosinophils/100 leukocytes 0 % 0-10 Automated blood basophils/100 leukocytes 0 % 0-10 Blood neutrophils automated count (number/volume) 16.0 10*3 1.8-7.8 Blood lymphocytes automated count (number/volume) 1.6 10*3 1.0-4.0 Blood monocytes automated count (number/volume) 1.0 10*3 0.0-1.0 Automated eosinophil count 0.1 10*3/uL 0.0-0.3 Automated blood basophil count (count/volume) 0.1 10*3/uL 0.0-0.1 Whole blood basic metabolic panel - 02/11/17 21:55 Serum or plasma sodium measurement (moles/volume) 139 mmol/L 135-145 Serum or plasma potassium measurement (moles/volume) 3.9 mmol/L 3.6-5.0 Serum or plasma chloride measurement (moles/volume) 99 mmol/L 98-107 Carbon dioxide 26 mmol/L 21-32 Serum or plasma anion gap determination (moles/volume) 14 mmol/L 5-14 Serum or plasma urea nitrogen measurement (mass/volume) 12 mg/dL 7-18 Serum or plasma creatinine measurement (mass/volume) 0.70 mg/dL 0.60-1.30 Serum or plasma urea nitrogen/creatinine mass ratio 17 NRG Serum or plasma creatinine measurement with calculation of estimated glomerular filtration rate > NRG Serum or plasma glucose measurement (mass/volume) 102 mg/dL 70-105 Serum or plasma calcium measurement (mass/volume) 9.4 mg/dL 8.5-10.1 Blood manual differential performed detection - 02/11/17 21:55 Blood monocytes/100 leukocytes 0 % NRG Manual blood segmented neutrophils/100 leukocytes 80 % NRG Blood band neutrophils/100 leukocytes 2 % NRG Manual blood lymphocytes/100 leukocytes 18 % NRG Manual eosinophils/100 leukocytes in nose 0 % NRG Manual blood basophils/100 leukocytes 0 % NRG Blood erythrocyte morphology finding identification NORMAL NRG Serum heterophile antibody titer - 02/11/17 21:55 Serum heterophile antibody titer NEGATIVE NEGATIVE Streptococcus pyogenes antigen detection - 02/11/17 22:13 Streptococcus pyogenes antigen detection NEGATIVE NEGATIVE Bacterial throat culture - 02/11/17 22:13 Bacterial throat culture NBS NRG Complete urinalysis with reflex to culture - 02/11/17 22:55 Urine color determination YELLOW NRG Urine clarity determination CLEAR NRG Urine pH measurement by test strip 6 5-9 Specific gravity of urine by test strip 1.015 1.016- 1.022 Urine protein assay by test strip, semi-quantitative 1+ NEGATIVE Urine glucose detection by automated test strip NEGATIVE NEGATIVE Erythrocytes detection in urine sediment by light microscopy 1+ NEGATIVE Urine ketones detection by automated test strip NEGATIVE NEGATIVE Urine nitrite detection by test strip NEGATIVE NEGATIVE Urine total bilirubin detection by test strip NEGATIVE NEGATIVE Urine urobilinogen measurement by automated test strip (mass/volume) NORMAL NORMAL Urine leukocyte esterase detection by dipstick NEGATIVE NEGATIVE Automated urine sediment erythrocyte count by microscopy (number/high power field) RARE NRG Automated urine sediment leukocyte count by microscopy (number/high power field ) [HPF] NRG Bacteria detection in urine sediment by light microscopy FEW NRG Squamous epithelial cells detection in urine sediment by light microscopy 10-25 NRG Crystals detection in urine sediment by light microscopy NONE NRG Casts detection in urine sediment by light microscopy NONE NRG Mucus detection in urine sediment by light microscopy SMALL NRG Complete urinalysis with reflex to culture NO NRG Blood lactic acid measurement (moles/volume) - 02/11/17 23:15 Blood lactic acid measurement (moles/volume) 2.01 mmol/L 0.50-2.00 Bacterial blood culture - 02/11/17 23:15 FREE TEXT EXTERNAL BETA LACTAMASE NEGATIVE NRG QUANTITY OF GROWTH . NRG Bacterial blood culture SEE COMMEN NRG Bacterial blood culture - 02/11/17 23:33 QUANTITY OF GROWTH Isolated NRG Bacterial blood culture [id number] NRG Serum or plasma lactate measurement (moles/volume) - 02/12/17 00:16 Serum or plasma lactate measurement (moles/volume) 1.34 mmol/L 0.50-2.00 Cerebrospinal fluid cell count - 02/12/17 00:59 Cerebrospinal fluid appearance description CLEAR NRG Cerebrospinal fluid color identification COLORLESS NRG Cerebrospinal fluid leukocytes count (number/volume) 1 % 0-5 Cerebrospinal fluid erythrocytes count (number/volume) 6 % 0-0 Manual cerebrospinal fluid lymphocytes/100 leukocytes TNP NRG Manual cerebrospinal fluid mononuclear cells/100 leukocytes TNP NRG Manual cerebrospinal fluid polymorphonuclear cells/100 leukocytes TNP NR Cerebrospinal fluid cell count on specimen from last tube collected 4 NRG Cerebrospinal fluid glucose measurement (mass/volume) - 02/12/17 00:59 Cerebrospinal fluid glucose measurement (mass/volume) 64 mg/dL 50-80 Cerebrospinal fluid protein measurement (mass/volume) - 02/12/17 00:59 Cerebrospinal fluid protein measurement (mass/volume) 24 mg/dL 15-40 Gram stain microscopy - 02/12/17 00:59 Gram stain microscopy Few WBC's, no bacteria NRG Bacterial cerebrospinal fluid culture - 02/12/17 00:59 Bacterial cerebrospinal fluid culture NG NRG Complete blood count (CBC) with automated white blood cell (WBC) differential - 02/12/17 06:30 Blood leukocytes automated count (number/volume) 12.1 10*3/uL 4.3-11.0 Blood erythrocytes automated count (number/volume) 4.10 10*6/uL 4.35-5.85 Venous blood hemoglobin measurement (mass/volume) 12.5 g/dL 11.5-16.0 Blood hematocrit (volume fraction) 38 % 35-52 Automated erythrocyte mean corpuscular volume 92 [foz_us] 80-99 Automated erythrocyte mean corpuscular hemoglobin (mass per erythrocyte) 31 pg 25-34 Automated erythrocyte mean corpuscular hemoglobin concentration measurement ( mass/volume) 33 g/dL 32-36 Automated erythrocyte distribution width ratio 14.0 % 10.0-14.5 Automated blood platelet count (count/volume) 317 10*3/uL 130-400 Automated blood platelet mean volume measurement 9.8 [foz_us] 7.4-10.4 Automated blood neutrophils/100 leukocytes 85 % 42-75 Automated blood lymphocytes/100 leukocytes 10 % 12-44 Blood monocytes/100 leukocytes 5 % 0-12 Automated blood eosinophils/100 leukocytes 0 % 0-10 Automated blood basophils/100 leukocytes 0 % 0-10 Blood neutrophils automated count (number/volume) 10.2 10*3 1.8-7.8 Blood lymphocytes automated count (number/volume) 1.2 10*3 1.0-4.0 Blood monocytes automated count (number/volume) 0.6 10*3 0.0-1.0 Automated eosinophil count 0.0 10*3/uL 0.0-0.3 Automated blood basophil count (count/volume) 0.0 10*3/uL 0.0-0.1 Comprehensive metabolic panel - 02/12/17 06:30 Serum or plasma sodium measurement (moles/volume) 137 mmol/L 135-145 Serum or plasma potassium measurement (moles/volume) 3.4 mmol/L 3.6-5.0 Serum or plasma chloride measurement (moles/volume) 102 mmol/L 98-107 Carbon dioxide 25 mmol/L 21-32 Serum or plasma anion gap determination (moles/volume) 10 mmol/L 5-14 Serum or plasma urea nitrogen measurement (mass/volume) 12 mg/dL 7-18 Serum or plasma creatinine measurement (mass/volume) 0.65 mg/dL 0.60-1.30 Serum or plasma urea nitrogen/creatinine mass ratio 18 NRG Serum or plasma creatinine measurement with calculation of estimated glomerular filtration rate > NRG Serum or plasma glucose measurement (mass/volume) 118 mg/dL 70-105 Serum or plasma calcium measurement (mass/volume) 8.3 mg/dL 8.5-10.1 Serum or plasma total bilirubin measurement (mass/volume) 0.5 mg/dL 0.1-1.0 Serum or plasma alkaline phosphatase measurement (enzymatic activity/volume) 62 U/L 40-136 Serum or plasma aspartate aminotransferase measurement (enzymatic activity/ volume) 23 U/L 5-34 Serum or plasma alanine aminotransferase measurement (enzymatic activity/volume ) 36 U/L 0-55 Serum or plasma protein measurement (mass/volume) 6.1 g/dL 6.4-8.2 Serum or plasma albumin measurement (mass/volume) 3.3 g/dL 3.2-4.5 Lipase - 02/12/17 06:30 Lipase 28 U/L 8-78 Tick identification panel - 02/12/17 06:30 Serum Ehrlichia chaffeensis IgG antibody detection <1:16 <1:16 Serum Ehrlichia chaffeensis IgM antibody detection <1:10 <1:10 Serum Rickettsia rickettsii IgG antibody assay (units/volume) < <1:16 [place] [employer] spotted fever panel < <1:10 Francisella tularensis antibody assay <1:20 NRG LYME AB G M 0.16 % 0.00-0.89 Interpretation of Lyme disease antibody assay Negative Negative West Nile virus antibody panel (IgG and IgM) - 02/12/17 06:30 Serum West Nile virus IgM antibody assay 0.01 % 0.00- 0.89 West Nile virus IgG antibody detection 0.18 0.00-1.29 Complete blood count (CBC) with automated white blood cell (WBC) differential - 02/13/17 06:45 Blood leukocytes automated count (number/volume) 6.5 10*3/uL 4.3-11.0 Blood erythrocytes automated count (number/volume) 4.05 10*6/uL 4.35-5.85 Venous blood hemoglobin measurement (mass/volume) 12.5 g/dL 11.5-16.0 Blood hematocrit (volume fraction) 37 % 35-52 Automated erythrocyte mean corpuscular volume 92 [foz_us] 80-99 Automated erythrocyte mean corpuscular hemoglobin (mass per erythrocyte) 31 pg 25-34 Automated erythrocyte mean corpuscular hemoglobin concentration measurement ( mass/volume) 34 g/dL 32-36 Automated erythrocyte distribution width ratio 14.0 % 10.0-14.5 Automated blood platelet count (count/volume) 261 10*3/uL 130-400 Automated blood platelet mean volume measurement 9.8 [foz_us] 7.4-10.4 Automated blood neutrophils/100 leukocytes 47 % 42-75 Automated blood lymphocytes/100 leukocytes 38 % 12-44 Blood monocytes/100 leukocytes 11 % 0-12 Automated blood eosinophils/100 leukocytes 4 % 0-10 Automated blood basophils/100 leukocytes 1 % 0-10 Blood neutrophils automated count (number/volume) 3.0 10*3 1.8-7.8 Blood lymphocytes automated count (number/volume) 2.4 10*3 1.0-4.0 Blood monocytes automated count (number/volume) 0.7 10*3 0.0-1.0 Automated eosinophil count 0.2 10*3/uL 0.0-0.3 Automated blood basophil count (count/volume) 0.1 10*3/uL 0.0-0.1 Comprehensive metabolic panel - 02/13/17 06:45 Serum or plasma sodium measurement (moles/volume) 142 mmol/L 135-145 Serum or plasma potassium measurement (moles/volume) 3.5 mmol/L 3.6-5.0 Serum or plasma chloride measurement (moles/volume) 110 mmol/L 98-107 Carbon dioxide 25 mmol/L 21-32 Serum or plasma anion gap determination (moles/volume) 7 mmol/L 5-14 Serum or plasma urea nitrogen measurement (mass/volume) 10 mg/dL 7-18 Serum or plasma creatinine measurement (mass/volume) 0.58 mg/dL 0.60-1.30 Serum or plasma urea nitrogen/creatinine mass ratio 17 NRG Serum or plasma creatinine measurement with calculation of estimated glomerular filtration rate > NRG Serum or plasma glucose measurement (mass/volume) 119 mg/dL 70-105 Serum or plasma calcium measurement (mass/volume) 7.8 mg/dL 8.5-10.1 Serum or plasma total bilirubin measurement (mass/volume) 0.2 mg/dL 0.1-1.0 Serum or plasma alkaline phosphatase measurement (enzymatic activity/volume) 56 U/L 40-136 Serum or plasma aspartate aminotransferase measurement (enzymatic activity/ volume) 22 U/L 5-34 Serum or plasma alanine aminotransferase measurement (enzymatic activity/volume ) 30 U/L 0-55 Serum or plasma protein measurement (mass/volume) 5.9 g/dL 6.4-8.2 Serum or plasma albumin measurement (mass/volume) 3.0 g/dL 3.2-4.5 Serum or plasma troponin i.cardiac measurement (mass/volume) - 02/13/17 06:45 Serum or plasma troponin i.cardiac measurement (mass/volume) < ng/ mL <0.30 Complete urinalysis with reflex to culture - 04/16/17 23:06 Urine color determination YELLOW NRG Urine clarity determination SLIGHTLY CLOUDY NRG Urine pH measurement by test strip 5 5-9 Specific gravity of urine by test strip 1.025 1.016- 1.022 Urine protein assay by test strip, semi-quantitative NEGATIVE NEGATIVE Urine glucose detection by automated test strip NEGATIVE NEGATIVE Erythrocytes detection in urine sediment by light microscopy 2+ NEGATIVE Urine ketones detection by automated test strip NEGATIVE NEGATIVE Urine nitrite detection by test strip NEGATIVE NEGATIVE Urine total bilirubin detection by test strip NEGATIVE NEGATIVE Urine urobilinogen measurement by automated test strip (mass/volume) NORMAL NORMAL Urine leukocyte esterase detection by dipstick NEGATIVE NEGATIVE Automated urine sediment erythrocyte count by microscopy (number/high power field) [HPF] NRG Automated urine sediment leukocyte count by microscopy (number/high power field ) RARE NRG Bacteria detection in urine sediment by light microscopy FEW NRG Squamous epithelial cells detection in urine sediment by light microscopy 10-25 NRG Crystals detection in urine sediment by light microscopy NONE NRG Casts detection in urine sediment by light microscopy NONE NRG Mucus detection in urine sediment by light microscopy SMALL NRG Complete urinalysis with reflex to culture NO NRG Complete urinalysis with reflex to culture - 04/28/17 16:07 Urine color determination YELLOW NRG Urine clarity determination SLIGHTLY CLOUDY NRG Urine pH measurement by test strip 5 5-9 Specific gravity of urine by test strip 1.020 1.016- 1.022 Urine protein assay by test strip, semi-quantitative 1+ NEGATIVE Urine glucose detection by automated test strip NEGATIVE NEGATIVE Erythrocytes detection in urine sediment by light microscopy NEGATIVE NEGATIVE Urine ketones detection by automated test strip NEGATIVE NEGATIVE Urine nitrite detection by test strip NEGATIVE NEGATIVE Urine total bilirubin detection by test strip NEGATIVE NEGATIVE Urine urobilinogen measurement by automated test strip (mass/volume) NORMAL NORMAL Urine leukocyte esterase detection by dipstick 1+ NEGATIVE Automated urine sediment erythrocyte count by microscopy (number/high power field) NONE NRG Automated urine sediment leukocyte count by microscopy (number/high power field ) [HPF] NRG Bacteria detection in urine sediment by light microscopy FEW NRG Squamous epithelial cells detection in urine sediment by light microscopy 10-25 NRG Crystals detection in urine sediment by light microscopy NONE NRG Casts detection in urine sediment by light microscopy NONE NRG Mucus detection in urine sediment by light microscopy LARGE NRG Complete urinalysis with reflex to culture NO NRG Complete blood count (CBC) with automated white blood cell (WBC) differential - 04/28/17 17:07 Blood leukocytes automated count (number/volume) 10.0 10*3/uL 4.3-11.0 Blood erythrocytes automated count (number/volume) 4.56 10*6/uL 4.35-5.85 Venous blood hemoglobin measurement (mass/volume) 14.0 g/dL 11.5-16.0 Blood hematocrit (volume fraction) 42 % 35-52 Automated erythrocyte mean corpuscular volume 92 [foz_us] 80-99 Automated erythrocyte mean corpuscular hemoglobin (mass per erythrocyte) 31 pg 25-34 Automated erythrocyte mean corpuscular hemoglobin concentration measurement ( mass/volume) 33 g/dL 32-36 Automated erythrocyte distribution width ratio 13.7 % 10.0-14.5 Automated blood platelet count (count/volume) 339 10*3/uL 130-400 Automated blood platelet mean volume measurement 9.7 [foz_us] 7.4-10.4 Automated blood neutrophils/100 leukocytes 58 % 42-75 Automated blood lymphocytes/100 leukocytes 32 % 12-44 Blood monocytes/100 leukocytes 8 % 0-12 Automated blood eosinophils/100 leukocytes 2 % 0-10 Automated blood basophils/100 leukocytes 1 % 0-10 Blood neutrophils automated count (number/volume) 5.8 10*3 1.8-7.8 Blood lymphocytes automated count (number/volume) 3.2 10*3 1.0-4.0 Blood monocytes automated count (number/volume) 0.8 10*3 0.0-1.0 Automated eosinophil count 0.2 10*3/uL 0.0-0.3 Automated blood basophil count (count/volume) 0.1 10*3/uL 0.0-0.1 Comprehensive metabolic panel - 04/28/17 17:07 Serum or plasma sodium measurement (moles/volume) 140 mmol/L 135-145 Serum or plasma potassium measurement (moles/volume) 4.0 mmol/L 3.6-5.0 Serum or plasma chloride measurement (moles/volume) 103 mmol/L 98-107 Carbon dioxide 28 mmol/L 21-32 Serum or plasma anion gap determination (moles/volume) 9 mmol/L 5-14 Serum or plasma urea nitrogen measurement (mass/volume) 13 mg/dL 7-18 Serum or plasma creatinine measurement (mass/volume) 0.67 mg/dL 0.60-1.30 Serum or plasma urea nitrogen/creatinine mass ratio 19 NRG Serum or plasma creatinine measurement with calculation of estimated glomerular filtration rate > NRG Serum or plasma glucose measurement (mass/volume) 92 mg/dL 70-105 Serum or plasma calcium measurement (mass/volume) 8.8 mg/dL 8.5-10.1 Serum or plasma total bilirubin measurement (mass/volume) 0.5 mg/dL 0.1-1.0 Serum or plasma alkaline phosphatase measurement (enzymatic activity/volume) 72 U/L 40-136 Serum or plasma aspartate aminotransferase measurement (enzymatic activity/ volume) 40 U/L 5-34 Serum or plasma alanine aminotransferase measurement (enzymatic activity/volume ) 62 U/L 0-55 Serum or plasma protein measurement (mass/volume) 7.5 g/dL 6.4-8.2 Serum or plasma albumin measurement (mass/volume) 4.0 g/dL 3.2-4.5 Lipase - 04/28/17 17:07 Lipase 19 U/L 8-78 THYROID STIMULATING HORMONE - 04/28/17 17:07 THYROID STIMULATING HORMONE 0.74 u[iU]/mL 0.35-4.94 Serum or plasma thyroxine (T4) free measurement (mass/volume) - 04/28/17 17:07 Serum or plasma thyroxine (T4) free measurement (mass/volume) 1.45 ng/dL 0.70-1.48 Complete blood count (CBC) with automated white blood cell (WBC) differential - 05/30/17 17:52 Blood leukocytes automated count (number/volume) 10.3 10*3/uL 4.3-11.0 Blood erythrocytes automated count (number/volume) 4.64 10*6/uL 4.35-5.85 Venous blood hemoglobin measurement (mass/volume) 14.2 g/dL 11.5-16.0 Blood hematocrit (volume fraction) 41 % 35-52 Automated erythrocyte mean corpuscular volume 89 [foz_us] 80-99 Automated erythrocyte mean corpuscular hemoglobin (mass per erythrocyte) 31 pg 25-34 Automated erythrocyte mean corpuscular hemoglobin concentration measurement ( mass/volume) 35 g/dL 32-36 Automated erythrocyte distribution width ratio 13.1 % 10.0-14.5 Automated blood platelet count (count/volume) 378 10*3/uL 130-400 Automated blood platelet mean volume measurement 9.5 [foz_us] 7.4-10.4 Automated blood neutrophils/100 leukocytes 60 % 42-75 Automated blood lymphocytes/100 leukocytes 30 % 12-44 Blood monocytes/100 leukocytes 8 % 0-12 Automated blood eosinophils/100 leukocytes 1 % 0-10 Automated blood basophils/100 leukocytes 1 % 0-10 Blood neutrophils automated count (number/volume) 6.2 10*3 1.8-7.8 Blood lymphocytes automated count (number/volume) 3.0 10*3 1.0-4.0 Blood monocytes automated count (number/volume) 0.8 10*3 0.0-1.0 Automated eosinophil count 0.1 10*3/uL 0.0-0.3 Automated blood basophil count (count/volume) 0.1 10*3/uL 0.0-0.1 Comprehensive metabolic panel - 05/30/17 17:52 Serum or plasma sodium measurement (moles/volume) 137 mmol/L 135-145 Serum or plasma potassium measurement (moles/volume) 3.3 mmol/L 3.6-5.0 Serum or plasma chloride measurement (moles/volume) 102 mmol/L 98-107 Carbon dioxide 20 mmol/L 21-32 Serum or plasma anion gap determination (moles/volume) 15 mmol/L 5-14 Serum or plasma urea nitrogen measurement (mass/volume) 13 mg/dL 7-18 Serum or plasma creatinine measurement (mass/volume) 0.69 mg/dL 0.60-1.30 Serum or plasma urea nitrogen/creatinine mass ratio 19 NRG Serum or plasma creatinine measurement with calculation of estimated glomerular filtration rate > NRG Serum or plasma glucose measurement (mass/volume) 107 mg/dL 70-105 Serum or plasma calcium measurement (mass/volume) 9.0 mg/dL 8.5-10.1 Serum or plasma total bilirubin measurement (mass/volume) 0.6 mg/dL 0.1-1.0 Serum or plasma alkaline phosphatase measurement (enzymatic activity/volume) 70 U/L 40-136 Serum or plasma aspartate aminotransferase measurement (enzymatic activity/ volume) 53 U/L 5-34 Serum or plasma alanine aminotransferase measurement (enzymatic activity/volume ) 63 U/L 0-55 Serum or plasma protein measurement (mass/volume) 7.5 g/dL 6.4-8.2 Serum or plasma albumin measurement (mass/volume) 3.9 g/dL 3.2-4.5 Magnesium - 05/30/17 17:52 Magnesium 1.5 mg/dL 1.8-2.4 Serum or plasma troponin i.cardiac measurement (mass/volume) - 05/30/17 17:52 Serum or plasma troponin i.cardiac measurement (mass/volume) < ng/ mL <0.30 Fibrin D-dimer FEU measurement in platelet poor plasma (mass/volume) - 17:52 Fibrin D-dimer FEU measurement in platelet poor plasma (mass/volume) 1.58 ug/mL 0.00-0.49 Lipase - 05/30/17 17:52 Lipase 18 U/L 8-78 Complete urinalysis with reflex to culture - 05/30/17 18:47 Urine color determination CIERA NRG Urine clarity determination CLEAR NRG Urine pH measurement by test strip 5 5-9 Specific gravity of urine by test strip 1.025 1.016- 1.022 Urine protein assay by test strip, semi-quantitative NEGATIVE NEGATIVE Urine glucose detection by automated test strip NEGATIVE NEGATIVE Erythrocytes detection in urine sediment by light microscopy 1+ NEGATIVE Urine ketones detection by automated test strip NEGATIVE NEGATIVE Urine nitrite detection by test strip NEGATIVE NEGATIVE Urine total bilirubin detection by test strip NEGATIVE NEGATIVE Urine urobilinogen measurement by automated test strip (mass/volume) NORMAL NORMAL Urine leukocyte esterase detection by dipstick 1+ NEGATIVE Automated urine sediment erythrocyte count by microscopy (number/high power field) NONE NRG Automated urine sediment leukocyte count by microscopy (number/high power field ) RARE NRG Bacteria detection in urine sediment by light microscopy FEW NRG Squamous epithelial cells detection in urine sediment by light microscopy 10-25 NRG Crystals detection in urine sediment by light microscopy NONE NRG Casts detection in urine sediment by light microscopy PRESENT NRG Mucus detection in urine sediment by light microscopy NEGATIVE NRG Complete urinalysis with reflex to culture NO NRG Hyaline casts detection in urine sediment by light microscopy 5-10 NRG Whole blood basic metabolic panel - 05/31/17 03:01 Serum or plasma sodium measurement (moles/volume) 137 mmol/L 135-145 Serum or plasma potassium measurement (moles/volume) 2.8 mmol/L 3.6-5.0 Serum or plasma chloride measurement (moles/volume) 100 mmol/L 98-107 Carbon dioxide 24 mmol/L 21-32 Serum or plasma anion gap determination (moles/volume) 13 mmol/L 5-14 Serum or plasma urea nitrogen measurement (mass/volume) 12 mg/dL 7-18 Serum or plasma creatinine measurement (mass/volume) 0.64 mg/dL 0.60-1.30 Serum or plasma urea nitrogen/creatinine mass ratio 19 NRG Serum or plasma creatinine measurement with calculation of estimated glomerular filtration rate > NRG Serum or plasma glucose measurement (mass/volume) 96 mg/dL 70-105 Serum or plasma calcium measurement (mass/volume) 8.5 mg/dL 8.5-10.1 Serum or plasma phosphate measurement (mass/volume) - 05/31/17 03:01 Serum or plasma phosphate measurement (mass/volume) 3.6 mg/dL 2.3-4.7 Magnesium - 05/31/17 03:01 Magnesium 1.7 mg/dL 1.8-2.4 Complete blood count (CBC) with automated white blood cell (WBC) differential - 05/31/17 03:01 Blood leukocytes automated count (number/volume) 8.6 10*3/uL 4.3-11.0 Blood erythrocytes automated count (number/volume) 4.48 10*6/uL 4.35-5.85 Venous blood hemoglobin measurement (mass/volume) 13.8 g/dL 11.5-16.0 Blood hematocrit (volume fraction) 40 % 35-52 Automated erythrocyte mean corpuscular volume 90 [foz_us] 80-99 Automated erythrocyte mean corpuscular hemoglobin (mass per erythrocyte) 31 pg 25-34 Automated erythrocyte mean corpuscular hemoglobin concentration measurement ( mass/volume) 34 g/dL 32-36 Automated erythrocyte distribution width ratio 13.3 % 10.0-14.5 Automated blood platelet count (count/volume) 352 10*3/uL 130-400 Automated blood platelet mean volume measurement 9.7 [foz_us] 7.4-10.4 Automated blood neutrophils/100 leukocytes 50 % 42-75 Automated blood lymphocytes/100 leukocytes 37 % 12-44 Blood monocytes/100 leukocytes 10 % 0-12 Automated blood eosinophils/100 leukocytes 2 % 0-10 Automated blood basophils/100 leukocytes 1 % 0-10 Blood neutrophils automated count (number/volume) 4.3 10*3 1.8-7.8 Blood lymphocytes automated count (number/volume) 3.2 10*3 1.0-4.0 Blood monocytes automated count (number/volume) 0.8 10*3 0.0-1.0 Automated eosinophil count 0.2 10*3/uL 0.0-0.3 Automated blood basophil count (count/volume) 0.1 10*3/uL 0.0-0.1 THYROID STIMULATING HORMONE - 05/31/17 03:01 THYROID STIMULATING HORMONE 0.15 u[iU]/mL 0.35-4.94 Methicillin resistant Staphylococcus aureus (MRSA) screening culture - 06:40 Methicillin resistant Staphylococcus aureus (MRSA) screening culture NEG NRG Whole blood basic metabolic panel - 06/01/17 06:58 Serum or plasma sodium measurement (moles/volume) 140 mmol/L 135-145 Serum or plasma potassium measurement (moles/volume) 4.1 mmol/L 3.6-5.0 Serum or plasma chloride measurement (moles/volume) 110 mmol/L 98-107 Carbon dioxide 20 mmol/L 21-32 Serum or plasma anion gap determination (moles/volume) 10 mmol/L 5-14 Serum or plasma urea nitrogen measurement (mass/volume) 8 mg/dL 7-18 Serum or plasma creatinine measurement (mass/volume) 0.53 mg/dL 0.60-1.30 Serum or plasma urea nitrogen/creatinine mass ratio 15 NRG Serum or plasma creatinine measurement with calculation of estimated glomerular filtration rate > NRG Serum or plasma glucose measurement (mass/volume) 113 mg/dL 70-105 Serum or plasma calcium measurement (mass/volume) 7.8 mg/dL 8.5-10.1 Encounters ACCT No. Visit Date/Time Discharge Status Pt. Type Provider Facility Loc./Unit Complaint [id number] 08/16/2014 10:07:00 08/16/2014 23:59:59 [facility] Outpatient AILYN SHAFFER DO [id number] 05/24/2014 09:03:00 05/24/2014 23:59:59 [facility] Outpatient AILYN SHAFFER DO [id number] 11/27/2013 14:25:00 11/27/2013 23:59:59 [facility] Outpatient AILYN SHAFFER DO [id number] 04/22/2013 11:04:00 04/22/2013 23:59:59 [facility] Outpatient AILYN SHAFFER DO [id number] 09/17/2012 13:41:00 09/17/2012 23:59:59 [facility] Outpatient AILYN SHAFFER DO [id number] 09/04/2012 10:22:00 09/04/2012 23:59:59 [facility] Outpatient AILYN SHAFFER DO [id number] 06/15/2012 16:23:00 06/15/2012 23:59:59 [facility] Outpatient AILYN SHAFFER DO [id number] 04/07/2012 16:22:00 04/07/2012 23:59:59 [facility] Outpatient AILYN SHAFFER DO [id number] 12/03/2012 13:28:00 Document Registration [id number] 11/06/2012 14:25:00 Document Registration [id number] 07/10/2017 15:00:00 07/10/2017 23:59:59 CLS Preadmit PATTIE ENAMORADO [facility] RAD PELVIC PAIN [id number] 05/30/2017 19:45:00 06/01/2017 18:48:00 DIS Inpatient AILYN SHAFFER DO [facility] 4TH BILATERAL PULMONARY EMBOLI [id number] 04/28/2017 14:16:00 04/28/2017 19:37:00 DIS Emergency ESTEFANY DOWNEY MD [facility] ER HEADACHE, ABD PAIN, BACK PAIN,N/V [id number] 04/16/2017 20:42:00 04/16/2017 23:45:00 DIS Emergency JESSICA GALLEGOS [facility] ER LOWER BACK/PELVIC PAINS,HEART PALPITATIONS,CHILLS [id number] 03/04/2017 12:26:00 03/04/2017 23:59:59 [facility]LS Outpatient GISSEL JIANG MD [facility] CARD CHEST DISCOMFORT [id number] 02/20/2017 11:33:00 02/20/2017 23:59:59 [facility] Outpatient GISSEL JIANG MD [facility] RAD M79.661 PAIN IN R LOWER LEG [id number] 02/11/2017 23:45:00 02/14/2017 18:40:00 DIS Inpatient GISSEL JIANG MD [facility] 4TH R PERIHILAR PNEUMONIA, SEPSIS,R/O MENINGITIS [id number] 01/03/2017 18:02:00 01/03/2017 23:59:59 CLS Outpatient BRISA LOPEZ [facility] LAB CHEST PAIN [id number] 12/27/2016 19:15:00 12/28/2016 06:10:00 DIS Outpatient PATTIE ENAMORADO [facility] SLEEP SLEEP DISTURBANCE [id number] 11/02/2016 21:06:00 11/02/2016 23:49:00 DIS Emergency EILEEN PIKE [facility] ER L SIDE ABD PAIN [id number] 08/19/2016 19:58:00 08/19/2016 22:30:00 DIS Emergency EILEEN PIKE [facility] ER STOMACH PAIN/NAUSEA [id number] 07/26/2016 08:39:00 07/26/2016 23:59:59 [facility]LS Outpatient PATTIE ENAMORADO [facility] RAD PAINFUL LUMP [id number] 10/19/2015 07:59:00 10/20/2015 16:05:00 DIS Outpatient MIAY ALBERT DO [facility] SDC CHONIC PELVIC PAIN [id number] 10/11/2015 09:50:00 10/11/2015 10:35:00 DIS Outpatient MIYA ALBERT DO [facility] PREOP CHRONIC PELVIC PAIN [id number] 10/06/2015 23:42:00 10/07/2015 00:48:00 DIS Emergency TANGELA BROWNE DO [facility] ER ABD BACK PAIN [id number] 2015 10:27:00 2015 23:59:59 CLS Outpatient PATTIE ENAMORADO [facility] RAD PELVIC PAIN [id number] 06/02/2015 10:43:00 06/02/2015 23:59:59 CLS Outpatient PATTIE ENAMORADO [facility] RAD ABD PAIN [id number] 05/21/2015 21:56:00 05/22/2015 00:33:00 DIS Emergency PATI APONTE DO [facility] ER BP HIGH [id number] 05/17/2015 20:30:00 05/17/2015 22:57:00 DIS Emergency TANGELA BROWNE DO [facility] ER CHEST PAIN [id number] 02/23/2015 20:03:00 02/23/2015 22:05:00 DIS Emergency PATI APONTE DO [facility] ER BACK PAIN [id number] 12/29/2014 07:24:00 12/29/2014 23:59:59 CLS Outpatient BRIDGETTE JETER DO [facility] RAD RUQ PAIN,ELEVATED LIVER TEST [id number] 12/09/2014 07:58:00 12/09/2014 23:59:59 CLS Outpatient BRIDGETTE JETER DO [facility] RAD PAIN IN RT FLANK, ELEVATED LIVER ENZYMES [id number] 12/01/2014 08:36:00 12/01/2014 23:59:59 CLS Outpatient BRIDGETTE JETER DO [facility] LAB ELEVATED LIVER ENZYMES [id number] 11/24/2014 11:07:00 11/24/2014 14:37:00 DIS Emergency STACY KELLER MD [facility] ER L ARM PAIN [id number] 11/23/2014 09:55:00 11/23/2014 23:59:59 CLS Outpatient BRIDGETTE JETER DO [facility] LAB HYPOTHYROID [id number] 06/16/2014 16:21:00 06/16/2014 20:38:00 DIS Emergency PATI APONTE DO [facility] ER HEADACHE [id number] 06/15/2014 17:23:00 06/15/2014 19:36:00 DIS Emergency ESTEFANY DOWNEY MD [facility] ER ABD PAIN,DIARRHEA, FEVER [id number] 01/06/2014 18:41:00 01/06/2014 22:33:00 DIS Emergency TANGELA BROWNE DO [facility] ER ABD PAIN [id number] 05/18/2013 18:45:00 05/18/2013 20:54:00 DIS Emergency ESTEFANY DOWNEY MD [facility] ER MULTIPLE COMPLAINTS [id number] 12/28/2014 09:48:00 Document Registration [id number] 09/21/2014 14:52:00 Document Registration [id number] 10/26/2012 20:46:00 Document Registration [id number] 10/22/2012 08:01:00 Document Registration [id number] 09/14/2012 09:47:00 Document Registration [id number] 09/25/2011 12:48:00 Document Registration [id number] 11/06/2010 14:02:00 Document Registration [id number] 06/01/2010 21:55:00 Document Registration
[2017-07-30] MEDS ORDERED: IBUP-2055 PO (20:07)
[2017-07-30] MEDS ORDERED: fentaNYL INJECTION 100 MCG/2 ML AMP IVP ONE (21:00)
[2017-07-30 21:20] LABS: BASOPHILS % (AUTO) 0 % (0-10); EOSINOPHILS # (AUTO) 0.3 10^3/uL (0.0-0.3); EOSINOPHILS % (AUTO) 3 % (0-10); HEMATOCRIT 42 % (35-52); HEMOGLOBIN 14.3 G/DL (11.5-16.0); LYMPHOCYTES # (AUTO) 2.6 X 10^3 (1.0-4.0); LYMPHOCYTES % (AUTO) 28 % (12-44); MEAN CORPUSCULAR HEMOGLOBIN 31 PG (25-34); MEAN CORPUSCULAR HGB CONC 34 G/DL (32-36); MEAN CORPUSCULAR VOLUME 92 FL (80-99); MEAN PLATELET VOLUME 9.5 FL (7.4-10.4); MONOCYTES # (AUTO) 0.5 X 10^3 (0.0-1.0); MONOCYTES % (AUTO) 6 % (0-12); NEUTROPHILS # (AUTO) 5.9 X 10^3 (1.8-7.8); NEUTROPHILS % (AUTO) 63 % (42-75); PLATELET COUNT 377 10^3/uL (130-400); RED BLOOD COUNT 4.58 10^6/uL (4.35-5.85); RED CELL DISTRIBUTION WIDTH 14.6 % (10.0-14.5); WHITE BLOOD COUNT 9.4 10^3/uL (4.3-11.0)
[2017-07-30 21:40] LABS: ALANINE AMINOTRANSFERASE 85 U/L (0-55); ALBUMIN 4.1 GM/DL (3.2-4.5); ALKALINE PHOSPHATASE 70 U/L (40-136); BILIRUBIN,TOTAL 0.5 MG/DL (0.1-1.0); BUN/CREATININE RATIO 28; CALCIUM 9.4 MG/DL (8.5-10.1); CARBON DIOXIDE 23 MMOL/L (21-32); CHLORIDE 102 MMOL/L (98-107); CREATININE SERUM 0.72 MG/DL (0.60-1.30); GFR ESTIMATED > 60; GLUCOSE 100 MG/DL (70-105); MAGNESIUM 2.2 MG/DL (1.8-2.4); POTASSIUM 4.7 MMOL/L (3.6-5.0); SODIUM 138 MMOL/L (135-145); TOTAL PROTEIN 8.4 GM/DL (6.4-8.2)
[2017-07-30 21:55] LABS: FREE T4 (FREE THYROXINE) 0.91 NG/DL (0.70-1.48)
--- NOTE | 2017-07-30 21:58 | Diagnostic Imaging Report ---
INDICATION: Flulike symptoms. EXAMINATION: PA and lateral views of the chest were obtained at 9:47 p.m. FINDINGS: Heart and mediastinal silhouette are normal in appearance. The lungs are clear. There is no pneumothorax or pleural fluid. IMPRESSION: Negative chest. Dictated by: Dictated on workstation # [id number]
--- NOTE | 2017-07-30 22:19 | ED General ---
General Chief Complaint: Cough/Cold/Flu Symptoms Stated Complaint: CHILLS;ABD PAIN;COUGH Nursing Triage Note: pt c/o abd cramping, chills, congestion, headache, body aches starting yesterday. for the past 2 weeks she has had difficulty breathing with chest pain. she was diagnosed with PE's 2 months ago. reports swelling in arms et legs x 1 week. Nursing Sepsis Screen: Possible Sepsis Risk Source of Information: Patient Exam Limitations: No Limitations Allergies and Home Medications Allergies Coded Allergies: No Known Drug Allergies (Unverified , 06/01/10) Home Medications Apixaban 5 Mg Tablet, 10 MG PO BID for 90 Days Dose: 2.5mg tablet - take 4 tablets (10mg) twice daily for 5 more days ( total of 7 days) then take 2 tablets (5mg) twice daily for 3-6 months Prescribed by: AILYN SHAFFER on 06/01/17 1118 Atorvastatin Calcium 10 Mg Tablet, 10 MG PO HS, (Reported) Ergocalciferol (Vitamin D2) 50,000 Unit Capsule, 500,000 UNITS UD, (Reported) Fenofibrate 54 Mg Tablet, 54 MG PO HS, (Reported) Hydrochlorothiazide 25 Mg Tablet, 25 MG PO HS, (Reported) Hydrocodone Bit/Acetaminophen 1 Each Tablet, 1 TAB PO BID PRN for PAIN-MODERATE, (Reported) 1 TAB IN AM, 2 AT BEDTIME Ibuprofen 200 Mg Tablet, 800 MG PO TID, (Reported) Levothyroxine Sodium 125 Mcg Tablet, 250 MCG PO HS, #30 Ref 0 have TSH rechecked after taking 250mcg for 3-4 weeks. Prescribed by: AILYN SHAFFER on 06/01/17 1118 Lisinopril 20 Mg Tablet, 20 MG PO HS, (Reported) Metformin HCl 500 Mg Tab.er.24h, 500 MG PO BID, (Reported) Metoprolol Succinate 25 Mg Tab.er.24h, 25 MG PO HS, (Reported) Naltrexone HCl/Bupropion HCl 1 Each Tablet.er, 2 EACH PO BID, (Reported) Venlafaxine HCl 75 Mg Cap.er.24h, 75 MG PO HS, (Reported) Past Ttobjku-Wibmfa-Rtmffv Hx Patient Social History Alcohol Use: Occasionally Uses Number of Drinks Today: AA Alcohol Beverage of Choice: Beer Recreational Drug Use: No Smoking Status: Former Smoker Type Used: Cigarettes Former Smoker, Quit: Sep 11, 2010 2nd Hand Smoke Exposure: No Recent Foreign Travel: No Contact w/Someone Who Travel: No Recent Infectious Disease Expo: No Recent Hopitalizations: Yes (PE's) Immunizations Up To Date Tetanus Booster (TDap): Unknown PED Vaccines UTD: No Date of Influenza Vaccine: Jul 04, 2017 Seasonal Allergies Seasonal Allergies: No Surgeries History of Surgeries: Yes (HEART CATH) Surgeries: Hysterectomy, Thyroidectomy, Tubal Ligation Respiratory History of Respiratory Disorde: Yes Respiratory Disorders: Pulmonary Embolism Cardiovascular History of Cardiac Disorders: Yes Cardiac Disorders: High Cholesterol, Hypertension, Palpitations Neurological History of Neurological Disord: Yes Neurological Disorders: Headaches /Migraines Reproductive System Hx Reproductive Disorders: Yes Sexually Transmitted Disease: No HIV/AIDS: No Female Reproductive Disorders: Menstrual Problems [employer] History: Hysterectomy Genitourinary History of Genitourinary Disor: No Gastrointestinal History of Gastrointestinal Di: Yes Gastrointestinal Disorders: Gastroesophageal Reflux Musculoskeletal History of Musculoskeletal Dis: Yes Musculoskeletal Disorders: Chronic Back Pain Endocrine History of Endocrine Disorders: Yes Endocrine Disorders: Hypothyroidsim, Diabetes, Non-Insulin dep HEENT History of HEENT Disorders: Yes Loss of Vision: Bilateral Hearing Impairment: Denies Cancer History of Cancer: No Psychosocial History of Psychiatric Problem: Yes Behavioral Health Disorders: Anxiety, Depression Integumentary History of Skin or Integumenta: No Blood Transfusions History of Blood Disorders: No Adverse Reaction to a Blood Tr: No Family Medical History Significant Family History: No Pertinent Family Hx, Seizures Family Medial History: Diabetes mellitus 19 MOTHER Hypertension 19 MOTHER Seizure disorder G8 BROTHER G8 SISTER Physical Exam Vital Signs Vital Sign - Last 12Hours 07/30/17 07/30/17 07/30/17 19:56 20:30 22:30 Temp 96.7 Pulse 68 Resp 24 B/P (MAP) 117/73 (88) Pulse Ox 98 O2 Delivery Room Air Capillary Refill : Less Than 3 Seconds Progress/Results/Core Measures Suspected Sepsis Recent Fever Within 48 Hours: Yes Infection Criteria Present: Suspected New Infection New/Unexplained Altered Menta: No Sepsis Screen: Possible Sepsis Risk Sepsis Diagnosis: SIRS Temperature:96.7 Pulse: 68 Respiratory Rate: 24 Laboratory Tests 07/30/17 21:05: White Blood Count 9.4 Blood Pressure 117 /73 Mean: 88 Laboratory Tests 07/30/17 21:05: Creatinine 0.72, Platelet Count 377, Total Bilirubin 0.5 Results/Orders Lab Results Laboratory Tests Test 07/30/17 21:05 Range/Units White Blood Count 9.4 4.3-11.0 10^3/uL Red Blood Count 4.58 4.35-5.85 10^6/uL Hemoglobin 14.3 11.5-16.0 G/DL Hematocrit 42 35-52 % Mean Corpuscular Volume 92 80-99 FL Mean Corpuscular Hemoglobin 31 25-34 PG Mean Corpuscular Hemoglobin Concent 34 32-36 G/DL Red Cell Distribution Width 14.6 H 10.0-14.5 % Platelet Count 377 130-400 10^3/uL Mean Platelet Volume 9.5 7.4-10.4 FL Neutrophils (%) (Auto) 63 42-75 % Lymphocytes (%) (Auto) 28 12-44 % Monocytes (%) (Auto) 6 0-12 % Eosinophils (%) (Auto) 3 0-10 % Basophils (%) (Auto) 0 0-10 % Neutrophils # (Auto) 5.9 1.8-7.8 X 10^3 Lymphocytes # (Auto) 2.6 1.0-4.0 X 10^3 Monocytes # (Auto) 0.5 0.0-1.0 X 10^3 Eosinophils # (Auto) 0.3 0.0-0.3 10^3/uL Basophils # (Auto) 0.0 0.0-0.1 10^3/uL Sodium Level 138 135-145 MMOL/L Potassium Level 4.7 3.6-5.0 MMOL/L Chloride Level 102 98-107 MMOL/L Carbon Dioxide Level 23 21-32 MMOL/L Anion Gap 13 5-14 MMOL/L Blood Urea Nitrogen 20 H 7-18 MG/DL Creatinine 0.72 0.60-1.30 MG/DL Estimat Glomerular Filtration Rate > 60 BUN/Creatinine Ratio 28 Glucose Level 100 70-105 MG/DL Calcium Level 9.4 8.5-10.1 MG/DL Magnesium Level 2.2 1.8-2.4 MG/DL Total Bilirubin 0.5 0.1-1.0 MG/DL Aspartate Amino Transf (AST/SGOT) 118 H 5-34 U/L Alanine Aminotransferase (ALT/SGPT) 85 H 0-55 U/L Alkaline Phosphatase 70 40-136 U/L Troponin I < 0.30 <0.30 NG/ML C-Reactive Protein High Sensitivity 2.13 H 0.00-0.50 MG/DL B-Type Natriuretic Peptide < 10.0 <100.0 PG/ML Total Protein 8.4 H 6.4-8.2 GM/DL Albumin 4.1 3.2-4.5 GM/DL Thyroid Stimulating Hormone (TSH) 34.82 H 0.35-4.94 UIU/ML Free Thyroxine 0.91 0.70-1.48 NG/DL Micro Results Microbiology 07/30/17 Influenza Types A,B Antigen ([facility]) - Final, Complete My Orders Orders - ESTEFANY DOWNEY MD Ekg Tracing (07/30/17 20:20) BNP (07/30/17 20:54) Cbc With Automated Diff (07/30/17 20:54) Comprehensive Metabolic Panel (07/30/17 20:54) Hs C Reactive Protein (07/30/17 20:54) Magnesium (07/30/17 20:54) Thyroid Stimulating Hormone (07/30/17 20:54) Troponin I (07/30/17 20:54) Chest Pa/Lat (2 View) (07/30/17 20:54) Fentanyl Injection (Sublimaze Injection (07/30/17 21:00) Free T4 (Free Thyroxine) (07/30/17 20:54) Influenza A And B Antigens (07/30/17 20:54) Saline Lock/Iv-Start (07/30/17 21:26) Medications Given in ED Current Medications Medications Dose Ordered Sig/Elmer Route Start Time Stop Time Status Last Admin Dose Admin Fentanyl Citrate 50 mcg ONCE ONCE IVP 07/30/17 21:00 07/30/17 21:01 DC 07/30/17 21:10 50 MCG Vital Signs/I&O Vital Sign - Last 12Hours 07/30/17 07/30/17 07/30/17 19:56 20:30 22:30 Temp 96.7 Pulse 68 69 Resp 24 20 B/P (MAP) 117/73 (88) Pulse Ox 98 O2 Delivery Room Air Room Air Capillary Refill : Less Than 3 Seconds Blood Pressure Mean: 88 ECG Initial ECG Impression Date: Jul 30, 2017 Initial ECG Impression Time: 20:22 Initial ECG Rate: 70 Initial ECG Rhythm: Normal Sinus Initial ECG Intervals: Normal Initial ECG Impression: Normal Comment Normal sinus rhythm with no ST elevation or depression. No abnormal intervals or axis deviation. Diagnostic Imaging Diagonstic Imaging: Xray Plain Films/CT/US/NM/MRI: chest Comments Chest x-ray viewed by me and report reviewed. See report below: NAME: MEHRAN ERNST [facility] REC#: [id number] PT STATUS: REG ER : 1980 PHYSICIAN: ESTEFANY DOWNEY MD ADMIT DATE: 07/30/17/ER Signed Date of Exam: 07/30/17 CHEST PA/LAT (2 VIEW) INDICATION: Flulike symptoms. EXAMINATION: PA and lateral views of the chest were obtained at 9:47 p.m. FINDINGS: Heart and mediastinal silhouette are normal in appearance. The lungs are clear. There is no pneumothorax or pleural fluid. IMPRESSION: Negative chest. Dictated by: Dictated on workstation # [id number] Dict: 07/30/172155 Trans: 07/30/172208 Interpreted by: TUNDE CHRISTIE MD Electronically signed by: TUNDE CHRISTIE MD 07/30/172208 Departure Impression Impression: Primary Impression: Influenza-like symptoms Additional Impressions: Chest wall pain Pulmonary emboli Qualified Codes: I26.99 - Other pulmonary embolism without acute cor pulmonale Thyroid dysfunction Sleep apnea Qualified Codes: G47.30 - Sleep apnea, unspecified Disposition: 01 HOME, SELF-CARE Condition: Improved Departure-Patient Inst. Decision time for Depature: 22:10 Referrals: [facility] (PCP) Primary Care Physician PATTIE ENAMORADO APRN (Family) Primary Care Physician Patient Instructions: Pulmonary Embolism (Blood Clot in the Lungs) Add. Discharge Instructions: Stay strictly compliant with your Eliquis and levothyroxin. For your chest wall pain you may take ibuprofen up to 600 mg every 6 hours as needed as well as your prescribed hydrocodone. Follow-up with your primary care provider next week to review your thyroid studies and adjust your levothyroxin dosing if felt appropriate by your doctor. Follow-up with Dr. Browne as soon as possible for treatment of your sleep apnea. Return to care if symptoms worsen. All discharge instructions reviewed with patient and/or family. Voiced understanding. ESTEFANY DOWNEY MD Jul 30, 2017 22:19
[2017-07-30 22:30] VITALS: BP 101/65
== END 2017-07-30 22:30 | disposition home or self-care (01) ==
LOC: EDUNIT# 19:33 → ER 19:35
DX: J11.1 Influenza due to unidentified influenza virus with other respiratory manifestations (principal); I26.99 Other pulmonary embolism without acute cor pulmonale; E07.9 Disorder of thyroid, unspecified; G47.30 Sleep apnea, unspecified; F41.9 Anxiety disorder, unspecified; F32.9 Major depressive disorder, single episode, unspecified; E11.9 Type 2 diabetes mellitus without complications; K21.9 Gastro-esophageal reflux disease without esophagitis; G43.909 Migraine, unspecified, not intractable, without status migrainosus; E78.00 Pure hypercholesterolemia, unspecified; I10 Essential (primary) hypertension; Z87.891 Personal history of nicotine dependence; Z90.710 Acquired absence of both cervix and uterus; Z90.89 Acquired absence of other organs; Z98.51 Tubal ligation status; Z79.84 Long term (current) use of oral hypoglycemic drugs
CPT/HCPCS: 36415; 71046; 80053; 83735; 83880; 84439; 84443; 84484; 85025; 86141; 87804; 93005

== ENCOUNTER 2017-09-04 23:42 | Emergency (ER) | payer SELFPAY ==
[~2017-09-04] VITALS: Ht 167.6 cm; Wt 176.9 kg
[~2017-09-04 23:42] MED LIST changes: +HYDR-34 PO; -HYDR-3816 PO; +IBUP-2055 PO; +NAPR-915 PO; -NAPR500T4 PO
--- OUTSIDE RECORDS SUMMARY | 2017-09-04 23:58 | XMS REPORT | Continuity of Care Document ---
Author Author [facility] Address Unknown Phone Unavailable Allergies Active Description Code Type Severity Reaction Onset Reported/Identified Relationship to Patient Clinical Status Yes No Known Drug Allergies [id number] Drug Allergy Unknown N/A 06/01/2010 Medications There [...] OTHER ECZEMA, UNSPECIFIED CAUSE 05/01/2009 SHAFFER DO, AILNY K 782.0 DISTURBANCE OF SKIN SENSATION 05/01/2009 [...] SHAFFER DO, AILYN K 785.1 palpitations 10/16/2009 SHAFFER DO, AILYN K 041.86 HELICOBACTER [...] Unspecified 04/05/2010 JONNATHAN SHAFFER DOA K V72.31 Claims Collector Exam, Routine 04/05/2010 SHAFFER DO, AILYN K 110.4 TINEA PEDIS 04/05/2010 SHAFFER DO, AILYN K 625.3 DYSMENORRHEA 04/05/2010 SHAFFER DO, AILYN K 780.52 INSOMNIA, UNSPECIFIED 04/05/2010 SHAFFER DO, AILYN K E887 Fracture Cause Unspecified 04/05/2010 SHAFFER DO, AILYN K V72.31 Claims Collector Exam, Routine 04/05/2010 SHAFFER DO, AILYN K 110.4 TINEA PEDIS 04/05/2010 SHAFFER DO, AILYN K 625.3 DYSMENORRHEA 04/05/2010 SHAFFER DO, AILYN K 780.52 INSOMNIA, UNSPECIFIED 04/05/2010 SHAFFER DO, AILYN K E887 Fracture Cause Unspecified 04/05/2010 SHAFFER DO, AILYN K V72.31 Claims Collector Exam, Routine 04/05/2010 110.4 TINEA PEDIS 04/05/2010 625.3 DYSMENORRHEA 04/05/2010 780.52 INSOMNIA, UNSPECIFIED 04/05/2010 E887 Fracture Cause Unspecified 04/05/2010 V72.31 Claims Collector Exam, Routine 04/05/2010 110.4 TINEA PEDIS 04/05/2010 625.3 DYSMENORRHEA 04/05/2010 780.52 INSOMNIA, UNSPECIFIED 04/05/2010 E887 Fracture Cause Unspecified 04/05/2010 V72.31 Claims Collector Exam, Routine 04/05/2010 SHAFFER DO, AILYN K 110.4 TINEA PEDIS 04/05/2010 SHAFFER DO, AILYN K 625.3 DYSMENORRHEA 04/05/2010 SHAFFER DO, AILYN K 780.52 INSOMNIA, UNSPECIFIED 04/05/2010 SHAFFER DO, ALIYN K E887 Fracture Cause Unspecified 04/05/2010 SHAFFER DO, AILYN K V72.31 Claims Collector Exam, Routine 04/05/2010 SHAFFER DO, AILYN K 110.4 TINEA PEDIS 04/05/2010 SHAFFER DO, AILYN K 625.3 DYSMENORRHEA 04/05/2010 SHAFFER DO, AILYN K 780.52 INSOMNIA, UNSPECIFIED 04/05/2010 SHAFFER DO, AILYN K E887 Fracture Cause Unspecified 04/05/2010 SHAFFER DO, AILYN K V72.31 Claims Collector Exam, Routine 04/05/2010 SHAFFER DO, AILYN K 110.4 TINEA PEDIS 04/05/2010 SHAFFER DO, AILYN K 625.3 DYSMENORRHEA 04/05/2010 SHAFFER DO, AILYN K 780.52 INSOMNIA, UNSPECIFIED 04/05/2010 SHAFFER DO, AILYN K E887 Fracture Cause Unspecified 04/05/2010 SHAFFER DO, AILYN K V72.31 Claims Collector Exam, Routine 04/05/2010 SHAFFER DO, AILYN K 110.4 TINEA PEDIS 04/05/2010 SHAFFER DO, AILYN K 625.3 DYSMENORRHEA 04/05/2010 SHAFFER DO, AILYN K 780.52 INSOMNIA, UNSPECIFIED 04/05/2010 SHAFFER DO, AILYN K E887 Fracture Cause Unspecified 04/05/2010 SHAFFER DO, AILYN K V72.31 Claims Collector Exam, Routine 05/03/2010 SHAFFER DO, AILYN K [...] V65.3 COUNSELING - DIETARY 01/06/2014 PAVAN WADSWORTH TANGLEA K Ot 599.0 URIN TRACT INFECTION NOS [...] 339.10 TENSION TYPE HEADACHE, UNSPECIFIED 06/16/2014 PATI PAONTE DO Ot 784.0 HEADACHE 06/16/2014 PATI APONTE [...] Ochoa Ot 244.9 12/28/2014 GELLENDER DO, BRIDGETTE Ochoa Ot 346.90 12/28/2014 GELLENDER DO, BRIDGETTE Ochoa Ot 401.9 12/28/2014 GELLENDER DO, BRIDGETTE Ochoa Ot 790.5 12/28/2014 GELLENDER DO, BRIDGETTE Ochoa Ot 553.1 12/28/2014 GELLENDER DO, BRIDGETET Ochoa Ot 789.09 12/28/2014 GELLENDER DO, BRIDGETTE [...] GELLENDER DO, BRIDGETTE A Ot 790.5 05/22/2015 [facility] A Ot 789.01 05/22/2015 [facility] BRID[facility]TE Ochoa Ot 790.5 10/07/2015 LEITCHFIELD , TANGELA Rizo Ot E11.9 TYPE 2 DIABETES MELLITUS WITHOUT COMPLIC 10/07/2015 PAVAN DO, TANGELA Rizo Ot E66.01 MORBID (SEVERE) OBESITY DUE TO EXCESS CA 10/07/2015 PAVAN DO, TANGELA Rizo Ot G89.29 OTHER CHRONIC PAIN 10/07/2015 PAVAN DO, TANGELA Rizo Ot R10.2 PELVIC AND PERINEAL PAIN 10/07/2015 Ot 397.0 10/07/2015 Ot 424.0 10/07/2015 Ot 785.1 10/07/2015 Ot 786.50 10/07/2015 Ot 611.72 10/07/2015 Ot 571.8 10/07/2015 Ot 729.5 10/07/2015 Ot 782.0 10/07/2015 Ot 790.5 10/07/2015 [facility] BRIDGETTE Ochoa Ot 244.9 10/07/2015 GELLENDER DO, BRIDGETTE A Ot 346.90 10/07/2015 GELLENDER DO, BRIDGETTE Ochoa Ot 401.9 10/07/2015 [facility] BRIDGETTE Ochoa Ot 790.5 10/07/2015 [facility] BRIDGETTE Ochoa Ot 553.1 10/07/2015 GELLENDER DO, BRIDGETTE Ochoa Ot 789.09 10/07/2015 GELLENDER DO, BRIDGETTE Ochoa Ot 790.5 10/07/2015 [facility] BRIDGETTE Ochoa Ot 789.01 10/07/2015 GELLENDER DO, BRIDGETTE Ochoa Ot 790.5 10/07/2015 PATTIE ENAMORADO SCHEDULE MANAGER Ot R10.11 10/07/2015 PATTIE ENAMORADO SCHEDULE MANAGER Ot R10.13 10/07/2015 PATTIE ENAMORADO SCHEDULE MANAGER Ot R10.2 10/09/2015 [place]FIELD DO, TANGELA Rizo Ot E11.9 10/09/2015 [place] DO, TANGELA Sallie Ot E66.01 10/09/2015 PAVAN DO, TANGELA Rizo Ot G89.29 10/09/2015 [facility], TANGELA K Ot R10.2 10/11/2015 MIYA ALBERT [...] ENZY LEVEL NEC 04/02/2016 PATTIE ENAMORADO R SCHEDULE MANAGER Ot R10.11 RIGHT UPPER QUADRANT PAIN 04/02/2016 ENAMORADOSIERRA RiveraELE R SCHEDULE MANAGER Ot R10.13 EPIGASTRIC PAIN 04/02/2016 ENAMORADOSIERRA RiveraELE R SCHEDULE MANAGER Ot R10.2 PELVIC AND PERINEAL PAIN 04/02/2016 ENAMORADOSIERRAPATTIE R SCHEDULE MANAGER Ot R10.2 PELVIC AND PERINEAL PAIN 04/02/2016 ENAMORADO, PATTIE R SCHEDULE MANAGER Ot R10.11 RIGHT UPPER QUADRANT PAIN 04/02/2016 ENAMORADO, PATTIE R SCHEDULE MANAGER Ot R10.13 EPIGASTRIC PAIN 04/02/2016 ENAMORADO PATTIE R SCHEDULE MANAGER Ot R10.11 RIGHT UPPER QUADRANT PAIN 04/02/2016 ENAMORADO, PATTIE R SCHEDULE MANAGER Ot R10.13 EPIGASTRIC PAIN 04/03/2016 PAVAN WADSWORTH TANGELA K Ot E11.9 TYPE 2 DIABETES MELLITUS WITHOUT COMPLIC 04/03/2016 PAVAN WADSWORTH TANGELA K Ot E66.01 MORBID (SEVERE) OBESITY DUE TO EXCESS CA 04/03/2016 PAVAN , TANGELA K Ot G89.29 OTHER CHRONIC PAIN 04/03/2016 PAVAN WADSWORTH TANGELA K Ot R10.2 PELVIC AND PERINEAL PAIN 06/10/2016 SIERRA ENAMORADOELE R SCHEDULE MANAGER Ot R10.11 RIGHT UPPER QUADRANT PAIN 06/10/2016 PATTIE ENAMORADO SCHEDULE MANAGER Ot R10.13 EPIGASTRIC PAIN 06/10/2016 PATTIE ENAMORADO SCHEDULE MANAGER Ot R10.2 PELVIC AND PERINEAL PAIN 06/11/2016 [...] ABN SERUM ENZY LEVEL NEC 07/19/2016 STEFFANY WADSWROTH BRIDGETTE Gabriela Ot 789.01 ABDOMINAL PAIN, RIGHT UPPER QUADRANT 07/19/2016 [facility] BRID[facility] Ochoa Ot 790.5 ABN SERUM ENZY LEVEL NEC 07/19/2016 PATTIE ENAMORADO SCHEDULE MANAGER Ot R10.11 RIGHT UPPER QUADRANT PAIN 07/19/2016 PATTIE ENAMORADO SCHEDULE MANAGER Ot R10.13 EPIGASTRIC PAIN 07/19/2016 PATTIE ENAMORADO SCHEDULE MANAGER Ot R10.2 PELVIC AND PERINEAL PAIN 07/26/2016 [...] SERUM ENZY LEVEL NEC 07/26/2016 PATTIE ENAMORADO SCHEDULE MANAGER Ot R10.11 RIGHT UPPER QUADRANT PAIN 07/26/2016 PATTIE ENAMORADO SCHEDULE MANAGER Ot R10.13 EPIGASTRIC PAIN 07/26/2016 PATTIE ENAMORADO SCHEDULE MANAGER Ot R10.2 PELVIC AND PERINEAL PAIN 07/26/2016 PATTIE ENAMORADO SCHEDULE MANAGER Ot N63 UNSPECIFIED LUMP IN BREAST 07/29/2016 PATTIE ENAMORADO SCHEDULE MANAGER Ot N63 UNSPECIFIED LUMP IN BREAST 08/19/2016 EILEEN PIKE SCHEDULE MANAGER Ot E11.9 TYPE 2 DIABETES MELLITUS WITHOUT COMPLIC 08/19/2016 EILEEN PIKE SCHEDULE MANAGER Ot E66.01 MORBID (SEVERE) OBESITY DUE TO EXCESS CA 08/19/2016 EILEEN PIKE SCHEDULE MANAGER Ot I10 ESSENTIAL (PRIMARY) HYPERTENSION 08/19/2016 EILEEN PIKE APRN Ot N39.0 URINARY TRACT INFECTION, SITE NOT SPECIF 08/19/2016 EILEEN PIKE APRN Ot R10.13 EPIGASTRIC PAIN 08/19/2016 PIKE, PETER J SCHEDULE MANAGER Ot R11.2 NAUSEA WITH VOMITING, UNSPECIFIED 08/19/2016 EILEEN PIKE APRN Ot Z79.84 SHELTER (CURRENT) USE OF ORAL HYPOGLYC 08/19/2016 EILEEN PIKE APRN Ot Z79.899 OTHER SHELTER (CURRENT) DRUG THERAPY 08/21/2016 EILEEN PIKE APRN Ot E11.9 TYPE 2 DIABETES MELLITUS WITHOUT COMPLIC 08/21/2016 EILEEN PIKE APRN Ot E66.01 MORBID (SEVERE) OBESITY DUE TO EXCESS CA 08/21/2016 EILEEN PIKE SCHEDULE MANAGER Ot I10 ESSENTIAL (PRIMARY) HYPERTENSION 08/21/2016 EILEEN PIKE APRN Ot N39.0 URINARY TRACT INFECTION, SITE NOT SPECIF 08/21/2016 EILEEN PIKE APRN Ot R10.13 EPIGASTRIC PAIN 08/21/2016 EILEEN PIKE APRN Ot R11.2 NAUSEA WITH VOMITING, UNSPECIFIED 08/21/2016 EILEEN PIKE APRN Ot Z79.84 COLORIST (CURRENT) USE OF ORAL HYPOGLYC 08/21/2016 EILEEN PIKE APRN Ot Z79.899 OTHER SHELTER (CURRENT) DRUG THERAPY 08/21/2016 EILEEN PIKE APRN [...] UNSPECIFIED 08/21/2016 EILEEN PIKE APRN Ot Z79.84 COLORIST (CURRENT) USE OF ORAL HYPOGLYC 08/21/2016 EILEEN PIKE APRN Ot Z79.899 OTHER COLORIST (CURRENT) DRUG THERAPY 11/02/2016 EILEEN PIKE APRN Ot E11.9 TYPE 2 DIABETES MELLITUS WITHOUT COMPLIC 11/02/2016 IELEEN PIKE APRN Ot E66.01 MORBID (SEVERE) OBESITY DUE TO EXCESS CA 11/02/2016 EILEEN PIKE APRN Ot I10 ESSENTIAL (PRIMARY) HYPERTENSION 11/02/2016 EILEEN PIKE APRN Ot R10.32 LEFT LOWER QUADRANT PAIN 11/02/2016 EILEEN PIKE SCHEDULE MANAGER Ot Z79.84 SHELTER (CURRENT) USE OF ORAL HYPOGLYC 11/02/2016 EILEEN PIKE APRN Ot Z79.899 OTHER COLORIST (CURRENT) DRUG THERAPY 11/02/2016 EILEEN PIKE APRN Ot Z87.891 PERSONAL HISTORY OF NICOTINE DEPENDENCE 11/02/2016 EILEEN PIKE APRN Ot Z90.710 ACQUIRED ABSENCE OF BOTH CERVIX AND UTER 11/04/2016 EILEEN PIKE SCHEDULE MANAGER Ot E11.9 TYPE 2 DIABETES MELLITUS WITHOUT COMPLIC 11/04/2016 EILEEN PIKE APRN Ot E66.01 MORBID (SEVERE) OBESITY DUE TO EXCESS CA 11/04/2016 EILEEN PIKE APRN Ot I10 ESSENTIAL (PRIMARY) HYPERTENSION 11/04/2016 EILEEN PIKE APRN Ot R10.32 LEFT LOWER QUADRANT PAIN 11/04/2016 EILEEN PIKE APRN Ot Z79.84 SHELTER (CURRENT) USE OF ORAL HYPOGLYC 11/04/2016 EILEEN PIKE APRN Ot Z79.899 OTHER COLORIST (CURRENT) DRUG THERAPY 11/04/2016 EILEEN PIKE APRN Ot Z87.891 PERSONAL HISTORY OF NICOTINE DEPENDENCE 11/04/2016 EILEEN PIKE APRN Ot Z90.710 ACQUIRED ABSENCE OF BOTH CERVIX AND UTER 11/09/2016 EILEEN PIKE APRN Ot E11.9 TYPE 2 DIABETES MELLITUS WITHOUT COMPLIC 11/09/2016 EILEEN PIKE APRN Ot E66.01 MORBID (SEVERE) OBESITY DUE TO EXCESS CA 11/09/2016 EILEEN PIKE SCHEDULE MANAGER Ot I10 ESSENTIAL (PRIMARY) HYPERTENSION 11/09/2016 EILEEN PIKE APRN Ot R10.32 LEFT LOWER QUADRANT PAIN 11/09/2016 EILEEN PIKE APRN Ot Z79.84 SHELTER (CURRENT) USE OF ORAL HYPOGLYC 11/09/2016 EILEEN PIKE SCHEDULE MANAGER Ot Z79.899 OTHER SHELTER (CURRENT) DRUG THERAPY 11/09/2016 EILEEN PIKE APRN [...] SERUM ENZY LEVEL NEC 12/27/2016 PATTIE ENAMORADO SCHEDULE MANAGER Ot R10.11 RIGHT UPPER QUADRANT PAIN 12/27/2016 PATTIE ENAMORADO SCHEDULE MANAGER Ot R10.13 EPIGASTRIC PAIN 12/27/2016 PATTIE ENAMORADO SCHEDULE MANAGER Ot R10.2 PELVIC AND PERINEAL PAIN 12/27/2016 PATTIE ENAMORADO SCHEDULE MANAGER Ot N63 UNSPECIFIED LUMP IN BREAST 12/27/2016 [...] SERUM ENZY LEVEL NEC 12/27/2016 PATTIE ENAMORADO SCHEDULE MANAGER Ot R10.11 RIGHT UPPER QUADRANT PAIN 12/27/2016 PATTIE ENAMORADO SCHEDULE MANAGER Ot R10.13 EPIGASTRIC PAIN 12/27/2016 PATTIE ENAMORADO SCHEDULE MANAGER Ot R10.2 PELVIC AND PERINEAL PAIN 12/27/2016 PATTIE ENAMORADO SCHEDULE MANAGER Ot N63 UNSPECIFIED LUMP IN BREAST 12/27/2016 [...] ENZY LEVEL NEC 12/27/2016 PATTIE ENAMORADO R SCHEDULE MANAGER Ot R10.11 RIGHT UPPER QUADRANT PAIN 12/27/2016 ENAMORADOPATTIE Rivera R SCHEDULE MANAGER Ot R10.13 EPIGASTRIC PAIN 12/27/2016 PATTIE ENAMORADO R SCHEDULE MANAGER Ot R10.2 PELVIC AND PERINEAL PAIN 12/27/2016 PATTIE ENAMORADO R SCHEDULE MANAGER Ot N63 UNSPECIFIED LUMP IN BREAST 12/28/2016 ENAMORADOPATTIE R SCHEDULE MANAGER Ot E03.9 HYPOTHYROIDISM, UNSPECIFIED 12/28/2016 PATTIE ENAMORADO R SCHEDULE MANAGER Ot E78.1 PURE HYPERGLYCERIDEMIA 12/28/2016 ENAMORADOPATTIE R SCHEDULE MANAGER Ot E88.81 METABOLIC SYNDROME 12/28/2016 ENAMORADOPATTIE R SCHEDULE MANAGER Ot F41.8 OTHER SPECIFIED ANXIETY DISORDERS 12/28/2016 ENAMORADOPATTIE R SCHEDULE MANAGER Ot G47.19 OTHER HYPERSOMNIA 12/28/2016 FEI PATTIE R SCHEDULE MANAGER Ot I10 ESSENTIAL (PRIMARY) HYPERTENSION 12/28/2016 SIERRA ENMAORADOELE R SCHEDULE MANAGER Ot R06.83 SNORING 12/28/2016 ENAMORADOPATTIE R SCHEDULE MANAGER Ot Z68.44 BODY MASS INDEX (BMI) 60.0-69.9, ADULT 12/31/2016 ENAMORADOPATTIE R SCHEDULE MANAGER Ot E03.9 HYPOTHYROIDISM, UNSPECIFIED 12/31/2016 ENAMORADOPATTIE R SCHEDULE MANAGER Ot E78.1 PURE HYPERGLYCERIDEMIA 12/31/2016 ENAMORADOPATTIE R SCHEDULE MANAGER Ot E88.81 METABOLIC SYNDROME 12/31/2016 FEI PATTIE R SCHEDULE MANAGER Ot F41.8 OTHER SPECIFIED ANXIETY DISORDERS 12/31/2016 FEI PATTIE R SCHEDULE MANAGER Ot G47.19 OTHER HYPERSOMNIA 12/31/2016 ENAMORADOPATTIE R SCHEDULE MANAGER Ot I10 ESSENTIAL (PRIMARY) HYPERTENSION 12/31/2016 SIERRA ENAMORADOELE R SCHEDULE MANAGER Ot R06.83 SNORING 12/31/2016 PATTIE ENAMORADO R SCHEDULE MANAGER Ot Z68.44 BODY MASS INDEX (BMI) 60.0-69.9, ADULT 01/06/2017 BRISA LOPEZ SCHEDULE MANAGER Ot R07.9 CHEST PAIN, UNSPECIFIED 01/06/2017 Ot [...] SERUM ENZY LEVEL NEC 01/06/2017 PATTIE ENAMORADO SCHEDULE MANAGER Ot R10.11 RIGHT UPPER QUADRANT PAIN 01/06/2017 PATTIE ENAMORADO SCHEDULE MANAGER Ot R10.13 EPIGASTRIC PAIN 01/06/2017 PATTIE ENAMORADO R SCHEDULE MANAGER Ot R10.2 PELVIC AND PERINEAL PAIN 01/06/2017 PATTIE ENAMORADO SCHEDULE MANAGER Ot N63 UNSPECIFIED LUMP IN BREAST 01/06/2017 BRISA LOPZE SCHEDULE MANAGER Ot R07.9 CHEST PAIN, UNSPECIFIED 01/15/2017 BRISA LOPEZ SCHEDULE MANAGER Ot R07.9 CHEST PAIN, UNSPECIFIED 02/12/2017 BRISA LOPEZ SCHEDULE MANAGER Ot R07.9 CHEST PAIN, UNSPECIFIED 02/12/2017 Ot [...] SERUM ENZY LEVEL NEC 02/12/2017 PATTIE ENAMORADO SCHEDULE MANAGER Ot R10.11 RIGHT UPPER QUADRANT PAIN 02/12/2017 PATTIE ENAMORADO SCHEDULE MANAGER Ot R10.13 EPIGASTRIC PAIN 02/12/2017 PATTIE ENAMORADO SCHEDULE MANAGER Ot R10.2 PELVIC AND PERINEAL PAIN 02/12/2017 PATTIE ENAMORADO SCHEDULE MANAGER Ot N63 UNSPECIFIED LUMP IN BREAST 02/12/2017 BRISA LOPEZ SCHEDULE MANAGER Ot R07.9 CHEST PAIN, UNSPECIFIED 02/14/2017 GISSEL [...] OF MICTURITION 04/16/2017 JESSICA GALLEGOS Ot Z79.84 SHELTER (CURRENT) USE OF ORAL HYPOGLYC 04/16/2017 JESSICA [...] OF MICTURITION 04/18/2017 JESSICA GALLEGOS Ot Z79.84 COLORIST (CURRENT) USE OF ORAL HYPOGLYC 04/18/2017 JESSICA [...] Ot R07.89 OTHER CHEST PAIN 04/30/2017 ESTEFANY DOWNEY MD Ot E03.9 HYPOTHYROIDISM, UNSPECIFIED 04/30/2017 ESTEFANY [...] ADULT 06/01/2017 AILYN SHAFFER DO Ot Z79.84 SHELTER (CURRENT) USE OF ORAL HYPOGLYC 06/01/2017 AILYN SHAFFER DO Ot Z79.899 OTHER COLORIST (CURRENT) DRUG THERAPY 06/01/2017 AILYN SHAFFER DO Ot Z87.891 PERSONAL HISTORY OF NICOTINE DEPENDENCE 06/01/2017 EDMUND WADSWORTH AILYN Sallie Ot E66.01 MORBID (SEVERE) OBESITY DUE TO EXCESS CA 06/01/2017 EDMUND WADSWORTH AILYN Sallie Ot E78.5 HYPERLIPIDEMIA, UNSPECIFIED 06/01/2017 EDMUND WADSWORTH AILYN K Ot E87.6 HYPOKALEMIA 06/01/2017 EDMUND WADSWORTH AILYN K Ot E89.0 POSTPROCEDURAL HYPOTHYROIDISM 06/01/2017 AILYN SHAFFER DO K Ot I10 ESSENTIAL (PRIMARY) HYPERTENSION 06/01/2017 EDMUND WADSWORTH AILYN K Ot I26.99 OTHER PULMONARY EMBOLISM WITHOUT ACUTE C 06/01/2017 EDMUND WADSWORTH AILYN K Ot K21.9 GASTRO-ESOPHAGEAL REFLUX DISEASE WITHOUT 06/01/2017 EDMUND WADSWORTH AILYN K Ot R73.03 PREDIABETES 06/01/2017 EDMUND WADSWORTH AILYN K Ot Z68.44 BODY MASS INDEX (BMI) 60.0-69.9, ADULT 06/01/2017 EDMUND WADSWORTH AILYN Sallie Ot Z79.84 SHELTER (CURRENT) USE OF ORAL HYPOGLYC 06/01/2017 EDMUND WADSWORTH AILYN Rizo Ot Z79.899 OTHER COLORIST (CURRENT) DRUG THERAPY 06/01/2017 EDMUND WADSWORTH AILYN Sallie Ot Z87.891 PERSONAL HISTORY OF NICOTINE DEPENDENCE 07/31/2017 GISSEL JIANG MD Ot M79.661 PAIN IN RIGHT LOWER LEG 07/31/2017 GISSEL JIANG MD Ot M79.89 OTHER SPECIFIED SOFT TISSUE DISORDERS 07/31/2017 GISSEL JIANG MD Ot R06.02 SHORTNESS OF BREATH 07/31/2017 GISSEL JIANG MD Ot R07.9 CHEST PAIN, UNSPECIFIED 07/31/2017 GISSEL JIANG MD Ot R91.8 OTHER NONSPECIFIC ABNORMAL FINDING OF SAEED 07/31/2017 GISSEL JIANG MD Ot R07.89 OTHER CHEST PAIN 07/31/2017 GISSEL JIANG MD Ot M79.661 PAIN IN RIGHT LOWER LEG 07/31/2017 GISSEL JIANG MD Ot M79.89 OTHER SPECIFIED SOFT TISSUE DISORDERS 07/31/2017 GISSEL JIANG MD Ot R06.02 SHORTNESS OF BREATH 07/31/2017 GISSEL JIANG MD Ot R07.9 CHEST PAIN, UNSPECIFIED 07/31/2017 GISSEL JIANG MD Ot R91.8 OTHER NONSPECIFIC ABNORMAL FINDING OF SAEED 07/31/2017 GISSEL JIANG MD Ot R07.89 OTHER CHEST PAIN 07/31/2017 GISSEL JIANG MD Ot M79.661 PAIN IN RIGHT LOWER LEG 07/31/2017 GISSEL JIANG MD Ot M79.89 OTHER SPECIFIED SOFT TISSUE DISORDERS 07/31/2017 GISSEL JIANG MD Ot R06.02 SHORTNESS OF BREATH 07/31/2017 GISSEL JIANG MD Ot R07.9 CHEST PAIN, UNSPECIFIED 07/31/2017 GISSEL JIANG MD Ot R91.8 OTHER NONSPECIFIC ABNORMAL FINDING OF SAEED 07/31/2017 GISSEL JIANG MD Ot R07.89 OTHER CHEST PAIN 08/01/2017 ESTEFANY DOWNEY MD Ot E07.9 DISORDER OF THYROID, UNSPECIFIED 08/01/2017 ESTEFANY DOWNEY MD Ot E11.9 TYPE 2 DIABETES MELLITUS WITHOUT COMPLIC 08/01/2017 ESTEFANY DOWNEY MD Ot E78.00 PURE HYPERCHOLESTEROLEMIA, UNSPECIFIED 08/01/2017 ESTEFANY DOWNEY MD Ot F32.9 MAJOR DEPRESSIVE DISORDER, SINGLE EPISOD 08/01/2017 ESTEFANY DOWNEY MD Ot F41.9 ANXIETY DISORDER, UNSPECIFIED 08/01/2017 ESTEFANY DOWNEY MD Ot G43.909 MIGRAINE, UNSP, NOT INTRACTABLE, WITHOUT 08/01/2017 ESTEFANY DOWNEY MD Ot G47.30 SLEEP APNEA, UNSPECIFIED 08/01/2017 ESTEFANY DOWNEY MD Ot I10 ESSENTIAL (PRIMARY) HYPERTENSION 08/01/2017 ESTEFANY DOWNEY MD Ot I26.99 OTHER PULMONARY EMBOLISM WITHOUT ACUTE C 08/01/2017 ESTEFANY DOWNEY MD Ot J11.1 FLU DUE TO UNIDENTIFIED INFLUENZA VIRUS 08/01/2017 ESTEFANY DOWNEY MD Ot K21.9 GASTRO-ESOPHAGEAL REFLUX DISEASE WITHOUT 08/01/2017 SHAYAN COHEN, ESTEFANY Rangel Ot R09.81 NASAL CONGESTION 08/01/2017 SHAYAN COHEN, ESTEFANY Rangel Ot Z79.84 COLORIST (CURRENT) USE OF ORAL HYPOGLYC 08/01/2017 ESTEFANY DOWNEY MD, Ot Z87.891 PERSONAL HISTORY OF NICOTINE DEPENDENCE 08/01/2017 ESTEFANY DOWNEY MD, Ot Z90.710 ACQUIRED ABSENCE OF BOTH CERVIX AND UTER 08/01/2017 ESTEFANY DOWNEY MD, Ot Z90.89 ACQUIRED ABSENCE OF OTHER ORGANS 08/01/2017 ESTEFANY DOWNEY MD, Ot Z98.51 TUBAL LIGATION STATUS Procedures Code Description [place] [address] THERAPUTIC INJ SQ/IM 04/07/2012 [id number] TORADOL INJ 04/07/2012 J2550 PHENERGAN INJECTION UP TO 50 MG 04/07/2012 35297 ROUTINE VENIPUNCTURE 06/15/2012 46610 TSH 06/15/2012 45909 A1C (IN-HOUSE) 06/15/2012 09987 CMP 06/16/2012 [id number] GFR CALC (RESULT ONLY) 06/16/2012 42226 ROUTINE VENIPUNCTURE 09/04/2012 30409 US LOWER EXTREMITY ULTRASOUND 09/04/2012 20169 CMP 09/04/2012 61434 TSH 09/04/2012 38155 CBC 09/04/2012 78337 US LIVER/SPLEEN ULTRASOUND 09/07/2012 PHYSI PHYSICAL THERAPY, VIA RONY 09/17/2012 ADENIKE FERGUSON 11/06/2012 00996 ROUTINE VENIPUNCTURE 04/22/2013 12158 CMP 04/22/2013 41790 URIC ACID 04/22/2013 95189 LIPID PANEL 04/22/2013 [id number] GFR CALC (RESULT ONLY) 04/22/2013 47165 TSH 04/22/2013 22986 HEPATITIS PROFILE 04/27/2013 28073 ROUTINE VENIPUNCTURE 05/24/2014 29479 CMP 05/24/2014 63705 TSH 05/24/2014 54905 A1C (IN-HOUSE) 05/24/2014 34939 INJECT SACROILIAC JOINT 05/24/2014 [id number] DRAINAGE OF SPINAL CANAL, PERCUTANEOUS A 02/11/2017 [...] OF GROWTH Isolated NRG Bacterial blood culture [id number] NR Serum or plasma lactate measurement (moles/volume) - [...] Manual cerebrospinal fluid polymorphonuclear cells/100 leukocytes TNP NRG Cerebrospinal fluid cell count on specimen from [...] rickettsii IgG antibody assay (units/volume) < <1:16 Wise spotted fever panel < <1:10 Francisella tularensis [...] resistant Staphylococcus aureus (MRSA) screening culture NEG [facility] Whole blood basic metabolic panel - 06/01/17 [...] plasma calcium measurement (mass/volume) 7.8 mg/dL 8.5-10.1 Complete blood count (CBC) with automated white blood cell (WBC) differential - 07/30/17 21:05 Blood leukocytes automated count (number/volume) 9.4 10*3/uL 4.3-11.0 Blood erythrocytes automated count (number/volume) 4.58 10*6/uL 4.35-5.85 Venous blood hemoglobin measurement (mass/volume) 14.3 g/dL 11.5-16.0 Blood hematocrit (volume fraction) 42 % 35-52 Automated erythrocyte mean corpuscular volume 92 [foz_us] 80-99 Automated erythrocyte mean corpuscular hemoglobin (mass per erythrocyte) 31 pg 25-34 Automated erythrocyte mean corpuscular hemoglobin concentration measurement ( mass/volume) 34 g/dL 32-36 Automated erythrocyte distribution width ratio 14.6 % 10.0-14.5 Automated blood platelet count (count/volume) 377 10*3/uL 130-400 Automated blood platelet mean volume measurement 9.5 [foz_us] 7.4-10.4 Automated blood neutrophils/100 leukocytes 63 % 42-75 Automated blood lymphocytes/100 leukocytes 28 % 12-44 Blood monocytes/100 leukocytes 6 % 0-12 Automated blood eosinophils/100 leukocytes 3 % 0-10 Automated blood basophils/100 leukocytes 0 % 0-10 Blood neutrophils automated count (number/volume) 5.9 10*3 1.8-7.8 Blood lymphocytes automated count (number/volume) 2.6 10*3 1.0-4.0 Blood monocytes automated count (number/volume) 0.5 10*3 0.0-1.0 Automated eosinophil count 0.3 10*3/uL 0.0-0.3 Automated blood basophil count (count/volume) 0.0 10*3/uL 0.0-0.1 Comprehensive metabolic panel - 07/30/17 21:05 Serum or plasma sodium measurement (moles/volume) 138 mmol/L 135-145 Serum or plasma potassium measurement (moles/volume) 4.7 mmol/L 3.6-5.0 Serum or plasma chloride measurement (moles/volume) 102 mmol/L 98-107 Carbon dioxide 23 mmol/L 21-32 Serum or plasma anion gap determination (moles/volume) 13 mmol/L 5-14 Serum or plasma urea nitrogen measurement (mass/volume) 20 mg/dL 7-18 Serum or plasma creatinine measurement (mass/volume) 0.72 mg/dL 0.60-1.30 Serum or plasma urea nitrogen/creatinine mass ratio 28 NRG Serum or plasma creatinine measurement with calculation of estimated glomerular filtration rate > NRG Serum or plasma glucose measurement (mass/volume) 100 mg/dL 70-105 Serum or plasma calcium measurement (mass/volume) 9.4 mg/dL 8.5-10.1 Serum or plasma total bilirubin measurement (mass/volume) 0.5 mg/dL 0.1-1.0 Serum or plasma alkaline phosphatase measurement (enzymatic activity/volume) 70 U/L 40-136 Serum or plasma aspartate aminotransferase measurement (enzymatic activity/ volume) 118 U/L 5-34 Serum or plasma alanine aminotransferase measurement (enzymatic activity/volume ) 85 U/L 0-55 Serum or plasma protein measurement (mass/volume) 8.4 g/dL 6.4-8.2 Serum or plasma albumin measurement (mass/volume) 4.1 g/dL 3.2-4.5 Magnesium - 07/30/17 21:05 Magnesium 2.2 mg/dL 1.8-2.4 Serum or plasma troponin i.cardiac measurement (mass/volume) - 07/30/17 21:05 Serum or plasma troponin i.cardiac measurement (mass/volume) < ng/ mL <0.30 Serum or plasma lithium measurement (moles/volume) - 07/30/17 21:05 BNP level < pg/mL <100.0 THYROID STIMULATING HORMONE - 07/30/17 21:05 THYROID STIMULATING HORMONE 34.82 u[iU]/mL 0.35-4.94 Serum or plasma thyroxine (T4) free measurement (mass/volume) - 07/30/17 21:05 Serum or plasma thyroxine (T4) free measurement (mass/volume) 0.91 ng/dL 0.70-1.48 Serum or plasma C reactive protein measurement (mass/volume) - 07/30/17 21:05 Serum or plasma C reactive protein measurement (mass/volume) 2.13 mg /dL 0.00-0.50 Influenza virus A and B antigen detection - 07/30/17 21:23 FLU RESULT NEGATIVE FOR INFLUENZA A AND B ANTIGENS BY IA NRG Encounters ACCT No. Visit Date/Time Discharge Status Pt. Type Provider Facility Loc./Unit Complaint [id number] 08/16/2014 10:07:00 08/16/2014 23:59:59 CLS Outpatient SHAFFER AILYN K [id number] 05/24/2014 09:03:00 05/24/2014 23:59:59 CLS Outpatient EDMUND WADSWORTH AILYN Sallie [id number] 11/27/2013 14:25:00 11/27/2013 23:59:59 CLS Outpatient AILYN SHAFFER DO [id number] 04/22/2013 11:04:00 04/22/2013 23:59:59 CLS Outpatient EDMUND [facility]ADSWORTH AILYN Sallie [id number] 09/17/2012 13:41:00 09/17/2012 23:59:59 CLS Outpatient SHAFFER DO AILYN K [id number] 09/04/2012 10:22:00 09/04/2012 23:59:59 CLS Outpatient SHAFFER DO AILYN Sallie [id number] 06/15/2012 16:23:00 06/15/2012 23:59:59 CLS Outpatient EDMUND WADSWORTH AILYN K [id number] 04/07/2012 16:22:00 04/07/2012 23:59:59 CLS Outpatient AILYN SHAFFER DO [id number] 12/03/2012 13:28:00 Document Registration [id number] 11/06/2012 14:25:00 Document Registration [id number] 07/30/2017 19:35:00 07/30/2017 22:30:00 DIS Outpatient SHAYAN COHEN, ESTEFANY Rangel [facility] ER CHILLS;ABD PAIN; COUGH [id number] 07/10/2017 15:00:00 07/10/2017 23:59:59 CLS Preadmit PATTIE ENAMORADO APRN [facility] RAD PELVIC PAIN [id number] 05/30/2017 19:45:00 06/01/2017 18:48:00 DIS Inpatient AILYN SHAFFER DO Via [facility] 4TH BILATERAL PULMONARY EMBOLI [id number] 04/28/2017 14:16:00 04/28/2017 19:37:00 DIS Emergency ESTEFANY DOWNEY MD [facility] ER HEADACHE, ABD PAIN, BACK PAIN,N/V [id number] 04/16/2017 20:42:00 04/16/2017 23:45:00 DIS Emergency JESSICA GALLEGOS [facility] ER LOWER BACK/PELVIC PAINS,HEART PALPITATIONS,CHILLS [id number] 03/04/2017 12:26:00 03/04/2017 23:59:59 CLS Outpatient GISSEL JIANG MD [facility] CARD CHEST DISCOMFORT [id number] 02/20/2017 11:33:00 02/20/2017 23:59:59 CLS Outpatient GISSEL JIANG MD [facility] RAD M79.661 PAIN IN R LOWER LEG [id number] 02/11/2017 23:45:00 02/14/2017 18:40:00 DIS Inpatient GISSEL JIANG MD [facility] 4TH R PERIHILAR PNEUMONIA, SEPSIS,R/O MENINGITIS [id number] 01/03/2017 18:02:00 01/03/2017 23:59:59 CLS Outpatient BRISA LOPEZ SCHEDULE MANAGER [facility] LAB CHEST PAIN [id number] 12/27/2016 19:15:00 12/28/2016 06:10:00 DIS Outpatient PATTIE ENAMORADO SCHEDULE MANAGER [facility] SLEEP SLEEP DISTURBANCE [id number] 11/02/2016 21:06:00 11/02/2016 23:49:00 DIS Emergency EILEEN PIKE SCHEDULE MANAGER [facility] ER L SIDE ABD PAIN [id number] 08/19/2016 19:58:00 08/19/2016 22:30:00 DIS Emergency EILEEN PIKE SCHEDULE MANAGER [facility] ER STOMACH PAIN/NAUSEA [id number] 07/26/2016 08:39:00 07/26/2016 23:59:59 CLS Outpatient PATTIE ENAMORADO SCHEDULE MANAGER [facility] RAD PAINFUL LUMP [id number] 10/19/2015 07:59:00 10/20/2015 16:05:00 DIS Outpatient BETY WADSWORTH MIYA Anyi [facility] SDC CHONIC PELVIC PAIN [id number] 10/11/2015 09:50:00 10/11/2015 10:35:00 DIS Outpatient BETY DO MIYA De Santiago [facility] PREOP CHRONIC PELVIC PAIN [id number] 10/06/2015 23:42:00 10/07/2015 00:48:00 DIS Emergency PAVAN TANGELA WADSWORTH [facility] ER ABD BACK PAIN [id number] 2015 10:27:00 2015 23:59:59 CLS Outpatient PATTIE ENAMORADO SCHEDULE MANAGER [facility] RAD PELVIC PAIN [id number] 06/02/2015 10:43:00 06/02/2015 23:59:59 CLS Outpatient PATTIE ENAMORADO SCHEDULE MANAGER [facility] RAD ABD PAIN [id number] 05/21/2015 21:56:00 05/22/2015 00:33:00 DIS Emergency PATI APONTE DO [facility] ER BP HIGH [id number] 05/17/2015 20:30:00 05/17/2015 22:57:00 DIS Emergency TANGELA BROWNE DO [facility] ER CHEST PAIN [id number] 02/23/2015 20:03:00 02/23/2015 22:05:00 DIS Emergency PATI APONTE DO [facility] ER BACK PAIN [id number] 12/29/2014 07:24:00 12/29/2014 23:59:59 CLS Outpatient BRIDGETTE JETER DO [facility] RAD RUQ PAIN,ELEVATED LIVER TEST [id number] 12/09/2014 07:58:00 12/09/2014 23:59:59 CLS Outpatient BRIDGETTE JETER DO [facility] RAD PAIN IN RT FLANK, ELEVATED LIVER ENZYMES [id number] 12/01/2014 08:36:00 12/01/2014 23:59:59 CLS Outpatient BRIDGETTE JETER DO [facility] LAB ELEVATED LIVER ENZYMES [id number] 11/24/2014 11:07:00 11/24/2014 14:37:00 DIS Emergency STACY KELLER MD [facility] ER L ARM PAIN [id number] 11/23/2014 09:55:00 11/23/2014 23:59:59 CLS Outpatient BRIDGETTE JETER DO [facility] LAB HYPOTHYROID [id number] 06/16/2014 16:21:00 06/16/2014 20:38:00 DIS Emergency PATI APONTE DO [facility] ER HEADACHE [id number] 06/15/2014 17:23:00 06/15/2014 19:36:00 DIS Emergency SHAYAN COHEN, ESTEFANY Rangel [facility] ER ABD PAIN,DIARRHEA, FEVER [id number] 01/06/2014 18:41:00 01/06/2014 22:33:00 DIS Emergency TANGELA BROWNE DO [facility] ER ABD PAIN [id number] 05/18/2013 18:45:00 05/18/2013 20:54:00 DIS Emergency ESTEFANY DOWNEY MD [facility] ER MULTIPLE COMPLAINTS [id number] 12/28/2014 09:48:00 Document Registration [id number] 09/21/2014 14:52:00 Document Registration [id number] 10/26/2012 20:46:00 Document Registration [id number] 10/22/2012 08:01:00 Document Registration [id number] 09/14/2012 09:47:00 Document Registration [id number] 09/25/2011 12:48:00 Document Registration [id number] 11/06/2010 14:02:00 Document Registration [id number] 06/01/2010 21:55:00 Document Registration
[2017-09-05 00:43] LABS: BILIRUBIN,URINE NEGATIVE (NEGATIVE); CLARITY,URINE SLIGHTLY CLOUDY; COLOR,URINE YELLOW; GLUCOSE, URINE (UA) NEGATIVE (NEGATIVE); KETONES,URINE NEGATIVE (NEGATIVE); LEUKOCYTE ESTERASE ,URINE NEGATIVE (NEGATIVE); NITRITE,URINE NEGATIVE (NEGATIVE); PH,URINE 6 (5-9); PROTEIN,URINE NEGATIVE (NEGATIVE); UROBILINOGEN,URINE NORMAL (NORMAL)
[2017-09-05 00:56] LABS: BASOPHILS # (AUTO) 0.1 10^3/uL (0.0-0.1); BASOPHILS % (AUTO) 1 % (0-10); EOSINOPHILS # (AUTO) 0.3 10^3/uL (0.0-0.3); EOSINOPHILS % (AUTO) 3 % (0-10); HEMATOCRIT 41 % (35-52); HEMOGLOBIN 14.2 G/DL (11.5-16.0); LYMPHOCYTES # (AUTO) 3.4 X 10^3 (1.0-4.0); LYMPHOCYTES % (AUTO) 37 % (12-44); MEAN CORPUSCULAR HEMOGLOBIN 32 PG (25-34); MEAN CORPUSCULAR HGB CONC 35 G/DL (32-36); MEAN CORPUSCULAR VOLUME 92 FL (80-99); MEAN PLATELET VOLUME 9.7 FL (7.4-10.4); MONOCYTES # (AUTO) 0.7 X 10^3 (0.0-1.0); MONOCYTES % (AUTO) 7 % (0-12); NEUTROPHILS # (AUTO) 4.8 X 10^3 (1.8-7.8); NEUTROPHILS % (AUTO) 52 % (42-75); PLATELET COUNT 391 10^3/uL (130-400); RED BLOOD COUNT 4.48 10^6/uL (4.35-5.85); WHITE BLOOD COUNT 9.2 10^3/uL (4.3-11.0)
[2017-09-05 00:57] LABS: BACTERIA,URINE TRACE /HPF; SQUAMOUS EPITHELIAL CELL,UR 25-50 /HPF
[2017-09-05 01:07] LABS: ALANINE AMINOTRANSFERASE 66 U/L (0-55); ALKALINE PHOSPHATASE 70 U/L (40-136); BILIRUBIN,TOTAL 0.4 MG/DL (0.1-1.0); BUN/CREATININE RATIO 24; CALCIUM 9.5 MG/DL (8.5-10.1); CARBON DIOXIDE 23 MMOL/L (21-32); CHLORIDE 105 MMOL/L (98-107); GFR ESTIMATED > 60; GLUCOSE 130 MG/DL (70-105); POTASSIUM 3.7 MMOL/L (3.6-5.0); SODIUM 140 MMOL/L (135-145); TOTAL PROTEIN 7.8 GM/DL (6.4-8.2)
[2017-09-05 01:08] LABS: PROTHROMBIN TIME PATIENT 13.7 SEC (12.2-14.7)
[2017-09-05 01:11] LABS: FIBRIN DEGRADATION PRODUCTS 0.29 UG/ML (0.00-0.49)
[2017-09-05 01:28] LABS: FREE T4 (FREE THYROXINE) 1.15 NG/DL (0.70-1.48)
--- NOTE | 2017-09-05 01:34 | ED General ---
General Chief Complaint: General Problems/Pain Stated Complaint: CHEST PRESSURE,SOB,VALERIO,VISION CHANGES-BLURRY Nursing Triage Note: PT PRESENTS TO ER FROM HOME WITH COMPLAINT OF SOB, CHEST PRESSURE, MIGRAINE, AND CONFUSION WHEN SHES HAVING A CONVERSATION X1 WEEK. STATES SHE SAW HER PCP TODAY FOR SYMPTOMS. STATES THIS IS HOW SHE FELT WHENEVER SHE HAD A PULMONARY EMBOLI. Nursing Sepsis Screen: No Definite Risk Source of Information: Patient Exam Limitations: No Limitations History of Present Illness Date Seen by Provider: Sep 05, 2017 Time Seen by Provider: 00:14 Initial Comments This 37-year-old woman presents to the emergency room with complaints of symptoms since Friday that include shortness of breath, chest pressure, headache , blurry vision and seeing spots, palpitations, and a brief episode of left- sided facial paresthesia. She saw Jia Corea at [facility] yesterday who advised her to come to the emergency room if symptoms persisted. She is presently on Eliquis for treatment of PE but she missed several doses last week when she misplaced her bottle of pills. She reports good compliance with her other medications. She is worried tonight that she is having a recurrence of PE. Chest pressure is mild and located in the upper chest. It is unchanged by position, activity, deep breathing, etc. Allergies and Home Medications Allergies Coded Allergies: No Known Drug Allergies (Unverified , 06/01/10) Home Medications Apixaban 5 Mg Tablet, 10 MG PO BID for 90 Days Dose: 2.5mg tablet - take 4 tablets (10mg) twice daily for 5 more days ( total of 7 days) then take 2 tablets (5mg) twice daily for 3-6 months Prescribed by: AILYN SHAFFER on 06/01/17 1118 Atorvastatin Calcium 10 Mg Tablet, 10 MG PO HS, (Reported) Ergocalciferol (Vitamin D2) 50,000 Unit Capsule, 500,000 UNITS UD, (Reported) Fenofibrate 54 Mg Tablet, 54 MG PO HS, (Reported) Hydrochlorothiazide 25 Mg Tablet, 25 MG PO HS, (Reported) Hydrocodone Bit/Acetaminophen 1 Each Tablet, 1 TAB PO BID PRN for PAIN-MODERATE, (Reported) 1 TAB IN AM, 2 AT BEDTIME Ibuprofen 200 Mg Tablet, 800 MG PO TID, (Reported) Levothyroxine Sodium 125 Mcg Tablet, 250 MCG PO HS, #30 Ref 0 have TSH rechecked after taking 250mcg for 3-4 weeks. Prescribed by: AILYN SHAFFER on 06/01/17 1118 Lisinopril 20 Mg Tablet, 20 MG PO HS, (Reported) Metformin HCl 500 Mg Tab.er.24h, 500 MG PO BID, (Reported) Metoprolol Succinate 25 Mg Tab.er.24h, 25 MG PO HS, (Reported) Naltrexone HCl/Bupropion HCl 1 Each Tablet.er, 2 EACH PO BID, (Reported) Venlafaxine HCl 75 Mg Cap.er.24h, 75 MG PO HS, (Reported) Constitutional: no symptoms reported EENTM: no symptoms reported Respiratory: see HPI Cardiovascular: see HPI Gastrointestinal: no symptoms reported Genitourinary: no symptoms reported : No Musculoskeletal: no symptoms reported Skin: no symptoms reported Psychiatric/Neurological: See HPI Hematologic/Lymphatic: No Symptoms Reported Past Zdsjzja-Tejgca-Mehjij Hx Patient Social History Alcohol Use: Occasionally Uses Number of Drinks Today: AA Alcohol Beverage of Choice: Beer Recreational Drug Use: No Smoking Status: Former Smoker Type Used: Cigarettes Former Smoker, Quit: Sep 11, 2010 2nd Hand Smoke Exposure: No Recent Foreign Travel: No Contact w/Someone Who Travel: No Recent Infectious Disease Expo: No Recent Hopitalizations: Yes (PE's) Immunizations Up To Date Tetanus Booster (TDap): Unknown PED Vaccines UTD: No Date of Influenza Vaccine: Jul 04, 2017 Seasonal Allergies Seasonal Allergies: No Surgeries History of Surgeries: Yes (HEART CATH negative in 2012) Surgeries: Hysterectomy, Thyroidectomy, Tubal Ligation Respiratory History of Respiratory Disorde: Yes Respiratory Disorders: Pulmonary Embolism Cardiovascular History of Cardiac Disorders: Yes Cardiac Disorders: High Cholesterol, Hypertension, Palpitations Neurological History of Neurological Disord: Yes Neurological Disorders: Headaches /Migraines Reproductive System Hx Reproductive Disorders: Yes Sexually Transmitted Disease: No HIV/AIDS: No Female Reproductive Disorders: 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 Genitourinary History of Genitourinary Disor: No Gastrointestinal History of Gastrointestinal Di: Yes Gastrointestinal Disorders: Gastroesophageal Reflux Musculoskeletal History of Musculoskeletal Dis: Yes Musculoskeletal Disorders: Chronic Back Pain Endocrine History of Endocrine Disorders: Yes (Morbid obesity) Endocrine Disorders: Hypothyroidsim, Diabetes, Non-Insulin dep HEENT History of HEENT Disorders: Yes Loss of Vision: Bilateral Hearing Impairment: Denies Cancer History of Cancer: No Psychosocial History of Psychiatric Problem: Yes Behavioral Health Disorders: Anxiety, Depression Integumentary History of Skin or Integumenta: No Blood Transfusions History of Blood Disorders: No Adverse Reaction to a Blood Tr: No Family Medical History Significant Family History: No Pertinent Family Hx, Seizures Family Medial History: Diabetes mellitus 19 MOTHER Hypertension 19 MOTHER Seizure disorder G8 BROTHER G8 SISTER Physical Exam Vital Signs Vital Signs - First Documented 09/05/17 00:06 Temp 98.0 Pulse 88 Resp 18 B/P (MAP) 162/111 (128) Pulse Ox 98 O2 Delivery Room Air Capillary Refill : Less Than 3 Seconds General Appearance: No Apparent Distress, WD/WN, Obese HEENT: PERRL/EOMI, Normal ENT Inspection Neck: Normal Inspection Respiratory: Lungs Clear, Normal Breath Sounds, No Accessory Muscle Use, No Respiratory Distress Cardiovascular: Regular Rate, Rhythm, No Edema, No Murmur Gastrointestinal: Normal Bowel Sounds, Non Tender, Soft Extremity: Normal Inspection, No Calf Tenderness, No Pedal Edema, Other ( negative Janeen) Neurologic/Psychiatric: Alert, Oriented x3, No Motor/Sensory Deficits, Normal Mood/Affect, ophthalmic medical assistant II-XII Norm as Tested Skin: Normal Color, Warm/Dry Progress/Results/Core Measures Suspected Sepsis Recent Fever Within 48 Hours: No Infection Criteria Present: None New/Unexplained Altered Menta: No Sepsis Screen: No Definite Risk Sepsis Diagnosis: SIRS Temperature:98.0 Pulse: 88 Respiratory Rate: 18 Laboratory Tests 09/05/17 00:30: White Blood Count 9.2 Blood Pressure 162 /111 Mean: 128 Laboratory Tests 09/05/17 00:30: Creatinine 0.70, INR Comment 1.0, Platelet Count 391, Total Bilirubin 0.4 Results/Orders Lab Results Laboratory Tests Test 09/05/17 00:30 09/05/17 00:38 Range/Units White Blood Count 9.2 4.3-11.0 10^3/uL Red Blood Count 4.48 4.35-5.85 10^6/uL Hemoglobin 14.2 11.5-16.0 G/DL Hematocrit 41 35-52 % Mean Corpuscular Volume 92 80-99 FL Mean Corpuscular Hemoglobin 32 25-34 PG Mean Corpuscular Hemoglobin Concent 35 32-36 G/DL Red Cell Distribution Width 14.0 10.0-14.5 % Platelet Count 391 130-400 10^3/uL Mean Platelet Volume 9.7 7.4-10.4 FL Neutrophils (%) (Auto) 52 42-75 % Lymphocytes (%) (Auto) 37 12-44 % Monocytes (%) (Auto) 7 0-12 % Eosinophils (%) (Auto) 3 0-10 % Basophils (%) (Auto) 1 0-10 % Neutrophils # (Auto) 4.8 1.8-7.8 X 10^3 Lymphocytes # (Auto) 3.4 1.0-4.0 X 10^3 Monocytes # (Auto) 0.7 0.0-1.0 X 10^3 Eosinophils # (Auto) 0.3 0.0-0.3 10^3/uL Basophils # (Auto) 0.1 0.0-0.1 10^3/uL Prothrombin Time 13.7 12.2-14.7 SEC INR Comment 1.0 0.8-1.4 Activated Partial Thromboplast Time 31 24-35 SEC D-Dimer 0.29 0.00-0.49 UG/ML Sodium Level 140 135-145 MMOL/L Potassium Level 3.7 3.6-5.0 MMOL/L Chloride Level 105 98-107 MMOL/L Carbon Dioxide Level 23 21-32 MMOL/L Anion Gap 12 5-14 MMOL/L Blood Urea Nitrogen 17 7-18 MG/DL Creatinine 0.70 0.60-1.30 MG/DL Estimat Glomerular Filtration Rate > 60 BUN/Creatinine Ratio 24 Glucose Level 130 H 70-105 MG/DL Calcium Level 9.5 8.5-10.1 MG/DL Total Bilirubin 0.4 0.1-1.0 MG/DL Aspartate Amino Transf (AST/SGOT) 76 H 5-34 U/L Alanine Aminotransferase (ALT/SGPT) 66 H 0-55 U/L Alkaline Phosphatase 70 40-136 U/L Troponin I < 0.30 <0.30 NG/ML B-Type Natriuretic Peptide 10.2 <100.0 PG/ML Total Protein 7.8 6.4-8.2 GM/DL Albumin 4.0 3.2-4.5 GM/DL Thyroid Stimulating Hormone (TSH) 12.11 H 0.35-4.94 UIU/ML Free Thyroxine 1.15 0.70-1.48 NG/DL Urine Color YELLOW Urine Clarity SLIGHTLY CLOUDY Urine pH 6 5-9 Urine Specific Fossil 1.020 1.016-1.022 Urine Protein NEGATIVE NEGATIVE Urine Glucose (UA) NEGATIVE NEGATIVE Urine Ketones NEGATIVE NEGATIVE Urine Nitrite NEGATIVE NEGATIVE Urine Bilirubin NEGATIVE NEGATIVE Urine Urobilinogen NORMAL NORMAL MG/DL Urine Leukocyte Esterase NEGATIVE NEGATIVE Urine RBC (Auto) NEGATIVE NEGATIVE Urine RBC NONE /HPF Urine WBC NONE /HPF Urine Squamous Epithelial Cells 25-50 H /HPF Urine Crystals NONE /LPF Urine Bacteria TRACE /HPF Urine Casts NONE /LPF Urine Mucus NEGATIVE /LPF Urine Culture Indicated NO My Orders Orders - ESTEFANY DOWNEY MD Cbc With Automated Diff (09/05/17 00:15) Comprehensive Metabolic Panel (09/05/17 00:15) Ua Culture If Indicated (09/05/17 00:15) Chest Pa/Lat (2 View) (09/05/17 00:15) Saline Lock/Iv-Start (09/05/17 00:15) Thyroid Stimulating Hormone (09/05/17 00:15) Free T4 (Free Thyroxine) (09/05/17 00:15) BNP (09/05/17 00:26) Fibrin Degradation Products (09/05/17 00:26) Protime With Inr (09/05/17 00:26) Partial Thromboplastin Time (09/05/17 00:26) Troponin I (09/05/17 00:26) Ekg Tracing (09/05/17 00:26) Monitor-Rhythm Ecg Trace Only (09/05/17 00:26) Albuterol/Ipra Inhalation Soln (Duoneb I (09/05/17 01:45) Svn Sm Volume Nebulizer Rt-Rfs (09/05/17 01:44) Lidocaine 2% Viscous 15 Ml (Xylocaine Vi (09/05/17 02:15) Antacid Suspension (Mylanta Suspension (09/05/17 02:15) Ketorolac Injection (Toradol Injection) (09/05/17 02:45) Medications Given in ED Current Medications Medications Dose Ordered Sig/Elmer Route Start Time Stop Time Status Last Admin Dose Admin Al Hydrox/Mg Hydrox/Simethicone 30 ml ONCE ONCE PO 09/05/17 02:15 09/05/17 02:16 DC 09/05/17 02:08 30 ML Albuterol/ Ipratropium 3 ml ONCE ONCE INH 2/23/18 01:45 09/05/17 01:46 DC 09/05/17 01:55 3 ML Ketorolac Tromethamine 30 mg ONCE ONCE IVP 09/05/17 02:45 09/05/17 02:46 DC 09/05/17 02:46 30 MG Lidocaine HCl 15 ml ONCE ONCE PO 09/05/17 02:15 09/05/17 02:16 DC 09/05/17 02:08 15 ML Vital Signs/I&O Vital Sign - Last 12Hours 09/05/17 09/05/17 09/05/17 00:06 01:55 02:49 Temp 98.0 98.0 Pulse 88 89 Resp 18 23 B/P (MAP) 162/111 (128) 128/79 (128) Pulse Ox 98 94 96 O2 Delivery Room Air Room Air Room Air Capillary Refill : Less Than 3 Seconds Blood Pressure Mean: 128 Progress Note : Progress Note Workup was unremarkable. DuoNeb treatment and GI cocktail were attempted to improve her chest pressure. Neither treatment was effective. Patient was given Toradol for dismissal. Chart was reviewed and she was found to have a negative heart catheter in 2012. Chest pressure was atypical in nature and has been constantly present for 2 days. With a negative troponin and EKG, cardiac workup was considered sufficient. Patient was dismissed with reassurance. She was advised to follow-up with her primary care provider to continue workup. Diagnostic Imaging Diagonstic Imaging: Xray Plain Films/CT/US/NM/MRI: chest Comments Two-view chest x-ray viewed by me. Report not yet available. No acute abnormalities appreciated. Departure Impression Impression: Primary Impression: Atypical chest pain Additional Impressions: Dyspnea Qualified Codes: R06.00 - Dyspnea, unspecified Vision changes Disposition: 01 HOME, SELF-CARE Condition: Stable Departure-Patient Inst. Decision time for Depature: 02:35 Referrals: [facility] (PCP) Primary Care Physician PATTIE ENAMORADO APRN (Family) Primary Care Physician Patient Instructions: Chest Pain Add. Discharge Instructions: Continue with your previously prescribed medications. Do not miss any doses of your blood thinner. Continue to work on weight loss. Return to the ER symptoms worsen. All discharge instructions reviewed with patient and/or family. Voiced understanding. Copy Copies To 1: AILYN HSAFFER JOSHUA T MD Sep 05, 2017 01:34
[2017-09-05] MEDS ORDERED: RT-ALBUTEROL/IPRATROPIUM 3 ML (DUONEB) VIAL INH ONE (01:45)
[2017-09-05] MEDS ORDERED: ANTACID SUSP 30 ML UDC (MYLANTA) PO ONE (02:15)
[2017-09-05] MEDS ORDERED: LIDOCAINE 2% VISCOUS 15 ML UDC PO ONE (02:15)
[2017-09-05] MEDS ORDERED: KETOROLAC 30 MG/ML VIAL IVP ONE (02:45)
[2017-09-05 02:49] VITALS: BP 128/79
--- NOTE | 2017-09-05 07:24 | Diagnostic Imaging Report ---
INDICATION: Chest pressure. COMPARISON: 07/30/2017. FINDINGS: Lungs are clear. Heart and vessels normal. There is no effusion or pneumothorax. IMPRESSION: No acute appearing abnormality. Dictated by: Dictated on workstation # [id number]
== END 2017-09-05 02:50 | disposition home or self-care (01) ==
LOC: EDUNIT# 23:42 → ER 23:47
DX: R07.89 Other chest pain (principal); R06.00 Dyspnea, unspecified; H53.9 Unspecified visual disturbance; E78.00 Pure hypercholesterolemia, unspecified; I10 Essential (primary) hypertension; K21.9 Gastro-esophageal reflux disease without esophagitis; E66.01 Morbid (severe) obesity due to excess calories; E11.9 Type 2 diabetes mellitus without complications; E03.9 Hypothyroidism, unspecified; F41.9 Anxiety disorder, unspecified; F32.9 Major depressive disorder, single episode, unspecified; G43.909 Migraine, unspecified, not intractable, without status migrainosus; Z79.01 Long term (current) use of anticoagulants; Z68.44 Body mass index [BMI] 60.0-69.9, adult; Z86.711 Personal history of pulmonary embolism; Z79.84 Long term (current) use of oral hypoglycemic drugs; Z87.891 Personal history of nicotine dependence; Z90.710 Acquired absence of both cervix and uterus; Z90.89 Acquired absence of other organs; Z98.51 Tubal ligation status
CPT/HCPCS: 36415; 71046; 80053; 81000; 83880; 84439; 84443; 84484; 85025; 85379; 85610; 85730; 93005; 93041; 94640; 96374

== ENCOUNTER 2017-10-09 19:19 | Emergency (ER) | payer SELFPAY ==
[~2017-10-09] VITALS: Ht 167.6 cm; Wt 181.4 kg
--- NOTE | 2017-10-09 21:05 | Diagnostic Imaging Report ---
INDICATION: Knee pain. EXAMINATION: Three views of the left knee were obtained. FINDINGS: There is mild degenerative narrowing in the medial knee joint compartment with some marginal osteophytosis. There is also mild degenerative changes of the patellofemoral joint. There is no fracture or dislocation. There is no joint effusion. Soft tissues are unremarkable. IMPRESSION: Degenerative changes in the medial knee joint compartment and patellofemoral joint, otherwise unremarkable. Dictated by: Dictated on workstation # [id number]
[2017-10-09] MEDS ORDERED: MELO7.5T46 PO (21:19)
--- NOTE | 2017-10-09 21:19 | ED Lower Extremity ---
General Chief Complaint: Lower Extremity Stated Complaint: L KNEE PAIN Nursing Triage Note: Pt c/o L knee pain x 1 month. Pt reports pain is a little worse today. Nursing Sepsis Screen: No Definite Risk Source: patient Exam Limitations: no limitations History of Present Illness Date Seen by Provider: Oct 09, 2017 Time Seen by Provider: 21:16 Initial Comments To ER with left knee pain 1 month worse today. Severity: moderate Pain/Injury Location: left knee Allergies and Home Medications Allergies Coded Allergies: No Known Drug Allergies (Unverified , 06/01/10) Home Medications Apixaban 5 Mg Tablet, 10 MG PO BID Dose: 2.5mg tablet - take 4 tablets (10mg) twice daily for 5 more days ( total of 7 days) then take 2 tablets (5mg) twice daily for 3-6 months Prescribed by: AILYN SHAFFER on 06/01/171117 Atorvastatin Calcium 10 Mg Tablet, 10 MG PO HS, (Reported) Ergocalciferol (Vitamin D2) 50,000 Unit Capsule, 500,000 UNITS UD, (Reported) Fenofibrate 54 Mg Tablet, 54 MG PO HS, (Reported) Hydrochlorothiazide 25 Mg Tablet, 25 MG PO HS, (Reported) Hydrocodone Bit/Acetaminophen 1 Each Tablet, 1 TAB PO BID PRN for PAIN-MODERATE, (Reported) 1 TAB IN AM, 2 AT BEDTIME Ibuprofen 200 Mg Tablet, 800 MG PO TID, (Reported) Levothyroxine Sodium 125 Mcg Tablet, 250 MCG PO HS have TSH rechecked after taking 250mcg for 3-4 weeks. Prescribed by: AILYN SHAFFER on 06/01/17 111 Lisinopril 20 Mg Tablet, 20 MG PO HS, (Reported) Meloxicam 7.5 Mg Tablet, 7.5 MG PO DAILY Prescribed by: EILEEN PIKE on 10/09/172118 Metformin HCl 500 Mg Tab.er.24h, 500 MG PO BID, (Reported) Metoprolol Succinate 25 Mg Tab.er.24h, 25 MG PO HS, (Reported) Naltrexone HCl/Bupropion HCl 1 Each Tablet.er, 2 EACH PO BID, (Reported) Venlafaxine HCl 75 Mg Cap.er.24h, 75 MG PO HS, (Reported) Patient Home Medication List Home Medication List Reviewed: Yes Constitutional: see HPI EENTM: see HPI Respiratory: no symptoms reported Cardiovascular: no symptoms reported Genitourinary: no symptoms reported Musculoskeletal: see HPI Skin: no symptoms reported Psychiatric/Neurological: No Symptoms Reported Past Ascfieo-Aagqrb-Pksfcq Hx Patient Social History Alcohol Beverage of Choice: Beer Type Used: Cigarettes Former Smoker, Quit: Sep 11, 2010 2nd Hand Smoke Exposure: No Recent Foreign Travel: No Contact w/Someone Who Travel: No Recent Infectious Disease Expo: No Recent Hopitalizations: Yes (PE's) Immunizations Up To Date Tetanus Booster (TDap): Unknown PED Vaccines UTD: No Date of Influenza Vaccine: Jul 04, 2017 Seasonal Allergies Seasonal Allergies: No Surgeries History of Surgeries: Yes (HEART CATH negative in 2012) Surgeries: Hysterectomy, Thyroidectomy, Tubal Ligation Respiratory History of Respiratory Disorde: Yes Respiratory Disorders: Pulmonary Embolism Cardiovascular History of Cardiac Disorders: Yes Cardiac Disorders: High Cholesterol, Hypertension, Palpitations Neurological History of Neurological Disord: Yes Neurological Disorders: Headaches /Migraines Reproductive System Hx Reproductive Disorders: Yes Sexually Transmitted Disease: No HIV/AIDS: No Female Reproductive Disorders: 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 Genitourinary History of Genitourinary Disor: No Gastrointestinal History of Gastrointestinal Di: Yes Gastrointestinal Disorders: Gastroesophageal Reflux Musculoskeletal History of Musculoskeletal Dis: Yes Musculoskeletal Disorders: Chronic Back Pain Endocrine History of Endocrine Disorders: Yes (Morbid obesity) Endocrine Disorders: Hypothyroidsim, Diabetes, Non-Insulin dep HEENT History of HEENT Disorders: Yes Loss of Vision: Bilateral Hearing Impairment: Denies Cancer History of Cancer: No Psychosocial History of Psychiatric Problem: Yes Behavioral Health Disorders: Anxiety, Depression Integumentary History of Skin or Integumenta: No Blood Transfusions History of Blood Disorders: No Adverse Reaction to a Blood Tr: No Family Medical History Significant Family History: No Pertinent Family Hx, Seizures Family Medial History: Diabetes mellitus 19 MOTHER Hypertension 19 MOTHER Seizure disorder G8 BROTHER G8 SISTER Physical Exam Vital Signs Vital Signs - First Documented 10/09/17 19:43 Temp 96.7 Pulse 68 Resp 18 B/P (MAP) 146/65 (92) Pulse Ox 98 O2 Delivery Room Air Capillary Refill : Less Than 3 Seconds General Appearance: WD/WN, no apparent distress HEENT: PERRL/EOMI, normal ENT inspection Neck: non-tender, full range of motion Respiratory: no respiratory distress, no accessory muscle use Gastrointestinal: normal bowel sounds, non tender Hips: bilateral hip non-tender, bilateral hip normal inspection, bilateral hip normal range of motion Legs: bilateral leg non-tender, bilateral leg normal inspection, bilateral leg normal range of motion Knees: bilateral knee non-tender, bilateral knee normal inspection, bilateral knee normal range of motion, left knee pain Ankles: bilateral ankle non-tender, bilateral ankle normal inspection, bilateral ankle normal range of motion Feet: bilateral foot non-tender, bilateral foot normal inspection, bilateral foot no evidence of injury Neurologic/Psychiatric: alert, normal mood/affect, oriented x 3 Skin: normal color, warm/dry Progress/Results/Core Measures Results/Orders My Orders Orders - EILEEN PIKE APRN Knee, Left, 3 Views (10/09/17 20:32) Rx-Hydrocodone/Apap 5-325 Mg (Rx-Vicodin (10/09/17 21:45) Vital Signs/I&O Vital Sign - Last 12Hours 10/09/17 19:43 Temp 96.7 Pulse 68 Resp 18 B/P (MAP) 146/65 (92) Pulse Ox 98 O2 Delivery Room Air Blood Pressure Mean: 92 Departure Impression Impression: Primary Impression: Osteoarthritis of knee Disposition: 01 HOME, SELF-CARE Condition: Stable Departure-Patient Inst. Decision time for Depature: 21:17 Referrals: [facility] [place] Primary Care Physician PATTIE ENAMORADO APRN (Family) Primary Care Physician SIMONE MAY MD,IRMA DEAL,FRANCISCO DICKEY,TUNDE GUTIERREZ,MIYA Chowdhury MD Patient Instructions: NO INSTRUCTIONS GIVEN Add. Discharge Instructions: 1. Follow-up with orthopedic surgeon of your choosing to further evaluate the knee. This may require MRI All discharge instructions reviewed with patient and/ or family. Voiced understanding. Scripts Meloxicam (Meloxicam) 7.5 Mg Tablet 7.5 MG PO DAILY, #20 TAB Prov: EILEEN PIKE APRN 10/09/17 EILEEN PIKE APRN Oct 09, 2017 21:19
[2017-10-09] MEDS ORDERED: RX-HYDROCODONE/APAP 5/325 MG #4 TAB PK PO PRN (21:45)
[2017-10-09 21:49] VITALS: BP 0/0
== END 2017-10-09 21:49 | disposition home or self-care (01) ==
LOC: EDUNIT# 19:19 → ER 19:20
DX: M17.12 Unilateral primary osteoarthritis, left knee (principal); E78.00 Pure hypercholesterolemia, unspecified; I10 Essential (primary) hypertension; G43.909 Migraine, unspecified, not intractable, without status migrainosus; K21.9 Gastro-esophageal reflux disease without esophagitis; E03.9 Hypothyroidism, unspecified; E11.9 Type 2 diabetes mellitus without complications; E66.01 Morbid (severe) obesity due to excess calories; F41.9 Anxiety disorder, unspecified; F32.9 Major depressive disorder, single episode, unspecified; Z79.01 Long term (current) use of anticoagulants; Z79.84 Long term (current) use of oral hypoglycemic drugs; Z87.891 Personal history of nicotine dependence; Z90.710 Acquired absence of both cervix and uterus; Z98.51 Tubal ligation status; Z90.89 Acquired absence of other organs; Z86.711 Personal history of pulmonary embolism
CPT/HCPCS: 73562

== ENCOUNTER 2017-10-29 18:40 | Emergency (ER) | payer SELFPAY ==
[~2017-10-29] VITALS: Ht 157.5 cm; Wt 113.4 kg
[~2017-10-29 18:40] MED LIST changes: -METF500T4 PO; +METF500T5 PO
[2017-10-29] MEDS ORDERED: NS IV 1000 ML 1,000 ML IV ONE (19:13)
[2017-10-29] MEDS ORDERED: ONDANSETRON 4 MG/2 ML (SDV) Z0FRAN IVP ONE (19:15)
[2017-10-29] MEDS ORDERED: fentaNYL INJECTION 100 MCG/2 ML AMP IVP ONE (19:15)
--- NOTE | 2017-10-29 19:21 | ED Abdominal Pain ---
General Stated Complaint: ABD PAIN;N/D Source of Information: Patient, Other (Fab) Exam Limitations: No Limitations History of Present Illness Date Seen by Provider: Oct 29, 2017 Time Seen by Provider: 19:10 Initial Comments The patient presents to the ER for chief complaint of abdominal cramping, bloating, pain and diarrhea that gets worse about 2 hours after eating. Her last oral intake was at 1:30 this afternoon about 4:00 she started having cramping pain and diarrhea. Her pain is in her midepigastric region. She has had a hysterectomy but no other surgeries. This started out with just a headache about a week ago and then through 4 days ago she started having the symptoms of abdominal cramping bloating and pain. She was seen by her primary care provider Josie was just a headache and they put her on meloxicam which helped a little with the headache but didn't anything for her current symptoms. She is having nausea but no vomiting. She is on eliquis for an unprovoked pulmonary embolism a few months ago. She has not had any travel outside of the [facility] [place], camping or drinking from unsafe water sources or any other sick contacts. Allergies and Home Medications Allergies Coded Allergies: No Known Drug Allergies (Unverified , 06/01/10) Home Medications Apixaban 5 Mg Tablet, 10 MG PO BID Dose: 2.5mg tablet - take 4 tablets (10mg) twice daily for 5 more days ( total of 7 days) then take 2 tablets (5mg) twice daily for 3-6 months Prescribed by: AILYN SHAFFER on 06/01/17 111 Atorvastatin Calcium 10 Mg Tablet, 10 MG PO HS, (Reported) Ergocalciferol (Vitamin D2) 50,000 Unit Capsule, 500,000 UNITS UD, (Reported) Fenofibrate 54 Mg Tablet, 54 MG PO HS, (Reported) Hydrochlorothiazide 25 Mg Tablet, 25 MG PO HS, (Reported) Hydrocodone Bit/Acetaminophen 1 Each Tablet, 1 TAB PO BID PRN for PAIN-MODERATE, (Reported) 1 TAB IN AM, 2 AT BEDTIME Ibuprofen 200 Mg Tablet, 800 MG PO TID, (Reported) Levothyroxine Sodium 125 Mcg Tablet, 250 MCG PO HS have TSH rechecked after taking 250mcg for 3-4 weeks. Prescribed by: AILYN SHAFFER on 06/01/17 1118 Lisinopril 20 Mg Tablet, 20 MG PO HS, (Reported) Meloxicam 7.5 Mg Tablet, 7.5 MG PO DAILY Prescribed by: EILEEN PIKE on 10/09/172118 Metformin HCl 500 Mg Tab.er.24h, 500 MG PO BID, (Reported) Metoprolol Succinate 25 Mg Tab.er.24h, 25 MG PO HS, (Reported) Naltrexone HCl/Bupropion HCl 1 Each Tablet.er, 2 EACH PO BID, (Reported) Venlafaxine HCl 75 Mg Cap.er.24h, 75 MG PO HS, (Reported) Patient Home Medication List Home Medication List Reviewed: Yes Review of Systems Constitutional: chills; No diaphoresis, No fever; malaise EENTM: No Blurred Vision, No Double Vision Respiratory: Denies Cough, Denies Shortness of Air Cardiovascular: Denies Chest Pain, Denies Palpitations, Denies Syncope Gastrointestinal: Abdomen Distended, Abdominal Pain; Denies Constipated; Diarrhea; Denies Difficulty Swallowing; Nausea, Poor Appetite; Denies Poor Fluid Intake, Denies Vomiting Genitourinary: Denies Burning, Denies Discharge Musculoskeletal: No back pain, No joint pain Skin: No pruritus, No rash Psychiatric/Neurological: Headache; Denies Numbness, Denies Paresthesia Past Qjhycas-Lwenns-Hhriny Hx Patient Social History Alcohol Beverage of Choice: Beer Type Used: Cigarettes Former Smoker, Quit: Sep 11, 2010 2nd Hand Smoke Exposure: No Recent Foreign Travel: No Contact w/Someone Who Travel: No Recent Hopitalizations: Yes (PE's) Immunizations Up To Date Tetanus Booster (TDap): Unknown PED Vaccines UTD: No Date of Influenza Vaccine: Jul 04, 2017 Seasonal Allergies Seasonal Allergies: No Past Medical History Surgeries: Yes (HEART CATH negative in 2012) Hysterectomy, Thyroidectomy, Tubal Ligation Respiratory: Yes Pulmonary Embolism Cardiac: Yes High Cholesterol, Hypertension, Palpitations Neurological: Yes Headaches /Migraines Reproductive Disorders: Yes Female 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 Sexually Transmitted Disease: No HIV/AIDS: No Genitourinary: No Gastrointestinal: Yes Gastroesophageal Reflux Musculoskeletal: Yes Chronic Back Pain Endocrine: Yes (Morbid obesity) Hypothyroidsim, Diabetes, Non-Insulin dep HEENT: Yes Loss of Vision: Bilateral Hearing Impairment: Denies Cancer: No Psychosocial: Yes Anxiety, Depression Integumentary: No Blood Disorders: No Adverse Reaction/Blood Tranf: No Family Medical History Diabetes mellitus 19 MOTHER Hypertension 19 MOTHER Seizure disorder G8 BROTHER G8 SISTER No Pertinent Family Hx, Seizures Physical Exam Vital Signs Capillary Refill : General Appearance: WD/WN, no apparent distress HEENT: PERRL/EOMI, normal ENT inspection, TMs normal, pharynx normal Neck: non-tender, full range of motion, supple, normal inspection Respiratory: chest non-tender, lungs clear, normal breath sounds, no respiratory distress, no accessory muscle use Cardiovascular: normal peripheral pulses, regular rate, rhythm, no edema Peripheral Pulses: 2+ Radial Pulses (R), 2+ Radial Pulses (L) Gastrointestinal: normal bowel sounds, soft; No rebound; tenderness ( midepigastric and right upper quadrant), other (examination limited by obesity. However unable to elicit Ricketts sign or palpate spleen or liver edge.) Extremities: normal range of motion, normal capillary refill Neurologic/Psychiatric: alert, normal mood/affect, oriented x 3 Skin: normal color, warm/dry Progress/Results/Core Measures Lab Results Laboratory Tests Test 10/29/17 19:15 10/29/17 19:20 Range/Units White Blood Count 13.0 H 4.3-11.0 10^3/uL Red Blood Count 4.48 4.35-5.85 10^6/uL Hemoglobin 14.0 11.5-16.0 G/DL Hematocrit 42 35-52 % Mean Corpuscular Volume 94 80-99 FL Mean Corpuscular Hemoglobin 31 25-34 PG Mean Corpuscular Hemoglobin Concent 33 32-36 G/DL Red Cell Distribution Width 13.9 10.0-14.5 % Platelet Count 350 130-400 10^3/uL Mean Platelet Volume 9.7 7.4-10.4 FL Neutrophils (%) (Auto) 59 42-75 % Lymphocytes (%) (Auto) 31 12-44 % Monocytes (%) (Auto) 7 0-12 % Eosinophils (%) (Auto) 2 0-10 % Basophils (%) (Auto) 1 0-10 % Neutrophils # (Auto) 7.7 1.8-7.8 X 10^3 Lymphocytes # (Auto) 4.1 H 1.0-4.0 X 10^3 Monocytes # (Auto) 0.9 0.0-1.0 X 10^3 Eosinophils # (Auto) 0.3 0.0-0.3 10^3/uL Basophils # (Auto) 0.1 0.0-0.1 10^3/uL Sodium Level 142 135-145 MMOL/L Potassium Level 4.4 3.6-5.0 MMOL/L Chloride Level 105 98-107 MMOL/L Carbon Dioxide Level 28 21-32 MMOL/L Anion Gap 9 5-14 MMOL/L Blood Urea Nitrogen 13 7-18 MG/DL Creatinine 0.77 0.60-1.30 MG/DL Estimat Glomerular Filtration Rate > 60 BUN/Creatinine Ratio 17 Glucose Level 94 70-105 MG/DL Calcium Level 8.8 8.5-10.1 MG/DL Magnesium Level 1.6 L 1.8-2.4 MG/DL Total Bilirubin 0.4 0.1-1.0 MG/DL Aspartate Amino Transf (AST/SGOT) 49 H 5-34 U/L Alanine Aminotransferase (ALT/SGPT) 57 H 0-55 U/L Alkaline Phosphatase 63 40-136 U/L C-Reactive Protein High Sensitivity 1.01 H 0.00-0.50 MG/DL Total Protein 7.5 6.4-8.2 GM/DL Albumin 4.2 3.2-4.5 GM/DL Lipase 33 8-78 U/L Urine Color YELLOW Urine Clarity CLEAR Urine pH 5 5-9 Urine Specific [place] 1.020 1.016-1.022 Urine Protein 1+ H NEGATIVE Urine Glucose (UA) NEGATIVE NEGATIVE Urine Ketones NEGATIVE NEGATIVE Urine Nitrite NEGATIVE NEGATIVE Urine Bilirubin NEGATIVE NEGATIVE Urine Urobilinogen NORMAL NORMAL MG/DL Urine Leukocyte Esterase 1+ H NEGATIVE Urine RBC (Auto) 1+ H NEGATIVE Urine RBC 2-5 H /HPF Urine WBC RARE /HPF Urine Squamous Epithelial Cells 10-25 H /HPF Urine Crystals NONE /LPF Urine Bacteria FEW H /HPF Urine Casts NONE /LPF Urine Mucus SMALL H /LPF Urine Culture Indicated NO My Orders Orders - SANTOSH NG Ct Abdomen/Pelvis W (10/29/17 19:13) Saline Lock/Iv-Start (10/29/17 19:13) Cbc With Automated Diff (10/29/17 19:13) Comprehensive Metabolic Panel (10/29/17 19:13) Hs C Reactive Protein (10/29/17 19:13) Lipase (10/29/17 19:13) Magnesium (4/18/18 19:13) Ua Culture If Indicated (10/29/17 19:13) Ns Iv 1000 Ml (Sodium Chloride 0.9%) (10/29/17 19:13) Ondansetron Injection (Zofran Injectio (10/29/17 19:15) Fentanyl Injection (Sublimaze Injection (10/29/17 19:15) Iohexol Injection (Omnipaque 350 Mg/Ml 1 (10/29/17 20:00) Ns (Ivpb) (Sodium Chloride 0.9%) (10/29/17 20:00) Medications Given in ED Current Medications Medications Dose Ordered Sig/Elmer Route Start Time Stop Time Status Last Admin Dose Admin Iohexol 100 ml ONCE ONCE IV 10/29/17 20:00 10/29/17 20:01 DC 10/29/17 19:52 100 ML Sodium Chloride 80 ml ONCE ONCE IV 10/29/17 20:00 10/29/17 20:01 DC 10/29/17 19:52 80 ML Progress Note #1: Time: 19:20 Progress Note Been 5 or 6 hours since her last intakes we'll get a CT scan of her abdomen as an ultrasound is unlikely to penetrate her body habitus to get a good imaging of her gallbladder. Given her obesity, age, symptomology the concern would be for biliary colic/cholecystitis. We'll obtain some labs to see if this supports an infected gallbladder as well as a CT scan. We'll treat her pain with an opiate as NSAIDs would be contraindicated given her blood thinner for unprovoked blood clots in the lungs. We'll treat her nausea with some Zofran. Progress Note #2: Time: 20:12 Progress Note The patient's symptoms have improved greatly with the nausea and pain medicine. Regarding allow her to go out on omeprazole, Zofran and follow up in the clinic with Jia Musa to do a biliary colic workup. Unfortunately we were unable to see whether or stones on the CT scan due to limitations of the imaging. We have discussed at length lifestyle and diet changes that might be beneficial. Other diagnostic possibilities include a viral gastroenteritis and colitis. She is not having any documented fever and not using any fever relievers so a infectious bacterial diarrhea is less likely. Diagonstic Imaging: CT Plain Films/CT/US/NM/MRI: abdomen, pelvis (with contraast) Comments NAME: MEHRAN ERNST [facility] REC#: [id number] PT STATUS: REG ER : 1980 PHYSICIAN: SANTOSH NG MD ADMIT DATE: 10/29/17/ER Draft Date of Exam:10/29/17 CT ABDOMEN/PELVIS W PROCEDURE: CT abdomen and pelvis with contrast. TECHNIQUE: Multiple contiguous axial images were obtained through the abdomen and pelvis after administration of intravenous contrast. INDICATION: Abdominal pain. FINDINGS: The lung bases are clear. Liver appears grossly normal. Gallbladder is present. Spleen is not enlarged. The pancreas is grossly normal. Kidneys and adrenals are normal. The small bowel is not dilated. There is no appreciable intraperitoneal free air or free fluid. IMPRESSION: Extensive ring artifact in the abdomen obscures much of the finer detail. No gross abnormalities are seen. Dictated on workstation # [id number] Dict: 10/29/171956 Trans: 10/29/172001 [id number] Interpreted by: JEFFREY GARCIA MD Electronically signed by: Reviewed: Reviewed by Me Departure Impression Primary Impression: Biliary colic symptom Additional Impression: Gastroenteritis Disposition: HOME, SELF-CARE Condition: Improved Departure-Patient Inst. Decision time for Depature: 20:13 Referrals: [facility] [place] (PCP) Primary Care Physician PATTIE ENAMORADO APRN (Family) Primary Care Physician Patient Instructions: [place] Diet Add. Discharge Instructions: Drink plenty of fluids especially sports drinks like Powerade or Gatorade. Tomorrow morning call the clinic and make an appointment for the next week to workup the possibility of biliary colic. Avoid spicy, greasy, red meat, dairy in your diet. Take the omeprazole 40 mg capsule once a day for the next 4 weeks and also you can use the Zofran every 6 hours as needed for nausea or vomiting. Scripts Omeprazole (Omeprazole) 40 Mg Capsule. 40 MG PO DAILY for 30 Days, #30 CAP 0 Refills Prov: SANTOSH NG 10/29/17 Ondansetron (Ondansetron Odt) 4 Mg Tab.rapdis 4 MG PO Q6H PRN for NAUSEA/VOMITING, #8 TAB 0 Refills Prov: SANTOSH NG 10/29/17 Copy Copies To 1: AILYN SHAFFER DO SANTOSH NG Oct 29, 2017 19:21
[2017-10-29 19:22] LABS: BASOPHILS # (AUTO) 0.1 10^3/uL (0.0-0.1); BASOPHILS % (AUTO) 1 % (0-10); EOSINOPHILS # (AUTO) 0.3 10^3/uL (0.0-0.3); EOSINOPHILS % (AUTO) 2 % (0-10); HEMATOCRIT 42 % (35-52); LYMPHOCYTES # (AUTO) 4.1 X 10^3 (1.0-4.0); LYMPHOCYTES % (AUTO) 31 % (12-44); MEAN CORPUSCULAR HEMOGLOBIN 31 PG (25-34); MEAN CORPUSCULAR HGB CONC 33 G/DL (32-36); MEAN CORPUSCULAR VOLUME 94 FL (80-99); MEAN PLATELET VOLUME 9.7 FL (7.4-10.4); MONOCYTES # (AUTO) 0.9 X 10^3 (0.0-1.0); MONOCYTES % (AUTO) 7 % (0-12); NEUTROPHILS # (AUTO) 7.7 X 10^3 (1.8-7.8); NEUTROPHILS % (AUTO) 59 % (42-75); PLATELET COUNT 350 10^3/uL (130-400); RED BLOOD COUNT 4.48 10^6/uL (4.35-5.85); RED CELL DISTRIBUTION WIDTH 13.9 % (10.0-14.5)
[2017-10-29 19:31] LABS: BILIRUBIN,URINE NEGATIVE (NEGATIVE); CLARITY,URINE CLEAR; COLOR,URINE YELLOW; GLUCOSE, URINE (UA) NEGATIVE (NEGATIVE); KETONES,URINE NEGATIVE (NEGATIVE); LEUKOCYTE ESTERASE ,URINE 1+ (NEGATIVE); NITRITE,URINE NEGATIVE (NEGATIVE); PH,URINE 5 (5-9); PROTEIN,URINE 1+ (NEGATIVE); UROBILINOGEN,URINE NORMAL (NORMAL)
[2017-10-29 19:41] LABS: BACTERIA,URINE FEW /HPF; WBC,URINE RARE /HPF
[2017-10-29 19:47] LABS: ALANINE AMINOTRANSFERASE 57 U/L (0-55); ALBUMIN 4.2 GM/DL (3.2-4.5); ALKALINE PHOSPHATASE 63 U/L (40-136); BILIRUBIN,TOTAL 0.4 MG/DL (0.1-1.0); BUN/CREATININE RATIO 17; CALCIUM 8.8 MG/DL (8.5-10.1); CARBON DIOXIDE 28 MMOL/L (21-32); CHLORIDE 105 MMOL/L (98-107); CREATININE SERUM 0.77 MG/DL (0.60-1.30); GFR ESTIMATED > 60; GLUCOSE 94 MG/DL (70-105); LIPASE 33 U/L (8-78); MAGNESIUM 1.6 MG/DL (1.8-2.4); POTASSIUM 4.4 MMOL/L (3.6-5.0); SODIUM 142 MMOL/L (135-145); TOTAL PROTEIN 7.5 GM/DL (6.4-8.2)
[2017-10-29] MEDS ORDERED: IOHEXOL 350 MG/ML 100 ML (OMNIPAQUE 350) VIAL IV ONE (20:00)
[2017-10-29] MEDS ORDERED: NS 250 ML (IVPB) BAG IV ONE (20:00)
--- NOTE | 2017-10-29 20:03 | Diagnostic Imaging Report ---
PROCEDURE: CT abdomen and pelvis with contrast. TECHNIQUE: Multiple contiguous axial images were obtained through the abdomen and pelvis after administration of intravenous contrast. INDICATION: Abdominal pain. FINDINGS: The lung bases are clear. Liver appears grossly normal. Gallbladder is present. Spleen is not enlarged. The pancreas is grossly normal. Kidneys and adrenals are normal. The small bowel is not dilated. There is no appreciable intraperitoneal free air or free fluid. IMPRESSION: Extensive ring artifact in the abdomen obscures much of the finer detail. No gross abnormalities are seen. Dictated by: Dictated on workstation # [id number]
[2017-10-29] MEDS ORDERED: OMEP40CA36 PO (20:17)
[2017-10-29] MEDS ORDERED: ONDA4TAB11 PO (20:17)
[2017-10-29 20:25] VITALS: BP 148/70
[2017-10-29] MEDS ORDERED: MAGNESIUM OXIDE (MAG-OX)400 MG TAB PO ONE (20:30)
[2017-12-31] MEDS ORDERED: LEVO125T6 PO (10:25)
[2017-12-31] MEDS ORDERED: OMEP40CA36 PO (11:19)
[2017-12-31] MEDS ORDERED: VENL75CA93 PO (15:28)
[2017-12-31] MEDS ORDERED: METO-387 PO (15:28)
[2017-12-31] MEDS ORDERED: ATOR10TA66 PO (15:28)
[2017-12-31] MEDS ORDERED: LEVO175T5 PO (15:28)
== END 2017-10-29 20:24 | disposition home or self-care (01) ==
LOC: EDUNIT# 18:40 → ER 18:42
DX: K80.50 Calculus of bile duct without cholangitis or cholecystitis without obstruction (principal); K52.9 Noninfective gastroenteritis and colitis, unspecified; E78.00 Pure hypercholesterolemia, unspecified; I10 Essential (primary) hypertension; E11.9 Type 2 diabetes mellitus without complications; F41.9 Anxiety disorder, unspecified; F32.9 Major depressive disorder, single episode, unspecified; K21.9 Gastro-esophageal reflux disease without esophagitis; E66.01 Morbid (severe) obesity due to excess calories; E89.0 Postprocedural hypothyroidism; Z98.51 Tubal ligation status; Z86.711 Personal history of pulmonary embolism; Z87.891 Personal history of nicotine dependence; Z90.710 Acquired absence of both cervix and uterus; Z79.84 Long term (current) use of oral hypoglycemic drugs; Z79.01 Long term (current) use of anticoagulants; Z68.42 Body mass index [BMI] 45.0-49.9, adult
CPT/HCPCS: 36415; 74177; 80053; 81000; 83690; 83735; 85025; 86141; 96361; 96374; 96375

== ENCOUNTER 2018-02-22 22:57 | Emergency (ER) | payer SELFPAY ==
[~2018-02-22] VITALS: Ht 167.6 cm; Wt 181.4 kg
[~2018-02-22 22:57] MED LIST changes: +LEVO125T6 PO; +LEVO175T5 PO; +OMEP40CA36 PO; +ONDA4TAB11 PO
[2018-02-22 23:37] LABS: BASOPHILS # (AUTO) 0.1 10^3/uL (0.0-0.1); BASOPHILS % (AUTO) 1 % (0-10); EOSINOPHILS # (AUTO) 0.2 10^3/uL (0.0-0.3); EOSINOPHILS % (AUTO) 2 % (0-10); HEMATOCRIT 42 % (35-52); HEMOGLOBIN 13.5 G/DL (11.5-16.0); LYMPHOCYTES # (AUTO) 3.2 X 10^3 (1.0-4.0); LYMPHOCYTES % (AUTO) 37 % (12-44); MEAN CORPUSCULAR HEMOGLOBIN 31 PG (25-34); MEAN CORPUSCULAR HGB CONC 32 G/DL (32-36); MEAN CORPUSCULAR VOLUME 95 FL (80-99); MEAN PLATELET VOLUME 9.7 FL (7.4-10.4); MONOCYTES # (AUTO) 0.6 X 10^3 (0.0-1.0); MONOCYTES % (AUTO) 7 % (0-12); NEUTROPHILS # (AUTO) 4.6 X 10^3 (1.8-7.8); NEUTROPHILS % (AUTO) 53 % (42-75); PLATELET COUNT 367 10^3/uL (130-400); RED CELL DISTRIBUTION WIDTH 14.7 % (10.0-14.5); WHITE BLOOD COUNT 8.7 10^3/uL (4.3-11.0)
[2018-02-22 23:56] LABS: ALANINE AMINOTRANSFERASE 82 U/L (0-55); ALBUMIN 3.9 GM/DL (3.2-4.5); ALKALINE PHOSPHATASE 67 U/L (40-136); BILIRUBIN,TOTAL 0.3 MG/DL (0.1-1.0); BUN/CREATININE RATIO 17; CALCIUM 8.2 MG/DL (8.5-10.1); CARBON DIOXIDE 23 MMOL/L (21-32); CHLORIDE 108 MMOL/L (98-107); CREATININE SERUM 0.69 MG/DL (0.60-1.30); GFR ESTIMATED > 60; GLUCOSE 113 MG/DL (70-105); POTASSIUM 3.9 MMOL/L (3.6-5.0); SODIUM 141 MMOL/L (135-145); TOTAL PROTEIN 7.1 GM/DL (6.4-8.2)
[2018-02-23 00:18] LABS: FREE T4 (FREE THYROXINE) 0.88 NG/DL (0.70-1.48)
[2018-02-23] MEDS ORDERED: IOHEXOL 350 MG/ML 150 ML (OMNIPAQUE 350) VIAL IV ONE (00:30)
--- NOTE | 2018-02-23 01:43 | ED General ---
General Chief Complaint: Lower Extremity Stated Complaint: LEGS SWOLLEN AND PAINFUL,SOB Nursing Triage Note: PATIENT STATES THAT SHE HAS BEEN HAVING SWELLING IN HER LEGS BILATERALLY FOR A COUPLE WEEKS BUT HER RIGHT LEG IS WORSE TODAY AND VERY PAINFUL. SHE SAYS THE PAIN IS CONCENTRATED IN HER CALF MOSTLY. SHE ALSO COMPLAINS OF A DRY COUGH AND SOB STARTING TODAY. Nursing Sepsis Screen: No Definite Risk Source of Information: Patient, Old Records Exam Limitations: No Limitations History of Present Illness Date Seen by Provider: Feb 22, 2018 Time Seen by Provider: 23:00 Initial Comments This 37 year old woman presents to the ER with concerns about chest pain with inspiration and swelling in the LE's bilaterally, right greater than left. Her right lower leg and foot are also painful and tender. This has been worsening for a few day. She was experiencing dyspnea this morning. She has a history of PE and finished 5 months of anticoagulation. She is not presently anticoagulated. Review of old records reveals no significant cardiac disease documented from cardiac angiography and echo. Patient has also experienced some blurry vision over the past week. Patient is morbidly obese at about 400 lbs and has been gaining wt. Allergies and Home Medications Allergies Coded Allergies: No Known Drug Allergies (Unverified , 06/01/10) Home Medications Atorvastatin Calcium 10 Mg Tablet, 10 MG PO HS Prescribed by: GISSEL JIANG on 12/31/17 1528 Ergocalciferol (Vitamin D2) 50,000 Unit Capsule, 500,000 UNITS Mo, (Reported) UNKNOWN LAST FILL DATE Hydrochlorothiazide 25 Mg Tablet, 25 MG PO DAILY, (Reported) Hydrocodone Bit/Acetaminophen 1 Each Tablet, 1 TAB PO TID, (Reported) Ibuprofen 200 Mg Tablet, 800 MG PO BID PRN for PAIN-MILD, (Reported) TAKES 4 (200MG) TABLETS Levothyroxine Sodium 175 Mcg Tablet, 175 MCG PO DAILY Prescribed by: GISSEL JIANG on 12/31/17 1528 Lisinopril 20 Mg Tablet, 20 MG PO HS, (Reported) Metformin HCl 500 Mg Tab.er.24h, 1,000 MG PO DAILY, (Reported) LAST FILLED #60 08-04-17 TAKES 2 (500MG) TABLETS Metoprolol Succinate 25 Mg Tab.er.24h, 25 MG PO HS Prescribed by: GISSEL JIANG on 12/31/17 1528 Omeprazole 40 Mg Capsule.dr, 40 MG PO DAILY PRN for HEARTBURN, (Reported) Venlafaxine HCl 75 Mg Cap.er.24h, 75 MG PO HS Prescribed by: GISSEL JIANG on 12/31/17 1528 Patient Home Medication List Home Medication List Reviewed: Yes Review of Systems Constitutional: see HPI EENTM: see HPI Respiratory: see HPI Cardiovascular: see HPI Gastrointestinal: no symptoms reported Genitourinary: no symptoms reported : No Musculoskeletal: see HPI Skin: no symptoms reported Psychiatric/Neurological: No Symptoms Reported Hematologic/Lymphatic: No Symptoms Reported Immunological/Allergic: no symptoms reported Past Ihanhya-Wdiqgi-Earkyc Hx Past Med/Social Hx: Reviewed Nursing Past Med/Soc Hx Patient Social History Alcohol Use: Denies Use Number of Drinks Today: AA Alcohol Beverage of Choice: Beer Recreational Drug Use: No Smoking Status: Former Smoker Type Used: Cigarettes Former Smoker, Quit: Sep 11, 2010 2nd Hand Smoke Exposure: No Recent Foreign Travel: No Contact w/Someone Who Travel: No Recent Infectious Disease Expo: No Recent Hopitalizations: Yes (PE's) Physical Abuse: No Sexual Abuse: No Immunizations Up To Date Tetanus Booster (TDap): Unknown PED Vaccines UTD: No Date of Influenza Vaccine: Jul 04, 2017 Seasonal Allergies Seasonal Allergies: No Past Medical History Surgeries: Yes (HEART CATH NEGATIVE/NORMAL IN 2012-NO INTERVENTION) Hysterectomy, Thyroidectomy, Tubal Ligation Respiratory: Yes Pulmonary Embolism Cardiac: Yes (PALPITATIONS RELATED TO THYROID DISEASE) High Cholesterol, Hypertension, Palpitations Neurological: Yes Headaches /Migraines Reproductive Disorders: Yes Female 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 Sexually Transmitted Disease: No HIV/AIDS: No Genitourinary: No Gastrointestinal: Yes (CHRONIC ABDOMINAL AND PELVIC PAIN ) Gastroesophageal Reflux Musculoskeletal: Yes Chronic Back Pain Endocrine: Yes (MORBID OBESITY) Hypothyroidsim HEENT: Yes Loss of Vision: Bilateral Hearing Impairment: Denies Cancer: No Psychosocial: Yes Anxiety, Depression Nursing Suicide Risk Score: 0 Integumentary: No Blood Disorders: No Adverse Reaction/Blood Tranf: No Family Medical History Diabetes mellitus 19 MOTHER Hypertension 19 MOTHER Seizure disorder G8 BROTHER G8 SISTER Diabetes, Hypertension, Seizures Physical Exam Vital Signs Vital Signs - First Documented 02/22/18 23:11 Temp 99.3 Pulse 74 Resp 20 B/P (MAP) 190/93 (125) Pulse Ox 99 Capillary Refill : Less Than 3 Seconds Height, Weight, BMI Height: 5'6.00" Weight: 400lbs. 0oz. 181.727745dw; 66.0 BMI Method:Stated General Appearance: No Apparent Distress, WD/WN, Obese HEENT: PERRL/EOMI, Normal ENT Inspection Neck: Normal Inspection Respiratory: Chest Non Tender, Lungs Clear, Normal Breath Sounds, No Accessory Muscle Use, No Respiratory Distress Cardiovascular: Regular Rate, Rhythm, No Murmur, Normal Peripheral Pulses, Other (Edema of the LE bilaterally, R>L) Gastrointestinal: Non Tender, Soft Extremity: Normal Capillary Refill, Swelling (R>L, tender right calf with positive Janeen. No TTP or Janeen on the left. 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 Norm as Tested Skin: Normal Color, Warm/Dry Progress/Results/Core Measures Suspected Sepsis Recent Fever Within 48 Hours: No Infection Criteria Present: Suspected New Infection New/Unexplained Altered Menta: No Sepsis Screen: No Definite Risk SIRS Temperature:99.3 Pulse: 74 Respiratory Rate: 20 Laboratory Tests 02/22/18 23:25: White Blood Count 8.7 Blood Pressure 190 /93 Mean: 125 Laboratory Tests 02/22/18 23:25: Creatinine 0.69, Platelet Count 367, Total Bilirubin 0.3 Results/Orders Lab Results Laboratory Tests Test 02/22/18 23:25 Range/Units White Blood Count 8.7 4.3-11.0 10^3/uL Red Blood Count 4.40 4.35-5.85 10^6/uL Hemoglobin 13.5 11.5-16.0 G/DL Hematocrit 42 35-52 % Mean Corpuscular Volume 95 80-99 FL Mean Corpuscular Hemoglobin 31 25-34 PG Mean Corpuscular Hemoglobin Concent 32 32-36 G/DL Red Cell Distribution Width 14.7 H 10.0-14.5 % Platelet Count 367 130-400 10^3/uL Mean Platelet Volume 9.7 7.4-10.4 FL Neutrophils (%) (Auto) 53 42-75 % Lymphocytes (%) (Auto) 37 12-44 % Monocytes (%) (Auto) 7 0-12 % Eosinophils (%) (Auto) 2 0-10 % Basophils (%) (Auto) 1 0-10 % Neutrophils # (Auto) 4.6 1.8-7.8 X 10^3 Lymphocytes # (Auto) 3.2 1.0-4.0 X 10^3 Monocytes # (Auto) 0.6 0.0-1.0 X 10^3 Eosinophils # (Auto) 0.2 0.0-0.3 10^3/uL Basophils # (Auto) 0.1 0.0-0.1 10^3/uL D-Dimer 0.91 H 0.00-0.49 UG/ML Sodium Level 141 135-145 MMOL/L Potassium Level 3.9 3.6-5.0 MMOL/L Chloride Level 108 H 98-107 MMOL/L Carbon Dioxide Level 23 21-32 MMOL/L Anion Gap 10 5-14 MMOL/L Blood Urea Nitrogen 12 7-18 MG/DL Creatinine 0.69 0.60-1.30 MG/DL Estimat Glomerular Filtration Rate > 60 BUN/Creatinine Ratio 17 Glucose Level 113 H 70-105 MG/DL Calcium Level 8.2 L 8.5-10.1 MG/DL Corrected Calcium 8.3 L 8.5-10.1 MG/DL Total Bilirubin 0.3 0.1-1.0 MG/DL Aspartate Amino Transf (AST/SGOT) 74 H 5-34 U/L Alanine Aminotransferase (ALT/SGPT) 82 H 0-55 U/L Alkaline Phosphatase 67 40-136 U/L Troponin I < 0.30 <0.30 NG/ML B-Type Natriuretic Peptide 61.7 <100.0 PG/ML Total Protein 7.1 6.4-8.2 GM/DL Albumin 3.9 3.2-4.5 GM/DL Thyroid Stimulating Hormone (TSH) 17.89 H 0.35-4.94 UIU/ML Free Thyroxine 0.88 0.70-1.48 NG/DL My Orders Orders - ESTEFANY DOWNEY MD BNP (02/22/18 23:14) Cbc With Automated Diff (02/22/18 23:14) Comprehensive Metabolic Panel (02/22/18 23:14) Fibrin Degradation Products (02/22/18 23:14) Thyroid Stimulating Hormone (02/22/18 23:14) Troponin I (02/22/18 23:14) Saline Lock/Iv-Start (02/22/18 23:14) Ekg Tracing (02/22/18 23:14) Monitor-Rhythm Ecg Trace Only (02/22/18 23:14) Free T4 (Free Thyroxine) (02/22/18 23:14) Chest Pa/Lat (2 View) (02/22/18 23:16) Ct Angio Chest W (02/23/18 00:05) Iohexol Injection (Omnipaque 350 Mg/Ml 1 (02/23/18 00:30) Us Venous Lower Ext Rt (02/23/18 00:56) Ketorolac Injection (Toradol Injection) (02/23/18 01:45) Medications Given in ED Vital Signs/I&O Capillary Refill : Less Than 3 Seconds Blood Pressure Mean: 125 Progress Note : Progress Note Patient had an elevated D-dimer. Remainder of labs were unremarkable. CTA of the chest was obtained and was negative for PE. This was followed by RLE US which was also negative. Pain was treated with Toradol and follow-up with PCP was recommended. ECG Initial ECG Impression Date: Feb 23, 2018 Initial ECG Impression Time: 23:39 Initial ECG Rate: 63 Initial ECG Rhythm: Normal Sinus Initial ECG Impression: Normal Comment Normal sinus rhythm with no ST elevation or depression. No abnormal intervals or axis deviation. Diagnostic Imaging Diagonstic Imaging: Xray Plain Films/CT/US/NM/MRI: chest Comments Chest x-ray viewed by me. Report not yet available. No acute abnormalities appreciated. Diagonstic Imaging: CT Plain Films/CT/US/NM/MRI: chest Comments CT angiogram viewed by me and [employer] report reviewed. No pulmonary emboli were found. Diagonstic Imaging: Ultrasound Plain Films/CT/US/NM/MRI: leg Comments Ultrasound of the right lower extremity discussed with the robot technician and [employer] report reviewed. No DVT present. Departure Impression Primary Impression: Atypical chest pain Additional Impressions: Edema of right lower extremity Right leg pain Disposition: HOME, SELF-CARE Condition: Improved Departure-Patient Inst. Decision time for Depature: 01:35 Referrals: [facility][1[facility] (PCP) Primary Care Physician PATTIE ENAMORADO APRN (Family) Primary Care Physician Patient Instructions: Chest Pain That Is Not Caused by the Heart (DC) Add. Discharge Instructions: Follow-up with your primary care provider soon as possible. Avoid prolonged periods of time on your feet or sitting with your feet down. Elevate your feet when at rest. You may take ibuprofen up to 600 mg every 6 hours as needed and or Tylenol ( acetaminophen) up to 1000 mg every 6 hours as needed for additional pain relief. Return to care if you have worsening symptoms. Continue to work with your doctor on weight management. Continue with medications as previously directed by your doctor. All discharge instructions reviewed with patient and/or family. Voiced understanding. Copy Copies To 1: AILYN SHAFFER JOSHUA T MD Feb 23, 2018 01:43
[2018-02-23] MEDS ORDERED: KETOROLAC 30 MG/ML VIAL IVP ONE (01:45)
[2018-02-23 01:54] VITALS: BP 190/93
--- NOTE | 2018-02-23 06:08 | Diagnostic Imaging Report ---
EXAMINATION: CHEST (PA AND LATERAL) CLINICAL INDICATION: 37-year-old female, shortness of breath. COMPARISON: December 31, 2017. FINDINGS: Heart size and mediastinal contours are unremarkable. There is no identified pneumothorax. There is no pleural effusion. There is no identified focal airspace consolidation. IMPRESSION: No identified acute cardiopulmonary abnormality. Dictated by: Dictated on workstation # [id number]
--- NOTE | 2018-02-23 06:26 | Diagnostic Imaging Report ---
PROCEDURE: US right lower extremity venous. TECHNIQUE: Multiple real-time grayscale images were obtained over the right lower extremity in various projections. Additional duplex Doppler and color Doppler images were also obtained. DATE: February 23, 2018. INDICATION: 37-year-old female, right leg swelling and pain. History of pulmonary embolus. COMPARISON: December 31, 2017. FINDINGS: The right common femoral vein, right superficial femoral vein, and popliteal vein are all compressible with normal flow and response to augmentation. The visualized portions of the deep femoral vein are patent. The posterior tibial and peroneal veins are patent. IMPRESSION: 1. Negative for right lower extremity deep venous thrombosis. Dictated by: Dictated on workstation # [id number]
--- NOTE | 2018-02-23 07:31 | Diagnostic Imaging Report ---
PROCEDURE: CT angiography of the chest with contrast. TECHNIQUE: Multiple contiguous axial images were obtained through the chest after uneventful bolus administration of intravenous contrast. Reconstructed CTA MIP acquisitions were also performed. DATE: February 23, 2018. COMPARISON: VQ scan December 31, 2017. Chest radiograph December 31, 2017. CT chest December 31, 2017. INDICATION: 37-year-old female, shortness of breath. FINDINGS: There is no identified pulmonary nodule or lung mass. There is no focal airspace consolidation. There is no pneumothorax or pleural effusion. The central airways are patent. There is no identified central or segmental pulmonary embolus. There is limited evaluation for subsegmental pulmonary embolus given timing of the contrast bolus. The main pulmonary artery is normal in caliber given degree of motion artifact. The heart is not enlarged. There is no pericardial effusion. There is no identified abnormally enlarged mediastinal, hilar, or axillary lymph node. There is detector ring artifact present. Limited evaluation of the visualized portions of the upper abdomen is unremarkable. There are degenerative changes of the spine. There is no identified acute bony abnormality. IMPRESSION: CT CHEST. 1. No identified pulmonary embolus or other acute cardiopulmonary abnormality. Dictated by: Dictated on workstation # [id number]
== END 2018-02-23 01:54 | disposition home or self-care (01) ==
LOC: EDUNIT# 22:57 → ER 22:59
DX: R07.89 Other chest pain (principal); R60.0 Localized edema; M79.661 Pain in right lower leg; E66.01 Morbid (severe) obesity due to excess calories; E78.00 Pure hypercholesterolemia, unspecified; I10 Essential (primary) hypertension; G43.909 Migraine, unspecified, not intractable, without status migrainosus; E03.9 Hypothyroidism, unspecified; F41.9 Anxiety disorder, unspecified; F32.9 Major depressive disorder, single episode, unspecified; Z90.710 Acquired absence of both cervix and uterus; Z98.51 Tubal ligation status; Z90.89 Acquired absence of other organs; Z87.891 Personal history of nicotine dependence; Z86.711 Personal history of pulmonary embolism; Z79.01 Long term (current) use of anticoagulants; Z79.84 Long term (current) use of oral hypoglycemic drugs
CPT/HCPCS: 36415; 71046; 71275; 80053; 83880; 84439; 84443; 84484; 85025; 85379; 93005; 93041

== ENCOUNTER 2018-04-02 00:20 | Emergency (ER) | payer SELFPAY ==
[~2018-04-02] VITALS: Ht 167.6 cm; Wt 178.3 kg
[~2018-04-02 00:20] MED LIST changes: +METF-397 PO; -METF500T5 PO
[2018-04-02] MEDS ORDERED: ASPIRIN 81 MG CHEW (CHILDREN'S ASA) PO ONE (01:15)
[2018-04-02 01:22] LABS: BASOPHILS # (AUTO) 0.1 10^3/uL (0.0-0.1); BASOPHILS % (AUTO) 1 % (0-10); EOSINOPHILS # (AUTO) 0.2 10^3/uL (0.0-0.3); EOSINOPHILS % (AUTO) 2 % (0-10); HEMATOCRIT 41 % (35-52); HEMOGLOBIN 14.3 G/DL (11.5-16.0); LYMPHOCYTES # (AUTO) 3.2 X 10^3 (1.0-4.0); LYMPHOCYTES % (AUTO) 41 % (12-44); MEAN CORPUSCULAR HEMOGLOBIN 33 PG (25-34); MEAN CORPUSCULAR HGB CONC 35 G/DL (32-36); MEAN CORPUSCULAR VOLUME 92 FL (80-99); MEAN PLATELET VOLUME 9.9 FL (7.4-10.4); MONOCYTES # (AUTO) 0.6 X 10^3 (0.0-1.0); MONOCYTES % (AUTO) 8 % (0-12); NEUTROPHILS # (AUTO) 3.8 X 10^3 (1.8-7.8); NEUTROPHILS % (AUTO) 49 % (42-75); PLATELET COUNT 293 10^3/uL (130-400); RED CELL DISTRIBUTION WIDTH 13.7 % (10.0-14.5); WHITE BLOOD COUNT 7.8 10^3/uL (4.3-11.0)
[2018-04-02 01:33] LABS: INR 1.1 (0.8-1.4); PROTHROMBIN TIME PATIENT 14.2 SEC (12.2-14.7)
[2018-04-02 01:41] LABS: ALANINE AMINOTRANSFERASE 63 U/L (0-55); ALBUMIN 4.2 GM/DL (3.2-4.5); ALKALINE PHOSPHATASE 63 U/L (40-136); BILIRUBIN,TOTAL 0.6 MG/DL (0.1-1.0); BUN/CREATININE RATIO 20; CALCIUM 9.1 MG/DL (8.5-10.1); CARBON DIOXIDE 23 MMOL/L (21-32); CHLORIDE 107 MMOL/L (98-107); CREATININE SERUM 0.71 MG/DL (0.60-1.30); GFR ESTIMATED > 60; GLUCOSE 105 MG/DL (70-105); MAGNESIUM 1.8 MG/DL (1.8-2.4); POTASSIUM 3.2 MMOL/L (3.6-5.0); SODIUM 143 MMOL/L (135-145); TOTAL PROTEIN 7.4 GM/DL (6.4-8.2)
[2018-04-02 01:48] LABS: MYOGLOBIN SERUM 27.3 NG/ML (10.0-92.0)
[2018-04-02] MEDS ORDERED: NS 250 ML (IVPB) BAG IV ONE (02:45)
[2018-04-02] MEDS ORDERED: IOHEXOL 350 MG/ML 150 ML (OMNIPAQUE 350) VIAL IV ONE (02:45)
[2018-04-02] MEDS ORDERED: CATHETER FLUSH 10 ML SYR IV PRN (02:45)
[2018-04-02] MEDS ORDERED: NS IV 1000 ML 1,000 ML IV ONE (02:51)
--- NOTE | 2018-04-02 02:51 | ED Chest Pain ---
General Chief Complaint: Chest Pain Stated Complaint: CHEST PRESSURE,SOB Nursing Triage Note: Pt presents to ED with c/o chest and upper back pressure. Pt states lab work from 3 weeks ago showed a suspected blood clot, but no clot was able to be located. Pt c/o fingers on L hand tingling. Nursing Sepsis Screen: No Definite Risk Source: patient Exam Limitations: no limitations History of Present Illness Date Seen by Provider: Apr 02, 2018 Time Seen by Provider: 01:03 Initial Comments Here with report of chest and upper back pressure and shortness of breath especially with any activity. States that she is short of breath with than 10 steps when walking. This is not typical for her. This is been going on for the last week. 3 months ago she had workup for PE that was negative with similar presentation. Denies leg pain. She has lost 21 pounds after being placed on phentermine. Denies other concerns. Timing/Duration: 1 week, getting worse, intermittent Severity/Quality: moderate, pressure Location: central Radiation: back Activities at Onset: activity Prior CP/Workup: cardiac cath, pulmonary embolism Modifying Factors: worse with exercise; improves with rest ASA po ASSOCIATE SOFTWARE APPLICATION ENGINEER: No NTG SL ASSOCIATE SOFTWARE APPLICATION ENGINEER: No Associated Symptoms: No abdominal pain; back pain, shortness of breath, weakness Allergies and Home Medications Allergies Coded Allergies: No Known Drug Allergies (Unverified , 06/01/10) Home Medications Atorvastatin Calcium 10 Mg Tablet, 10 MG PO HS Prescribed by: GISSEL JIANG on 12/31/17 1528 Ergocalciferol (Vitamin D2) 50,000 Unit Capsule, 500,000 UNITS Mo, (Reported) UNKNOWN LAST FILL DATE Hydrochlorothiazide 25 Mg Tablet, 25 MG PO DAILY, (Reported) Hydrocodone Bit/Acetaminophen 1 Each Tablet, 1 TAB PO TID, (Reported) Ibuprofen 200 Mg Tablet, 800 MG PO BID PRN for PAIN-MILD, (Reported) TAKES 4 (200MG) TABLETS Levothyroxine Sodium 175 Mcg Tablet, 175 MCG PO DAILY Prescribed by: GISSEL JIANG on 12/31/17 1528 Lisinopril 20 Mg Tablet, 20 MG PO HS, (Reported) Metformin HCl 500 Mg Tab.er.24h, 1,000 MG PO DAILY, (Reported) LAST FILLED #60 08-04-17 TAKES 2 (500MG) TABLETS Metoprolol Succinate 25 Mg Tab.er.24h, 25 MG PO HS Prescribed by: GISSEL JIANG on 12/31/17 1528 Omeprazole 40 Mg Capsule.dr, 40 MG PO DAILY PRN for HEARTBURN, (Reported) Venlafaxine HCl 75 Mg Cap.er.24h, 75 MG PO HS Prescribed by: GISSEL JIANG on 12/31/17 1528 Patient Home Medication List Home Medication List Reviewed: Yes Review of Systems Review of Systems Constitutional: see HPI; No chills, No fever; weakness EENTM: No Symptoms Reported Respiratory: See HPI, SOA With Exertion; Denies Wheezing Cardiovascular: Chest Pain, Lightheadedness, Palpitations Gastrointestinal: No Symptoms Reported Genitourinary: No Symptoms Reported Musculoskeletal: no symptoms reported All Other Systems Reviewed Negative Unless Noted: Yes Past Aprdoqk-Gkjmwo-Kuvhcs Hx Past Med/Social Hx: Reviewed Nursing Past Med/Soc Hx Patient Social History Alcohol Use: Denies Use Number of Drinks Today: AA Alcohol Beverage of Choice: Beer Recreational Drug Use: No Smoking Status: Former Smoker Type Used: Cigarettes Former Smoker, Quit: Sep 11, 2010 2nd Hand Smoke Exposure: No Recent Foreign Travel: No Contact w/Someone Who Travel: No Recent Infectious Disease Expo: No Recent Hopitalizations: Yes (PE's) Physical Abuse: No Sexual Abuse: No Immunizations Up To Date Tetanus Booster (TDap): Unknown PED Vaccines UTD: No Date of Influenza Vaccine: Jul 04, 2017 Seasonal Allergies Seasonal Allergies: No Past Medical History Surgeries: Yes (HEART CATH NEGATIVE/NORMAL IN 2012-NO INTERVENTION) Hysterectomy, Thyroidectomy, Tubal Ligation Respiratory: Yes Pulmonary Embolism Cardiac: Yes (PALPITATIONS RELATED TO THYROID DISEASE) High Cholesterol, Hypertension, Palpitations Neurological: Yes Headaches /Migraines Reproductive Disorders: Yes Female Reproductive Disorders: Menstrual Problems 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 Sexually Transmitted Disease: No HIV/AIDS: No Genitourinary: No Gastrointestinal: Yes (CHRONIC ABDOMINAL AND PELVIC PAIN ) Gastroesophageal Reflux Musculoskeletal: Yes Chronic Back Pain Endocrine: Yes (MORBID OBESITY) Hypothyroidsim HEENT: Yes Loss of Vision: Bilateral Hearing Impairment: Denies Cancer: No Psychosocial: Yes Anxiety, Depression Integumentary: No Blood Disorders: No Adverse Reaction/Blood Tranf: No Family Medical History Reviewed Nursing Family Hx Diabetes mellitus 19 MOTHER Hypertension 19 MOTHER Seizure disorder G8 BROTHER G8 SISTER Diabetes, Hypertension, Seizures Physical Exam Vital Signs Vital Signs - First Documented 04/02/18 00:31 Temp 99.1 Pulse 80 Resp 22 B/P (MAP) 143/88 (106) Pulse Ox 91 O2 Delivery Room Air Capillary Refill : Less Than 3 Seconds Height, Weight, BMI Height: 5'6.00" Weight: 393lbs. 0oz. 178.326690sp; 66.0 BMI Method:Stated General Appearance: No Apparent Distress, WD/WN HEENT: PERRL/EOMI, Pharynx Normal Neck: Non Tender, Supple Respiratory: Lungs Clear, Normal Breath Sounds Cardiovascular: Regular Rate, Rhythm, No Murmur Gastrointestinal: Non Tender, Soft Extremity: Normal Inspection, Normal Range of Motion, Non Tender Neurologic/Psychiatric: Alert, Oriented x3 Skin: Normal Color, Warm/Dry Progress/Results/Core Measures Results/Orders Lab Results Laboratory Tests Test 04/02/18 00:57 Range/Units White Blood Count 7.8 4.3-11.0 10^3/uL Red Blood Count 4.40 4.35-5.85 10^6/uL Hemoglobin 14.3 11.5-16.0 G/DL Hematocrit 41 35-52 % Mean Corpuscular Volume 92 80-99 FL Mean Corpuscular Hemoglobin 33 25-34 PG Mean Corpuscular Hemoglobin Concent 35 32-36 G/DL Red Cell Distribution Width 13.7 10.0-14.5 % Platelet Count 293 130-400 10^3/uL Mean Platelet Volume 9.9 7.4-10.4 FL Neutrophils (%) (Auto) 49 42-75 % Lymphocytes (%) (Auto) 41 12-44 % Monocytes (%) (Auto) 8 0-12 % Eosinophils (%) (Auto) 2 0-10 % Basophils (%) (Auto) 1 0-10 % Neutrophils # (Auto) 3.8 1.8-7.8 X 10^3 Lymphocytes # (Auto) 3.2 1.0-4.0 X 10^3 Monocytes # (Auto) 0.6 0.0-1.0 X 10^3 Eosinophils # (Auto) 0.2 0.0-0.3 10^3/uL Basophils # (Auto) 0.1 0.0-0.1 10^3/uL Prothrombin Time 14.2 12.2-14.7 SEC INR Comment 1.1 0.8-1.4 Activated Partial Thromboplast Time 27 24-35 SEC D-Dimer 2.52 H 0.00-0.49 UG/ML Sodium Level 143 135-145 MMOL/L Potassium Level 3.2 L 3.6-5.0 MMOL/L Chloride Level 107 98-107 MMOL/L Carbon Dioxide Level 23 21-32 MMOL/L Anion Gap 13 5-14 MMOL/L Blood Urea Nitrogen 14 7-18 MG/DL Creatinine 0.71 0.60-1.30 MG/DL Estimat Glomerular Filtration Rate > 60 BUN/Creatinine Ratio 20 Glucose Level 105 70-105 MG/DL Calcium Level 9.1 8.5-10.1 MG/DL Corrected Calcium 8.9 8.5-10.1 MG/DL Magnesium Level 1.8 1.8-2.4 MG/DL Total Bilirubin 0.6 0.1-1.0 MG/DL Aspartate Amino Transf (AST/SGOT) 60 H 5-34 U/L Alanine Aminotransferase (ALT/SGPT) 63 H 0-55 U/L Alkaline Phosphatase 63 40-136 U/L Myoglobin 27.3 10.0-92.0 NG/ML Troponin I < 0.30 <0.30 NG/ML Total Protein 7.4 6.4-8.2 GM/DL Albumin 4.2 3.2-4.5 GM/DL My Orders Orders - JEFFREY NUNN MD Cbc With Automated Diff (04/02/18 01:03) Magnesium (04/02/18 01:03) Chest 1 View, Ap/Pa Only (04/02/18 01:03) Ekg Tracing (04/02/18 01:03) Cardiac Profile 1 (04/02/18 01:03) Comprehensive Metabolic Panel (04/02/18 01:03) Myoglobin Serum (04/02/18 01:03) Protime With Inr (04/02/18 01:03) Partial Thromboplastin Time (04/02/18 01:03) O2 (04/02/18 01:03) Monitor-Rhythm Ecg Trace Only (04/02/18 01:03) Lipid Panel (04/03/18 06:00) Aspirin Chewable Tablet (Baby Aspirin Ch (04/02/18 01:15) Saline Lock/Iv-Start (04/02/18 01:03) Fibrin Degradation Products (04/02/18 01:03) Ct Angio Chest W (04/02/18 02:09) Iohexol Injection (Omnipaque 350 Mg/Ml 1 (04/02/18 02:45) Ns (Ivpb) (Sodium Chloride 0.9%) (04/02/18 02:45) Sodium Chloride Flush (Catheter Flush Sy (04/02/18 02:45) Pharmacy Communication (Pharmacy Communi (04/02/18 02:42) Saline Lock/Iv-Start (04/02/18 02:51) Ns Iv 1000 Ml (Sodium Chloride 0.9%) (04/02/18 02:51) Apixaban Tablet (Eliquis Tablet) (04/02/18 03:15) Hydrocodone/Apap 7.5/325 Tab (Lortab 7. (04/02/18 03:07) Medications Given in ED Current Medications Medications Dose Ordered Sig/Elmer Route Start Time Stop Time Status Last Admin Dose Admin Apixaban 10 mg ONCE ONCE PO 04/02/18 03:15 04/02/18 03:16 DC 04/02/18 03:12 10 MG Aspirin 324 mg ONCE ONCE PO 04/02/18 01:15 04/02/18 01:16 DC 04/02/18 01:11 324 MG Iohexol 150 ml ONCE ONCE IV 04/02/18 02:45 04/02/18 02:46 DC 04/02/18 02:41 125 ML Sodium Chloride 10 ml NEEDED PRN IV 04/02/18 02:45 04/02/18 02:44 10 ML Sodium Chloride 250 ml ONCE ONCE IV 04/02/18 02:45 04/02/18 02:46 DC 04/02/18 02:41 80 ML Sodium Chloride 1,000 ml @ 0 mls/hr Q0M ONCE IV 04/02/18 02:51 04/02/18 02:52 DC 04/02/18 02:58 1,000 MLS/HR Vital Signs/I&O 04/02/18 04/02/18 00:31 00:31 Temp 99.1 Pulse 80 Resp 22 B/P (MAP) 143/88 (106) Pulse Ox 91 O2 Delivery Room Air Room Air Blood Pressure Mean: 106 Progress Progress Note : Progress Note Seen and evaluated. IV, labs, EKG and chest x-ray ordered. ASA 324 mg by mouth ordered. Monitor patient. D-dimer grossly elevated. CT angiogram of the chest ordered. Monitor patient. 0257: CT read complete. Limited study due to poor contrast timing. Radiology does not report pulmonary embolism in the central structures and does not evaluate more distal structures. On reviewing the CT scan, it does appear that there is bilateral pulmonary embolism in more distal segments. This is a limited study. Clinically patient has elevated d-dimer and shortness of breath with what appears to be pulmonary embolism and I believe treatment is indicated. I did discuss the case with Dr. Jeffery, [facility]. She agrees. We will initiate Eliquis therapy. 10 mg by mouth dose given now and she will arrange for continuation of treatment at the clinic. This was discussed with the patient who agrees and is appreciative. Patient also complaining of headache and hydrocodone tablet given for that. Patient will get 1 L of normal saline after CT contrast study. Discharged home after with return precautions. Patient verbalize understanding instructions and agreement with plan. Departure Impression Primary Impression: Pulmonary embolism Qualified Codes: I26.99 - Other pulmonary embolism without acute cor pulmonale Disposition: HOME, SELF-CARE Condition: Stable Departure-Patient Inst. Decision time for Depature: 03:30 Referrals: [facility] (PCP) Primary Care Physician PATTIE ENAMORADO APRN (Family) Primary Care Physician Patient Instructions: Pulmonary Embolism (Blood Clot in the Lungs) (DC) Add. Discharge Instructions: All discharge instructions reviewed with patient and/or family. Voiced understanding. You have been started on the medicine here in the emergency department for the pulmonary embolism that is suspected in your lungs. You need to go to the clinic this morning to get the medications to continue treatment of this. It is very important that he get these medicines. Return for worse pain, fever, vomiting, weakness, breathing problems or other concerns as needed. Copy Copies To 1: AILYN JEFFERY TIMOTHY D MD Apr 02, 2018 02:51
[2018-04-02] MEDS ORDERED: HYDROcodone/APAP 7.5 MG/325 MG (LORTAB, LORCET PLUS) TABLET PO STA (03:07)
[2018-04-02] MEDS ORDERED: APIXABAN 5 MG (ELIQUIS) TABLET PO ONE (03:15)
[2018-04-02 04:39] VITALS: BP 135/84
--- NOTE | 2018-04-02 06:10 | Diagnostic Imaging Report ---
PROCEDURE: CT angiography of the chest with contrast. TECHNIQUE: Multiple contiguous axial images were obtained through the chest after uneventful bolus administration of intravenous contrast. 2D reconstructed CTA MIP acquisitions were also performed. INDICATION: Chest pressure and elevated d-dimer in diabetic, obese patient. Examination is limited due to patient body habitus and suboptimal contrast bolus timing. Comparison is made to study of 02/23/2018. FINDINGS: There is suggestion of possible filling defect within lingular and lower lobe pulmonary arterial branches with possible filling defects also seen in the right middle and lower lobe distributions. Thoracic aorta is unremarkable. There is no evidence of right heart strain. The lungs are clear. There is no significant pleural or pericardial effusion. IMPRESSION: Limited CTA of the thorax reveals probable bilateral pulmonary emboli, although these are suboptimally visualized. Clinical correlation is recommended. No other definite acute abnormality or significant change is seen. Dictated by: Dictated on workstation # [id number]
--- NOTE | 2018-04-02 07:57 | Diagnostic Imaging Report ---
INDICATION: Chest pressure. Portable upright AP view of the chest is obtained with comparison made study of 02/23/2018. FINDINGS: Heart size and pulmonary vascularity are within normal limits, and the lungs are clear, bilaterally. IMPRESSION: Unremarkable chest. Dictated by: Dictated on workstation # [id number]
== END 2018-04-02 04:45 | disposition home or self-care (01) ==
LOC: EDUNIT# 00:20 → ER 00:22
DX: I26.99 Other pulmonary embolism without acute cor pulmonale (principal); R07.89 Other chest pain; E78.00 Pure hypercholesterolemia, unspecified; I10 Essential (primary) hypertension; G43.909 Migraine, unspecified, not intractable, without status migrainosus; K21.9 Gastro-esophageal reflux disease without esophagitis; E03.9 Hypothyroidism, unspecified; E66.01 Morbid (severe) obesity due to excess calories; F41.9 Anxiety disorder, unspecified; F32.9 Major depressive disorder, single episode, unspecified; E11.9 Type 2 diabetes mellitus without complications; Z79.84 Long term (current) use of oral hypoglycemic drugs; Z87.891 Personal history of nicotine dependence; Z98.51 Tubal ligation status; Z82.49 Family history of ischemic heart disease and other diseases of the circulatory system; Z68.44 Body mass index [BMI] 60.0-69.9, adult; Z90.710 Acquired absence of both cervix and uterus
CPT/HCPCS: 36415; 71045; 71275; 80053; 83735; 83874; 84484; 85025; 85379; 85610; 85730; 93005; 93041; 96360

== ENCOUNTER 2018-04-07 17:54 | Emergency (ER) | payer SELFPAY ==
[~2018-04-07] VITALS: Ht 167.6 cm; Wt 178.3 kg
[2018-04-07 18:47] LABS: BASOPHILS # (AUTO) 0.1 10^3/uL (0.0-0.1); BASOPHILS % (AUTO) 1 % (0-10); EOSINOPHILS # (AUTO) 0.2 10^3/uL (0.0-0.3); EOSINOPHILS % (AUTO) 3 % (0-10); HEMATOCRIT 45 % (35-52); HEMOGLOBIN 15.3 G/DL (11.5-16.0); LYMPHOCYTES % (AUTO) 41 % (12-44); MEAN CORPUSCULAR HEMOGLOBIN 32 PG (25-34); MEAN CORPUSCULAR HGB CONC 34 G/DL (32-36); MEAN CORPUSCULAR VOLUME 93 FL (80-99); MEAN PLATELET VOLUME 10.2 FL (7.4-10.4); MONOCYTES # (AUTO) 0.6 X 10^3 (0.0-1.0); MONOCYTES % (AUTO) 8 % (0-12); NEUTROPHILS # (AUTO) 3.5 X 10^3 (1.8-7.8); NEUTROPHILS % (AUTO) 47 % (42-75); PLATELET COUNT 374 10^3/uL (130-400); RED BLOOD COUNT 4.83 10^6/uL (4.35-5.85); RED CELL DISTRIBUTION WIDTH 13.9 % (10.0-14.5); WHITE BLOOD COUNT 7.4 10^3/uL (4.3-11.0)
[2018-04-07 18:55] LABS: PROTHROMBIN TIME PATIENT 13.2 SEC (12.2-14.7)
[2018-04-07 18:59] LABS: ALANINE AMINOTRANSFERASE 74 U/L (0-55); ALBUMIN 4.1 GM/DL (3.2-4.5); ALKALINE PHOSPHATASE 62 U/L (40-136); AMYLASE 41 U/L (25-125); BILIRUBIN,TOTAL 0.6 MG/DL (0.1-1.0); BUN/CREATININE RATIO 20; CALCIUM 9.2 MG/DL (8.5-10.1); CARBON DIOXIDE 27 MMOL/L (21-32); CHLORIDE 105 MMOL/L (98-107); CREATININE SERUM 0.69 MG/DL (0.60-1.30); GFR ESTIMATED > 60; GLUCOSE 133 MG/DL (70-105); LIPASE 28 U/L (8-78); MAGNESIUM 1.8 MG/DL (1.8-2.4); POTASSIUM 3.9 MMOL/L (3.6-5.0); SODIUM 140 MMOL/L (135-145); TOTAL PROTEIN 7.7 GM/DL (6.4-8.2)
[2018-04-07 19:05] LABS: MYOGLOBIN SERUM 17.6 NG/ML (10.0-92.0)
--- NOTE | 2018-04-07 19:13 | Diagnostic Imaging Report ---
INDICATION: Shortness of air and chest pain as well as blurred vision. Time of exam: 7:01 PM Correlation is made to prior study of 04/02/2018. Heart size is stable. The lungs remain clear. The pulmonary vascularity is normal. No effusion or pneumothorax is seen. IMPRESSION: No acute cardiopulmonary process is identified. Dictated by: Dictated on workstation # [id number]
[2018-04-07] MEDS ORDERED: KETOROLAC 30 MG/ML VIAL ONE (19:56)
--- NOTE | 2018-04-07 20:06 | ED Chest Pain ---
General Chief Complaint: Chest Pain Stated Complaint: SOA,CP Nursing Triage Note: PT AMB TO DC W/O DIFFICULTY. A&OX4. CO SOA, MEDIAL CHEST RADIATING TO UPPER BACK, BLURRED VISION, AND COLD CHILLS THAT BEGAN 04/04/18. PT REPORTS SHE WAS SEEN IN THIS ED WITH DIAGNOSIS OF PULMONARY EMBOLISM ON 04/01/18 AND PRESCRIBED ELIQUIS. REPORTS HAS BEEN TAKING ELIQUIS PRESCRIBED AT 0400 & 1600 DAILY. REPORTS SHE HAS NOT MISSED ANY DOSES. PT REPORTS SINCE 04/04/18 SHE HAS FELT EPITOME OF DOOM AND HAS "BEEN TELLING CHILDREN GOODBYE IN CASE I NEVER SEE THEM AGAIN." PT STATES "I FEEL LIKE I COULD ." REPORTS CHEST PAIN IS NOW RADIATING TO HER UPPER BACK AND DOWN LT ARM AND STATES "SHE DIDNT HAVE THIS CHEST PAIN WHEN I WAS HERE LAST WEEK." Nursing Sepsis Screen: No Definite Risk Source: patient Exam Limitations: no limitations History of Present Illness Date Seen by Provider: Apr 07, 2018 Time Seen by Provider: 18:30 Initial Comments Patient is a 37-year-old female who presents to the emergency room with c/o shortness of breath, right sided chest pain that radiates to her back, cold chills that began on 04/04/18. She reports that on 03/31/18 she had a diagnosis of a PE in this ER and was placed on eliquis and has been taking as prescribed. She was sent out to the emergency room for continued chest pain today. She reports that she has had increased anxiety and feelings of increased panic like she can not catch her breath. Timing/Duration: changing over time, 6-7 days Severity/Quality: pressure Location: substernal Radiation: arms Activities at Onset: emotional stress ASA po NURSE PRACTITIONER PHYSICIANS ASSISTANT: No NTG SL NURSE PRACTITIONER PHYSICIANS ASSISTANT: No Associated Symptoms: shortness of breath Allergies and Home Medications Allergies Coded Allergies: No Known Drug Allergies (Unverified , 06/01/10) Home Medications Atorvastatin Calcium 10 Mg Tablet, 10 MG PO HS Prescribed by: GISSEL JIANG on 12/31/17 1528 Ergocalciferol (Vitamin D2) 50,000 Unit Capsule, 500,000 UNITS Mo, (Reported) UNKNOWN LAST FILL DATE Hydrochlorothiazide 25 Mg Tablet, 25 MG PO DAILY, (Reported) Hydrocodone Bit/Acetaminophen 1 Each Tablet, 1 TAB PO TID, (Reported) Ibuprofen 200 Mg Tablet, 800 MG PO BID PRN for PAIN-MILD, (Reported) TAKES 4 (200MG) TABLETS Levothyroxine Sodium 175 Mcg Tablet, 175 MCG PO DAILY Prescribed by: GISSEL JIANG on 12/31/17 1528 Lisinopril 20 Mg Tablet, 20 MG PO HS, (Reported) Metformin HCl 500 Mg Tab.er.24h, 1,000 MG PO DAILY, (Reported) LAST FILLED #60 08-04-17 TAKES 2 (500MG) TABLETS Metoprolol Succinate 25 Mg Tab.er.24h, 25 MG PO HS Prescribed by: GISSEL JIANG on 12/31/17 1528 Omeprazole 40 Mg Capsule.dr, 40 MG PO DAILY PRN for HEARTBURN, (Reported) Venlafaxine HCl 75 Mg Cap.er.24h, 75 MG PO HS Prescribed by: GISSEL JIANG on 12/31/17 1528 Patient Home Medication List Home Medication List Reviewed: Yes Review of Systems Review of Systems Constitutional: see HPI, chills; No fever Respiratory: See HPI, Shortness of Air Cardiovascular: See HPI, Chest Pain Psychiatric/Neurological: See HPI, Anxiety All Other Systems Reviewed Negative Unless Noted: Yes Past Cxadjql-Zcwkse-Ogywms Hx Past Med/Social Hx: Reviewed Nursing Past Med/Soc Hx Patient Social History Alcohol Use: Rarely Uses Number of Drinks Today: AA Alcohol Beverage of Choice: Beer Recreational Drug Use: No Smoking Status: Former Smoker Type Used: Cigarettes Former Smoker, Quit: Sep 11, 2010 2nd Hand Smoke Exposure: No Recent Foreign Travel: No Contact w/Someone Who Travel: No Recent Infectious Disease Expo: No Recent Hopitalizations: Yes (PE's) Immunizations Up To Date Tetanus Booster (TDap): Unknown PED Vaccines UTD: No Date of Influenza Vaccine: Jul 04, 2017 Seasonal Allergies Seasonal Allergies: No Past Medical History Surgeries: Yes (HEART CATH NEGATIVE/NORMAL IN 2012-NO INTERVENTION) Hysterectomy, Thyroidectomy, Tubal Ligation Respiratory: Yes Pulmonary Embolism Cardiac: Yes (PALPITATIONS RELATED TO THYROID DISEASE) High Cholesterol, Hypertension, Palpitations Neurological: Yes Headaches /Migraines Reproductive Disorders: Yes Female Reproductive Disorders: Menstrual 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 Sexually Transmitted Disease: No HIV/AIDS: No Genitourinary: No Gastrointestinal: Yes (CHRONIC ABDOMINAL AND PELVIC PAIN ) Gastroesophageal Reflux Musculoskeletal: Yes Chronic Back Pain Endocrine: Yes (MORBID OBESITY) Hypothyroidsim HEENT: Yes Loss of Vision: Bilateral Hearing Impairment: Denies Cancer: No Psychosocial: Yes Anxiety, Depression Integumentary: No Blood Disorders: No Adverse Reaction/Blood Tranf: No Family Medical History Reviewed Nursing Family Hx Diabetes mellitus 19 MOTHER Hypertension 19 MOTHER Seizure disorder G8 BROTHER G8 SISTER Diabetes, Hypertension, Seizures Physical Exam Vital Signs Capillary Refill : Less Than 3 Seconds Height, Weight, BMI Height: 5'6.00" Weight: 393lbs. 0oz. 178.547175hx; 66.0 BMI Method:Stated General Appearance: No Apparent Distress, WD/WN, Anxious, Obese HEENT: PERRL/EOMI, TMs Normal, Normal ENT Inspection, Pharynx Normal Neck: Full Range of Motion, Normal Inspection, Non Tender, Supple Respiratory: Chest Non Tender, Lungs Clear, Normal Breath Sounds, No Accessory Muscle Use, No Respiratory Distress Cardiovascular: Regular Rate, Rhythm, No Edema, No Gallop, No JVD, No Murmur, Normal Peripheral Pulses Gastrointestinal: Normal Bowel Sounds, No Organomegaly, No Pulsatile Mass, Non Tender Extremity: Normal Capillary Refill, Normal Inspection, Normal Range of Motion, Non Tender, No Calf Tenderness, No Pedal Edema Neurologic/Psychiatric: Alert, Oriented x3, Normal Mood/Affect Skin: Normal Color, Warm/Dry Progress/Results/Core Measures Results/Orders Lab Results Laboratory Tests Test 04/07/18 18:20 Range/Units White Blood Count 7.4 4.3-11.0 10^3/uL Red Blood Count 4.83 4.35-5.85 10^6/uL Hemoglobin 15.3 11.5-16.0 G/DL Hematocrit 45 35-52 % Mean Corpuscular Volume 93 80-99 FL Mean Corpuscular Hemoglobin 32 25-34 PG Mean Corpuscular Hemoglobin Concent 34 32-36 G/DL Red Cell Distribution Width 13.9 10.0-14.5 % Platelet Count 374 130-400 10^3/uL Mean Platelet Volume 10.2 7.4-10.4 FL Neutrophils (%) (Auto) 47 42-75 % Lymphocytes (%) (Auto) 41 12-44 % Monocytes (%) (Auto) 8 0-12 % Eosinophils (%) (Auto) 3 0-10 % Basophils (%) (Auto) 1 0-10 % Neutrophils # (Auto) 3.5 1.8-7.8 X 10^3 Lymphocytes # (Auto) 3.0 1.0-4.0 X 10^3 Monocytes # (Auto) 0.6 0.0-1.0 X 10^3 Eosinophils # (Auto) 0.2 0.0-0.3 10^3/uL Basophils # (Auto) 0.1 0.0-0.1 10^3/uL Prothrombin Time 13.2 12.2-14.7 SEC INR Comment 1.0 0.8-1.4 Activated Partial Thromboplast Time 28 24-35 SEC D-Dimer 1.86 H 0.00-0.49 UG/ML Sodium Level 140 135-145 MMOL/L Potassium Level 3.9 3.6-5.0 MMOL/L Chloride Level 105 98-107 MMOL/L Carbon Dioxide Level 27 21-32 MMOL/L Anion Gap 8 5-14 MMOL/L Blood Urea Nitrogen 14 7-18 MG/DL Creatinine 0.69 0.60-1.30 MG/DL Estimat Glomerular Filtration Rate > 60 BUN/Creatinine Ratio 20 Glucose Level 133 H 70-105 MG/DL Calcium Level 9.2 8.5-10.1 MG/DL Corrected Calcium 9.1 8.5-10.1 MG/DL Magnesium Level 1.8 1.8-2.4 MG/DL Total Bilirubin 0.6 0.1-1.0 MG/DL Aspartate Amino Transf (AST/SGOT) 79 H 5-34 U/L Alanine Aminotransferase (ALT/SGPT) 74 H 0-55 U/L Alkaline Phosphatase 62 40-136 U/L Myoglobin 17.6 10.0-92.0 NG/ML Troponin I < 0.30 <0.30 NG/ML Total Protein 7.7 6.4-8.2 GM/DL Albumin 4.1 3.2-4.5 GM/DL Amylase Level 41 25-125 U/L Lipase 28 8-78 U/L My Orders Orders - MADIE HAWK Cbc With Automated Diff (04/07/18 18:40) Magnesium (04/07/18 18:40) Chest 1 View, Ap/Pa Only (04/07/18 18:40) Ekg Tracing (04/07/18 18:40) Cardiac Profile 1 (04/07/18 18:40) Comprehensive Metabolic Panel (04/07/18 18:40) Myoglobin Serum (04/07/18 18:40) Protime With Inr (04/07/18 18:40) Partial Thromboplastin Time (04/07/18 18:40) O2 (04/07/18 18:40) Monitor-Rhythm Ecg Trace Only (04/07/18 18:40) Saline Lock/Iv-Start (04/07/18 18:40) Lipase (04/07/18 18:40) Amylase (04/07/18 18:40) Fibrin Degradation Products (04/07/18 18:40) Ketorolac Injection (Toradol Injection) (04/07/18 19:56) Iv Push Chip Crusher Operator Ed (04/07/18 ) Medications Given in ED Vital Signs/I&O Blood Pressure Mean: 113 Progress Progress Note : Time: 20:20 Progress Note I have seen and evaluated the patient. She is having a relief of pain at this time. She is currently on Elequis and has had the chest pain for a few days, if cardiac related she should have an elevated troponin or EKG changes and given that this are normal I believe that her pain is from anxiety. The patient is more relaxed after discussing her normal exam finding and laboratory findings. She agrees with plans for discharge and return precautions were given. Case was discussed with Dr. Samuels he agrees with plan of care and evaluation. EKG : EKG Time: 18:31 Rate: 80 Rhythm: Normal Sinus Intervals: Normal ECG Comparisson: Unchanged Diagnostic Imaging Diagonstic Imaging: Xray Plain Films/CT/US/NM/MRI: chest Comments NAME: MEHRAN ERNST MED REC#: [id number] PHYSICIAN: MADIE HAWK CC: JOSSE HAWK STEPHEN D MD Page 1 of 1 RADIOLOGY REPORT VIA [place], [place] CC: MADIE HAWK; ANDREA BERRIOS MD Page 1 of 1 RADIOLOGY REPORT NAME: MEHRAN ERNST MED REC#: [id number] PT STATUS: DEP ER : 1980 PHYSICIAN: MADIE HAWK ADMIT DATE: 09/25/18/ER Signed Date of Exam: 04/07/18 CHEST 1 VIEW, AP/PA ONLY INDICATION: Shortness of air and chest pain as well as blurred vision. Time of exam: 7:01 PM Correlation is made to prior study of 04/02/2018. Heart size is stable. The lungs remain clear. The pulmonary vascularity is normal. No effusion or pneumothorax is seen. IMPRESSION: No acute cardiopulmonary process is identified. Dictated by: Dictated on workstation # [id number] Dict: 04/07/181909 Trans: 04/07/182149 Interpreted by: ANDREA BERRIOS MD Electronically signed by: ANDREA BERRIOS MD 04/07/182149 Departure Impression Primary Impression: Anxiety Additional Impression: Atypical chest pain Disposition: HOME, SELF-CARE Condition: Stable/Unchanged Departure-Patient Inst. Decision time for Depature: 20:23 Referrals: [facility]/MICHAEL (PCP) Primary Care Physician PATTIE ENAMORADO APRN (Family) Primary Care Physician Patient Instructions: Chest Pain (DC) Add. Discharge Instructions: Continue your Eliquis as previously prescribed. Continue all other home medications as prescribed. Follow up with [facility] within 1 week for recheck. Call first thing tomorrow morning for an appointment time. Return back to the emergency room should you have any increased chest pain, shortness of breath, dizziness, or any other concerns as needed. All discharge instructions reviewed with patient and/or family. Voiced understanding. MADIE HAWK Apr 07, 2018 20:06
[2018-04-07 20:55] VITALS: BP 129/94
== END 2018-04-07 20:58 | disposition home or self-care (01) ==
LOC: EDUNIT# 17:54 → ER 17:55
DX: F41.9 Anxiety disorder, unspecified (principal); R07.9 Chest pain, unspecified; E78.00 Pure hypercholesterolemia, unspecified; I10 Essential (primary) hypertension; G43.909 Migraine, unspecified, not intractable, without status migrainosus; K21.9 Gastro-esophageal reflux disease without esophagitis; E66.01 Morbid (severe) obesity due to excess calories; E03.9 Hypothyroidism, unspecified; F32.9 Major depressive disorder, single episode, unspecified; Z68.44 Body mass index [BMI] 60.0-69.9, adult; Z82.49 Family history of ischemic heart disease and other diseases of the circulatory system; Z79.84 Long term (current) use of oral hypoglycemic drugs; Z87.891 Personal history of nicotine dependence; Z90.710 Acquired absence of both cervix and uterus; Z90.89 Acquired absence of other organs; Z98.51 Tubal ligation status; Z86.718 Personal history of other venous thrombosis and embolism
CPT/HCPCS: 36415; 71045; 80053; 82150; 83690; 83735; 83874; 84484; 85025; 85379; 85610; 85730; 93005; 93041; 96374

== ENCOUNTER 2018-07-17 16:02 | Emergency (ER) | payer SELFPAY, OTHER | END 2018-07-17 17:48 | disposition home or self-care (01) | LOC: ER 16:02 ==

== ENCOUNTER → 2018-10-07 | Outpatient (CLI) | payer OTHER ==
--- NOTE | 2018-10-07 18:54 | Diagnostic Imaging Report ---
INDICATION: Multiple left breast lumps. Correlation is made with prior mammogram from 07/26/2016. 2-D and 3-D bilateral diagnostic mammography was performed with Computer-Aided Detection (CAD) system. BB markers were placed at the areas of palpable abnormality in the left breast. FINDINGS: Both breasts are primarily involutional. No dominant mass or malignant-appearing microcalcifications are seen. The axillae are unremarkable. IMPRESSION: No mammographic features suspicious for malignancy are identified. Even so, sonographic interrogation of the areas of palpable abnormality in the left breast is recommended and will be performed today. ACR BI-RADS Category 0: Incomplete. (Needs additional imaging evaluation). Result letter will be mailed to the patient. Note: At least 10% of breast cancer is not imaged by mammography. Dictated by: Dictated on workstation # [id number]
--- NOTE | 2018-10-07 19:05 | Diagnostic Imaging Report ---
INDICATION: Palpable lumps in left breast. Correlation is made with diagnostic mammogram earlier the same day. FINDINGS: Sonographic interrogation of the areas of palpable abnormality in the upper-outer left breast was performed. No sonographic abnormality is seen. No solid or cystic mass is detected. IMPRESSION: No sonographic abnormality is seen. Close clinical and self breast exam is recommended to confirm stability of the areas of palpable abnormality. ACR BI-RADS Category 1: Negative. Dictated by: Dictated on workstation # [id number]
== END ==
LOC: RAD 08:48
PROVIDERS: ATTEND Nurse Practitioner Family
DX: N63.20 Unspecified lump in the left breast, unspecified quadrant (principal)
CPT/HCPCS: 76642; 77066

== ENCOUNTER 2018-11-21 08:27 | Emergency (ER) | payer SELFPAY ==
[~2018-11-21] VITALS: Ht 167.6 cm; Wt 185.1 kg
[2018-11-21] MEDS ORDERED: NS IV 1000 ML 1,000 ML IV SCH (08:45)
[2018-11-21] MEDS ORDERED: cefTRIAXone FOR IV USE 1,000 MG in WATER (STERILE) FOR INJECTION 10 ML IV ONE (08:45)
[2018-11-21] MEDS ORDERED: ONDANSETRON 4 MG/2 ML (SDV) Z0FRAN IVP ONE (08:45)
--- NOTE | 2018-11-21 08:57 | ED Abdominal Pain ---
General Chief Complaint: Abdominal/GI Problems Stated Complaint: ABD PAIN Source of Information: Patient, Other Exam Limitations: No Limitations History of Present Illness Date Seen by Provider: November 21, 2018 Time Seen by Provider: 08:34 Initial Comments The patient presents to ER by private conveyance with chief complaint that she is having some low abdominal pain for the past 3-4 days with diarrhea and nausea vomiting. No fevers or chills. She thought she had a GI bug but it has not gotten any better and today she noticed some bright red blood from rectum. She denies a history of hemorrhoids. She has not ate anything with a lot of red food dye lately. Food seems to make it worse. Her pain is in her bilateral lower abdomen and pelvis. Laparoscopic hysterectomy, tubal ligation. She denies dysuria, vaginal bleeding or discharge. She's never had a colonoscopy before no history of diverticulitis. She has a history of prediabetes, hypertension and she has not had her high blood pressure medicines for a couple days because she ran out but she has a prescription at the pharmacy she just hasn't picked them up. She doesn't have anything at home for nausea but she does take an occasional ibuprofen for her pain. She's had a good appetite and ate a steak potatoes and broccoli yesterday for her birthday and afterwards had a severe bout of pain upwards of 10 out of 10. Allergies and Home Medications Allergies Coded Allergies: No Known Drug Allergies (Unverified , 06/01/10) Home Medications Atorvastatin Calcium 10 Mg Tablet, 10 MG PO HS Prescribed by: GISSEL JIANG on 12/31/17 1528 Ergocalciferol (Vitamin D2) 50,000 Unit Capsule, 500,000 UNITS Mo, (Reported) UNKNOWN LAST FILL DATE Hydrochlorothiazide 25 Mg Tablet, 25 MG PO DAILY, (Reported) Hydrocodone Bit/Acetaminophen 1 Each Tablet, 1 TAB PO TID, (Reported) Ibuprofen 200 Mg Tablet, 800 MG PO BID PRN for PAIN-MILD, (Reported) TAKES 4 (200MG) TABLETS Levothyroxine Sodium 175 Mcg Tablet, 175 MCG PO DAILY Prescribed by: GISSEL JIANG on 12/31/17 1528 Lisinopril 20 Mg Tablet, 20 MG PO HS, (Reported) Metformin HCl 500 Mg Tab.er.24h, 1,000 MG PO DAILY, (Reported) LAST FILLED #60 1-22-18 TAKES 2 (500MG) TABLETS Metoprolol Succinate 25 Mg Tab.er.24h, 25 MG PO HS Prescribed by: GISSEL JIANG on 12/31/17 1528 Omeprazole 40 Mg Capsule.dr, 40 MG PO DAILY PRN for HEARTBURN, (Reported) Venlafaxine HCl 75 Mg Cap.er.24h, 75 MG PO HS Prescribed by: GISSEL JIANG on 12/31/17 1528 Patient Home Medication List Home Medication List Reviewed: Yes Review of Systems Review of Systems Constitutional: No chills, No fever, No malaise EENTM: No Blurred Vision, No Double Vision Respiratory: Denies Cough, Denies Shortness of Air Cardiovascular: Denies Chest Pain, Denies Lightheadedness Gastrointestinal: See HPI; Denies Abdomen Distended; Abdominal Pain; Denies Constipated; Diarrhea, Nausea; Denies Poor Appetite; Rectal Bleeding, Vomiting Genitourinary: Denies Burning, Denies Discharge Musculoskeletal: No back pain, No joint pain Skin: No pruritus, No rash Psychiatric/Neurological: Denies Headache, Denies Numbness Past Dvcebmp-Qkhwog-Flliuf Hx Patient Social History Alcohol Use: Occasionally Uses Alcohol Beverage of Choice: Beer Recreational Drug Use: No Smoking Status: Former Smoker Type Used: Cigarettes Former Smoker, Quit: Sep 11, 2010 2nd Hand Smoke Exposure: No Recent Foreign Travel: No Contact w/Someone Who Travel: No Recent Hopitalizations: Yes (PE's) Immunizations Up To Date Tetanus Booster (TDap): Unknown PED Vaccines UTD: No Date of Influenza Vaccine: Jul 04, 2017 Seasonal Allergies Seasonal Allergies: No Past Medical History Surgeries: Yes (HEART CATH NEGATIVE/NORMAL IN 2012-NO INTERVENTION) Hysterectomy, Thyroidectomy, Tubal Ligation Respiratory: Yes Pulmonary Embolism Cardiac: Yes (PALPITATIONS RELATED TO THYROID DISEASE) High Cholesterol, Hypertension, Palpitations Neurological: Yes Headaches /Migraines Reproductive Disorders: Yes Female Reproductive Disorders: Menstrual Problems [employer] History: Hysterectomy Sexually Transmitted Disease: No HIV/AIDS: No Genitourinary: No Gastrointestinal: Yes (CHRONIC ABDOMINAL AND PELVIC PAIN ) Gastroesophageal Reflux Musculoskeletal: Yes Chronic Back Pain Endocrine: Yes (MORBID OBESITY) Hypothyroidsim HEENT: Yes Loss of Vision: Bilateral Hearing Impairment: Denies Cancer: No Psychosocial: Yes Anxiety, Depression Integumentary: No Blood Disorders: No Adverse Reaction/Blood Tranf: No Family Medical History Diabetes mellitus 19 MOTHER Hypertension 19 MOTHER Seizure disorder G8 BROTHER G8 SISTER Diabetes, Hypertension, Seizures Physical Exam Vital Signs Vital Signs - First Documented 11/21/18 08:35 Temp 97.9 Pulse 101 Resp 18 B/P (MAP) 149/88 (108) Pulse Ox 96 O2 Delivery Room Air Capillary Refill : Height/Weight/BMI Height: 5'6.00" Weight: 384lbs. 0oz. [id number]; 66.0 BMI Method:Stated General Appearance: WD/WN, mild distress HEENT: PERRL/EOMI, pharynx normal Neck: full range of motion, normal inspection Respiratory: lungs clear, no respiratory distress, no accessory muscle use Cardiovascular: normal peripheral pulses, regular rate, rhythm Peripheral Pulses: 2+ Radial Pulses (R), 2+ Radial Pulses (L) Gastrointestinal: normal bowel sounds, soft; No rebound; tenderness ( suprapubic tenderness no tenderness over McBurney's point), other (that if her psoas sign, Rovsing sign or other mesenteric signs) Extremities: normal inspection, normal capillary refill Neurologic/Psychiatric: alert, normal mood/affect, oriented x 3 Skin: normal color, warm/dry Focused Exam Lactate Level 11/21/18 09:24: Lactic Acid Level 1.68 Lactic Acid Level Laboratory Tests Test 11/21/18 09:24 Lactic Acid Level 1.68 MMOL/L (0.50-2.00) Progress/Results/Core Measures Results/Orders Lab Results Laboratory Tests Test 11/21/18 08:57 11/21/18 09:24 Range/Units White Blood Count 11.2 H 4.3-11.0 10^3/uL Red Blood Count 4.48 4.35-5.85 10^6/uL Hemoglobin 13.6 11.5-16.0 G/DL Hematocrit 41 35-52 % Mean Corpuscular Volume 92 80-99 FL Mean Corpuscular Hemoglobin 30 25-34 PG Mean Corpuscular Hemoglobin Concent 33 32-36 G/DL Red Cell Distribution Width 14.0 10.0-14.5 % Platelet Count 296 130-400 10^3/uL Mean Platelet Volume 9.7 7.4-10.4 FL Neutrophils (%) (Auto) 84 H 42-75 % Lymphocytes (%) (Auto) 8 L 12-44 % Monocytes (%) (Auto) 5 0-12 % Eosinophils (%) (Auto) 2 0-10 % Basophils (%) (Auto) 0 0-10 % Neutrophils # (Auto) 9.4 H 1.8-7.8 X 10^3 Lymphocytes # (Auto) 0.9 L 1.0-4.0 X 10^3 Monocytes # (Auto) 0.5 0.0-1.0 X 10^3 Eosinophils # (Auto) 0.3 0.0-0.3 10^3/uL Basophils # (Auto) 0.0 0.0-0.1 10^3/uL Prothrombin Time 14.1 12.2-14.7 SEC INR Comment 1.0 0.8-1.4 Activated Partial Thromboplast Time 30 24-35 SEC Urine Color YELLOW Urine Clarity CLEAR Urine pH 5 5-9 Urine Specific [place] 1.010 L 1.016-1.022 Urine Protein NEGATIVE NEGATIVE Urine Glucose (UA) NEGATIVE NEGATIVE Urine Ketones NEGATIVE NEGATIVE Urine Nitrite NEGATIVE NEGATIVE Urine Bilirubin NEGATIVE NEGATIVE Urine Urobilinogen NORMAL NORMAL MG/DL Urine Leukocyte Esterase NEGATIVE NEGATIVE Urine RBC (Auto) 1+ H NEGATIVE Urine RBC NONE /HPF Urine WBC RARE /HPF Urine Squamous Epithelial Cells 2-5 /HPF Urine Crystals NONE /LPF Urine Bacteria TRACE /HPF Urine Casts NONE /LPF Urine Mucus NEGATIVE /LPF Urine Culture Indicated NO Sodium Level 139 135-145 MMOL/L Potassium Level 3.8 3.6-5.0 MMOL/L Chloride Level 106 98-107 MMOL/L Carbon Dioxide Level 21 21-32 MMOL/L Anion Gap 12 5-14 MMOL/L Blood Urea Nitrogen 17 7-18 MG/DL Creatinine 0.61 0.60-1.30 MG/DL Estimat Glomerular Filtration Rate > 60 BUN/Creatinine Ratio 28 Glucose Level 121 H 70-105 MG/DL Calcium Level 8.7 8.5-10.1 MG/DL Corrected Calcium 8.7 8.5-10.1 MG/DL Total Bilirubin 0.5 0.1-1.0 MG/DL Aspartate Amino Transf (AST/SGOT) 48 H 5-34 U/L Alanine Aminotransferase (ALT/SGPT) 66 H 0-55 U/L Alkaline Phosphatase 68 40-136 U/L Total Protein 7.3 6.4-8.2 GM/DL Albumin 4.0 3.2-4.5 GM/DL Lactic Acid Level 1.68 0.50-2.00 MMOL/L My Orders Orders - SANTOSH NG Ua Culture If Indicated (11/21/18 08:30) Urine Bedside (11/21/18 08:30) Occult Blood Stool (11/21/18 08:45) Ed Iv/Invasive Line Start (11/21/18 08:45) Ns Iv 1000 Ml (Sodium Chloride 0.9%) (11/21/18 08:45) Cbc With Automated Diff (11/21/18 08:45) Comprehensive Metabolic Panel (11/21/18 08:45) Blood Culture (11/21/18 08:45) Urine Culture (11/21/18 08:45) Protime With Inr (11/21/18 08:45) Partial Thromboplastin Time (11/21/18 08:45) Ed Iv/Invasive Line Start (11/21/18 08:45) Vital Signs Adult Sepsis Patie Q15M (11/21/18 08:45) O2 (11/21/18 08:45) Remove Rings In Anticipation O (11/21/18 08:45) Lactic Acid Analyzer (11/21/18 08:45) Ceftriaxone For Iv Use (Rocephin For I (11/21/18 08:45) Ondansetron Injection (Zofran Injectio (11/21/18 08:45) Ketorolac Injection (Toradol Injection) (11/21/18 09:30) Medications Given in ED Current Medications Medications Dose Ordered Sig/Elmer Route Start Time Stop Time Status Last Admin Dose Admin Ceftriaxone Sodium 1000 mg/ Sterile Water 10 ml @ 200 mls/hr ONCE ONCE IV 11/21/18 08:45 11/21/18 08:52 DC 11/21/18 09:35 200 MLS/HR Ketorolac Tromethamine 30 mg ONCE ONCE IVP 11/21/18 09:30 11/21/18 09:31 DC 11/21/18 09:34 30 MG Ondansetron HCl 4 mg ONCE ONCE IVP 11/21/18 08:45 11/21/18 08:52 DC 11/21/18 09:10 4 MG Vital Signs/I&O 11/21/18 08:35 Temp 97.9 Pulse 101 Resp 18 B/P (MAP) 149/88 (108) Pulse Ox 96 O2 Delivery Room Air Progress Progress Note #1: Time: 08:58 Progress Note Not a acute abdomen but she does have tachycardia which could be from pain and anxiety versus possible infection. We'll initiate a septic workup if she has an elevated white count. We'll start with Rocephin for antibiotic coverage for potential diverticulitis/colitis. We'll get a fecal occult blood, urine and give her a liter fluids. Progress Note #2: Time: 10:02 Progress Note The patient's nausea is gone and her pain is improved significantly on the Toradol. There is no gross hemorrhoids or fissure on rectal exam and orders or any tumors palpated. We are able to get much stool but we'll do a fecal occult blood test. Plan will be to have her follow-up outpatient with surgery if couple days of MiraLAX do not resolve her symptoms. Departure Impression Primary Impression: Bright red blood per rectum Additional Impression: Abdominal pain Qualified Codes: R10.30 - Lower abdominal pain, unspecified Disposition: 01 HOME, SELF-CARE Condition: Improved Departure-Patient Inst. Decision time for Depature: 11:05 Referrals: [facility] [place] Primary Care Physician GIULIA ALARCON APRN (Family) Primary Care Physician GENO METZGER MD Patient Instructions: Acute Abdomen (Belly Pain), Adult (DC) Add. Discharge Instructions: Please return to the ER if you begin to experience intractable abdominal pain or nausea, chest pain or shortness of breath. superintendent pier a bottle of MiraLAX and take one capful in 6 ounces of fluid twice a day for the next 3 or 4 days to try and clean out your bowels. If your symptoms do not improve or you still have blood from the rectum then you can call Dr. Metzger Friday morning and ask for an appointment to discuss outpatient workup. You may also follow-up with your primary care doctor for help with this. Tylenol 1000 mg every 8 hours as needed in addition to ibuprofen 800 mg every 8 hours as needed. You may take an antacid such as Zantac or omeprazole. If you have nausea take Zofran 1 tablet every 6 hours as needed. All discharge instructions reviewed with patient and/or family. Voiced understanding. Scripts Ondansetron (Ondansetron Odt) 4 Mg Tab.rapdis 4 MG PO Q6H PRN for NAUSEA/VOMITING, #8 TAB 0 Refills Prov: SANTOSH NG 11/21/18 Work/School Note: Work Release Form Date Seen in the Emergency Department: November 21, 2018 Return to Work: November 22, 2018 Restrictions: No Restrictions Copy Copies To 1: GENO METZGER MD, TITUS J November 21, 2018 08:57
[2018-11-21 09:13] LABS: BILIRUBIN,URINE NEGATIVE (NEGATIVE); CLARITY,URINE CLEAR; COLOR,URINE YELLOW; GLUCOSE, URINE (UA) NEGATIVE (NEGATIVE); KETONES,URINE NEGATIVE (NEGATIVE); LEUKOCYTE ESTERASE ,URINE NEGATIVE (NEGATIVE); NITRITE,URINE NEGATIVE (NEGATIVE); PH,URINE 5 (5-9); PROTEIN,URINE NEGATIVE (NEGATIVE); UROBILINOGEN,URINE NORMAL (NORMAL)
[2018-11-21 09:15] LABS: BASOPHILS % (AUTO) 0 % (0-10); EOSINOPHILS # (AUTO) 0.3 10^3/uL (0.0-0.3); EOSINOPHILS % (AUTO) 2 % (0-10); HEMATOCRIT 41 % (35-52); HEMOGLOBIN 13.6 G/DL (11.5-16.0); LYMPHOCYTES # (AUTO) 0.9 X 10^3 (1.0-4.0); LYMPHOCYTES % (AUTO) 8 % (12-44); MEAN CORPUSCULAR HEMOGLOBIN 30 PG (25-34); MEAN CORPUSCULAR HGB CONC 33 G/DL (32-36); MEAN CORPUSCULAR VOLUME 92 FL (80-99); MEAN PLATELET VOLUME 9.7 FL (7.4-10.4); MONOCYTES # (AUTO) 0.5 X 10^3 (0.0-1.0); MONOCYTES % (AUTO) 5 % (0-12); NEUTROPHILS # (AUTO) 9.4 X 10^3 (1.8-7.8); NEUTROPHILS % (AUTO) 84 % (42-75); PLATELET COUNT 296 10^3/uL (130-400); WHITE BLOOD COUNT 11.2 10^3/uL (4.3-11.0)
[2018-11-21 09:23] LABS: WBC,URINE RARE /HPF
[2018-11-21 09:24] LABS: BACTERIA,URINE TRACE /HPF
[2018-11-21 09:26] LABS: PROTHROMBIN TIME PATIENT 14.1 SEC (12.2-14.7)
--- NOTE | 2018-11-21 09:26 | NUR ---
2ND BLOOD CULTURE DRAWN BY LAB
[2018-11-21] MEDS ORDERED: KETOROLAC 30 MG/ML VIAL IVP ONE (09:30)
[2018-11-21 09:38] LABS: ALANINE AMINOTRANSFERASE 66 U/L (0-55); ALKALINE PHOSPHATASE 68 U/L (40-136); BILIRUBIN,TOTAL 0.5 MG/DL (0.1-1.0); BUN/CREATININE RATIO 28; CALCIUM 8.7 MG/DL (8.5-10.1); CARBON DIOXIDE 21 MMOL/L (21-32); CHLORIDE 106 MMOL/L (98-107); CREATININE SERUM 0.61 MG/DL (0.60-1.30); GFR ESTIMATED > 60; GLUCOSE 121 MG/DL (70-105); POTASSIUM 3.8 MMOL/L (3.6-5.0); SODIUM 139 MMOL/L (135-145); TOTAL PROTEIN 7.3 GM/DL (6.4-8.2)
[2018-11-21] MEDS ORDERED: ONDA4TAB11 PO (11:09)
[2018-11-21 11:16] VITALS: BP 118/83
== END 2018-11-21 11:21 | disposition home or self-care (01) ==
LOC: EDUNIT# 08:27 → ER 08:28
DX: K62.5 Hemorrhage of anus and rectum (principal); R10.31 Right lower quadrant pain; R10.32 Left lower quadrant pain; I10 Essential (primary) hypertension; E78.00 Pure hypercholesterolemia, unspecified; G43.909 Migraine, unspecified, not intractable, without status migrainosus; K21.9 Gastro-esophageal reflux disease without esophagitis; E03.9 Hypothyroidism, unspecified; E66.01 Morbid (severe) obesity due to excess calories; F41.9 Anxiety disorder, unspecified; F32.9 Major depressive disorder, single episode, unspecified; Z68.44 Body mass index [BMI] 60.0-69.9, adult; Z82.49 Family history of ischemic heart disease and other diseases of the circulatory system; Z90.710 Acquired absence of both cervix and uterus; Z98.51 Tubal ligation status; Z79.84 Long term (current) use of oral hypoglycemic drugs; Z87.891 Personal history of nicotine dependence; Z86.711 Personal history of pulmonary embolism; Z90.89 Acquired absence of other organs
CPT/HCPCS: 80053; 81000; 83605; 85610; 85730; 87040; 87088; 96361; 96374; 96375

== ENCOUNTER → 2018-11-27 | Outpatient (CLI) | payer OTHER ==
[~2018-11-27] MED LIST changes: +LEVO300T5 PO
--- NOTE | 2018-11-27 11:50 | Diagnostic Imaging Report ---
PROCEDURE: US Gallbladder. TECHNIQUE: Multiple real-time grayscale images were obtained over the right upper quadrant in various projections. INDICATION: Right upper quadrant pain. The liver is enlarged at 20.1 cm. There is diffuse increased echogenicity throughout liver consistent with hepatic steatosis. No discrete liver mass is identified. Overall image quality is limited due to patient body habitus. No definite gallstones are seen. There is no wall thickening or biliary ductal dilatation. Pancreas is obscured by bowel gas. Right kidney is without evidence of calculi or hydronephrosis. There is no ascites. IMPRESSION: Limited study. There is hepatomegaly and hepatic steatosis. No other significant abnormality is detected. Dictated by: Dictated on workstation # [id number]
== END ==
LOC: RAD 09:10
PROVIDERS: ATTEND Surgery
DX: K76.0 Fatty (change of) liver, not elsewhere classified (principal)
CPT/HCPCS: 76705

== ENCOUNTER 2018-12-01 09:40 | Outpatient (CLI) | payer OTHER ==
[~2018-12-01] VITALS: Ht 167.6 cm; Wt 185.1 kg
[2018-12-02] MEDS ORDERED: PANT40TA2 PO (11:15)
== END 2018-12-01 09:55 | disposition home or self-care (01) ==
LOC: PREOP 09:40
PROVIDERS: ATTEND Surgery
DX: Z01.818 Encounter for other preprocedural examination (principal)

== ENCOUNTER 2018-12-02 10:29 | Day surgery (SDC) | payer OTHER ==
[~2018-12-02] VITALS: Ht 167.6 cm; Wt 185.1 kg
[2018-12-02] MEDS ORDERED: LACTATED RINGERS 1,000 ML IV STA (10:39)
[2018-12-02] MEDS ORDERED: NS IV 500 ML 500 ML IV PRN (10:39)
[2018-12-02] MEDS ORDERED: LACTATED RINGERS 1,000 ML IV ONE (10:43)
[2018-12-02] MEDS ORDERED: fentaNYL INJECTION 100 MCG/2 ML AMP IVP ONE (10:45)
[2018-12-02] MEDS ORDERED: LIDOCAINE JELLY 2% 6 ML SYRINGE MM PRN (10:45)
[2018-12-02] MEDS ORDERED: HURRICAINE EXT TUBE (BENZOCAINE) XX PRN (10:45)
[2018-12-02] MEDS ORDERED: MIDAZOLAM 2 MG/2 ML (VERSED) VIAL IVP ONE (10:45)
[2018-12-02 10:54] VITALS: BP 126/84
--- NOTE | 2018-12-02 11:13 | Conscious Sedation/ASA ---
Conscious Sedation Pre-Proced Time 11:00 ASA Score 2 For ASA 3 and 4: Consider anesthesia and medical clearance. Also, for patients with a history of failed moderate sedation consider anesthesia. Airway Lungs Heart ASA score ASA 1: a normal healthy patient ASA 2: a patient with a mild systemic disease (mid diabetes, controlled hypertension, obesity ASA 3: a patient with a severe systemic disease that limits activity (angina, COPD, prior Myocardial infarction) ASA 4: a patient with an incapacitating disease that is a constant threat to life (CHF, renal failure) ASA 5: a moribund patient not expected to survive 24 hrs. (ruptured aneurysm) ASA 6: a declared brain- patient whose organs are being harvested. For emergent operations, add the letter E after the classification Mallampati Classification Grade 2 Sedation Plan Analgesia, Amnesia, Plan communicated to team members, Discussed options with patient/fam, Discussed risks with patient/fam The patient is an appropriate candidate to undergo the planned procedure, sedation, and anesthesia. The patient immediately re-assessed prior to indication. GENO OTT MD December 02, 2018 11:13
--- NOTE | 2018-12-02 11:13 | Progress Note-Pre Operative ---
Pre-Operative Progress Note H&P Reviewed The H&P was reviewed, patient examined and no changes noted. Date Seen by Provider: December 02, 2018 Time Seen by Provider: 11:00 Date H&P Reviewed: December 02, 2018 Time H&P Reviewed: 11:00 Pre-Operative Diagnosis: GERD, rectal bleed GENO OTT MD December 02, 2018 11:13
[2018-12-02] MEDS ORDERED: morphine INJ 10 MG/ML 1ML (SYR OR VIAL) IV PRN (11:15)
[2018-12-02] MEDS ORDERED: ACETAMINOPHEN 325 MG TABLET PO PRN (11:15)
[2018-12-02] MEDS ORDERED: HYDROcodone/APAP 5 MG/325 MG (LORTAB) TAB PO PRN (11:15)
[2018-12-02] MEDS ORDERED: PANT40TA2 PO (11:15)
[2018-12-02] MEDS ORDERED: ONDANSETRON 4 MG/2 ML (SDV) Z0FRAN IV PRN (11:15)
--- NOTE | 2018-12-02 11:16 | Discharge Inst-Surgical ---
D/C Lap Instructions-KIDO New, Converted, or Re-Newed RX: RX on Chart Follow Up As previously scheduled Activity as tolerated High Fiber Diet 25g or more per day Avoid Alcohol, Caffeine, Spicy Smyer and Acid foods. Drink 64 fluid oz or more of fluids per day. Symptoms to Report: Fever over 101 degree F, Nausea/Vomiting If any problems/questions: Contact your physician or go to Emergency Room GENO OTT MD December 02, 2018 11:16
[2018-12-02] MEDS ORDERED: PROPOFOL INJECTION 50 ML IV ONE ×2 (12:58→13:29)
[2018-12-02] MEDS ORDERED: MIDAZOLAM 2 MG/2 ML (VERSED) VIAL ONE (12:58)
[2018-12-02] MEDS ORDERED: LIDOCAINE JELLY 2% 6 ML SYRINGE ONE (13:12)
[2018-12-02] MEDS ORDERED: HURRICAINE EXT TUBE (BENZOCAINE) ONE (13:12)
[2018-12-02 14:20] VITALS: BP 108/71
--- NOTE | 2018-12-02 14:27 | Progress Note-Post Operative ---
Post-Operative Progess Note Surgeon (s)/Accounting Manager Assistant Controller (s) Surgeon GENO OTT MD Accounting Manager Assistant Controller: none Pre-Operative Diagnosis GERD, rectal bleed Post-Operative Diagnosis reflusx eosphagitis(stage 2), small HH(1.5cm), moderate gastritis. chronic stage 2 ext and int hemorrhoids. Procedure & Operative Findings Date of Procedure 12/02/18 Procedure Performed/Findings EGD with bx. Colonoscopy. Anesthesia Type MAC Estimated Blood Loss Estimated blood loss (mL): minimal Specimens/Packing Specimens Removed ge jxn, antrum GENO OTT MD December 02, 2018 14:27
[2018-12-02 15:00] VITALS: BP 108/71
[2018-12-02 15:01] VITALS: BP 109/74
--- NOTE | 2018-12-02 22:32 | OPERATIVE REPORT ---
DATE OF SERVICE: 12/02/2018 ATTENDING PRIMARY CARE PHYSICIAN: Leonor Ya APRN. PREOPERATIVE DIAGNOSES: Gastroesophageal reflux disease, rectal bleed. POSTOPERATIVE DIAGNOSES: Reflux esophagitis stage II, small hiatal hernia approximately 1.5 cm in size, moderate severity gastritis. No distal obstructions. Chronic stage II external and internal hemorrhoids. Remainder of the rectum and colon were normal. PROCEDURE: EGD with biopsy, colonoscopy. SURGEON: Geno Ott MD ANESTHESIA: Monitored anesthesia care. ESTIMATED BLOOD LOSS: Minimal. FINDINGS: As above in the postop. DISPOSITION: The patient tolerated the procedure well. INDICATIONS: The patient is a 38-year-old female who we have seen before in the past. She has had issues with morbid obesity after a thyroidectomy in the year 1999 for symptomatic goiter. She has tried multiple diet and exercise attempts for many years with no success. She did present to the Emergency Department with crampy abdominal pain, nausea as well as rectal bleeding. She has also had a history of H. pylori gastritis diagnosed approximately 3 years ago and was treated. She also has had some pain in the epigastric region as well as a right upper abdominal quadrant. She reported that the blood was red and was self-limited. She does report that she does have some mild intermittent issues with constipation. She does not report any family history of colon cancer. DESCRIPTION OF PROCEDURE: The patient was brought to the endoscopy suite, placed in left lateral decubitus position. After adequate IV pain and sedative medications and monitored anesthesia care, the mouthpiece was applied. Endoscope was placed in the mouth, visualizing the pharynx and hypopharyngeal region. Vocal cords, epiglottis and vallecula identified and appeared to be normal. Endoscope was gently intubated in the esophageal opening and esophagus insufflated. Endoscope was then advanced to the first, second and third portion of the esophagus at the level of the GE junction, a reflux esophagitis stage II identified. There were no ulcers or strictures identified in this region. A biopsy was taken with forceps with visualization of good hemostasis. The endoscope was then advanced in the stomach and endoscope retroflexed, visualizing a small hiatal hernia approximately 1.5 cm in size. There was a moderate severity gastritis more towards the stomach antrum with some superficial erosions. There were no formal ulcerations. A biopsy was taken of the antrum with forceps to rule out H. pylori with visualization of good hemostasis. Endoscope was then advanced to the pylorus, first and second portion of duodenum, which appeared normal and no distal obstructions. The endoscope was then slowly withdrawn while taking a second look and suctioning of residual air with no additional findings. The patient tolerated the procedure well. We will recommend conservative management with the necessary lifestyle and diet accommodation including continued weight loss as well as small and more frequent meals, avoidance of eating at night as well as head elevation while lying supine. She also needs to avoid caffeinated beverages, spicy, greasy and acidic foods. We will also start her on Protonix 40 mg daily. Under the same anesthesia, we then proceeded with the colonoscopy portion of the procedure. Mild chronic stage II external and internal hemorrhoids were identified, which were not actively edematous or inflamed and no bleeding. Normal sphincter tone was felt and there were no palpable masses. The endoscope was then intubated to the anus and rectum gently insufflated. The endoscope was then advanced to the valves of [place] of the rectum with no polyps or any neoplasms identified. Through the sigmoid colon, there were no diverticulosis identified. The endoscope was then advanced to the remainder of the descending, transverse and ascending colon to the cecum. These segments were normal. There were no polyps or any neoplasms identified as well as no bleeding sources. The patient tolerated the procedure well. We will recommend a high fiber diet with at least 30 grams of fiber per day as well as significant amounts of water to promote soft stools on a daily basis. She does not have a family history of colon cancer. She is asymptomatic. She may wait 10 years for her next colonoscopy. Job ID: [id number] DocumentID: [id number] Dictated Date: 12/02/2018 14:10:15 Chemical Project Engineer Date: 12/02/2018 22:31:04 Dictated By: GENO OTT MD
== END 2018-12-02 15:00 | disposition home or self-care (01) ==
LOC: ENDO 10:29
PROVIDERS: ATTEND Surgery
DX: K21.0 Gastro-esophageal reflux disease with esophagitis (principal); K44.9 Diaphragmatic hernia without obstruction or gangrene; K29.70 Gastritis, unspecified, without bleeding; K22.70 Barrett's esophagus without dysplasia; K62.5 Hemorrhage of anus and rectum; Z98.84 Bariatric surgery status; I10 Essential (primary) hypertension; E78.5 Hyperlipidemia, unspecified; E11.9 Type 2 diabetes mellitus without complications; G47.33 Obstructive sleep apnea (adult) (pediatric); F32.9 Major depressive disorder, single episode, unspecified; E89.0 Postprocedural hypothyroidism; G43.909 Migraine, unspecified, not intractable, without status migrainosus; M19.91 Primary osteoarthritis, unspecified site; E66.01 Morbid (severe) obesity due to excess calories; Z86.711 Personal history of pulmonary embolism; Z79.899 Other long term (current) drug therapy; Z79.84 Long term (current) use of oral hypoglycemic drugs; Z87.891 Personal history of nicotine dependence; Z68.44 Body mass index [BMI] 60.0-69.9, adult
CPT/HCPCS: 82962

== ENCOUNTER → 2019-06-02 | Outpatient (CLI) | payer SELFPAY ==
[2019-06-02 13:21] LABS: ALANINE AMINOTRANSFERASE 84 U/L (0-55); ALBUMIN 4.1 GM/DL (3.2-4.5); ALKALINE PHOSPHATASE 96 U/L (40-136); BILIRUBIN,TOTAL 0.8 MG/DL (0.1-1.0); BUN/CREATININE RATIO 17; CARBON DIOXIDE 26 MMOL/L (21-32); CHLORIDE 103 MMOL/L (98-107); CREATININE SERUM 0.69 MG/DL (0.60-1.30); GFR ESTIMATED > 60; GLUCOSE 119 MG/DL (70-105); POTASSIUM 3.8 MMOL/L (3.6-5.0); SODIUM 139 MMOL/L (135-145); TOTAL PROTEIN 7.8 GM/DL (6.4-8.2)
--- NOTE | 2019-06-02 13:59 | Diagnostic Imaging Report ---
EXAMINATION: CT Chest with intravenous contrast. TECHNIQUE: Multiple contiguous axial images were obtained through the chest after the uneventful administration of intravenous contrast. All CT scans use one or more of the following dose optimizing techniques: automated exposure control, MA and/or KvP adjustment based on a patient size and exam type, or iterative reconstruction. HISTORY: Chest pain COMPARISON: 04/02/2018 FINDINGS: The lungs are clear without edema or pneumonia. No pleural effusion or pneumothorax. No suspicious nodules. Heart size is normal. No pericardial effusion. Aorta is normal in caliber. There is no axillary or supraclavicular lymphadenopathy. There is no mediastinal lymphadenopathy. Limited views of the upper abdomen are unremarkable. There are no suspicious osseus lesions. IMPRESSION: 1. Clear lungs. Dictated by: Dictated on workstation # [id number]
== END ==
LOC: RAD 12:44
PROVIDERS: ATTEND Nurse Practitioner Family
DX: R06.09 Other forms of dyspnea (principal)
CPT/HCPCS: 36415; 71260; 80053

== ENCOUNTER → 2019-08-31 | Outpatient (CLI) | payer SELFPAY ==
[~2019-08-31] MED LIST changes: -IBUP-2055 PO; +IBUP-2473 PO; +METF500T19 PO; -METF500T8 PO; -METO-387 PO; +MTP25TSR PO; +OMEP40CA27 PO; -OMEP40CA36 PO
--- NOTE | 2019-08-31 10:59 | Diagnostic Imaging Report ---
PROCEDURE: US Hepatic (Liver). TECHNIQUE: Multiple real-time grayscale images were obtained over the right upper quadrant in various projections. INDICATION: Elevated liver enzymes. This study was technically difficult due to the patient's body habitus. The gallbladder ultrasound exam performed on 11/27/2018 noted that the liver was enlarged and that the echogenic appearance of the liver did suggest fatty metamorphosis. There is no focal mass involving the liver however. On this exam, the liver is enlarged measuring approximately 25 cm in length (on the previous exam the liver measured 21 cm in length). There is still no focal mass involving the liver and the biliary tree is not dilated. Spectral color-flow imaging of the portal veins shows the vein is patent and normal and that there is normal directional flow within the vein. There is no evidence for cholelithiasis or acute cholecystitis and the common bile duct is not dilated. The right kidney is unremarkable. The pancreas and aorta were obscured by bowel gas. The inferior vena cava is within normal limits. IMPRESSION: 1. The liver is enlarged and the appearance of the liver does suggest fatty metamorphosis. There is still no focal mass involving the liver. 2. There is no acute abnormality of the right upper quadrant. Dictated by: Dictated on workstation # [id number]
== END ==
LOC: RAD 08:15
PROVIDERS: ATTEND Nurse Practitioner Family
DX: R16.0 Hepatomegaly, not elsewhere classified (principal)
CPT/HCPCS: 76705